=== PATIENT | male | born 1950 | race African-American/Black ===

== ENCOUNTER 2016-02-28 13:52 | Emergency (ER) | payer MEDICARE, OTHER ==
[2016-02-28] MEDS ORDERED: guaiFENesin/DEXTROMETHORPHAN 10 ML UDC PO STA (15:10)
[2016-02-28] MEDS ORDERED: ALBUTEROL NEB 2.5 MG/3 ML INH STA (15:17)
[2016-02-28] MEDS ORDERED: ALBUTEROL NEB 2.5 MG/3 ML INH ONE (15:28)
== END 2016-02-28 16:46 | disposition home or self-care (01) ==
DX: J40 Bronchitis, not specified as acute or chronic (principal); I10 Essential (primary) hypertension; E10.9 Type 1 diabetes mellitus without complications; Z79.4 Long term (current) use of insulin
CPT/HCPCS: 71020; 87275; 87276; 94640; 99283; 99284; A9270; J7613

== ENCOUNTER 2016-03-01 | Emergency (ER) | payer MEDICARE, OTHER | END 2016-03-01 13:53 | disposition home or self-care (01) ==

== ENCOUNTER 2016-03-04 21:49 | Emergency (ER) | payer MEDICARE, OTHER ==
[2016-03-04] MEDS ORDERED: ONDANSETRON 4 MG/2 ML VIAL IVP STA (22:07)
[2016-03-04] MEDS ORDERED: SODIUM CHLORIDE 0.9% 1,000 ML IV ONE (22:07)
[2016-03-04] MEDS ORDERED: IPRATROPIUM/ALBUTEROL 3 ML NEB INH STA (22:22)
[2016-03-04] MEDS ORDERED: IPRATROPIUM/ALBUTEROL 3 ML NEB INH ONE (22:35)
[2016-03-04] MEDS ORDERED: ONDANSETRON 4 MG/2 ML VIAL ONE (23:11)
== END 2016-03-05 01:37 | disposition home or self-care (01) ==
DX: J10.1 Influenza due to other identified influenza virus with other respiratory manifestations (principal); I10 Essential (primary) hypertension; E10.9 Type 1 diabetes mellitus without complications; Z79.4 Long term (current) use of insulin
CPT/HCPCS: 36415; 80053; 83690; 83735; 84100; 85025; 87275; 87276; 94640; 96361; 96374; 99283; 99284; J7620

== ENCOUNTER 2016-07-13 00:39 | Emergency (ER) | payer MEDICARE, OTHER ==
[2016-07-13 00:53] VITALS: BP 174/100
[2016-07-13 03:00] LABS: BASOPHILS % (AUTO) 0.1 %; EOSINOPHILS # (AUTO) 0.1 10^3/uL (0.0-0.7); EOSINOPHILS % (AUTO) 0.6 %; HCT - HEMATOCRIT 42.4 % (42.0-52.0); HGB - HEMOGLOBIN 14.7 g/dL (14.0-18.0); LYMPHOCYTES # (AUTO) 1.5 10^3/uL (1.5-3.5); LYMPHOCYTES % (AUTO) 16.4 %; MEAN CORPUSCULAR HEMOGLOBIN 32.1 pg (27.0-31.0); MEAN CORPUSCULAR HGB CONC 34.7 g/dL (32.0-36.0); MEAN CORPUSCULAR VOLUME 92.3 fL (80.0-94.0); MONOCYTES # (AUTO) 0.6 10^3/uL (0.0-1.0); MONOCYTES % (AUTO) 5.9 %; NEUTROPHILS # (AUTO) 7.2 10^3/uL (1.5-6.6); RED BLOOD COUNT 4.59 10^6/uL (4.70-6.10); RED CELL DISTRIBUTION WIDTH 13.7 % (12.0-15.0); UNCORRECTED WHITE BLOOD COUNT 9.4 x10^3/uL; WHITE BLOOD COUNT 9.4 x10^3/uL (4.8-10.8)
[2016-07-13 03:07] LABS: ALBUMIN/GLOBULIN RATIO 1.3 (1.0-2.2); CALCIUM 9.8 mg/dL (8.5-10.3); CREATININE 1.2 mg/dL (0.6-1.2); POTASSIUM 4.1 mmol/L (3.5-5.0); TOTAL PROTEIN 8.4 g/dL (6.7-8.2)
--- NOTE | 2016-07-13 03:33 | ED Physician Documentation ---
PD HPI ABD PAIN - Stated complaint Stated Complaint: VOMITING,ABDOMINAL PAIN - Chief complaint Chief Complaint: Abd Pain - History obtained from History obtained from: Patient - History of Present Illness Timing - onset: How many days ago (3) Timing - duration: Days Timing - details: Gradual onset, Waxing and waning Quality: Other (burning) Radiation: Chest (midline) Improved by: Other (no ameliorating factors) Worsened by: Other (no exacerbating factors) Associated symptoms: Nausea. No: Fever, Vomiting Similar symptoms before: Diagnosis (similar (albeit more intense) to previous episodes of reflux/GERD) Recently seen: Not recently seen Review of Systems Constitutional: denies: Fever, Chills, Sweats Cardiac: reports: Chest pain / pressure Respiratory: reports: Reviewed and negative GI: reports: Nausea. denies: Abdominal Pain, Vomiting PD PAST MEDICAL HISTORY - Past Medical History Cardiovascular: High cholesterol, Angina, Hypertension Respiratory: None Neuro: None Endocrine/Autoimmune: Type 1 diabetes GI: GERD : Kidney stones, None HEENT: Glaucoma Psych: Post traumatic stress disorder Musculoskeletal: Osteoarthritis Derm: Psoriasis - Past Surgical History Past Surgical History: Yes General: Colonoscopy, EGD Ortho: Arthroscopic surgery Cardiovascular: Angioplasty HEENT: Cataracts - Present Medications Home Medications: Ambulatory Orders Medication Instructions Recorded Confirmed Insulin Aspart (Vial) [NovoLOG] 20 unit SQ TIDWM 10/28/12 02/11/16 Pantoprazole Sodium [Protonix] 40 mg PO DAILY 11/06/13 07/13/16 Ondansetron Odt [Zofran] 4 mg TL Q6H PRN #10 tablet 02/08/15 02/11/16 Insulin Glargine,Hum.rec.anlog 80 unit 02/11/16 [Logan Miles] predniSONE [Deltasone] 60 mg PO DAILY 5 Days 02/28/16 Chlorthalidone [Chlorthalidone] 07/13/16 Doxazosin [Cardura] 4 mg PO DAILY 07/13/16 07/13/16 Finasteride [Proscar] 5 mg ORAL DAILY 07/13/16 07/13/16 Losartan Potassium [Losartan 100 mg ORAL DAILY 07/13/16 07/13/16 Potassium] Metoprolol Succinate 50 mg ORAL DAILY 07/13/16 07/13/16 Ondansetron HCl [Zofran] 4 mg PO Q6HR PRN #20 tablet 07/13/16 Phenobarb/Hyoscy/Atropine/Scop 16.2 mg PO BID PRN #20 tablet 07/13/16 [ Tablet] Sucralfate 1 gm PO QID #60 tablet 07/13/16 raNITIdine [Zantac] 150 mg PO DAILY 07/13/16 07/13/16 - Allergies Allergies/Adverse Reactions: Allergies Allergy/AdvReac Type Severity Reaction Status Date / Time aspirin Allergy resp Verified 07/13/16 00:49 hydrocodone bitartrate * Allergy unknown Verified 07/13/16 00:49 [From Vicodin] hydroxyzine HCl * Allergy unknown Verified 07/13/16 00:49 [From Vistaril] hydroxyzine pamoate * Allergy unknown Verified 07/13/16 00:49 [From Vistaril] meperidine HCl * Allergy unknown Verified 07/13/16 00:49 [From Demerol] morphine Allergy Unknown Verified 07/13/16 00:49 procaine HCl * Allergy Unknown Verified 07/13/16 00:49 [From Novocain] lactose AdvReac Cramps Verified 07/13/16 00:49 promethazine HCl * AdvReac Unknown Verified 07/13/16 00:49 [From Phenergan] eggs Allergy Respiratory Uncoded 07/13/16 00:49 - Social History Does the pt smoke?: No Smoking Status: Never smoker Does the pt drink ETOH?: No Does the pt have substance abuse?: No - Immunizations Immunizations are current?: Yes - POLST Patient has POLST: No PD ED PE NORMAL - Vitals Vital signs reviewed: Yes - General General: Alert and oriented X 3, Well developed/nourished, Other (appears uncomfortable) - Cardiac Cardiac: RRR, No murmur - Respiratory Respiratory: No respiratory distress, Clear bilaterally - Abdomen Abdomen: Soft, Non tender Results - Vitals Vitals: Oxygen O2 Source Room air - Labs Labs: Laboratory Tests 07/13/16 07/13/16 02:35 02:35 WBC 9.4 RBC 4.59 L Hgb 14.7 Hct 42.4 MCV 92.3 MCH 32.1 H MCHC 34.7 RDW 13.7 Plt Count 205 MPV 9.0 Neut # 7.2 H Lymph # 1.5 [place] # 0.6 Eos # 0.1 Baso # 0.0 Absolute Nucleated RBC 0.00 Nucleated RBCs 0.0 Sodium 135 Potassium 4.1 Chloride 95 L Carbon Dioxide 30 Anion Gap 10.0 BUN 20 Creatinine 1.2 Estimated GFR (MDRD) 73 L Glucose 269 H Calcium 9.8 Total Bilirubin 1.0 AST 20 ALT 26 Alkaline Phosphatase 81 Total Protein 8.4 H Albumin 4.8 Globulin 3.6 Albumin/Globulin Ratio 1.3 Lipase 20 L PD MEDICAL DECISION MAKING - ED course Complexity details: reviewed results, re-evaluated patient, considered differential, d/w patient ED course: Patient reported significant improvement after GI cocktail (maalox, lidocaine, donnatol), zofran, and carafate Departure - Departure Disposition: 01 Home, Self Care Clinical Impression: Hyperglycemia due to type 1 diabetes mellitus, Gastroesophageal reflux disease Condition: Good Instructions: ED GERD Follow-Up: Jazmin Morel DO [Primary Care Provider] - Prescriptions: Ondansetron HCl [Zofran] 4 mg PO Q6HR PRN #20 tablet PRN Reason: Nausea / Vomiting Phenobarb/Hyoscy/Atropine/Scop [ Tablet] 16.2 mg PO BID PRN #20 tablet PRN Reason: Abdominal Pain Sucralfate 1 gm PO QID #60 tablet Discharge Date/Time: 07/13/16 04:22
[2016-07-13] MEDS ORDERED: ONDANSETRON 4 MG/2 ML VIAL IVP STA (03:52)
[2016-07-13] MEDS ORDERED: MAG HYDROX/AL HYDROX/SIMETH 30 ML UDC PO STA (03:52)
[2016-07-13] MEDS ORDERED: SUCRALFATE 1 GM/10 ML UDC PO STA (03:53)
[2016-07-13] MEDS ORDERED: LIDOCAINE VISCOUS 2% 15 ML UDC MM STA (03:53)
[2016-07-13] MEDS ORDERED: PHENobarb/HYOSCY/ATROPINE/SCOP 5 ML SYRINGE PO STA (03:53)
[2016-07-13] MEDS ORDERED: MAG HYDROX/AL HYDROX/SIMETH 30 ML UDC ONE (03:58)
[2016-07-13] MEDS ORDERED: SUCRALFATE 1 GM/10 ML UDC ONE (03:58)
[2016-07-13] MEDS ORDERED: PHENobarb/HYOSCY/ATROPINE/SCOP 5 ML SYRINGE PO ONE (03:58)
[2016-07-13] MEDS ORDERED: ONDANSETRON 4 MG/2 ML VIAL ONE (03:58)
== END 2016-07-13 04:22 | disposition home or self-care (01) ==
LOC: ED 00:39
DX: E10.65 Type 1 diabetes mellitus with hyperglycemia (principal); Z79.4 Long term (current) use of insulin; K21.9 Gastro-esophageal reflux disease without esophagitis; I10 Essential (primary) hypertension; E78.00 Pure hypercholesterolemia, unspecified; M19.90 Unspecified osteoarthritis, unspecified site
CPT/HCPCS: 36415; 80053; 83690; 85025; 96374; 99283; A9270

== ENCOUNTER 2016-08-16 17:46 | Emergency (ER) | payer MEDICARE, OTHER ==
[2016-08-16 18:01] VITALS: BP 153/91
[2016-08-16] MEDS ORDERED: diphenhydrAMINE 25 MG CAPSULE PO STA (18:59)
[2016-08-16] MEDS ORDERED: diphenhydrAMINE 25 MG CAPSULE PO ONE (19:01)
--- NOTE | 2016-08-16 19:01 | ED Physician Documentation ---
PD HPI SKIN - Stated complaint Stated Complaint: RT ARM SWELLING - Chief complaint Chief Complaint: Allergic Rx - History obtained from History obtained from: Patient - History of Present Illness Timing - onset: Other (Had allergy testing today and shortly after leaving the clinic he describes a red painful area of the right forearm were one of the injections was done. He denies shortness of breath, throat swelling.) Review of Systems Constitutional: denies: Fever, Chills Nose: denies: Rhinorrhea / runny nose, Congestion Throat: denies: Sore throat Cardiac: denies: Chest pain / pressure, Palpitations PD PAST MEDICAL HISTORY - Past Medical History Cardiovascular: High cholesterol, Angina, Hypertension Respiratory: None Neuro: None Endocrine/Autoimmune: Type 1 diabetes GI: GERD : Kidney stones, None HEENT: Glaucoma Psych: Post traumatic stress disorder Musculoskeletal: Osteoarthritis Derm: Psoriasis - Past Surgical History Past Surgical History: Yes General: Colonoscopy, EGD Ortho: Arthroscopic surgery Cardiovascular: Angioplasty HEENT: Cataracts - Present Medications Home Medications: Ambulatory Orders Medication Instructions Recorded Confirmed Insulin Aspart (Vial) [NovoLOG] 20 unit SQ TIDWM 10/28/12 02/11/16 Pantoprazole Sodium [Protonix] 40 mg PO DAILY 11/06/13 07/13/16 Ondansetron Odt [Zofran] 4 mg TL Q6H PRN #10 tablet 02/08/15 02/11/16 Insulin Glargine,Hum.rec.anlog 80 unit 02/11/16 [Logan Miles] predniSONE [Deltasone] 60 mg PO DAILY 5 Days 02/28/16 Chlorthalidone [Chlorthalidone] 07/13/16 Doxazosin [Cardura] 4 mg PO DAILY 07/13/16 07/13/16 Finasteride [Proscar] 5 mg ORAL DAILY 07/13/16 07/13/16 Losartan Potassium [Losartan 100 mg ORAL DAILY 07/13/16 07/13/16 Potassium] Metoprolol Succinate 50 mg ORAL DAILY 07/13/16 07/13/16 Ondansetron HCl [Zofran] 4 mg PO Q6HR PRN #20 tablet 07/13/16 Phenobarb/Hyoscy/Atropine/Scop 16.2 mg PO BID PRN #20 tablet 07/13/16 [ Tablet] Sucralfate 1 gm PO QID #60 tablet 07/13/16 raNITIdine [Zantac] 150 mg PO DAILY 07/13/16 07/13/16 - Allergies Allergies/Adverse Reactions: Allergies Allergy/AdvReac Type Severity Reaction Status Date / Time aspirin Allergy resp Verified 08/16/16 18:02 hydrocodone bitartrate * Allergy unknown Verified 08/16/16 18:02 [From Vicodin] hydroxyzine HCl * Allergy unknown Verified 08/16/16 18:02 [From Vistaril] hydroxyzine pamoate * Allergy unknown Verified 08/16/16 18:02 [From Vistaril] meperidine HCl * Allergy unknown Verified 08/16/16 18:02 [From Demerol] morphine Allergy Unknown Verified 08/16/16 18:02 procaine HCl * Allergy Unknown Verified 08/16/16 18:02 [From Novocain] lactose AdvReac Cramps Verified 08/16/16 18:02 promethazine HCl * AdvReac Unknown Verified 08/16/16 18:02 [From Phenergan] eggs Allergy Respiratory Uncoded 08/16/16 18:02 - Social History Does the pt smoke?: No Smoking Status: Never smoker Does the pt drink ETOH?: No Does the pt have substance abuse?: No - Immunizations Immunizations are current?: Yes - POLST Patient has POLST: No PD ED PE NORMAL - Vitals Vital signs reviewed: Yes - General General: Alert and oriented X 3, No acute distress - HEENT HEENT: Pharynx benign - Respiratory Respiratory: No respiratory distress, Clear bilaterally - Extremities Extremities: Other (He points to an area just distal to the right a.c. fossa laterally as the site of redness and swelling, but neither I nor the nurse or able to appreciate any rash/swelling/abnormality. He has full range of motion and is nontender.) - Neuro Neuro: Alert and oriented X 3, Normal speech - Psych Psych: Normal mood, Normal affect Results - Vitals Vitals: Vital Signs - 24 hr 08/16/16 17:55 Temperature 36.3 C L Heart Rate 99 Respiratory 14 Rate Blood Pressure 153/91 H O2 Saturation 98 Oxygen O2 Source Room air Departure - Departure Disposition: 01 Home, Self Care Clinical Impression: Skin irritation Condition: Good Record reviewed to determine appropriate education?: Yes Comments: Benadryl as needed for the itching. Call the [facility]oker mechanic office tomorrow to let them know about the reaction. Return if worse. Your blood pressure was elevated today on check in to the emergency department. This does not mean that you have hypertension, it is a common phenomenon to check into the emergency department and have elevated blood pressure. I recommend that you see your primary care physician within the week to have it rechecked when you're feeling better. Discharge Date/Time: 08/16/16 19:06
== END 2016-08-16 19:06 | disposition home or self-care (01) ==
LOC: ED 17:46
DX: L98.9 Disorder of the skin and subcutaneous tissue, unspecified (principal); I10 Essential (primary) hypertension; E10.9 Type 1 diabetes mellitus without complications; Z79.4 Long term (current) use of insulin; E78.00 Pure hypercholesterolemia, unspecified; K21.9 Gastro-esophageal reflux disease without esophagitis; Z87.442 Personal history of urinary calculi; M19.90 Unspecified osteoarthritis, unspecified site
CPT/HCPCS: 99282; 99283; A9270

== ENCOUNTER 2016-08-19 04:55 | Emergency (ER) | payer MEDICARE, OTHER ==
--- NOTE | 2016-08-19 05:07 | ED Physician Documentation ---
PD HPI NVD - Stated complaint Stated Complaint: VOMITING - Chief complaint Chief Complaint: General - History obtained from History obtained from: Patient - History of Present Illness Timing - onset: Yesterday Timing - details: Abrupt onset, Still present Associated symptoms: Loss of appetite. No: Abdominal pain, Near syncope / syncope (but is feeling some lightheaded and weak this morning.) Contributing factors: Other (he had had reaction to allergy testing and was having some dyspnea/wheezing with it. Started on steroids Prednisone yesterday for that, and he says he started with nausea and vomiting shortly after taking that med. VOmiting overnight and did not take morning dose of Prednisone. Still with nausea and episodic vomiting. Denies abdominal pain nor bloating, but is having a lot of esophageal pain from the stomach acids/vomtiing.). No: Sick contact, Bad food, Travel, Recent antibiotics Worsened by: Eating Similar symptoms before: Diagnosis (GERD) Recently seen: Clinic Review of Systems Constitutional: denies: Fever, Chills Nose: denies: Rhinorrhea / runny nose, Congestion Throat: denies: Sore throat Respiratory: denies: Cough GI: reports: Nausea, Vomiting. denies: Abdominal Swelling, Diarrhea, Hematemesis, Bloody / black stool Skin: denies: Rash, Lesions Musculoskeletal: denies: Back pain Neurologic: reports: Generalized weakness. denies: Focal weakness, Numbness, Near syncope, Altered mental status Endocrine: denies: Weight loss PD PAST MEDICAL HISTORY - Past Medical History Cardiovascular: High cholesterol, Angina, Hypertension Respiratory: None Neuro: None Endocrine/Autoimmune: Type 1 diabetes GI: GERD : Kidney stones, None HEENT: Glaucoma Psych: Post traumatic stress disorder Musculoskeletal: Osteoarthritis Derm: Psoriasis - Past Surgical History Past Surgical History: Yes General: Colonoscopy, EGD Ortho: Arthroscopic surgery Cardiovascular: Angioplasty HEENT: Cataracts - Present Medications Home Medications: Ambulatory Orders Medication Instructions Recorded Confirmed Insulin Aspart (Vial) [NovoLOG] 20 unit SQ TIDWM 10/28/12 08/19/16 Pantoprazole Sodium [Protonix] 40 mg PO DAILY 11/06/13 08/19/16 Ondansetron Odt [Zofran] 4 mg TL Q6H PRN #10 tablet 02/08/15 08/19/16 Insulin Glargine,Hum.rec.anlog 80 unit SQ BID 02/11/16 08/19/16 [Logan Miles] predniSONE [Deltasone] 60 mg PO DAILY 5 Days 02/28/16 08/19/16 Chlorthalidone [Chlorthalidone] 25 mg PO DAILY 07/13/16 08/19/16 Doxazosin [Cardura] 4 mg PO DAILY 07/13/16 08/19/16 Finasteride [Proscar] 5 mg ORAL DAILY 07/13/16 08/19/16 Losartan Potassium [Losartan 100 mg ORAL DAILY 07/13/16 08/19/16 Potassium] Metoprolol Succinate 50 mg ORAL DAILY 07/13/16 08/19/16 Ondansetron HCl [Zofran] 4 mg PO Q6HR PRN #20 tablet 07/13/16 08/19/16 Phenobarb/Hyoscy/Atropine/Scop 16.2 mg PO BID PRN #20 tablet 07/13/16 08/19/16 [ Tablet] Sucralfate 1 gm PO QID #60 tablet 07/13/16 08/19/16 raNITIdine [Zantac] 150 mg PO DAILY 07/13/16 08/19/16 Metoclopramide [Reglan] 10 mg PO Q6H PRN #15 tablet 08/19/16 Ondansetron Odt [Zofran] 4 mg TL Q6H PRN #15 tablet 08/19/16 Sucralfate 1 gm PO QID #40 tablet 08/19/16 - Allergies Allergies/Adverse Reactions: Allergies Allergy/AdvReac Type Severity Reaction Status Date / Time aspirin Allergy resp Verified 08/19/16 05:06 hydrocodone bitartrate * Allergy unknown Verified 08/19/16 05:06 [From Vicodin] hydroxyzine HCl * Allergy unknown Verified 08/19/16 05:06 [From Vistaril] hydroxyzine pamoate * Allergy unknown Verified 08/19/16 05:06 [From Vistaril] meperidine HCl * Allergy unknown Verified 08/19/16 05:06 [From Demerol] morphine Allergy Unknown Verified 08/19/16 05:06 procaine HCl * Allergy Unknown Verified 08/19/16 05:06 [From Novocain] lactose AdvReac Cramps Verified 08/19/16 05:06 promethazine HCl * AdvReac Unknown Verified 08/19/16 05:06 [From Phenergan] eggs Allergy Respiratory Uncoded 08/19/16 05:06 - Social History Does the pt smoke?: No Smoking Status: Never smoker Does the pt drink ETOH?: No Does the pt have substance abuse?: No - Immunizations Immunizations are current?: Yes - POLST Patient has POLST: No PD ED PE NORMAL - Vitals Vital signs reviewed: Yes - General General: Alert and oriented X 3, Well developed/nourished, Other (appears uncomfortable from vomiting. ) - HEENT HEENT: Atraumatic, PERRL (nonicteric), Pharynx benign - Neck Neck: Supple, no meningeal sign, No adenopathy - Cardiac Cardiac: RRR, No murmur - Respiratory Respiratory: Clear bilaterally - Abdomen Abdomen: Normal bowel sounds, Soft, Non distended, No organomegaly, Other (some epigastric tenderness without guarding. No percussion tehnrds) - Back Back: No CVA TTP - Derm Derm: Normal color, Warm and dry - Neuro Neuro: Alert and oriented X 3, No motor deficit, Normal speech Results - Vitals Vitals: Vital Signs - 24 hr 08/19/16 08/19/16 08/19/16 04:58 05:34 05:53 Temperature 36.4 C L Heart Rate 88 81 75 Respiratory 16 16 16 Rate Blood Pressure 175/77 H 140/79 H 147/93 H O2 Saturation 99 100 99 08/19/16 08/19/16 06:28 07:07 Temperature Heart Rate 88 72 Respiratory 18 16 Rate Blood Pressure 165/77 H 124/77 O2 Saturation 100 100 Oxygen O2 Source Room air - Labs Labs: Laboratory Tests 08/19/16 08/19/16 08/19/16 05:03 05:20 05:20 WBC 12.0 H RBC 4.59 L Hgb 14.2 Hct 42.6 MCV 92.8 MCH 31.0 MCHC 33.5 RDW 13.3 Plt Count 221 MPV 8.5 Neut # 10.4 H Lymph # 1.0 L [place] # 0.5 Eos # 0.0 Baso # 0.0 Absolute Nucleated RBC 0.01 Nucleated RBCs 0.0 Sodium 137 Potassium 4.6 Chloride 98 L Carbon Dioxide 28 Anion Gap 11.0 BUN 24 H Creatinine 1.4 H Estimated GFR (MDRD) 61 L Glucose 201 H POC Whole Bld Glucose 189 H Calcium 10.2 Magnesium 1.7 Total Bilirubin 0.9 AST 25 ALT 30 Alkaline Phosphatase 71 Total Protein 8.3 H Albumin 4.5 Globulin 3.8 Albumin/Globulin Ratio 1.2 Lipase 20 L PD MEDICAL DECISION MAKING - ED course Complexity details: reviewed results, re-evaluated patient (still nauseated after ZOfran. Will try Reglan and Tylenol IV. Having esophageal discomfort from the vomiting, but he is allergic to ulises, so did not give lidocaine. Mylanta and Sucralfate given with some improvement. ), considered differential, d/w patient Departure - Departure Clinical Impression: Steroid side effects Vomiting Qualifiers: Vomiting type: bilious vomiting Nausea presence: with nausea Qualified Code(s) : R11.14 - Bilious vomiting Gastritis Qualifiers: Gastritis type: other gastritis Chronicity: acute Gastritis bleeding: without bleeding Qualified Code(s): K29.00 - Acute gastritis without bleeding Condition: Stable Record reviewed to determine appropriate education?: Yes Instructions: ED Gastritis Follow-Up: Jazmin Morel DO [Primary Care Provider] - Prescriptions: Metoclopramide [Reglan] 10 mg PO Q6H PRN #15 tablet PRN Reason: Nausea / Vomiting Sucralfate 1 gm PO QID #40 tablet Ondansetron Odt [Zofran] 4 mg TL Q6H PRN #15 tablet PRN Reason: Nausea / Vomiting Comments: Small fluids often today, and bland food as tolerated. Tylenol for pains. Sucralfate 4 times daily for the next several days to a week. Reglan and/or Ondansatron for nausea. Recheck if not improved over the next 1-2 days. Follow up for your planned gastroscopy/colonoscopy next week as planned.
[2016-08-19] MEDS ORDERED: FAMOTIDINE 20 MG/50 ML 50 ML IV ONE ×2 (05:17→05:26)
[2016-08-19] MEDS ORDERED: SUCRALFATE 1 GM/10 ML UDC PO STA (05:17)
[2016-08-19] MEDS ORDERED: ONDANSETRON 4 MG/2 ML VIAL ONE ×2 (05:17→06:28)
[2016-08-19] MEDS ORDERED: ONDANSETRON 4 MG/2 ML VIAL IVP STA ×2 (05:17→06:28)
[2016-08-19] MEDS ORDERED: SODIUM CHLORIDE 0.9% 1,000 ML IV ONE ×2 (05:17)
[2016-08-19] MEDS ORDERED: SUCRALFATE 1 GM/10 ML UDC ONE (05:25)
[2016-08-19 05:30] LABS: BASOPHILS % (AUTO) 0.4 %; HCT - HEMATOCRIT 42.6 % (42.0-52.0); HGB - HEMOGLOBIN 14.2 g/dL (14.0-18.0); LYMPHOCYTES % (AUTO) 8.4 %; MEAN CORPUSCULAR HGB CONC 33.5 g/dL (32.0-36.0); MEAN CORPUSCULAR VOLUME 92.8 fL (80.0-94.0); MEAN PLATELET VOLUME 8.5 fL (7.4-11.4); MONOCYTES # (AUTO) 0.5 10^3/uL (0.0-1.0); MONOCYTES % (AUTO) 4.2 %; NEUTROPHILS # (AUTO) 10.4 10^3/uL (1.5-6.6); RED BLOOD COUNT 4.59 10^6/uL (4.70-6.10); RED CELL DISTRIBUTION WIDTH 13.3 % (12.0-15.0)
[2016-08-19 05:41] LABS: ALBUMIN/GLOBULIN RATIO 1.2 (1.0-2.2); BILIRUBIN,TOTAL 0.9 mg/dL (0.2-1.0); CALCIUM 10.2 mg/dL (8.5-10.3); CREATININE 1.4 mg/dL (0.6-1.2); MAGNESIUM 1.7 mg/dL (1.7-2.8); POTASSIUM 4.6 mmol/L (3.5-5.0); TOTAL PROTEIN 8.3 g/dL (6.7-8.2)
[2016-08-19] MEDS ORDERED: MAG HYDROX/AL HYDROX/SIMETH 30 ML UDC ONE (06:44)
[2016-08-19] MEDS ORDERED: MAG HYDROX/AL HYDROX/SIMETH 30 ML UDC PO STA (06:44)
[2016-08-19] MEDS ORDERED: METOCLOPRAMIDE 10 MG/2 ML VIAL IVP STA (07:47)
[2016-08-19] MEDS ORDERED: ACETAMINOPHEN 1,000 MG/100 ML 100 ML IV STA (07:48)
[2016-08-19] MEDS ORDERED: ACETAMINOPHEN 1,000 MG/100 ML 100 ML IV ONE (07:50)
[2016-08-19] MEDS ORDERED: METOCLOPRAMIDE 10 MG/2 ML VIAL ONE (07:50)
[2016-08-19 08:25] VITALS: BP 121/67
--- NOTE | 2016-08-19 10:49 | ED Physician Documentation ---
PD HPI ABD PAIN - Stated complaint Stated Complaint: VOMITING - Chief complaint Chief Complaint: Abd Pain PD PAST MEDICAL HISTORY - Past Medical History Past Medical History: Yes Cardiovascular: High cholesterol, Angina, Hypertension Respiratory: None Neuro: None Endocrine/Autoimmune: Type 1 diabetes GI: GERD : Kidney stones, None HEENT: Glaucoma Psych: Post traumatic stress disorder Musculoskeletal: Osteoarthritis Derm: Psoriasis - Past Surgical History Past Surgical History: Yes General: Colonoscopy, EGD Ortho: Arthroscopic surgery Cardiovascular: Angioplasty HEENT: Cataracts - Present Medications Home Medications: Ambulatory Orders Medication Instructions Recorded Confirmed Insulin Aspart (Vial) [NovoLOG] 20 unit SQ TIDWM 10/28/12 08/19/16 Pantoprazole Sodium [Protonix] 40 mg PO DAILY 11/06/13 08/19/16 Ondansetron Odt [Zofran] 4 mg TL Q6H PRN #10 tablet 02/08/15 08/19/16 Insulin Glargine,Hum.rec.anlog 80 unit SQ BID 02/11/16 08/19/16 [Logan Miles] predniSONE [Deltasone] 60 mg PO DAILY 5 Days 02/28/16 08/19/16 Chlorthalidone [Chlorthalidone] 25 mg PO DAILY 07/13/16 08/19/16 Doxazosin [Cardura] 4 mg PO DAILY 07/13/16 08/19/16 Finasteride [Proscar] 5 mg ORAL DAILY 07/13/16 08/19/16 Losartan Potassium [Losartan 100 mg ORAL DAILY 07/13/16 08/19/16 Potassium] Metoprolol Succinate 50 mg ORAL DAILY 07/13/16 08/19/16 Ondansetron HCl [Zofran] 4 mg PO Q6HR PRN #20 tablet 07/13/16 08/19/16 Phenobarb/Hyoscy/Atropine/Scop 16.2 mg PO BID PRN #20 tablet 07/13/16 08/19/16 [ Tablet] Sucralfate 1 gm PO QID #60 tablet 07/13/16 08/19/16 raNITIdine [Zantac] 150 mg PO DAILY 07/13/16 08/19/16 Metoclopramide [Reglan] 10 mg PO Q6H PRN #15 tablet 08/19/16 Ondansetron Odt [Zofran] 4 mg TL Q6H PRN #15 tablet 08/19/16 Sucralfate 1 gm PO QID #40 tablet 08/19/16 - Allergies Allergies/Adverse Reactions: Allergies Allergy/AdvReac Type Severity Reaction Status Date / Time aspirin Allergy resp Verified 08/19/16 05:06 hydrocodone bitartrate * Allergy unknown Verified 08/19/16 05:06 [From Vicodin] hydroxyzine HCl * Allergy unknown Verified 08/19/16 05:06 [From Vistaril] hydroxyzine pamoate * Allergy unknown Verified 08/19/16 05:06 [From Vistaril] meperidine HCl * Allergy unknown Verified 08/19/16 05:06 [From Demerol] morphine Allergy Unknown Verified 08/19/16 05:06 procaine HCl * Allergy Unknown Verified 08/19/16 05:06 [From Novocain] lactose AdvReac Cramps Verified 08/19/16 05:06 promethazine HCl * AdvReac Unknown Verified 08/19/16 05:06 [From Phenergan] eggs Allergy Respiratory Uncoded 08/19/16 05:06 - Social History Does the pt smoke?: No Smoking Status: Never smoker Does the pt drink ETOH?: No Does the pt have substance abuse?: No - Immunizations Immunizations are current?: Yes - POLST Patient has POLST: No Results - Vitals Vitals: Vital Signs - 24 hr 08/19/16 08/19/16 08/19/16 04:58 05:34 05:53 Temperature 36.4 C L Heart Rate 88 81 75 Respiratory 16 16 16 Rate Blood Pressure 175/77 H 140/79 H 147/93 H O2 Saturation 99 100 99 08/19/16 08/19/16 08/19/16 06:28 07:07 08:24 Temperature 36.6 C Heart Rate 88 72 74 Respiratory 18 16 18 Rate Blood Pressure 165/77 H 124/77 121/67 O2 Saturation 100 100 100 Oxygen O2 Source Room air - Labs Labs: Laboratory Tests 08/19/16 08/19/16 08/19/16 05:03 05:20 05:20 WBC 12.0 H RBC 4.59 L Hgb 14.2 Hct 42.6 MCV 92.8 MCH 31.0 MCHC 33.5 RDW 13.3 Plt Count 221 MPV 8.5 Neut # 10.4 H Lymph # 1.0 L [place] # 0.5 Eos # 0.0 Baso # 0.0 Absolute Nucleated RBC 0.01 Nucleated RBCs 0.0 Sodium 137 Potassium 4.6 Chloride 98 L Carbon Dioxide 28 Anion Gap 11.0 BUN 24 H Creatinine 1.4 H Estimated GFR (MDRD) 61 L Glucose 201 H POC Whole Bld Glucose 189 H Calcium 10.2 Magnesium 1.7 Total Bilirubin 0.9 AST 25 ALT 30 Alkaline Phosphatase 71 Total Protein 8.3 H Albumin 4.5 Globulin 3.8 Albumin/Globulin Ratio 1.2 Lipase 20 L Departure - Departure Disposition: 01 Home, Self Care Clinical Impression: Steroid side effects Vomiting Qualifiers: Vomiting type: bilious vomiting Nausea presence: with nausea Qualified Code(s) : R11.14 - Bilious vomiting Gastritis Qualifiers: Gastritis type: other gastritis Chronicity: acute Gastritis bleeding: without bleeding Qualified Code(s): K29.00 - Acute gastritis without bleeding Condition: Stable Instructions: ED Gastritis Follow-Up: Jazmin Morel DO [Primary Care Provider] - Prescriptions: Metoclopramide [Reglan] 10 mg PO Q6H PRN #15 tablet PRN Reason: Nausea / Vomiting Sucralfate 1 gm PO QID #40 tablet Ondansetron Odt [Zofran] 4 mg TL Q6H PRN #15 tablet PRN Reason: Nausea / Vomiting Comments: Small fluids often today, and bland food as tolerated. Tylenol for pains. Sucralfate 4 times daily for the next several days to a week. Reglan and/or Ondansatron for nausea. Recheck if not improved over the next 1-2 days. Follow up for your planned gastroscopy/colonoscopy next week as planned. Discharge Date/Time: 08/19/16 08:33
== END 2016-08-19 08:33 | disposition home or self-care (01) ==
LOC: ED 04:55
DX: K29.00 Acute gastritis without bleeding (principal); R11.14 Bilious vomiting; T38.0X5A Adverse effect of glucocorticoids and synthetic analogues, initial encounter; K21.9 Gastro-esophageal reflux disease without esophagitis; E10.9 Type 1 diabetes mellitus without complications; Z79.4 Long term (current) use of insulin; I10 Essential (primary) hypertension
CPT/HCPCS: 36415; 80053; 83690; 83735; 85025; 96361; 96365; 96375; 96376; 99284; A9270; J0131

== ENCOUNTER 2016-09-17 17:47 | Emergency (ER) | payer MEDICARE, OTHER ==
[2016-09-17] MEDS ORDERED: SUCRALFATE 1 GM/10 ML UDC PO STA (18:19)
[2016-09-17] MEDS ORDERED: ONDANSETRON 4 MG/2 ML VIAL IVP STA (18:19)
[2016-09-17] MEDS ORDERED: ONDANSETRON 4 MG/2 ML VIAL ONE (18:25)
[2016-09-17] MEDS ORDERED: SUCRALFATE 1 GM/10 ML UDC ONE (18:25)
[2016-09-17 18:34] LABS: BASOPHILS % (AUTO) 0.3 %; EOSINOPHILS # (AUTO) 0.1 10^3/uL (0.0-0.7); EOSINOPHILS % (AUTO) 0.5 %; HCT - HEMATOCRIT 45.9 % (42.0-52.0); HGB - HEMOGLOBIN 15.6 g/dL (14.0-18.0); LYMPHOCYTES # (AUTO) 3.4 10^3/uL (1.5-3.5); LYMPHOCYTES % (AUTO) 33.1 %; MEAN CORPUSCULAR VOLUME 94.1 fL (80.0-94.0); MEAN PLATELET VOLUME 8.3 fL (7.4-11.4); MONOCYTES % (AUTO) 9.2 %; NEUTROPHILS # (AUTO) 5.9 10^3/uL (1.5-6.6); NEUTROPHILS % (AUTO) 56.9 %; RED BLOOD COUNT 4.88 10^6/uL (4.70-6.10); RED CELL DISTRIBUTION WIDTH 13.3 % (12.0-15.0); UNCORRECTED WHITE BLOOD COUNT 10.4 x10^3/uL; WHITE BLOOD COUNT 10.4 x10^3/uL (4.8-10.8)
[2016-09-17 18:39] LABS: ALBUMIN/GLOBULIN RATIO 1.4 (1.0-2.2); BILIRUBIN,TOTAL 0.9 mg/dL (0.2-1.0); CALCIUM 10.1 mg/dL (8.5-10.3); CREATININE 1.9 mg/dL (0.6-1.2); POTASSIUM 3.3 mmol/L (3.5-5.0); TOTAL PROTEIN 8.3 g/dL (6.7-8.2)
--- NOTE | 2016-09-17 18:50 | ED Physician Documentation ---
PD HPI NVD - Stated complaint Stated Complaint: DIZZY/VOMIT - Chief complaint Chief Complaint: Abd Pain - History obtained from History obtained from: Patient - History of Present Illness Timing - onset: How many weeks ago (1) Timing - duration: Weeks (1) Timing - details: Abrupt onset Pain level max: 7 Pain level now: 5 Associated symptoms: Abdominal pain (epigastric). No: Fever, Chest pain, Hematemesis, Melena, Hematochezia, Dizzy, Near syncope / syncope Contributing factors: No: Sick contact, Bad food, Travel, Recent antibiotics, Alcohol use, Anticoagulated Improved by: Vomiting Worsened by: Eating Similar symptoms before: Diagnosis (gastritis) - Additonal information Additional information: Patient is a 66-year-old male who presents to the emergency department with epigastric abdominal pain and vomiting. States this is typical of his gastritis. Denies any fevers. Review of Systems Constitutional: denies: Fever, Chills Nose: denies: Rhinorrhea / runny nose, Congestion Respiratory: denies: Cough Skin: denies: Rash Musculoskeletal: denies: Neck pain, Back pain Neurologic: denies: Headache PD PAST MEDICAL HISTORY - Past Medical History Cardiovascular: High cholesterol, Angina, Hypertension Respiratory: None Neuro: None Endocrine/Autoimmune: Type 1 diabetes GI: GERD : Kidney stones, None HEENT: Glaucoma Psych: Post traumatic stress disorder Musculoskeletal: Osteoarthritis Derm: Psoriasis - Past Surgical History Past Surgical History: Yes General: Colonoscopy, EGD Ortho: Arthroscopic surgery Cardiovascular: Angioplasty HEENT: Cataracts - Present Medications Home Medications: Ambulatory Orders Medication Instructions Recorded Confirmed Insulin Aspart (Vial) [NovoLOG] 20 unit SQ TIDWM 10/28/12 09/17/16 Pantoprazole Sodium [Protonix] 40 mg PO DAILY 11/06/13 09/17/16 Ondansetron Odt [Zofran] 4 mg TL Q6H PRN #10 tablet 02/08/15 08/19/16 Insulin Glargine,Hum.rec.anlog 80 unit SQ BID 02/11/16 09/17/16 [Logan Miels] predniSONE [Deltasone] 60 mg PO DAILY 5 Days 02/28/16 09/17/16 Chlorthalidone [Chlorthalidone] 25 mg PO DAILY 07/13/16 09/17/16 Doxazosin [Cardura] 4 mg PO DAILY 07/13/16 09/17/16 Finasteride [Proscar] 5 mg ORAL DAILY 07/13/16 09/17/16 Losartan Potassium [Losartan 100 mg ORAL DAILY 07/13/16 09/17/16 Potassium] Metoprolol Succinate 50 mg ORAL DAILY 07/13/16 09/17/16 Ondansetron HCl [Zofran] 4 mg PO Q6HR PRN #20 tablet 07/13/16 09/17/16 Phenobarb/Hyoscy/Atropine/Scop 16.2 mg PO BID PRN #20 tablet 07/13/16 09/17/16 [ Tablet] Sucralfate 1 gm PO QID #60 tablet 07/13/16 09/17/16 raNITIdine [Zantac] 150 mg PO DAILY 07/13/16 09/17/16 Metoclopramide [Reglan] 10 mg PO Q6H PRN #15 tablet 08/19/16 09/17/16 Ondansetron Odt [Zofran] 4 mg TL Q6H PRN #15 tablet 08/19/16 Sucralfate 1 gm PO QID #40 tablet 08/19/16 Ondansetron Odt [Zofran] 4 mg TL Q6H PRN #10 tablet 09/17/16 Sucralfate [Carafate] 1 gm PO ACHS #60 tablet 09/17/16 - Allergies Allergies/Adverse Reactions: Allergies Allergy/AdvReac Type Severity Reaction Status Date / Time aspirin Allergy resp Verified 08/19/16 05:06 hydrocodone bitartrate * Allergy unknown Verified 08/19/16 05:06 [From Vicodin] hydroxyzine HCl * Allergy unknown Verified 08/19/16 05:06 [From Vistaril] hydroxyzine pamoate * Allergy unknown Verified 08/19/16 05:06 [From Vistaril] meperidine HCl * Allergy unknown Verified 08/19/16 05:06 [From Demerol] morphine Allergy Unknown Verified 08/19/16 05:06 procaine HCl * Allergy Unknown Verified 08/19/16 05:06 [From Novocain] lactose AdvReac Cramps Verified 08/19/16 05:06 promethazine HCl * AdvReac Unknown Verified 08/19/16 05:06 [From Phenergan] eggs Allergy Respiratory Uncoded 08/19/16 05:06 opiods Allergy Anaphylaxis Uncoded 09/17/16 17:56 - Social History Does the pt smoke?: No Smoking Status: Never smoker Does the pt drink ETOH?: No Does the pt have substance abuse?: No - Immunizations Immunizations are current?: Yes - POLST Patient has POLST: No PD ED PE NORMAL - Vitals Vital signs reviewed: Yes - General General: Alert and oriented X 3 - HEENT HEENT: PERRL, Moist mucous membranes - Neck Neck: Supple, no meningeal sign - Cardiac Cardiac: RRR, Strong equal pulses - Respiratory Respiratory: No respiratory distress, Clear bilaterally - Abdomen Abdomen: Soft, Non distended, Other (TTP epigastric without peritoneal signs) - Derm Derm: Warm and dry - Neuro Neuro: Alert and oriented X 3 - Psych Psych: Normal mood, Normal affect Results - Vitals Vitals: Vital Signs - 24 hr 09/17/16 09/17/16 09/17/16 17:52 19:08 20:01 Temperature 36.2 C L Heart Rate 88 71 66 Respiratory 22 18 15 Rate Blood Pressure 118/66 117/67 131/64 H O2 Saturation 99 98 100 Oxygen O2 Source Room air - Labs Labs: Laboratory Tests 09/17/16 09/17/16 09/17/16 18:17 18:18 18:18 WBC 10.4 RBC 4.88 Hgb 15.6 Hct 45.9 MCV 94.1 H MCH 32.0 H MCHC 34.0 RDW 13.3 Plt Count 276 MPV 8.3 Neut # 5.9 Lymph # 3.4 [place] # 1.0 Eos # 0.1 Baso # 0.0 Absolute Nucleated RBC 0.00 Nucleated RBCs 0.0 Sodium 135 Potassium 3.3 L Chloride 98 L Carbon Dioxide 28 Anion Gap 9.0 BUN 23 H Creatinine 1.9 H Estimated GFR (MDRD) 43 L Glucose 103 H POC Whole Bld Glucose 84 Calcium 10.1 Total Bilirubin 0.9 AST 23 ALT 22 Alkaline Phosphatase 81 Total Protein 8.3 H Albumin 4.8 Globulin 3.5 Albumin/Globulin Ratio 1.4 Lipase 23 PD MEDICAL DECISION MAKING - ED course Complexity details: reviewed results, re-evaluated patient, considered differential, d/w patient ED course: Patient presents to the emergency department with nausea vomiting and epigastric pain. Given Bentyl, Zofran and Carafate. Symptoms resolved and he is tolerating p.o. without difficulty. States that this is the best that he has felt in several years. He is well-appearing, nontoxic. Afebrile. Will add Carafate to his home regimen and prescribe a small amount of Zofran for him. Patient counseled regarding signs and symptoms for which I believe and urgent re-evaluation would be necessary. Patient with good understanding of and agreement to plan and is comfortable going home at this time This document was made in part using voice recognition software. While efforts are made to proofread this document, sound alike and grammatical errors may occur. Departure - Departure Disposition: 01 Home, Self Care Clinical Impression: Vomiting and diarrhea Gastritis Qualifiers: Gastritis type: unspecified gastritis Chronicity: acute Gastritis bleeding: without bleeding Qualified Code(s): K29.00 - Acute gastritis without bleeding Condition: Good Instructions: ED PUD Vs Gastritis Follow-Up: Jazmin Morel DO [Primary Care Provider] - Within 1 week Prescriptions: Sucralfate [Carafate] 1 gm PO ACHS #60 tablet Ondansetron Odt [Zofran] 4 mg TL Q6H PRN #10 tablet PRN Reason: Nausea / Vomiting Comments: Return if you worsen. Drink plenty of fluids at home. Discharge Date/Time: 09/17/16 20:03
[2016-09-17] MEDS ORDERED: SODIUM CHLORIDE 0.9% 1,000 ML IV ONE (18:54)
[2016-09-17] MEDS ORDERED: DICYCLOMINE 10 MG CAPSULE PO STA (19:18)
[2016-09-17] MEDS ORDERED: DICYCLOMINE 10 MG CAPSULE PO ONE (19:47)
[2016-09-17 20:02] VITALS: BP 131/64
== END 2016-09-17 20:03 | disposition home or self-care (01) ==
LOC: ED 17:47
DX: K29.00 Acute gastritis without bleeding (principal); R19.7 Diarrhea, unspecified; I10 Essential (primary) hypertension; E78.00 Pure hypercholesterolemia, unspecified; E10.9 Type 1 diabetes mellitus without complications; Z79.4 Long term (current) use of insulin; K21.9 Gastro-esophageal reflux disease without esophagitis; Z87.442 Personal history of urinary calculi; M19.90 Unspecified osteoarthritis, unspecified site
CPT/HCPCS: 36415; 80053; 83690; 85025; 96361; 96374; 99284; A9270

== ENCOUNTER 2017-04-26 23:02 | Emergency (ER) | payer MEDICARE, OTHER ==
[2017-04-26 23:08] VITALS: BP 161/65
[2017-04-26] MEDS ORDERED: TETRACAINE 0.5% OPHTH DROPS 15 ML RIGHTEYE STA (23:38)
[2017-04-26] MEDS ORDERED: PROPARACAINE 0.5% OPHTH DROPS 15 ML RIGHTEYE STA (23:49)
--- NOTE | 2017-04-27 00:10 | ED Physician Documentation ---
PD HPI OPHTHO - Stated complaint Stated Complaint: EYE PX POST SURGERY - Chief complaint Chief Complaint: Heent - History obtained from History obtained from: Patient - History of Present Illness Timing - onset: Today Timing - details: Gradual onset Location: Right Quality / character: Aching, Throbbing Associated symptoms: Redness, Swelling Similar symptoms before: Treatment Recently seen: Surgery - Additional information Additional information: Patient is a 67 year old male presenting to the emergency department for eye pain. Patient had surgery today for cataracts and glaucoma and now has pain. patient stated that the pain medication they used today wore off. He tried taking tylenol (he has multiple allergies) but it didn't help so he came to the emergency department for evaluation. Review of Systems Constitutional: denies: Fever, Chills Eyes: reports: Decreased vision, Photophobia Ears: reports: Reviewed and negative Nose: reports: Reviewed and negative Throat: reports: Reviewed and negative Cardiac: reports: Reviewed and negative Respiratory: reports: Reviewed and negative GI: reports: Reviewed and negative : reports: Reviewed and negative Skin: reports: Reviewed and negative Musculoskeletal: reports: Reviewed and negative Neurologic: denies: Headache Immunocompromised: denies: Immunocompromised PD PAST MEDICAL HISTORY - Past Medical History Cardiovascular: High cholesterol, Angina, Hypertension Respiratory: None Neuro: None Endocrine/Autoimmune: Type 1 diabetes GI: GERD : Kidney stones, None HEENT: Glaucoma Psych: Post traumatic stress disorder Musculoskeletal: Osteoarthritis Derm: Psoriasis - Past Surgical History Past Surgical History: Yes General: Colonoscopy, EGD Ortho: Arthroscopic surgery Cardiovascular: Angioplasty HEENT: Cataracts - Present Medications Home Medications: Ambulatory Orders Medication Instructions Recorded Confirmed Insulin Aspart (Vial) [NovoLOG] 20 unit SQ TIDWM 10/28/12 09/17/16 Pantoprazole Sodium [Protonix] 40 mg PO DAILY 11/06/13 09/17/16 Ondansetron Odt [Zofran] 4 mg TL Q6H PRN #10 tablet 02/08/15 08/19/16 Insulin Glargine,Hum.rec.anlog 80 unit SQ BID 02/11/16 09/17/16 [Marekupeter Solostshayy] predniSONE [Deltasone] 60 mg PO DAILY 5 Days tablet 02/28/16 09/17/16 Chlorthalidone [Chlorthalidone] 25 mg PO DAILY 07/13/16 09/17/16 Doxazosin [Cardura] 4 mg PO DAILY 07/13/16 09/17/16 Finasteride [Proscar] 5 mg ORAL DAILY 07/13/16 09/17/16 Losartan Potassium [Losartan 100 mg ORAL DAILY 07/13/16 09/17/16 Potassium] Metoprolol Succinate 50 mg ORAL DAILY 07/13/16 09/17/16 Ondansetron HCl [Zofran] 4 mg PO Q6HR PRN #20 tablet 07/13/16 09/17/16 Phenobarb/Hyoscy/Atropine/Scop 16.2 mg PO BID PRN #20 tablet 07/13/16 09/17/16 [ Tablet] Sucralfate 1 gm PO QID #60 tablet 07/13/16 09/17/16 raNITIdine [Zantac] 150 mg PO DAILY 07/13/16 09/17/16 Metoclopramide [Reglan] 10 mg PO Q6H PRN #15 tablet 08/19/16 09/17/16 Ondansetron Odt [Zofran] 4 mg TL Q6H PRN #15 tablet 08/19/16 Sucralfate 1 gm PO QID #40 tablet 08/19/16 Ondansetron Odt [Zofran] 4 mg TL Q6H PRN #10 tablet 09/17/16 Sucralfate [Carafate] 1 gm PO ACHS #60 tablet 09/17/16 - Allergies Allergies/Adverse Reactions: Allergies Allergy/AdvReac Type Severity Reaction Status Date / Time aspirin Allergy resp Verified 08/19/16 05:06 hydrocodone bitartrate * Allergy unknown Verified 08/19/16 05:06 [From Vicodin] hydroxyzine HCl * Allergy unknown Verified 08/19/16 05:06 [From Vistaril] hydroxyzine pamoate * Allergy unknown Verified 08/19/16 05:06 [From Vistaril] meperidine HCl * Allergy unknown Verified 08/19/16 05:06 [From Demerol] morphine Allergy Unknown Verified 08/19/16 05:06 procaine HCl * Allergy Unknown Verified 08/19/16 05:06 [From Novocain] lactose AdvReac Cramps Verified 08/19/16 05:06 promethazine HCl * AdvReac Unknown Verified 08/19/16 05:06 [From Phenergan] eggs Allergy Respiratory Uncoded 08/19/16 05:06 opiods Allergy Anaphylaxis Uncoded 09/17/16 17:56 - Social History Does the pt smoke?: No Smoking Status: Never smoker Does the pt drink ETOH?: No Does the pt have substance abuse?: No - Immunizations Immunizations are current?: Yes - POLST Patient has POLST: No PD ED PE NORMAL - Vitals Vital signs reviewed: Yes - General General: Alert and oriented X 3, Well developed/nourished - HEENT HEENT: Atraumatic, Moist mucous membranes - Neck Neck: Supple, no meningeal sign - Cardiac Cardiac: RRR - Respiratory Respiratory: No respiratory distress - Abdomen Abdomen: Non distended - Derm Derm: Normal color, No rash - Extremities Extremities: No deformity - Neuro Neuro: Alert and oriented X 3, No motor deficit, Normal speech Eye Opening: Spontaneous Motor: Obeys Commands Verbal: Oriented GCS Score: 15 PD ED PE EXPANDED - Eyes Eyes: PERRL, Normal accommodation, Right eye (swelling, and surgical changes of right eye) Results - Vitals Vitals: Vital Signs - 24 hr 04/26/17 23:07 Temperature 36.1 C L Heart Rate 76 Respiratory 18 Rate Blood Pressure 161/65 H O2 Saturation 98 Oxygen O2 Source Room air PD MEDICAL DECISION MAKING - ED course Complexity details: reviewed old records, re-evaluated patient, considered differential, d/w patient ED course: Patient was seen and examined at bedside. Patient was treated with proparacaine drops with good relief. Patient required no further work up at this time and was stable for discharge with outpatient follow up with his eye doctor tomorrow. Departure - Departure Disposition: 01 Home, Self Care Clinical Impression: Pain in eye Condition: Good Instructions: Cataract Surg [facility] Care Follow-Up: LEXA SAMS MD [Primary Care Provider] - Tomorrow Comments: You should follow up with your eye doctor today for further evaluation and pain control. You may return to the emergency department at any time for new, worsening or uncontrollable symptoms. Discharge Date/Time: 04/27/17 00:11
== END 2017-04-27 00:11 | disposition home or self-care (01) ==
LOC: ED 23:02
DX: H57.11 Ocular pain, right eye (principal); I10 Essential (primary) hypertension; E78.00 Pure hypercholesterolemia, unspecified; E10.9 Type 1 diabetes mellitus without complications; Z98.890 Other specified postprocedural states
CPT/HCPCS: 99282; 99283; J3490

== ENCOUNTER 2017-05-05 11:12 | Emergency (ER) | payer MEDICARE, OTHER ==
[2017-05-05] MEDS ORDERED: PROPARACAINE 0.5% OPHTH DROPS 15 ML EACHEYE STA (12:02)
--- NOTE | 2017-05-05 12:17 | ED Physician Documentation ---
History of Present Illness - Stated complaint Stated Complaint: H/A - Chief complaint Chief Complaint: General - History obtained from History obtained from: Patient - History of Present Illness Timing: How many days ago (several) Pain level max: 10 Pain level now: 10 Improved by: proparacaine Worsened by: light - Additonal information Additional information: States had cataract surgery 04/26 at the [facility] [place]. States saw them yesterday after developing pain 2 days ago. tried tylenol and hot compresses. Started on predforte and ofloxacin. States still having pain today. Sees ophthalmology again in 2 weeks. Review of Systems Constitutional: denies: Fever, Chills Ears: denies: Ear pain Nose: denies: Rhinorrhea / runny nose, Congestion Throat: denies: Sore throat Cardiac: denies: Chest pain / pressure Respiratory: denies: Cough GI: denies: Abdominal Pain, Nausea, Vomiting, Diarrhea Skin: denies: Rash Musculoskeletal: denies: Neck pain, Back pain Neurologic: denies: Focal weakness, Numbness PD PAST MEDICAL HISTORY - Past Medical History Cardiovascular: High cholesterol, Angina, Hypertension Respiratory: None Neuro: None Endocrine/Autoimmune: Type 1 diabetes GI: GERD : Kidney stones, None HEENT: Glaucoma Psych: Post traumatic stress disorder Musculoskeletal: Osteoarthritis Derm: Psoriasis - Past Surgical History Past Surgical History: Yes General: Colonoscopy, EGD Ortho: Arthroscopic surgery Cardiovascular: Angioplasty HEENT: Cataracts - Present Medications Home Medications: Ambulatory Orders Medication Instructions Recorded Confirmed Insulin Aspart (Vial) [NovoLOG] 20 unit SQ TIDWM 10/28/12 09/17/16 Pantoprazole Sodium [Protonix] 40 mg PO DAILY 11/06/13 09/17/16 Ondansetron Odt [Zofran] 4 mg TL Q6H PRN #10 tablet 02/08/15 08/19/16 Insulin Glargine,Hum.rec.anlog 80 unit SQ BID 02/11/16 09/17/16 [Logan Miles] predniSONE [Deltasone] 60 mg PO DAILY 5 Days tablet 02/28/16 09/17/16 Chlorthalidone [Chlorthalidone] 25 mg PO DAILY 07/13/16 09/17/16 Doxazosin [Cardura] 4 mg PO DAILY 07/13/16 09/17/16 Finasteride [Proscar] 5 mg ORAL DAILY 07/13/16 09/17/16 Losartan Potassium [Losartan 100 mg ORAL DAILY 07/13/16 09/17/16 Potassium] Metoprolol Succinate 50 mg ORAL DAILY 07/13/16 09/17/16 Ondansetron HCl [Zofran] 4 mg PO Q6HR PRN #20 tablet 07/13/16 09/17/16 Phenobarb/Hyoscy/Atropine/Scop 16.2 mg PO BID PRN #20 tablet 07/13/16 09/17/16 [ Tablet] Sucralfate 1 gm PO QID #60 tablet 07/13/16 09/17/16 raNITIdine [Zantac] 150 mg PO DAILY 07/13/16 09/17/16 Ondansetron Odt [Zofran] 4 mg TL Q6H PRN #15 tablet 08/19/16 Sucralfate 1 gm PO QID #40 tablet 08/19/16 Ondansetron Odt [Zofran] 4 mg TL Q6H PRN #10 tablet 09/17/16 Sucralfate [Carafate] 1 gm PO ACHS #60 tablet 09/17/16 - Allergies Allergies/Adverse Reactions: Allergies Allergy/AdvReac Type Severity Reaction Status Date / Time aspirin Allergy resp Verified 08/19/16 05:06 hydrocodone bitartrate * Allergy unknown Verified 08/19/16 05:06 [From Vicodin] hydroxyzine HCl * Allergy unknown Verified 08/19/16 05:06 [From Vistaril] hydroxyzine pamoate * Allergy unknown Verified 08/19/16 05:06 [From Vistaril] meperidine HCl * Allergy unknown Verified 08/19/16 05:06 [From Demerol] morphine Allergy Unknown Verified 08/19/16 05:06 procaine HCl * Allergy Unknown Verified 08/19/16 05:06 [From Novocain] lactose AdvReac Cramps Verified 08/19/16 05:06 promethazine HCl * AdvReac Unknown Verified 08/19/16 05:06 [From Phenergan] eggs Allergy Respiratory Uncoded 08/19/16 05:06 opiods Allergy Anaphylaxis Uncoded 09/17/16 17:56 - Social History Does the pt smoke?: No Smoking Status: Never smoker Does the pt drink ETOH?: No Does the pt have substance abuse?: No - Immunizations Immunizations are current?: Yes - POLST Patient has POLST: No PD ED PE NORMAL - Vitals Vital signs reviewed: Yes - General General: Alert and oriented X 3, No acute distress - HEENT HEENT: PERRL, Moist mucous membranes, Other (Conjunctival injection on the right eye. Positive photophobia. Intraocular pressure of 9) - Neck Neck: Supple, no meningeal sign - Cardiac Cardiac: RRR - Respiratory Respiratory: No respiratory distress, Clear bilaterally - Derm Derm: Warm and dry - Neuro Neuro: Alert and oriented X 3 - Psych Psych: Normal mood, Normal affect Results - Vitals Vitals: Vital Signs - 24 hr 05/05/17 05/05/17 11:23 13:37 Temperature 36 C L 36.4 C L Heart Rate 71 61 Respiratory 18 22 Rate Blood Pressure 139/73 H 118/69 O2 Saturation 98 99 Oxygen O2 Source Room air PD MEDICAL DECISION MAKING - ED course Complexity details: reviewed old records, considered differential, d/w patient, 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 Went back and reinforced with the patient that he should use the artificial tears every hour, he does not appear to be doing this regularly. Also recommend that he can use sunglasses for the photophobia. We will continue his current medications as he is allergic to all pain medications other than Tylenol. Patient counseled regarding signs and symptoms for which I believe and urgent re-evaluation would be necessary. Patient with good understanding of and agreement to plan and is comfortable going home at this time This document was made in part using voice recognition software. While efforts are made to proofread this document, sound alike and grammatical errors may occur. Symptoms did resolve with a dose of proparacaine here. Ophthalmology does not want him sent home with this. 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 Return if you worsen. You should be using preservative free artificial tears at least every hour. Wait 10 minutes between putting drops in your eyes. Refrigerating the artificial tears may help as well. Sunglasses will help with light sensitivity. Discharge Date/Time: 05/05/17 13:37
[2017-05-05 13:38] VITALS: BP 118/69
== END 2017-05-05 13:37 | disposition home or self-care (01) ==
LOC: ED 11:12
DX: H57.11 Ocular pain, right eye (principal); E10.9 Type 1 diabetes mellitus without complications; I10 Essential (primary) hypertension; E78.00 Pure hypercholesterolemia, unspecified
CPT/HCPCS: 99283; J3490

== ENCOUNTER 2017-07-16 09:33 | Outpatient (CLI) | payer MEDICARE, OTHER ==
[2017-07-16] MEDS ORDERED: ALBUTEROL NEB 2.5 MG/3 ML INH PRN (11:00)
== END 2017-07-16 09:34 | disposition home or self-care (01) ==
LOC: RT 09:33
PROVIDERS: ATTEND Internal Medicine Cardiovascular Disease
DX: R06.02 Shortness of breath (principal)
CPT/HCPCS: 94060; 94727; 94729

== ENCOUNTER 2017-08-27 16:53 | Outpatient (CLI) | payer MEDICARE, OTHER | END 2017-08-27 16:54 | disposition critical access hospital (66) | LOC: EMS 16:53 | PROVIDERS: ATTEND Surgery | DX: R10.9 Unspecified abdominal pain (principal); K92.0 Hematemesis | CPT/HCPCS: A0425; A0427 ==

== ENCOUNTER 2017-08-27 17:10 | Inpatient (IN) | payer MEDICARE, OTHER ==
[2017-08-27] MEDS ORDERED: SODIUM CHLORIDE 0.9% 1,000 ML IV ONE (17:16)
[2017-08-27] MEDS ORDERED: MAG HYDROX/AL HYDROX/SIMETH 30 ML UDC PO STA (17:16)
[2017-08-27] MEDS ORDERED: LIDOCAINE VISCOUS 2% 15 ML UDC MM STA (17:16)
[2017-08-27] MEDS ORDERED: METOCLOPRAMIDE 10 MG/2 ML VIAL IVP STA (17:16)
[2017-08-27] MEDS ORDERED: SUCRALFATE 1 GM/10 ML UDC PO STA (17:18)
--- NOTE | 2017-08-27 17:22 | ED Physician Documentation ---
PD HPI ABD PAIN - Stated complaint Stated Complaint: ABD PX - Chief complaint Chief Complaint: Abd Pain - History obtained from History obtained from: Patient, EMS - History of Present Illness Timing - onset: Other (He has chronic recurrent gastritis, went to his doctor's the other day and he actually developed abdominal pain and vomiting while there. He says he was taken to the [place] ER in [place] and he had a thorough workup without specific findings but did not receive any medications. He says he has been having abdominal pain that is diffuse and vomiting and diarrhea which was dark today, the vomiting. He also had a little bit of bright red blood mixed in with the vomit but the paramedics thought it was only about a teaspoon. He specifically requests, "whatever we gave him last time.") Review of Systems Constitutional: denies: Fever, Chills Cardiac: denies: Chest pain / pressure, Palpitations Respiratory: denies: Dyspnea, Cough GI: reports: Abdominal Pain, Nausea, Vomiting, Diarrhea : denies: Dysuria, Frequency PD PAST MEDICAL HISTORY - Past Medical History Cardiovascular: High cholesterol, Angina, Hypertension Respiratory: None Endocrine/Autoimmune: Type 1 diabetes GI: GERD : Kidney stones, None HEENT: Glaucoma Psych: Post traumatic stress disorder Musculoskeletal: Osteoarthritis Derm: Psoriasis - Past Surgical History Past Surgical History: Yes General: Colonoscopy, EGD Ortho: Arthroscopic surgery Cardiovascular: Angioplasty HEENT: Cataracts - Present Medications Home Medications: Ambulatory Orders Medication Instructions Recorded Confirmed Insulin Aspart (Vial) [NovoLOG] 20 unit SQ TIDWM 10/28/12 09/17/16 Pantoprazole Sodium [Protonix] 40 mg PO DAILY 11/06/13 09/17/16 Ondansetron Odt [Zofran] 4 mg TL Q6H PRN #10 tablet 02/08/15 08/19/16 Insulin Glargine,Hum.rec.anlog 80 unit SQ BID 02/11/16 09/17/16 [Logan Miles] predniSONE [Deltasone] 60 mg PO DAILY 5 Days tablet 02/28/16 09/17/16 Chlorthalidone [Chlorthalidone] 25 mg PO DAILY 07/13/16 09/17/16 Doxazosin [Cardura] 4 mg PO DAILY 07/13/16 09/17/16 Finasteride [Proscar] 5 mg ORAL DAILY 07/13/16 09/17/16 Losartan Potassium [Losartan 100 mg ORAL DAILY 07/13/16 09/17/16 Potassium] Metoprolol Succinate 50 mg ORAL DAILY 07/13/16 09/17/16 Ondansetron HCl [Zofran] 4 mg PO Q6HR PRN #20 tablet 07/13/16 09/17/16 Phenobarb/Hyoscy/Atropine/Scop 16.2 mg PO BID PRN #20 tablet 07/13/16 09/17/16 [ Tablet] Sucralfate 1 gm PO QID #60 tablet 07/13/16 09/17/16 raNITIdine [Zantac] 150 mg PO DAILY 07/13/16 09/17/16 Ondansetron Odt [Zofran] 4 mg TL Q6H PRN #15 tablet 08/19/16 Sucralfate 1 gm PO QID #40 tablet 08/19/16 Ondansetron Odt [Zofran] 4 mg TL Q6H PRN #10 tablet 09/17/16 Sucralfate [Carafate] 1 gm PO ACHS #60 tablet 09/17/16 - Allergies Allergies/Adverse Reactions: Allergies Allergy/AdvReac Type Severity Reaction Status Date / Time aspirin Allergy resp Verified 08/19/16 05:06 hydrocodone bitartrate * Allergy unknown Verified 08/19/16 05:06 [From Vicodin] hydroxyzine HCl * Allergy unknown Verified 08/19/16 05:06 [From Vistaril] hydroxyzine pamoate * Allergy unknown Verified 08/19/16 05:06 [From Vistaril] meperidine HCl * Allergy unknown Verified 08/19/16 05:06 [From Demerol] morphine Allergy Unknown Verified 08/19/16 05:06 procaine HCl * Allergy Unknown Verified 08/19/16 05:06 [From Novocain] lactose AdvReac Cramps Verified 08/19/16 05:06 promethazine HCl * AdvReac Unknown Verified 08/19/16 05:06 [From Phenergan] eggs Allergy Respiratory Uncoded 08/19/16 05:06 opiods Allergy Anaphylaxis Uncoded 09/17/16 17:56 - Social History Does the pt smoke?: No Smoking Status: Never smoker Does the pt drink ETOH?: No Does the pt have substance abuse?: No - Family History Family history: reports: Non contributory - Immunizations Immunizations are current?: Yes - POLST Patient has POLST: No PD ED PE NORMAL - Vitals Vital signs reviewed: Yes - General General: Alert and oriented X 3, Other (retching) - HEENT HEENT: PERRL, EOMI - Neck Neck: Supple, no meningeal sign, No bony TTP - Cardiac Cardiac: RRR, No murmur - Respiratory Respiratory: No respiratory distress, Clear bilaterally - Abdomen Abdomen: Normal bowel sounds, Soft, Non tender - Back Back: No CVA TTP, No spinal TTP - Derm Derm: Normal color, Warm and dry - Extremities Extremities: No edema, No calf tenderness / cord - Neuro Neuro: Alert and oriented X 3, Normal speech - Psych Psych: Normal mood, Normal affect Results - Vitals Vitals: Vital Signs - 24 hr 08/27/17 17:11 Temperature 36.3 C L Heart Rate 71 Respiratory 16 Rate Blood Pressure 121/58 L O2 Saturation 99 Oxygen O2 Source Room air - Labs Labs: Laboratory Tests 08/27/17 08/27/17 17:42 17:42 WBC 14.6 H RBC 3.91 L Hgb 12.7 L Hct 37.7 L MCV 96.5 H MCH 32.4 H MCHC 33.6 RDW 12.8 Plt Count 198 MPV 8.4 Neut # (Auto) 12.4 H Lymph # (Auto) 1.0 L [place] # (Auto) 1.2 H Eos # (Auto) 0.0 Baso # (Auto) 0.0 Absolute Nucleated RBC 0.00 Nucleated RBC % 0.0 Sodium 130 L Potassium 3.3 L Chloride 93 L Carbon Dioxide 25 Anion Gap 12.0 BUN 48 H Creatinine 2.8 H Estimated GFR (MDRD) 28 L Glucose 135 H Calcium 8.8 Total Bilirubin 1.2 H AST 35 ALT 35 Alkaline Phosphatase 74 Total Protein 8.0 Albumin 3.4 Globulin 4.6 H Albumin/Globulin Ratio 0.7 L Lipase 22 PD MEDICAL DECISION MAKING - ED course ED course: 67-year-old gentleman with history of cyclic vomiting syndrome and gastritis presents with an exacerbation of same. He was seen in the [place] emergency department in [place] 3 days ago, records were obtained. At that time his BUN was 28, creatinine 1.35. His electrolytes and CBC were normal he had a CT of the abdomen with IV contrast at that time that was reported as normal. His creatinine and BUN are quite high now indicating acute renal failure from dehydration from the illness. He was given divided doses of medications here with improvement in his symptoms and also IV fluids. Given the acute decompensation in his labs he will need to be admitted for further evaluation and treatment. The decision to admit was made at 6:15 PM call I called the day hospitalist but she defers admission until after shift change. - Sepsis Event Vital Signs: Vital Signs - 24 hr 08/27/17 17:11 Temperature 36.3 C L Heart Rate 71 Respiratory 16 Rate Blood Pressure 121/58 L O2 Saturation 99 Oxygen O2 Source Room air Departure - Departure Disposition: [facility] DC/Xfer Clinical Impression: Vomiting and diarrhea ARF (acute renal failure) Qualifiers: Acute renal failure type: unspecified Qualified Code(s): N17.9 - Acute kidney failure, unspecified Condition: Stable
[2017-08-27 17:47] LABS: BASOPHILS % (AUTO) 0.1 %; HGB - HEMOGLOBIN 12.7 g/dL (14.0-18.0); LYMPHOCYTES % (AUTO) 6.5 %; MEAN CORPUSCULAR HEMOGLOBIN 32.4 pg (27.0-31.0); MEAN CORPUSCULAR HGB CONC 33.6 g/dL (32.0-36.0); MEAN CORPUSCULAR VOLUME 96.5 fL (80.0-94.0); MEAN PLATELET VOLUME 8.4 fL (7.4-11.4); MONOCYTES # (AUTO) 1.2 10^3/uL (0.0-1.0); MONOCYTES % (AUTO) 8.4 %; NEUTROPHILS # (AUTO) 12.4 10^3/uL (1.5-6.6); PLT - PLATELET COUNT 198 10^3/uL (130-450); RED BLOOD COUNT 3.91 10^6/uL (4.70-6.10); RED CELL DISTRIBUTION WIDTH 12.8 % (12.0-15.0); WHITE BLOOD COUNT 14.6 x10^3/uL (4.8-10.8)
[2017-08-27] MEDS ORDERED: HALOPERIDOL 5 MG/ML VIAL IVP ONE (17:52)
[2017-08-27] MEDS ORDERED: ONDANSETRON 4 MG/2 ML VIAL IVP STA (17:52)
[2017-08-27 17:59] LABS: ALBUMIN 3.4 g/dL (3.2-5.5); ALBUMIN/GLOBULIN RATIO 0.7 (1.0-2.2); BILIRUBIN,TOTAL 1.2 mg/dL (0.2-1.0); CALCIUM 8.8 mg/dL (8.5-10.3); CREATININE 2.8 mg/dL (0.6-1.2)
[2017-08-27] MEDS ORDERED: LORazepam 2 MG/ML VIAL IVP STA (18:18)
[2017-08-27] MEDS ORDERED: ELECTROLYTE-A SOLUTION 1,000 ML IV SCH (19:00)
[2017-08-27] MEDS ORDERED: ACETAMINOPHEN 325 MG TABLET PO PRN (19:40)
[2017-08-27] MEDS ORDERED: oxyCODONE 5 MG TABLET PO PRN (19:40)
[2017-08-27] MEDS ORDERED: MORPHINE 2 MG/ML SYRINGE IVP PRN (19:40)
[2017-08-27] MEDS ORDERED: ZOLPIDEM 5 MG TABLET PO PRN (19:40)
[2017-08-27] MEDS: HEPARIN 5,000 UNIT/ML VIAL SUBQ SCH (20:51)
[2017-08-27] MEDS: PROCHLORPERAZINE 10 MG/2 ML VIAL IVP PRN (20:52)
[2017-08-27] MEDS: SODIUM CHLORIDE FLUSH 0.9% 10 ML SYRINGE IVP SCH (20:52)
--- NOTE | 2017-08-27 21:05 | HISTORY & PHYSICAL EXAMINATION ---
Chief Complaint - Chief Complaint Chief Complaint: Abdominal Pain History of Present Illness - Admitted From Admitted From:: Emergency Department - History Obtained From Records Reviewed: Yes History obtained from: Patient and medical records Exam Limitations: Patient drowsy from pain meds - History of Present Illness HPI Comment/Other: Patient is a 67-year-old -[place] gentleman with an extensive past medical history which includes insulin-dependent diabetes, GERD, diabetic retinopathy, obesity, hypertension, coronary artery disease, peripheral neuropathy, panic attacks, depression, hyperlipidemia, obstructive sleep apnea and long history of recurrent episodes of intractable nausea, vomiting and diarrhea who presented to the emergency department with a chief complaint of abdominal pain. The patient states that for more than 10 years now he has been suffering from recurrent attacks of intractable nausea, vomiting, diarrhea and abdominal pain. He states that he is usually hospitalized every 2-3 months due to these issues. He has had an extensive workup with gastroenterology and is felt to most likely have cyclic vomiting syndrome. He states he is usually hospitalized at [facility]. The patient has been hospitalized here in the past as well. The patient states that this most recent flare of symptoms started 3 days ago when initially started having abdominal pain, nausea and vomiting. He states the abdominal pain is located in the epigastric area but moves all around the abdomen. He describes the pain as a burning pain that is constant and does not change with oral intake. He states that has been persistent and ranges from 4-8 out of 10. He states that on 08/24/2017 he went to the emergency department at the [facility] in [place] with the symptoms. At that time he underwent a CT of his abdomen and pelvis which revealed no acute process. Patient also underwent routine lab work and he did not have any leukocytosis at that time. The patient also had normal kidney function and normal electrolytes at that time. The patient was given IV fluids, pain medication and antiemetics and seemed to feel better. He passed a p.o. challenge and was able to eat a sandwich therefore he was discharged home from the emergency department. He states that after returning home his symptoms have returned and become gradually worse. He states over the last 2 days he is also developed diarrhea which has become more and more frequent. He states that it is just loose stools, they are nonbloody and malodorous. The patient states that today with his vomiting he also had specks of blood but otherwise had mostly bilious materials. The patient states that the abdominal pain has been persistent. The patient states he has not been able to keep anything down and has had very little to eat in the last 2 days. He states he was not even able to keep any of his medications down today but did take a dose of Lantus in the morning. The patient states that the symptoms were just not improving so he decided to come to the emergency department tonight. The patient otherwise denies any headaches, blurred vision, runny nose, sore throat, nasal congestion, difficulty swallowing, chest pain, shortness of breath , orthopnea, PND, increased lower extremity swelling, fevers, chills, constipation, urinary urgency, urinary frequency, dysuria, joint swelling, joint pain, muscle aches, back pain, neck stiffness, hair loss, skin changes, polyuria, polydipsia, recent unintentional weight loss or any focal neurologic deficits. On presentation to the emergency department the patient was afebrile and had normal vital signs. The patient however did appear to be in some distress due to pain and persistent nausea. The patient's lab work revealed a leukocytosis of 14.6 which was changed from labs drawn just 3 days earlier. The patient was also found to have hyponatremia with a sodium of 130 and hypokalemia with a potassium of 3.3. The patient's creatinine was also elevated from 1.35 just 2 days ago to 2.8 today. The patient appeared to be very dry on examination. Patient was given 1 L of normal saline and multiple doses of anti-emetics, viscous lidocaine and Carafate with which the patient had some relief. Given the patient's dehydration and acute kidney injury in the setting of ongoing vomiting and diarrhea the patient was laced in observation for hydration and supportive care for what appears to be likely gastroenteritis. History - Past Medical History Cardiovascular: reports: Hypertension, High cholesterol, Coronary artery disease , Angina, HI, Other (Obesity) Respiratory: reports: Sleep apnea Neuro: reports: Peripheral neuropathy Endocrine/Autoimmune: reports: Type 2 diabetes GI: reports: GERD, Chronic diarrhea : reports: Renal insuffiency, Kidney stones HEENT: reports: Glaucoma, Other (Diabetic retinopathy) Psych: reports: Depression, Panic attacks, Post traumatic stress disorder Musculoskeletal: reports: Osteoarthritis Derm: reports: Psoriasis MRSA Hx?: No Other Past Medical History: Late latent syphilis - Past Surgical History General: reports: Colonoscopy, EGD Ortho: reports: Arthroscopic surgery Cardiovascular: reports: Angioplasty HEENT: reports: Cataracts - Family & Social History Family History: Mother: Alive and Well, Father: Alive and Well, Sister: Alive and Well, Brother: Alive and Well Family History Comment/Other: The patient denies any family history of diabetes , hypertension, heart disease or cancer. He also denies any family history of any gastrointestinal problems. Living arrangement: At home Living Situation: With spouse/s.o. Social History Notes: The patient lives in [place] with his and 6 children. He is originally from [place] but moved over here with the [employer]. He is retired [employer]. He denies any alcohol use, history of tobacco use for any illicit drug use. - POLST Patient has POLST: No POLST Status: Full Code Meds/Allgy - Home Medications Home Medications: Ambulatory Orders Medication Instructions Recorded Confirmed Insulin Aspart (Vial) [NovoLOG] 20 unit SQ TIDWM 10/28/12 09/17/16 Pantoprazole Sodium [Protonix] 40 mg PO DAILY 11/06/13 09/17/16 Ondansetron Odt [Zofran] 4 mg TL Q6H PRN #10 tablet 02/08/15 08/19/16 Insulin Glargine,Hum.rec.anlog 80 unit SQ BID 02/11/16 09/17/16 [Toudeoo Solostar] predniSONE [Deltasone] 60 mg PO DAILY 5 Days tablet 02/28/16 09/17/16 Chlorthalidone [Chlorthalidone] 25 mg PO DAILY 07/13/16 09/17/16 Doxazosin [Cardura] 4 mg PO DAILY 07/13/16 09/17/16 Finasteride [Proscar] 5 mg ORAL DAILY 07/13/16 09/17/16 Losartan Potassium [Losartan 100 mg ORAL DAILY 07/13/16 09/17/16 Potassium] Metoprolol Succinate 50 mg ORAL DAILY 07/13/16 09/17/16 Ondansetron HCl [Zofran] 4 mg PO Q6HR PRN #20 tablet 07/13/16 09/17/16 Phenobarb/Hyoscy/Atropine/Scop 16.2 mg PO BID PRN #20 tablet 07/13/16 09/17/16 [ Tablet] Sucralfate 1 gm PO QID #60 tablet 07/13/16 09/17/16 raNITIdine [Zantac] 150 mg PO DAILY 07/13/16 09/17/16 Ondansetron Odt [Zofran] 4 mg TL Q6H PRN #15 tablet 08/19/16 Sucralfate 1 gm PO QID #40 tablet 08/19/16 Ondansetron Odt [Zofran] 4 mg TL Q6H PRN #10 tablet 09/17/16 Sucralfate [Carafate] 1 gm PO ACHS #60 tablet 09/17/16 - Allergies Allergies/Adverse Reactions: Allergies Allergy/AdvReac Type Severity Reaction Status Date / Time aspirin Allergy resp Verified 08/19/16 05:06 hydrocodone bitartrate * Allergy unknown Verified 08/19/16 05:06 [From Vicodin] hydroxyzine HCl * Allergy unknown Verified 08/19/16 05:06 [From Vistaril] hydroxyzine pamoate * Allergy unknown Verified 08/19/16 05:06 [From Vistaril] meperidine HCl * Allergy unknown Verified 08/19/16 05:06 [From Demerol] morphine Allergy Unknown Verified 08/19/16 05:06 procaine HCl * Allergy Unknown Verified 08/19/16 05:06 [From Novocain] lactose AdvReac Cramps Verified 08/19/16 05:06 promethazine HCl * AdvReac Unknown Verified 08/19/16 05:06 [From Phenergan] eggs Allergy Respiratory Uncoded 08/19/16 05:06 opiods Allergy Anaphylaxis Uncoded 09/17/16 17:56 Review of Systems - Other Findings Other Findings: A comprehensive review of systems was performed the pertinent positives and negatives are stated above in the HPI and the remainder of the review of systems is negative. Exam - Vital Signs Reviewed Vital Signs: Yes Vital Signs: Vital Signs x48h Temp Pulse Resp BP Pulse Ox 08/27/17 20:18 38.2 C H 78 20 151/74 H 94 - Physical Exam General Appearance: positive: Mild distress (abdominal pain, uncomfortable), Other (Very sleepy and lethargic) Eyes Bilateral: positive: Normal inspection, PERRL, EOMI, No lid inflammation, Conjunctivae nml, No scleral icterus ENT: positive: ENT inspection nml, Pharynx nml, Dry mucous membranes. negative : Purulent nasal drainage, Pharyngeal erythema, Oral lesions Neck: positive: Nml inspection, Thyroid nml, No JVD, Trachea midline. negative : Thyromegaly, Lymphadenopathy (R), Lymphadenopathy (L), Stiff neck, Carotid bruit, Tracheal deviation Respiratory: positive: Chest non-tender, No respiratory distress, Breath sounds nml. negative: Wheezes, Rales, Rhonchi Cardiovascular: positive: Regular rate & rhythm, No murmur, No gallop Abdomen: positive: No organomegaly, Nml bowel sounds, No distention, Tenderness (Soft abdomen with mild, diffuse tenderness, no guarding or rebound). negative : Guarding, Rebound, Hepatomegaly Back: positive: Nml inspection. negative: CVA tenderness (R), CVA tenderness (L ) Skin: positive: Color nml, No rash, Warm. negative: Cyanosis, Diaphoresis, Pallor Extremities: positive: Non-tender, Full ROM, Nml appearance, No pedal edema Neurologic/Psychiatric: positive: Oriented x3, CN's nml (2-12), Motor nml, Sensation nml, Mood/affect nml Conclusion/Plan - Problem List (1) ARF (acute renal failure) Conclusion/Plan: Patient presented with acute renal failure likely secondary to decreased oral intake along with vomiting and diarrhea for last 3 days. Patient was seen at the [facility] in [place] 3 days earlier and had a creatinine of 1.35 his creatinine today is up to 2.8 and the patient appears very dehydrated. He also has a sodium of 130, potassium 3.3 and chloride of 93. Patient's BUN is elevated at 48 this appears to be prerenal azotemia. Plan: Patient will be given IV fluids Patient will be given antiemetics Electrolyte replacement Monitor creatinine Avoid nephrotoxic agents Qualifiers: Acute renal failure type: unspecified Qualified Code(s): N17.9 - Acute kidney failure, unspecified (2) Abdominal pain Conclusion/Plan: Patient has been having generalized abdominal pain for the last 3 days. Patient has a history of recurrent episodes of abdominal pain, nausea, vomiting and diarrhea. He has been worked up extensively and appears to likely have cyclic vomiting syndrome. The patient also has a history of gastritis seen on EGD. Patient is also a long-time diabetic and may also have some diabetic gastroparesis. Pain is similar to what he has had in the past. Today patient also has a leukocytosis and given his ongoing diarrhea and vomiting I suspect the patient likely has gastroenteritis. On presentation to the medical [facility] the patient also spiked a fever again this supports diagnosis of gastroenteritis. Patient is also had a CT scan done 3 days ago which showed no acute process in the abdomen. Plan: IV fluids IV antiemetics N.p.o. Pain control with IV narcotics Carafate Viscous lidocaine Monitor diarrhea if it continues we will send stool for culture Qualifiers: Abdominal location: generalized Qualified Code(s): R10.84 - Generalized abdominal pain (3) Vomiting and diarrhea Conclusion/Plan: Patient presented with intractable vomiting and diarrhea that has been going on for the last 3 days. The patient is now dehydrated with acute kidney injury and electrolyte abnormalities. The patient's vomiting and diarrhea is likely either secondary to cyclic vomiting syndrome or gastroenteritis. Patient had a CT of his abdomen and pelvis done 3 days ago which showed no acute process. For now patient will be treated with supportive care. Plan: IV fluids IV antiemetics Electrolyte replacement Consider sending stools for culture if patient has persistent diarrhea Consider antidiarrheal medications if patient's diarrhea persists. N.p.o. advance diet as tolerated. (4) Hyponatremia Conclusion/Plan: Patient presents with hyponatremia with a sodium of 130. Patient likely has hypovolemic hyponatremia due to dehydration from intractable vomiting and diarrhea for the last 3 days. Patient will be given IV fluids and we will monitor his sodium I expect as we hydrate the patient is sodium will improve. (5) Hypokalemia Conclusion/Plan: Patient presents with hypokalemia as his sodium is 3.3. This is likely secondary to GI losses from his intractable vomiting and diarrhea. We will replace the patient's potassium and continue to monitor his potassium. We will also give the patient antiemetics to control his GI losses. We will also consider antidiarrheals if he continues to have diarrhea. (6) Diabetes Conclusion/Plan: Patient has a history of insulin-dependent diabetes. He is on 120 units of Lantus daily along with mealtime NovoLog. Currently the patient is having intractable vomiting and diarrhea and has not had very good oral intake. The patient will be kept n.p.o. We will cut his Lantus dose in half to give in the morning. The patient will be placed on n.p.o. sliding scale insulin. We will monitor his blood glucose 4 times a day. We will check a hemoglobin A1c. Once patient is able to tolerate p.o. intake we will place him on a diabetic diet. Qualifiers: Diabetes mellitus type: type 2 (7) Hypertension Conclusion/Plan: Patient has a history of hypertension and is on antihypertensives at home. Currently the patient's blood pressure is only mildly elevated. The patient will be kept n.p.o. for now and we will hold his antihypertensive medications until he is able to tolerate oral intake. We will monitor his blood pressure and titrate medications as needed. Qualifiers: Hypertension type: essential hypertension Qualified Code(s): I10 - Essential (primary) hypertension - Lab Results Lab results reviewed: Yes Fish Bones: 08/27/17 17:42 08/27/17 17:42 Other Lab Results: Laboratory Results WBC 14.6 x10^3/uL (4.8-10.8) H 08/27/17 17:42 RBC 3.91 10^6/uL (4.70-6.10) L 08/27/17 17:42 Hgb 12.7 g/dL (14.0-18.0) L 08/27/17 17:42 Hct 37.7 % (42.0-52.0) L 08/27/17 17:42 MCV 96.5 fL (80.0-94.0) H 08/27/17 17:42 MCH 32.4 pg (27.0-31.0) H 08/27/17 17:42 MCHC 33.6 g/dL (32.0-36.0) 08/27/17 17:42 RDW 12.8 % (12.0-15.0) 08/27/17 17:42 Plt Count 198 10^3/uL (130-450) 08/27/17 17:42 MPV 8.4 fL (7.4-11.4) 08/27/17 17:42 Neut # (Auto) 12.4 10^3/uL (1.5-6.6) H 08/27/17 17:42 Lymph # (Auto) 1.0 10^3/uL (1.5-3.5) L 08/27/17 17:42 [place] # (Auto) 1.2 10^3/uL (0.0-1.0) H 08/27/17 17:42 Eos # (Auto) 0.0 10^3/uL (0.0-0.7) 08/27/17 17:42 Baso # (Auto) 0.0 10^3/uL (0.0-0.1) 08/27/17 17:42 Absolute Nucleated RBC 0.00 x10^3/uL 08/27/17 17:42 Nucleated RBC % 0.0 /100WBC 08/27/17 17:42 Sodium 130 mmol/L (135-145) L 08/27/17 17:42 Potassium 3.3 mmol/L (3.5-5.0) L 08/27/17 17:42 Chloride 93 mmol/L (101-111) L 08/27/17 17:42 Carbon Dioxide 25 mmol/L (21-32) 08/27/17 17:42 Anion Gap 12.0 (6-13) 08/27/17 17:42 BUN 48 mg/dL (6-20) H 08/27/17 17:42 Creatinine 2.8 mg/dL (0.6-1.2) H 08/27/17 17:42 Estimated GFR (MDRD) 28 (>89) L 08/27/17 17:42 Glucose 135 mg/dL (70-100) H 08/27/17 17:42 Calcium 8.8 mg/dL (8.5-10.3) 08/27/17 17:42 Total Bilirubin 1.2 mg/dL (0.2-1.0) H 08/27/17 17:42 AST 35 IU/L (10-42) 08/27/17 17:42 ALT 35 IU/L (10-60) 08/27/17 17:42 Alkaline Phosphatase 74 IU/L (42-121) 08/27/17 17:42 Total Protein 8.0 g/dL (6.7-8.2) 08/27/17 17:42 Albumin 3.4 g/dL (3.2-5.5) 08/27/17 17:42 Globulin 4.6 g/dL (2.1-4.2) H 08/27/17 17:42 Albumin/Globulin Ratio 0.7 (1.0-2.2) L 08/27/17 17:42 Lipase 22 U/L (22-51) 08/27/17 17:42 - Diagnostic Imaging Results Diagnostic Imaging Results: positive: Final report reviewed Diagnostic Imaging Results Comments: CT abdomen and pelvis with IV contrast done on August 14, 2017 at the [facility] in [place] Impression: 1. No intra-abdominal or intrapelvic acute pathologic process. 2. Stable other findings as discussed above. Core Measures - Anticipated LOS I expect patient to be DC'd or transferred within 96 hours.: Yes - DVT/VTE - Prophylaxis VTE/DVT Prophylaxis med ordered at admit?: Yes
[2017-08-27] MEDS ORDERED: LIDOCAINE VISCOUS 2% 15 ML UDC MM PRN (22:15)
[2017-08-27] MEDS: NS W/20 MEQ KCL 1,000 ML IV SCH (23:00)
[2017-08-28] MEDS: SUCRALFATE 1 GM/10 ML UDC PO SCH ×5 (00:12→21:08)
[2017-08-28] MEDS: INSULIN REGULAR HUMAN 100 UNIT/1 ML 10 ML MDV SUBQ SCH ×3 (00:12→12:12)
[2017-08-28] MEDS: ONDANSETRON 4 MG/2 ML VIAL IVP PRN (02:55)
[2017-08-28] MEDS: NS W/20 MEQ KCL 1,000 ML IV SCH ×2 (03:21→14:15)
[2017-08-28] MEDS: PROCHLORPERAZINE 10 MG/2 ML VIAL IVP PRN (03:58)
[2017-08-28] MEDS: PANTOPRAZOLE 40 MG VIAL IVP SCH (06:21)
[2017-08-28 07:15] LABS: BASOPHILS % (AUTO) 0.1 %; HGB - HEMOGLOBIN 12.1 g/dL (14.0-18.0); LYMPHOCYTES # (AUTO) 0.5 10^3/uL (1.5-3.5); LYMPHOCYTES % (AUTO) 3.5 %; MEAN CORPUSCULAR HGB CONC 33.3 g/dL (32.0-36.0); MEAN CORPUSCULAR VOLUME 96.2 fL (80.0-94.0); MEAN PLATELET VOLUME 8.7 fL (7.4-11.4); MONOCYTES # (AUTO) 1.5 10^3/uL (0.0-1.0); MONOCYTES % (AUTO) 10.8 %; NEUTROPHILS # (AUTO) 12.2 10^3/uL (1.5-6.6); NEUTROPHILS % (AUTO) 85.6 %; PLT - PLATELET COUNT 189 10^3/uL (130-450); RED BLOOD COUNT 3.79 10^6/uL (4.70-6.10); RED CELL DISTRIBUTION WIDTH 12.8 % (12.0-15.0); WHITE BLOOD COUNT 14.3 x10^3/uL (4.8-10.8)
[2017-08-28 07:25] LABS: ALBUMIN 3.1 g/dL (3.2-5.5); ALBUMIN/GLOBULIN RATIO 0.8 (1.0-2.2); BILIRUBIN,TOTAL 1.3 mg/dL (0.2-1.0); CALCIUM 8.6 mg/dL (8.5-10.3); CREATININE 2.4 mg/dL (0.6-1.2); MAGNESIUM 2.2 mg/dL (1.7-2.8); PHOSPHORUS 2.5 mg/dL (2.5-4.6); TOTAL PROTEIN 7.2 g/dL (6.7-8.2)
[2017-08-28 07:42] LABS: HB2 TOTAL 13.5 g/dL; HEMOGLOBIN A1C 0.63 g/dL; HEMOGLOBIN A1C % 6.4 % (4.6-6.2)
[2017-08-28] MEDS: METOCLOPRAMIDE 10 MG/2 ML VIAL IVP SCH ×4 (08:20→21:13)
[2017-08-28] MEDS: HEPARIN 5,000 UNIT/ML VIAL SUBQ SCH ×2 (08:23→21:14)
[2017-08-28] MEDS ORDERED: INSULIN ASPART 300 UNIT/3 ML PEN SUBQ ONE (08:40)
[2017-08-28] MEDS: SODIUM CHLORIDE FLUSH 0.9% 10 ML SYRINGE IVP SCH ×2 (09:15→17:28)
[2017-08-28] MEDS: POLYETHYLENE GLYCOL 3350 17 GM PACKET PO SCH (09:16)
[2017-08-28] MEDS ORDERED: INSULIN GLARGINE 300 UNIT/3 ML PEN SUBQ ONE (09:30)
[2017-08-28] MEDS: INSULIN GLARGINE 300 UNIT/3 ML PEN SUBQ SCH (14:15)
--- NOTE | 2017-08-28 16:37 | PROVIDER PROGRESS NOTE ---
Subjective - Prog Note Date Prog Note Date: 08/28/17 Prog Note Time: 09:00 - Subjective Pt reports feeling: No change Subjective: Bruna complains of ongoing nausea, but requests at least a clear liquid diet. He admits to intermittent use of his Lantus insulin at home. He denies chest pain, shortness of breath, emesis, bleeding or a new cough. Current Medications - Current Medications Current Medications: Active Medications Acetaminophen (Tylenol) 650 mg PO Q4HR PRN PRN Reason: Pain 1 to 4 Heparin Sodium (Porcine) () 5,000 unit SUBQ BID [facility] Last Admin: 08/28/17 08:23 Dose: 5,000 unit Potassium Chloride/Sodium Chloride (Normal Saline 0.9% W/20 Meq Kcl) 1,000 mls @ 100 mls/hr IV .Q10H [facility] Last Admin: 08/28/17 14:15 Dose: 100 mls/hr Insulin Glargine (Lantus Solostar) 40 unit SUBQ DAILY [facility] Last Admin: 08/28/17 14:15 Dose: 40 unit Insulin Human Regular (Novolin R) 1 - 9 unit SUBQ Q6HR [facility] PRN Reason: Protocol Last Admin: 08/28/17 12:12 Dose: 7 unit Lidocaine HCl (Xylocaine Viscous 2%) 5 ml MM Q4H PRN PRN Reason: Mouth Sore Pain Metoclopramide HCl (Reglan Inj) 5 mg IVP ACHS [facility] Last Admin: 08/28/17 12:19 Dose: 5 mg Morphine Sulfate (Morphine) 2 mg IVP Q2H PRN PRN Reason: Pain 8 to 10 Ondansetron HCl (Zofran Inj) 4 mg IVP Q6HR PRN PRN Reason: Nausea / Vomiting Last Admin: 08/28/17 02:55 Dose: 4 mg Oxycodone HCl (Roxicodone) 5 mg PO Q4HR PRN PRN Reason: Pain 5 to 7 Oxycodone HCl (Roxicodone) 10 mg PO Q4HR PRN PRN Reason: Pain 8 to 10 Pantoprazole Sodium (Protonix) 40 mg IVP QDAC [facility] Last Admin: 08/28/17 06:21 Dose: 40 mg Polyethylene Glycol (Miralax) 17 gm PO DAILY [facility] Last Admin: 08/28/17 09:16 Dose: Not Given Prochlorperazine Edisylate (Compazine Inj) 10 mg IVP Q6HR PRN PRN Reason: Nausea / Vomiting Last Admin: 08/28/17 03:58 Dose: 10 mg Sodium Chloride (Normal Saline Flush 0.9%) 10 ml IVP PRN PRN PRN Reason: NEEDED PER PROVIDER ORDERS Sodium Chloride (Normal Saline Flush 0.9%) 10 ml IVP 0100,0900,1700 [facility] Last Admin: 08/28/17 09:15 Dose: Not Given Sucralfate (Carafate) 1 gm PO 0700,1100,1600,2200 [facility] Last Admin: 08/28/17 12:15 Dose: 1 gm Zolpidem Tartrate (Ambien) 5 mg PO QPM PRN PRN Reason: Insomnia Insulin Aspart (Vial) [NovoLOG] 15 unit SQ TIDWM 10/28/12 Pantoprazole Sodium [Protonix] 40 mg PO BID 11/06/13 Chlorthalidone [Chlorthalidone] 25 mg PO DAILY 07/13/16 Doxazosin [Cardura] 4 mg PO DAILY 07/13/16 Losartan Potassium [Losartan Potassium] 100 mg ORAL DAILY 07/13/16 RX: Finasteride [Proscar] 5 mg ORAL DAILY 07/13/16 RX: Metoprolol Succinate 50 mg ORAL DAILY 07/13/16 RX: Insulin Degludec [Tresiba Flextouch U-100] 120 units SUBQ DAILY 08/28/17 Objective - Vital Signs/Intake & Output Reviewed Vital Signs: Yes Vital Signs: Vital Signs x48h Temp Pulse Resp BP Pulse Ox 08/28/17 16:00 36.7 C 73 18 166/63 H 98 Intake & Output: Intake & Output 08/25/17 08/26/17 08/27/17 08/28/17 23:59 23:59 23:59 23:59 Intake Total 1000 Balance 1000 - Objective General Appearance: positive: No acute distress, Alert, Lethargic Eyes Bilateral: positive: Normal inspection Eyes: OU Conjunctivae pale ENT: positive: ENT inspection nml, Pharynx nml, No signs of dehydration Neck: positive: Nml inspection, Thyroid nml, No JVD Respiratory: positive: Chest non-tender, No respiratory distress, Breath sounds nml Cardiovascular: positive: Regular rate & rhythm, No gallop, Systolic murmur Peripheral Pulses: 1+ Radial (R), 1+ Radial (L) Abdomen: positive: Tenderness, Guarding, Abnml bowel sounds Back: positive: Nml inspection Skin: positive: No rash, Warm, Dry Extremities: positive: Non-tender, Full ROM, Pedal edema (mild, trace BLE) Neurologic/Psychiatric: positive: Oriented x3, CN's nml (2-12), Motor nml, Sensation nml, Depressed mood/affect Reflexes: Bicep (R): 2+, Bicep (L): 2+ - Lab Results Fish Bones: 09/01/17 05:00 09/01/17 05:00 ABX Reporting Has patient been on IV antibiotics over the past 48 hours?: No Assessment/Plan - Problem List (1) Nausea & vomiting Impression: The patient continues to complain of nausea and for this this shift has not had emesis as per chart review. He has requested a clear liquid diet as his mouth is very dry. Plan: Continue to monitor for worsening of symptoms. (2) Hypertension Impression: Blood pressure today was 157/60. The patient is prescribed several medications at home to control his B/P including Losartan, metoprolol and chlorthalidone. Plan: Continue to monitor vital signs and resume medications when tolerating PO. Qualifiers: Hypertension type: essential hypertension Qualified Code(s): I10 - Essential (primary) hypertension (3) Abdominal pain Impression: Upon exam, the patient continues to have abdominal pain, located in the RUQ. This pain becomes worse with movement. The patient is found in bed and in a cumbersome position. Plan: Continue to treat using IV narcotics, and monitor for improvement. Consider GI consult if not turning around in 24 hours, or if CL diet exacerbates the issues. Qualifiers: Abdominal location: right upper quadrant Qualified Code(s): R10.11 - Right upper quadrant pain (4) Gastroesophageal reflux disease Impression: The patient takes a PPI at home that has been continued here in IV form. Plan: Continue meds. Qualifiers: Esophagitis presence: esophagitis presence not specified Qualified Code(s) : K21.9 - Gastro-esophageal reflux disease without esophagitis (5) Hyperglycemia due to type 1 diabetes mellitus Impression: A request for records from the patient's last PCP visit, showed a high dose Lantus of 120 units daily, and Aspart rapid acting insulin 15 units with meals. Last HgA1C was in a controlled range of 6.6%. The patient admits to sporadic use off his Long acting insulin. Plan: Continue to monitor. Await Nutrition consult. (6) ARF (acute renal failure) Impression: The patient appears to have some dehydration likely due to his symtoms of nausea and vomiting. This has caused an elevated creatinine and a decreased GFR at 33. Baseline GFR is typically ~70 for him. We will continue IVFs and monitor daily labs. Plan: Continue to monitor. Qualifiers: Acute renal failure type: unspecified Qualified Code(s): N17.9 - Acute kidney failure, unspecified
[2017-08-28] MEDS: METOPROLOL SUCCINATE 50 MG TABLET PO SCH (17:13)
[2017-08-28] MEDS: INSULIN ASPART 300 UNIT/3 ML PEN SUBQ SCH ×3 (17:27→21:14)
[2017-08-28] MEDS ORDERED: INSULIN REGULAR HUMAN 100 UNIT/1 ML 10 ML MDV SUBQ SCH (21:00)
[2017-08-29] MEDS: NS W/20 MEQ KCL 1,000 ML IV SCH ×2 (00:53→10:12)
[2017-08-29 06:05] LABS: HGB - HEMOGLOBIN 11.6 g/dL (14.0-18.0); LYMPHOCYTES # (AUTO) 0.9 10^3/uL (1.5-3.5); LYMPHOCYTES % (AUTO) 5.3 %; MEAN CORPUSCULAR HEMOGLOBIN 32.5 pg (27.0-31.0); MEAN CORPUSCULAR HGB CONC 33.4 g/dL (32.0-36.0); MEAN CORPUSCULAR VOLUME 97.1 fL (80.0-94.0); MEAN PLATELET VOLUME 8.9 fL (7.4-11.4); MONOCYTES % (AUTO) 12.5 %; NEUTROPHILS # (AUTO) 13.1 10^3/uL (1.5-6.6); NEUTROPHILS % (AUTO) 82.2 %; PLT - PLATELET COUNT 193 10^3/uL (130-450); RED BLOOD COUNT 3.56 10^6/uL (4.70-6.10); RED CELL DISTRIBUTION WIDTH 12.9 % (12.0-15.0)
[2017-08-29 06:12] LABS: ALBUMIN 2.7 g/dL (3.2-5.5); ALBUMIN/GLOBULIN RATIO 0.6 (1.0-2.2); CALCIUM 8.3 mg/dL (8.5-10.3); CREATININE 1.6 mg/dL (0.6-1.2); MAGNESIUM 2.1 mg/dL (1.7-2.8); PHOSPHORUS 2.5 mg/dL (2.5-4.6); TOTAL PROTEIN 6.9 g/dL (6.7-8.2)
[2017-08-29] MEDS: SODIUM CHLORIDE FLUSH 0.9% 10 ML SYRINGE IVP SCH ×3 (06:29→16:07)
[2017-08-29] MEDS: PANTOPRAZOLE 40 MG VIAL IVP SCH (06:29)
[2017-08-29] MEDS: SUCRALFATE 1 GM/10 ML UDC PO SCH ×4 (06:29→21:35)
[2017-08-29] MEDS: SODIUM CHLORIDE FLUSH 0.9% 10 ML SYRINGE IVP PRN ×2 (06:29→16:06)
[2017-08-29] MEDS: METOCLOPRAMIDE 10 MG/2 ML VIAL IVP SCH ×4 (06:29→21:34)
[2017-08-29] MEDS ORDERED: IOPAMIDOL-300 50 ML VIAL ONE (08:24)
[2017-08-29] MEDS: oxyCODONE 5 MG TABLET PO PRN ×2 (08:25→22:39)
[2017-08-29] MEDS: HEPARIN 5,000 UNIT/ML VIAL SUBQ SCH ×2 (09:13→21:36)
[2017-08-29] MEDS: SENNA 8.6 MG TABLET PO SCH (09:14)
[2017-08-29] MEDS: METOPROLOL SUCCINATE 50 MG TABLET PO SCH (09:14)
[2017-08-29] MEDS: DOCUSATE SODIUM 250 MG CAPSULE PO SCH (09:14)
[2017-08-29] MEDS: POLYETHYLENE GLYCOL 3350 17 GM PACKET PO SCH (09:15)
[2017-08-29] MEDS: INSULIN ASPART 300 UNIT/3 ML PEN SUBQ SCH ×7 (09:17→21:36)
[2017-08-29] MEDS: INSULIN GLARGINE 300 UNIT/3 ML PEN SUBQ SCH (09:18)
--- NOTE | 2017-08-29 10:58 | CT Report ---
Procedure Date: 08/29/2017 Accession Number: [id number] / [id number] Procedure: CT - Abdomen/Pelvis W/O CPT Code: FULL RESULT: EXAM: Abdomen/Pelvis W/O DATE: 08/29/2017 10:47 AM CLINICAL HISTORY: abdominal pain COMPARISON: 02/08/2015 TECHNIQUE: Routine helical CT imaging was performed through the abdomen and pelvis. IV contrast: None. Enteric contrast: Yes. Reconstructions: Coronal and sagittal. In accordance with CT protocol optimization, one or more of the following dose reduction techniques were utilized for this exam: automated exposure control, adjustment of mA and/or KV based on patient size, or use of iterative reconstructive technique. FINDINGS: Lung Bases: Unremarkable. Liver: Normal. No masses. Gallbladder/Bile Ducts: There is inflammation around the gallbladder. No obvious biliary dilatation on this noncontrast examination. Spleen: Normal. Pancreas: Normal. Adrenal Glands: Normal. Kidneys: Normal. No masses or hydronephrosis. Peritoneal Cavity/Bowel: Normal. No free fluid, free air or adenopathy. No masses or acute inflammatory process. The appendix is well visualized and normal. Pelvic Organs: Normal. The bladder and visualized pelvic organs are within normal limits. Vasculature: No aneurysms or other significant abnormality. Bones: Degenerative changes. Other: None. IMPRESSION: Inflammation around the gallbladder, suspicious for acute cholecystitis. No obvious biliary dilatation. No bowel obstruction. Normal appendix. [facility]
--- NOTE | 2017-08-29 13:17 | PROVIDER PROGRESS NOTE ---
Subjective - Prog Note Date Prog Note Date: 08/29/17 - Subjective Pt reports feeling: No change Subjective: pt still complain of abdominal pain. pt's WBC is continuing up. pt denies fever , chill, chest pain, shortness of breath. Current Medications - Current Medications Current Medications: Active Medications Acetaminophen (Tylenol) 650 mg PO Q4HR PRN PRN Reason: Pain 1 to 4 Docusate Sodium (Colace 250mg Capsule) 250 - 500 mg PO DAILY [facility] Last Admin: 08/29/17 09:14 Dose: 500 mg Heparin Sodium (Porcine) () 5,000 unit SUBQ BID [facility] Last Admin: 08/29/17 09:13 Dose: 5,000 unit Potassium Chloride/Sodium Chloride (Normal Saline 0.9% W/20 Meq Kcl) 1,000 mls @ 100 mls/hr IV .Q10H [facility] Last Admin: 08/29/17 10:12 Dose: 100 mls/hr Piperacillin Sod/Tazobactam (Sod 3.375 gm/ Sodium Chloride) 100 mls @ 200 mls/ hr IV Q6H [facility] Insulin Aspart (Novolog) 5 unit SUBQ TIDWM [facility] PRN Reason: Protocol Last Admin: 08/29/17 11:48 Dose: 5 unit Insulin Aspart (Novolog) 1 - 9 unit SUBQ 0800,1200,1700,2100 [facility] PRN Reason: Protocol Last Admin: 08/29/17 11:49 Dose: 5 unit Insulin Glargine (Lantus Solostar) 40 unit SUBQ DAILY [facility] Last Admin: 08/29/17 09:18 Dose: 40 unit Lidocaine HCl (Xylocaine Viscous 2%) 5 ml MM Q4H PRN PRN Reason: Mouth Sore Pain Metoclopramide HCl (Reglan Inj) 5 mg IVP ACHS [facility] Last Admin: 08/29/17 11:09 Dose: 5 mg Metoprolol Succinate (Toprol Xl) 50 mg PO DAILY [facility] Last Admin: 08/29/17 09:14 Dose: 50 mg Morphine Sulfate (Morphine) 2 mg IVP Q2H PRN PRN Reason: Pain 8 to 10 Ondansetron HCl (Zofran Inj) 4 mg IVP Q6HR PRN PRN Reason: Nausea / Vomiting Last Admin: 08/28/17 02:55 Dose: 4 mg Oxycodone HCl (Roxicodone) 5 mg PO Q4HR PRN PRN Reason: Pain 5 to 7 Last Admin: 08/29/17 00:51 Dose: 5 mg Oxycodone HCl (Roxicodone) 10 mg PO Q4HR PRN PRN Reason: Pain 8 to 10 Last Admin: 08/29/17 08:25 Dose: 10 mg Pantoprazole Sodium (Protonix) 40 mg IVP QDAC [facility] Last Admin: 08/29/17 06:29 Dose: 40 mg Polyethylene Glycol (Miralax) 17 gm PO DAILY [facility] Last Admin: 08/29/17 09:15 Dose: 17 gm Prochlorperazine Edisylate (Compazine Inj) 10 mg IVP Q6HR PRN PRN Reason: Nausea / Vomiting Last Admin: 08/28/17 03:58 Dose: 10 mg Senna (Senokot) 8.6 - 17.2 mg PO DAILY [facility] Last Admin: 08/29/17 09:14 Dose: 17.2 mg Sodium Chloride (Normal Saline Flush 0.9%) 10 ml IVP PRN PRN PRN Reason: NEEDED PER PROVIDER ORDERS Last Admin: 08/29/17 06:29 Dose: 10 ml Sodium Chloride (Normal Saline Flush 0.9%) 10 ml IVP 0100,0900,1700 [facility] Last Admin: 08/29/17 10:11 Dose: Not Given Sucralfate (Carafate) 1 gm PO 0700,1100,1600,2200 [facility] Last Admin: 08/29/17 11:09 Dose: 1 gm Zolpidem Tartrate (Ambien) 5 mg PO QPM PRN PRN Reason: Insomnia Insulin Aspart (Vial) [NovoLOG] 15 unit SQ TIDWM 10/28/12 Pantoprazole Sodium [Protonix] 40 mg PO BID 11/06/13 Chlorthalidone [Chlorthalidone] 25 mg PO DAILY 07/13/16 Doxazosin [Cardura] 4 mg PO DAILY 07/13/16 Finasteride [Proscar] 5 mg ORAL DAILY 07/13/16 Losartan Potassium [Losartan Potassium] 100 mg ORAL DAILY 07/13/16 Metoprolol Succinate 50 mg ORAL DAILY 07/13/16 Insulin Degludec [Tresiba Flextouch U-100] 120 units SUBQ DAILY 08/28/17 Objective - Vital Signs/Intake & Output Reviewed Vital Signs: Yes Vital Signs: Vital Signs x48h Temp Pulse Resp BP Pulse Ox 08/29/17 08:00 37.0 C 78 16 127/59 L 95 Intake & Output: Intake & Output 08/26/17 08/27/17 08/28/17 08/29/17 23:59 23:59 23:59 23:59 Intake Total 1690 2750.000 Balance 1690 2750.000 - Objective General Appearance: positive: No acute distress, Alert. negative: Lethargic Eyes Bilateral: positive: Normal inspection, PERRL, No lid inflammation, Conjunctivae nml ENT: positive: ENT inspection nml, Pharynx nml. negative: Purulent nasal drainage, Pharyngeal erythema, Oral lesions Neck: positive: Nml inspection, Thyroid nml, No JVD, Trachea midline. negative : Thyromegaly, Lymphadenopathy (R), Lymphadenopathy (L), Stiff neck, Carotid bruit, Swelling/bruising, Tracheal deviation Respiratory: positive: Chest non-tender, No respiratory distress, Breath sounds nml. negative: Wheezes, Rales, Rhonchi Cardiovascular: positive: Regular rate & rhythm, No murmur, No gallop. negative : Irregularly irregular, Extrasystoles, Tachycardia, PMI displaced laterally Peripheral Pulses: 2+ Radial (R), 2+ Radial (L), 2+ Dorsalis pedis (R), 2+ Dorsalis pedis (L) Abdomen: positive: No organomegaly, Nml bowel sounds, No distention, Tenderness , Other (pain at palpitation on right upper quadrant). negative: Guarding, Rebound Back: positive: Nml inspection. negative: CVA tenderness (R), CVA tenderness (L ) Skin: positive: Color nml, No rash, Warm, Dry. negative: Cyanosis, Diaphoresis , Pallor Extremities: positive: Non-tender, Full ROM, Nml appearance. negative: Calf tenderness, Joint swelling, Yuki's sign/cords Neurologic/Psychiatric: positive: Oriented x3, Motor nml, Sensation nml, Mood/ affect nml. negative: Weakness, Sensory loss, Facial droop, Slurred/abnml speech, Depressed mood/affect - Lab Results Fish Bones: 08/29/17 05:29 07/03/18 05:29 Other Labs: Lab Results x24hrs 08/29/17 08/29/17 08/29/17 Range/Units 11:19 07:24 05:29 WBC (4.8-10.8) x10^3/uL RBC (4.70-6.10) 10^6/uL Hgb (14.0-18.0) g/dL Hct (42.0-52.0) % MCV (80.0-94.0) fL MCH (27.0-31.0) pg MCHC (32.0-36.0) g/dL RDW (12.0-15.0) % Plt Count (130-450) 10^3/uL MPV (7.4-11.4) fL Neut # (Auto) (1.5-6.6) 10^3/uL Lymph # (Auto) (1.5-3.5) 10^3/uL [place] # (Auto) (0.0-1.0) 10^3/uL Eos # (Auto) (0.0-0.7) 10^3/uL Baso # (Auto) (0.0-0.1) 10^3/uL Absolute Nucleated RBC x10^3/uL Nucleated RBC % /100WBC Sodium 136 (135-145) mmol/L Potassium 3.7 (3.5-5.0) mmol/L Chloride 102 (101-111) mmol/L Carbon Dioxide 25 (21-32) mmol/L Anion Gap 9.0 (6-13) BUN 31 H (6-20) mg/dL Creatinine 1.6 H (0.6-1.2) mg/dL Estimated GFR (MDRD) 53 L (>89) Glucose 229 H (70-100) mg/dL POC Whole Bld Glucose 260 H 222 H (70 - 100) mg/dL Calcium 8.3 L (8.5-10.3) mg/dL Phosphorus 2.5 (2.5-4.6) mg/dL Magnesium 2.1 (1.7-2.8) mg/dL Total Bilirubin 1.0 (0.2-1.0) mg/dL AST 24 (10-42) IU/L ALT 27 (10-60) IU/L Alkaline Phosphatase 80 (42-121) IU/L Total Protein 6.9 (6.7-8.2) g/dL Albumin 2.7 L (3.2-5.5) g/dL Globulin 4.2 (2.1-4.2) g/dL Albumin/Globulin Ratio 0.6 L (1.0-2.2) 08/29/17 08/28/17 08/28/17 Range/Units 05:29 21:01 16:45 WBC 16.0 H (4.8-10.8) x10^3/uL RBC 3.56 L (4.70-6.10) 10^6/uL Hgb 11.6 L (14.0-18.0) g/dL Hct 34.6 L (42.0-52.0) % MCV 97.1 H (80.0-94.0) fL MCH 32.5 H (27.0-31.0) pg MCHC 33.4 (32.0-36.0) g/dL RDW 12.9 (12.0-15.0) % Plt Count 193 (130-450) 10^3/uL MPV 8.9 (7.4-11.4) fL Neut # (Auto) 13.1 H (1.5-6.6) 10^3/uL Lymph # (Auto) 0.9 L (1.5-3.5) 10^3/uL [place] # (Auto) 2.0 H (0.0-1.0) 10^3/uL Eos # (Auto) 0.0 (0.0-0.7) 10^3/uL Baso # (Auto) 0.0 (0.0-0.1) 10^3/uL Absolute Nucleated RBC 0.01 x10^3/uL Nucleated RBC % 0.0 /100WBC Sodium (135-145) mmol/L Potassium (3.5-5.0) mmol/L Chloride (101-111) mmol/L Carbon Dioxide (21-32) mmol/L Anion Gap (6-13) BUN (6-20) mg/dL Creatinine (0.6-1.2) mg/dL Estimated GFR (MDRD) (>89) Glucose (70-100) mg/dL POC Whole Bld Glucose 210 H 294 H (70 - 100) mg/dL Calcium (8.5-10.3) mg/dL Phosphorus (2.5-4.6) mg/dL Magnesium (1.7-2.8) mg/dL Total Bilirubin (0.2-1.0) mg/dL AST (10-42) IU/L ALT (10-60) IU/L Alkaline Phosphatase (42-121) IU/L Total Protein (6.7-8.2) g/dL Albumin (3.2-5.5) g/dL Globulin (2.1-4.2) g/dL Albumin/Globulin Ratio (1.0-2.2) ABX Reporting Has patient been on IV antibiotics over the past 48 hours?: Yes Assessment/Plan - Problem List (1) Abdominal pain Impression: Conclusion/Plan: 08/29 pt still complaint right upper pain, WBC is continuing up. order CT of abdomen, follow up CT show suspicious of acute cholecystitis Zosyn pain control US of abdomen consult with GI surgeon Patient has been having generalized abdominal pain for the last 3 days. Patient has a history of recurrent episodes of abdominal pain, nausea, vomiting and diarrhea. He has been worked up extensively and appears to likely have cyclic vomiting syndrome. The patient also has a history of gastritis seen on EGD. Patient is also a long-time diabetic and may also have some diabetic gastroparesis. Pain is similar to what he has had in the past. Today patient also has a leukocytosis and given his ongoing diarrhea and vomiting I suspect the patient likely has gastroenteritis. On presentation to the medical [facility] the patient also spiked a fever again this supports diagnosis of gastroenteritis. Patient is also had a CT scan done 3 days ago which showed no acute process in the abdomen. Plan: IV fluids IV antiemetics N.p.o. Pain control with IV narcotics Carafate Viscous lidocaine Monitor diarrhea if it continues we will send stool for culture (2) ARF (acute renal failure) Conclusion/Plan: improved, Creatinine from 2.4 to 1.6 continue IVF, daily lab and vital monitor Patient presented with acute renal failure likely secondary to decreased oral intake along with vomiting and diarrhea for last 3 days. Patient was seen at the [facility] in [place] 3 days earlier and had a creatinine of 1.35 his creatinine today is up to 2.8 and the patient appears very dehydrated. He also has a sodium of 130, potassium 3.3 and chloride of 93. Patient's BUN is elevated at 48 this appears to be prerenal azotemia. Plan: Patient will be given IV fluids Patient will be given antiemetics Electrolyte replacement Monitor creatinine Avoid nephrotoxic agents (3) Vomiting and diarrhea Conclusion/Plan: pt report he felt better and slow down of N/V/D continue IVF clear liquid diet, Patient presented with intractable vomiting and diarrhea that has been going on for the last 3 days. The patient is now dehydrated with acute kidney injury and electrolyte abnormalities. The patient's vomiting and diarrhea is likely either secondary to cyclic vomiting syndrome or gastroenteritis. Patient had a CT of his abdomen and pelvis done 3 days ago which showed no acute process. For now patient will be treated with supportive care. Plan: IV fluids IV antiemetics Electrolyte replacement Consider sending stools for culture if patient has persistent diarrhea Consider antidiarrheal medications if patient's diarrhea persists. N.p.o. advance diet as tolerated. (4) Hyponatremia Conclusion/Plan: improved, continue IVF of NS Patient presents with hyponatremia with a sodium of 130. Patient likely has hypovolemic hyponatremia due to dehydration from intractable vomiting and diarrhea for the last 3 days. Patient will be given IV fluids and we will monitor his sodium I expect as we hydrate the patient is sodium will improve. (5) Hypokalemia Conclusion/Plan: resolved Patient presents with hypokalemia as his sodium is 3.3. This is likely secondary to GI losses from his intractable vomiting and diarrhea. We will replace the patient's potassium and continue to monitor his potassium. We will also give the patient antiemetics to control his GI losses. We will also consider antidiarrheals if he continues to have diarrhea. (6) Diabetes Conclusion/Plan: continue current treatment, since pt is clear liquid diet, will adjust insulin as needed continue ACHS, hypoglycemia protocol Patient has a history of insulin-dependent diabetes. He is on 120 units of Lantus daily along with mealtime NovoLog. Currently the patient is having intractable vomiting and diarrhea and has not had very good oral intake. The patient will be kept n.p.o. We will cut his Lantus dose in half to give in the morning. The patient will be placed on n.p.o. sliding scale insulin. We will monitor his blood glucose 4 times a day. We will check a hemoglobin A1c. Once patient is able to tolerate p.o. intake we will place him on a diabetic diet. (7) Hypertension Conclusion/Plan: stable Patient has a history of hypertension and is on antihypertensives at home. Currently the patient's blood pressure is only mildly elevated. The patient will be kept n.p.o. for now and we will hold his antihypertensive medications until he is able to tolerate oral intake. We will monitor his blood pressure and titrate medications as needed. Qualifiers: Abdominal location: generalized Qualified Code(s): R10.84 - Generalized abdominal pain
[2017-08-29] MEDS ORDERED: PIPERACILLIN/TAZOBACTAM 3.375 GM in SODIUM CHLORIDE 0.9% MINIBAG 100 ML IV SCH (14:00)
[2017-08-29 14:11] LABS: GLUCOSE, URINE (UA) NEGATIVE (NEGATIVE); KETONES,URINE (UA) TRACE mg/dL (NEGATIVE); LEUKOCYTE ESTERASE, URINE NEGATIVE (NEGATIVE); NITRITE,URINE NEGATIVE (NEGATIVE); OCCULT BLOOD,URINE SMALL (NEGATIVE); PROTEIN,URINE 30 mg/dL (NEGATIVE); UROBILINOGEN,URINE 1 (NORMAL) E.U./dL (NORMAL)
[2017-08-29 14:16] LABS: BILIRUBIN,URINE SMALL (NEGATIVE); CLARITY,URINE CLEAR (CLEAR); ICTOTEST,URINE POSITIVE
[2017-08-29 14:34] LABS: BACTERIA,URINE Moderate /HPF (None Seen); RBC,URINE 0-5 /HPF (0-5); SQUAMOUS EPITHELIAL CELL,UR FEW Squamous (<= Few)
[2017-08-29] MEDS: PROCHLORPERAZINE 10 MG/2 ML VIAL IVP PRN ×2 (15:51→20:20)
--- NOTE | 2017-08-29 16:08 | Ultrasound Report ---
Procedure Date: 08/29/2017 Accession Number: [id number] / [id number] Procedure: US - Abdomen Limited CPT Code: FULL RESULT: EXAM: ABDOMEN ULTRASOUND LIMITED, RUQ EXAM DATE: 08/29/2017 03:11 PM. CLINICAL HISTORY: Right upper quadrant pain. COMPARISON: CT today. TECHNIQUE: Real-time scanning was performed with static images obtained. FINDINGS: Liver: The liver parenchyma is coarse and diffusely echogenic. The liver is difficult to visualize secondary to body habitus. There is focal fatty sparing adjacent to the gallbladder. 15.4 cm. Main portal vein flow: Hepatopetal. Gallbladder: There are multiple gallstones in the gallbladder. The gallbladder wall thickness is 5 mm. Positive ultrasound Guzman's sign. There is trace pericholecystic fluid. Biliary System: CBD measures 4 mm. Not well seen. Other: None. IMPRESSION: 1. Positive for cholelithiasis and gallbladder wall thickening with a ultrasound Guzman's sign suspicious for acute cholecystitis. 2. No biliary dilatation. 3. Steatosis of the liver. [facility]
--- NOTE | 2017-08-29 19:58 | CONSULTATION NOTE ---
Referring Provider Name of Referring Provider:: Mekhi Denisa Allison Consult Date: 08/29/17 Chief Complaint - Chief Complaint Chief Complaint: abd pain, N/V/D History of Present Illness - Admitted From Admitted From:: ER - History Obtained From Records Reviewed: yes History obtained from: pt Exam Limitations: none - History of Present Illness HPI Comment/Other: 67 yo male admitted 2 days ago with upper abdominal pain, N/V/D. Sx have present for several weeks on and off. He was evaluated at the [facility] approximately 2 weeks ago and diagnosed with cyclical N/V syndrome. Apparently an abd CT was negative at that time. Because of worsening sx he presented to [facility] 2 days ago and was admitted with acute renal insufficiency thought due to volume depletion. He was also febrile and thought to be suffering from gastroenteritis. He was also noted to have worsening leukocytosis along with persistant sx so an abd/pelvic CT scan was performed today which showed findings c/w acute cholecystitis. An abd US confirmed same with multiple stones in the gallbladder, a thickened gb wall, + sonographic Guzman's sign, and nl bile ducts. He reports similar sx every few months for many years, which can last 4-5 days, but this episode was the worst, and episodes have been occurring more frequently. He has had several EGDs for sx of GERD, with favorable findings. He also reports a hx of adenomatous colon polyps and has regular colonoscopies, most recently several years ago. No hx hepatitis , jaundice, wt loss, FH gallbladder disease or CRC. No dysphagia, melena, hematochezia, hematemesis. He presently reports that he is feeling better and able to tolerate liquids po. Previous w/u has included stool cultures, C. diff which were negative, and other diagnoses entertained include diabetic visceral neuropathy. History - Past Medical History Cardiovascular: reports: Hypertension, High cholesterol, Coronary artery disease , Angina, NC, Other (Obesity) Respiratory: reports: Sleep apnea Neuro: reports: Peripheral neuropathy Endocrine/Autoimmune: reports: Type 2 diabetes GI: reports: GERD, Colon polyps, Chronic diarrhea : reports: Benign prostate hypertrophy, Renal insuffiency, Kidney stones HEENT: reports: Glaucoma, Other (Diabetic retinopathy) Psych: reports: Depression, Panic attacks, Post traumatic stress disorder Musculoskeletal: reports: Osteoarthritis Derm: reports: Psoriasis MRSA Hx?: No Other Past Medical History: Late latent syphilis - Past Surgical History General: reports: Colonoscopy, EGD Ortho: reports: Arthroscopic surgery Cardiovascular: reports: Cardiac catheterization, Angioplasty (no stents, approx 20 yrs ago) HEENT: reports: Cataracts - Family & Social History Family History: Mother: Alive and Well, Father: Alive and Well, Sister: Alive and Well, Brother: Alive and Well Family History Comment/Other: The patient denies any family history of diabetes , hypertension, heart disease or cancer. He also denies any family history of any gastrointestinal problems. Living arrangement: At home Living Situation: With spouse/s.o. Social History Notes: The patient lives in [place] with his and 6 children. He is originally from [place] but moved over here with the [employer]. He is retired [employer]. He denies any alcohol use, history of tobacco use for any illicit drug use. - Substance History Use: Uses substance without health or social issues: NONE - POLST Patient has POLST: No POLST Status: Full Code Meds/Allgy - Home Medications Home Medications: Ambulatory Orders Medication Instructions Recorded Confirmed Insulin Aspart (Vial) [NovoLOG] 15 unit SQ TIDWM 10/28/12 08/28/17 Pantoprazole Sodium [Protonix] 40 mg PO BID 11/06/13 08/28/17 Chlorthalidone [Chlorthalidone] 25 mg PO DAILY 07/13/16 08/28/17 Doxazosin [Cardura] 4 mg PO DAILY 07/13/16 08/28/17 Finasteride [Proscar] 5 mg ORAL DAILY 07/13/16 08/28/17 Losartan Potassium [Losartan 100 mg ORAL DAILY 07/13/16 08/28/17 Potassium] Metoprolol Succinate 50 mg ORAL DAILY 07/13/16 08/28/17 Insulin Degludec [Tresiba 120 units SUBQ DAILY 08/28/17 08/28/17 Flextouch U-100] - Allergies Allergies/Adverse Reactions: Allergies Allergy/AdvReac Type Severity Reaction Status Date / Time aspirin Allergy resp Verified 08/19/16 05:06 hydrocodone bitartrate * Allergy unknown Verified 08/19/16 05:06 [From Vicodin] hydroxyzine HCl * Allergy unknown Verified 08/19/16 05:06 [From Vistaril] hydroxyzine pamoate * Allergy unknown Verified 08/19/16 05:06 [From Vistaril] meperidine HCl * Allergy unknown Verified 08/19/16 05:06 [From Demerol] morphine Allergy Unknown Verified 08/19/16 05:06 procaine HCl * Allergy Unknown Verified 08/19/16 05:06 [From Novocain] lactose AdvReac Cramps Verified 08/19/16 05:06 promethazine HCl * AdvReac Unknown Verified 08/19/16 05:06 [From Phenergan] eggs Allergy Respiratory Uncoded 08/19/16 05:06 opiods Allergy Anaphylaxis Uncoded 09/17/16 17:56 Review of Systems - Constitutional Constitutional: reports: Fever, Weight gain (20#/past year or two). denies: Weight loss - Cardiovascular Cariovascular: denies: Irregular heart rate, Chest pain, Edema - Respiratory Respiratory: reports: Snoring, Apnea (sleep apnea). denies: Cough, Sputum production, Wheezing - Gastrointestinal Gastrointestinal: reports: Abdominal pain, Diarrhea, Change in bowel habits, Nausea, Vomiting, Reflux/heartburn. denies: Constipation, Black stools, Bloody stools, Rei blood emesis, Coffee grounds emesis - Psychiatric Psychiatric: reports: Other (PTSD) - Hematologic/Lymphatic Hematologic/Lymphatic: denies: Blood clots, Bleeding tendencies - All Other Systems All Other Systems: reports: Reviewed and negative (or covered in HPI/PMH) Exam - Vital Signs Reviewed Vital Signs: Yes Vital Signs: Vital Signs x48h Temp Pulse Resp BP Pulse Ox 08/29/17 16:00 36.8 C 66 18 127/49 L 96 - Physical Exam General Appearance: positive: No acute distress, Alert Eyes Bilateral: positive: Normal inspection, Conjunctivae nml, No scleral icterus ENT: positive: ENT inspection nml, Pharynx nml, No signs of dehydration Neck: positive: Nml inspection, No JVD. negative: Lymphadenopathy (R), Lymphadenopathy (L) Respiratory: positive: Chest non-tender, No respiratory distress, Breath sounds nml Cardiovascular: positive: Regular rate & rhythm, No murmur, No gallop Peripheral Pulses: positive: 2+ Abdomen: positive: Non-tender, No organomegaly, Nml bowel sounds, Other (marked truncal obesity). negative: Guarding, Rebound, Hepatomegaly, Splenomegaly, Mass Back: positive: Nml inspection. negative: CVA tenderness (R), CVA tenderness (L ) Skin: positive: Color nml, No rash, Warm, Dry Extremities: positive: No pedal edema. negative: Calf tenderness Neurologic/Psychiatric: positive: Oriented x3 Conclusion/Plan - Diagnosis Diagnosis: Acute calculous cholecystitis. This may explain the majority of his sx and certainly diabetics are notorious for presenting with atypical sx of gallbladder disease and have more severe disease than anticipated. - Plan Plan: Lap soy with poss IOC in am. PAR conference with pt, and consent obtained. Preop ECG and CXR will be ordered. - Lab Results Lab results reviewed: Yes Fish Bones: 08/29/17 05:29 08/29/17 05:29 Other Lab Results: lfts, lipase nl; UA: mod bacteria, C&S pending. - Diagnostic Imaging Results Diagnostic Imaging Results: positive: Final report reviewed, Read independently Diagnostic Imaging Results Comments: See HPI - EKG Results EKG Interpreted Independently: No
[2017-08-29] MEDS: D5NS W/20 MEQ KCL 1,000 ML IV SCH (21:19)
[2017-08-29] MEDS: PIPERACILLIN/TAZOBACTAM 3.375 GM in SODIUM CHLORIDE 0.9% MINIBAG 100 ML IV SCH (21:19)
--- NOTE | 2017-08-29 21:48 | XRAY Report ---
Procedure Date: 08/29/2017 Accession Number: [id number] / [id number] Procedure: XR - Chest 2 View X-Ray CPT Code: 97855 FULL RESULT: EXAM: CHEST RADIOGRAPHY EXAM DATE: 08/29/2017 08:52 PM. CLINICAL HISTORY: RUQ abd pain; preop. COMPARISON: 02/28/2016. TECHNIQUE: 2 views. FINDINGS: Lungs/Pleura: There is mild elevation of the right hemidiaphragm with right middle lobe atelectasis. The left lung is clear. Negative for pneumothorax. Mediastinum: Heart size is normal. Trachea is midline. Other: None. IMPRESSION: 1. Right diaphragm elevation. Otherwise negative. RADIA
[2017-08-30] MEDS: PIPERACILLIN/TAZOBACTAM 3.375 GM in SODIUM CHLORIDE 0.9% MINIBAG 100 ML IV SCH ×4 (01:05→20:11)
[2017-08-30] MEDS: SODIUM CHLORIDE FLUSH 0.9% 10 ML SYRINGE IVP SCH ×3 (01:06→06:37)
[2017-08-30] MEDS: ONDANSETRON 4 MG/2 ML VIAL IVP PRN ×2 (01:13→13:30)
[2017-08-30] MEDS: PROCHLORPERAZINE 10 MG/2 ML VIAL IVP PRN (02:49)
[2017-08-30] MEDS: SODIUM CHLORIDE FLUSH 0.9% 10 ML SYRINGE IVP PRN ×2 (02:50→06:37)
[2017-08-30 06:19] LABS: BASOPHILS % (AUTO) 0.1 %; EOSINOPHILS % (AUTO) 0.5 %; LYMPHOCYTES % (AUTO) 7.8 %
[2017-08-30 06:25] LABS: HGB - HEMOGLOBIN 11.5 g/dL (14.0-18.0); MEAN CORPUSCULAR HEMOGLOBIN 32.2 pg (27.0-31.0); MEAN CORPUSCULAR HGB CONC 33.4 g/dL (32.0-36.0); MEAN CORPUSCULAR VOLUME 96.4 fL (80.0-94.0); MEAN PLATELET VOLUME 8.8 fL (7.4-11.4); MONOCYTES % (AUTO) 9.8 %; NEUTROPHILS % (AUTO) 81.8 %; PLT - PLATELET COUNT 185 10^3/uL (130-450); RED BLOOD COUNT 3.56 10^6/uL (4.70-6.10); RED CELL DISTRIBUTION WIDTH 13.2 % (12.0-15.0)
[2017-08-30 06:30] LABS: ABNORMAL LYMPHS % (MANUAL) 0 %
[2017-08-30 06:35] LABS: ALBUMIN 2.5 g/dL (3.2-5.5); ALBUMIN/GLOBULIN RATIO 0.6 (1.0-2.2); BILIRUBIN,TOTAL 5.5 mg/dL (0.2-1.0); CALCIUM 8.4 mg/dL (8.5-10.3); CREATININE 1.3 mg/dL (0.6-1.2); MAGNESIUM 1.9 mg/dL (1.7-2.8); PHOSPHORUS 2.6 mg/dL (2.5-4.6); TOTAL PROTEIN 6.6 g/dL (6.7-8.2)
[2017-08-30] MEDS: PANTOPRAZOLE 40 MG VIAL IVP SCH (06:37)
[2017-08-30] MEDS: METOCLOPRAMIDE 10 MG/2 ML VIAL IVP SCH (06:38)
[2017-08-30] MEDS: SUCRALFATE 1 GM/10 ML UDC PO SCH (06:38)
[2017-08-30 06:50] LABS: BAND NEUTROPHILS % (MANUAL) 6 %; DIFFERENTIAL COMMENT MANUAL DIFFERENTIAL; LYMPHOCYTES # (MANUAL) 0.9 10^3/uL (1.5-3.5); LYMPHOCYTES % (MANUAL) 9 %; METAMYELOCYTES % (MANUAL) 1 %; MONOCYTES # (MANUAL) 0.7 10^3/uL (0.0-1.0); MYELOCYTES % (MANUAL) 2 %; NEUTROPHILS # (MANUAL) 8.1 10^3/uL (1.5-6.6); NEUTROPHILS % (MANUAL) 75 %; PLATELET ESTIMATE, MANUAL NORMAL (130-450,000) (NORMAL); RBC MORPHOLOGY (MULTIPLE) NORMAL APPEARANCE (NORMAL)
--- NOTE | 2017-08-30 07:30 | PROVIDER PROGRESS NOTE ---
Assessment/Plan - Problem List (1) Abdominal pain Qualifiers: Abdominal location: right upper quadrant Qualified Code(s): R10.11 - Right upper quadrant pain Assessment/Plan: Acute cholecystitis with possible choledocholithiasis and obstructive jaundice vs drug rx (pip/nadege). Plan: proceed with lap soy with IOC; may need ERCP postop. Discussed with pt who is in agreement. (2) Abnormal LFTs (liver function tests) Assessment/Plan: Acute onset, likely due to either choledocholithiasis with obstruction vs drug rx (e.g. pip/nadege). Plan: as per plan above for abd pain: IOC with lap soy, may need ERCP postop. - Current Meds Current Meds: Current Medications Generic Name Dose Route Start Last Admin Trade Name Freq PRN Reason Stop Dose Admin Docusate Sodium 250 - 500 mg 08/29/17 09:00 08/29/17 09:14 Colace 250mg Capsule PO 500 mg DAILY NICOLETTE Administration Heparin Sodium (Porcine) 5,000 unit 08/27/17 21:00 08/29/17 21:36 SUBQ 5,000 unit BID NICOLETTE Administration Piperacillin Sod/Tazobactam 100 mls @ 200 mls/hr 08/29/17 20:00 08/30/17 04: 39 Sod 3.375 gm/ Sodium Chloride IV Infused Q6H NICOLETTE Infusion Potassium Chloride/Dextrose/Sod Cl 1,000 mls @ 100 mls/hr 08/29/17 20:00 05/14 21:19 IV 100 mls/hr .Q10H NICOLETTE Administration Insulin Aspart 5 unit 08/28/17 17:00 08/29/17 17:53 Novolog SUBQ 5 unit TIDWM NICOLETTE Administration Protocol Insulin Aspart 1 - 9 unit 08/28/17 17:00 08/29/17 21:36 Novolog SUBQ 1 unit 0800,1200,1700,2100 NICOLETTE Administration Protocol Insulin Glargine 40 unit 08/28/17 13:00 08/29/17 09:18 Lantus Solostar SUBQ 40 unit DAILY NICOLETTE Administration Metoclopramide HCl 5 mg 08/28/17 08:00 08/30/17 06:38 Reglan Inj IVP 5 mg ACHS NICOLETTE Administration Metoprolol Succinate 50 mg 08/28/17 16:43 08/29/17 09:14 Toprol Xl PO 50 mg DAILY NICOLETTE Administration Ondansetron HCl 4 mg 08/27/17 19:40 08/30/17 01:13 Zofran Inj IVP 4 mg Q6HR PRN Administration Nausea / Vomiting Oxycodone HCl 5 mg 08/27/17 19:40 08/29/17 00:51 Roxicodone PO 5 mg Q4HR PRN Administration Pain 5 to 7 Oxycodone HCl 10 mg 08/27/17 19:40 08/29/17 22:39 Roxicodone PO 10 mg Q4HR PRN Administration Pain 8 to 10 Pantoprazole Sodium 40 mg 08/28/17 07:00 08/30/17 06:37 Protonix IVP 40 mg QDAC NICOLETTE Administration Polyethylene Glycol 17 gm 08/28/17 09:00 08/29/17 09:15 Miralax PO 17 gm DAILY NICOLETTE Administration Prochlorperazine Edisylate 10 mg 08/27/17 19:40 08/30/17 02:49 Compazine Inj IVP 10 mg Q6HR PRN Administration Nausea / Vomiting Senna 8.6 - 17.2 mg 08/29/17 09:00 08/29/17 09:14 Senokot PO 17.2 mg DAILY NICOLETTE Administration Sodium Chloride 10 ml 08/27/17 19:40 08/30/17 06:37 Normal Saline Flush 0.9% IVP 10 ml PRN PRN Administration NEEDED PER PROVIDER ORDERS Sodium Chloride 10 ml 08/28/17 01:00 08/30/17 06:37 Normal Saline Flush 0.9% IVP 10 ml 0100,0900,1700 NICOLETTE Administration Sucralfate 1 gm 08/27/17 23:00 08/30/17 06:38 Carafate PO 1 gm 0700,1100,1600,2200 NICOLETTE Administration - Lab Result Lab results reviewed: Yes Fish Bone Diagrams: 08/30/17 06:10 08/30/17 06:10 Other Lab Results: lft's markedly abnormal today with bili 5.5, alt/ast/alk phos in 300s - Additional Planning Condition/Complexity: Guarded My Orders: My Active Orders 08/29/17 19:48 NPO except Meds [DIET] 08/29/17 20:00 D5ns W/20 Meq KCl 1,000 ml IV 100 mls/hr Plan Discussed with:: Patient Time Spent: 15-30 minutes Subjective - Subjective Patient Reports: Abdominal Pain (pt continues to have intermittent upper abd pain, N/V), Nausea Nursing Reports: Nausea, Vomitting Objective Vital Signs: Vital Signs - 24 hr 08/29/17 08/29/17 08/30/17 08:00 16:00 00:40 Temperature 37.0 C 36.8 C 37.5 C Heart Rate [ 78 66 83 Brachial] Respiratory 16 18 18 Rate Blood Pressure 127/59 L 127/49 L 142/61 H [Right Brachial artery] O2 Saturation 95 96 92 Oxygen O2 Source Room air I&O (Last 24 Hrs): Intake and Output Totals x24h 08/28/17 08/29/17 08/30/17 23:59 23:59 23:59 Intake Total 1690 4400.000 100 Output Total 500 5 Balance 1690 3900.000 95 General: Alert, Oriented x3, Cooperative HEENT: Mucous membr. moist/pink, Other (sclera icteric) Neck: Supple, No JVD Neuro: Alert Abdomen: Normal bowel sounds, Soft, Other (mild upper abd tenderness, no peritoneal signs) Extremities: No edema, No tenderness/swelling Skin: No rashes - Results Results: Laboratory Results WBC 10.0 x10^3/uL (4.8-10.8) 08/30/17 06:10 RBC 3.56 10^6/uL (4.70-6.10) L 08/30/17 06:10 Hgb 11.5 g/dL (14.0-18.0) L 08/30/17 06:10 Hct 34.3 % (42.0-52.0) L 08/30/17 06:10 MCV 96.4 fL (80.0-94.0) H 08/30/17 06:10 MCH 32.2 pg (27.0-31.0) H 08/30/17 06:10 MCHC 33.4 g/dL (32.0-36.0) 08/30/17 06:10 RDW 13.2 % (12.0-15.0) 08/30/17 06:10 Plt Count 185 10^3/uL (130-450) 08/30/17 06:10 MPV 8.8 fL (7.4-11.4) 08/30/17 06:10 Neut # (Auto) Not Reportable 08/30/17 06:10 Lymph # (Auto) Not Reportable 08/30/17 06:10 Chaves # (Auto) Not Reportable 08/30/17 06:10 Eos # (Auto) Not Reportable 08/30/17 06:10 Baso # (Auto) Not Reportable 08/30/17 06:10 Absolute Nucleated RBC Not Reportable 08/30/17 06:10 Total Counted 100 08/30/17 06:10 Band Neuts % (Manual) 6 % (0-10) 08/30/17 06:10 Abnorm Lymph % (Manual) 0 % 08/30/17 06:10 Metamyelocytes % 1 % (-0) H 08/30/17 06:10 Myelocytes % 2 % (-0) H 08/30/17 06:10 Nucleated RBC % Not Reportable 08/30/17 06:10 Neutrophils # (Manual) 8.1 10^3/uL (1.5-6.6) H 08/30/17 06:10 Lymphocytes # (Manual) 0.9 10^3/uL (1.5-3.5) L 08/30/17 06:10 Monocytes # (Manual) 0.7 10^3/uL (0.0-1.0) 08/30/17 06:10 Eosinophils # (Manual) 0.0 10^3/uL (0-0.7) 08/30/17 06:10 Basophils # (Manual) 0.0 10^3/uL (0-0.1) 08/30/17 06:10 Differential Comment MANUAL DIFFERENTIAL 08/30/17 06:10 Platelet Estimate NORMAL (130-450,000) (NORMAL) 08/30/17 06:10 RBC Morph Micro Appear NORMAL APPEARANCE (NORMAL) 08/30/17 06:10 Sodium 135 mmol/L (135-145) 08/30/17 06:10 Potassium 3.7 mmol/L (3.5-5.0) 08/30/17 06:10 Chloride 101 mmol/L (101-111) 08/30/17 06:10 Carbon Dioxide 25 mmol/L (21-32) 08/30/17 06:10 Anion Gap 9.0 (6-13) 08/30/17 06:10 BUN 24 mg/dL (6-20) H 08/30/17 06:10 Creatinine 1.3 mg/dL (0.6-1.2) H 08/30/17 06:10 Estimated GFR (MDRD) 67 (>89) L 08/30/17 06:10 Glucose 224 mg/dL (70-100) H 08/30/17 06:10 POC Whole Bld Glucose 194 mg/dL (70 - 100) H 08/30/17 06:11 Glycated Hemoglobin 6.4 % (4.6-6.2) H 08/28/17 07:03 Estim Average Glucose 137 (70-100) H 08/28/17 07:03 Lactic Acid 1.3 mmol/L (0.5-2.2) 08/28/17 07:03 Calcium 8.4 mg/dL (8.5-10.3) L 08/30/17 06:10 Phosphorus 2.6 mg/dL (2.5-4.6) 08/30/17 06:10 Magnesium 1.9 mg/dL (1.7-2.8) 08/30/17 06:10 Total Bilirubin 5.5 mg/dL (0.2-1.0) H 08/30/17 06:10 AST 327 IU/L (10-42) H 08/30/17 06:10 ALT 349 IU/L (10-60) H 08/30/17 06:10 Alkaline Phosphatase 324 IU/L (42-121) H 08/30/17 06:10 Total Protein 6.6 g/dL (6.7-8.2) L 08/30/17 06:10 Albumin 2.5 g/dL (3.2-5.5) L 08/30/17 06:10 Globulin 4.1 g/dL (2.1-4.2) 08/30/17 06:10 Albumin/Globulin Ratio 0.6 (1.0-2.2) L 08/30/17 06:10 Lipase 22 U/L (22-51) 08/27/17 17:42 Urine Color DARK YELLOW 08/29/17 14:08 Urine Clarity CLEAR (CLEAR) 08/29/17 14:08 Urine pH 6.0 PH (5.0-7.5) 08/29/17 14:08 Ur Specific [place] 1.020 (1.002-1.030) 08/29/17 14:08 Urine Protein 30 mg/dL (NEGATIVE) H 08/29/17 14:08 Urine Glucose (UA) NEGATIVE mg/dL (NEGATIVE) 08/29/17 14:08 Urine Ketones TRACE mg/dL (NEGATIVE) 08/29/17 14:08 Urine Occult Blood SMALL (NEGATIVE) H 08/29/17 14:08 Urine Nitrite NEGATIVE (NEGATIVE) 08/29/17 14:08 Urine Bilirubin SMALL (NEGATIVE) H 08/29/17 14:08 Urine Urobilinogen 1 (NORMAL) E.U./dL (NORMAL) 08/29/17 14:08 Ur Leukocyte Esterase NEGATIVE (NEGATIVE) 08/29/17 14:08 Urine RBC 0-5 /HPF (0-5) 08/29/17 14:08 Urine WBC 0-3 /HPF (0-3) 08/29/17 14:08 Ur Squamous Epith Cells FEW Squamous (<= Few) 08/29/17 14:08 Urine Bacteria Moderate /HPF (None Seen) H 08/29/17 14:08 Urine Culture Comments INDICATED 08/29/17 14:08 ABX Reporting Has patient been on IV antibiotics over the past 48 hours?: Yes
[2017-08-30] MEDS ORDERED: PHENYLEPHRINE 50 MG/5 ML VIAL IV ONE (09:07)
[2017-08-30] MEDS ORDERED: DEXAMETHASONE 4 MG/ML VIAL IVP ONE (09:07)
[2017-08-30] MEDS ORDERED: GLYCOPYRROLATE 1 MG/5 ML VIAL IVP ONE (09:07)
[2017-08-30] MEDS ORDERED: fentaNYL 100 MCG/2 ML VIAL IVP ONE (09:07)
[2017-08-30] MEDS ORDERED: LIDOCAINE-MPF 2% 5 ML VIAL IM ONE (09:07)
[2017-08-30] MEDS ORDERED: NEOSTIGMINE 1 MG/1 ML 10 ML MDV IVP ONE (09:07)
[2017-08-30] MEDS ORDERED: KETOROLAC 30 MG/ML VIAL IVP ONE (09:07)
[2017-08-30] MEDS ORDERED: ONDANSETRON 4 MG/2 ML VIAL IVP ONE (09:07)
[2017-08-30] MEDS ORDERED: PROPOFOL 200 MG/20 ML VIAL IVP ONE (09:07)
[2017-08-30] MEDS ORDERED: ROCURONIUM 50 MG/5 ML VIAL IVP ONE (09:07)
[2017-08-30] MEDS ORDERED: SUCCINYLCHOLINE 200 MG/10 ML VIAL IVP ONE (09:07)
[2017-08-30] MEDS ORDERED: MIDAZOLAM 2 MG/2 ML VIAL IVP ONE (09:07)
[2017-08-30] MEDS: D5NS W/20 MEQ KCL 1,000 ML IV SCH (09:27)
[2017-08-30] MEDS: INSULIN ASPART 300 UNIT/3 ML PEN SUBQ SCH ×7 (09:27→22:22)
[2017-08-30] MEDS: HEPARIN 5,000 UNIT/ML VIAL SUBQ SCH ×2 (09:28→22:49)
[2017-08-30] MEDS: INSULIN GLARGINE 300 UNIT/3 ML PEN SUBQ SCH ×2 (09:28→13:28)
[2017-08-30] MEDS: DOCUSATE SODIUM 250 MG CAPSULE PO SCH (09:28)
[2017-08-30] MEDS: METOPROLOL SUCCINATE 50 MG TABLET PO SCH (09:28)
[2017-08-30] MEDS: POLYETHYLENE GLYCOL 3350 17 GM PACKET PO SCH (09:28)
[2017-08-30] MEDS: SENNA 8.6 MG TABLET PO SCH (09:29)
[2017-08-30] MEDS ORDERED: BUPIVACAINE 0.25% PF 30 ML VIAL ONE (09:31)
[2017-08-30] MEDS ORDERED: IOTHALAMATE MEGLUMINE 50 ML VIAL ONE (09:38)
[2017-08-30] MEDS ORDERED: BUPIVACAINE 0.25% PF 30 ML VIAL SUBQ ONE (09:53)
[2017-08-30] MEDS ORDERED: IOTHALAMATE MEGLUMINE 50 ML VIAL IVP ONE (09:54)
[2017-08-30] MEDS ORDERED: LACTATED RINGERS 1,000 ML IV ONE ×2 (09:56→11:52)
--- NOTE | 2017-08-30 11:04 | XRAY Report ---
Procedure Date: 08/30/2017 Accession Number: [id number] / [id number] Procedure: [place] - OR Cholangiogram CPT Code: FULL RESULT: EXAM: INTRAOPERATIVE CHOLANGIOGRAM EXAM DATE: 08/30/2017 12:00 AM. CLINICAL HISTORY: CHOLANGIOGRAM. COMPARISONS: None. TECHNIQUE: Dr. Berkley Trejo performed the procedure. Please see the operative notes for details. Fluoroscopy Time: 0.23 minutes. Number of Images: 1. FINDINGS IMPRESSION: A catheter has been placed into the cystic duct remnant following cholecystectomy. Cholangiography shows opacification of the bile ducts. Visualized ducts show no filling defects. Spill of contrast into the duodenum documented. RADIA
--- NOTE | 2017-08-30 12:00 | PROVIDER PROGRESS NOTE ---
Subjective - Prog Note Date Prog Note Date: 08/30/17 - Subjective Pt reports feeling: Improved Subjective: pt feels better, pain is good controlled. pt denies fever, chill, SOB, chest pain. Denies nausea, vomiting, diarrhea. Current Medications - Current Medications Current Medications: Active Medications Acetaminophen (Tylenol) 650 mg PO Q4HR PRN PRN Reason: Pain 1 to 4 Docusate Sodium (Colace 250mg Capsule) 250 - 500 mg PO DAILY REPLACED BY [facility] Last Admin: 08/30/17 09:28 Dose: Not Given Heparin Sodium (Porcine) () 5,000 unit SUBQ BID REPLACED BY [facility] Last Admin: 08/30/17 09:28 Dose: Not Given Piperacillin Sod/Tazobactam (Sod 3.375 gm/ Sodium Chloride) 100 mls @ 200 mls/ hr IV Q6H REPLACED BY [facility] Last Admin: 08/30/17 09:28 Dose: Not Given Potassium Chloride/Dextrose/Sod Cl () 1,000 mls @ 100 mls/hr IV .Q10H REPLACED BY [facility] Last Infusion: 08/30/17 09:35 Dose: Infused Insulin Aspart (Novolog) 5 unit SUBQ TIDWM REPLACED BY [facility] PRN Reason: Protocol Last Admin: 08/30/17 09:27 Dose: Not Given Insulin Aspart (Novolog) 1 - 9 unit SUBQ 0800,1200,1700,2100 REPLACED BY [facility] PRN Reason: Protocol Last Admin: 08/30/17 09:27 Dose: Not Given Insulin Glargine (Lantus Solostar) 40 unit SUBQ DAILY REPLACED BY [facility] Last Admin: 08/30/17 09:28 Dose: Not Given Lidocaine HCl (Xylocaine Viscous 2%) 5 ml MM Q4H PRN PRN Reason: Mouth Sore Pain Metoclopramide HCl (Reglan Inj) 5 mg IVP ACHS REPLACED BY [facility] Last Admin: 08/30/17 06:38 Dose: 5 mg Metoprolol Succinate (Toprol Xl) 50 mg PO DAILY REPLACED BY [facility] Last Admin: 08/30/17 09:28 Dose: Not Given Morphine Sulfate (Morphine) 2 mg IVP Q2H PRN PRN Reason: Pain 8 to 10 Ondansetron HCl (Zofran Inj) 4 mg IVP Q6HR PRN PRN Reason: Nausea / Vomiting Last Admin: 08/30/17 01:13 Dose: 4 mg Oxycodone HCl (Roxicodone) 5 mg PO Q4HR PRN PRN Reason: Pain 5 to 7 Last Admin: 08/29/17 00:51 Dose: 5 mg Oxycodone HCl (Roxicodone) 10 mg PO Q4HR PRN PRN Reason: Pain 8 to 10 Last Admin: 08/29/17 22:39 Dose: 10 mg Pantoprazole Sodium (Protonix) 40 mg IVP QDAC REPLACED BY [facility] Last Admin: 08/30/17 06:37 Dose: 40 mg Polyethylene Glycol (Miralax) 17 gm PO DAILY REPLACED BY [facility] Last Admin: 08/30/17 09:28 Dose: Not Given Prochlorperazine Edisylate (Compazine Inj) 10 mg IVP Q6HR PRN PRN Reason: Nausea / Vomiting Last Admin: 08/30/17 02:49 Dose: 10 mg Senna (Senokot) 8.6 - 17.2 mg PO DAILY REPLACED BY [facility] Last Admin: 08/30/17 09:29 Dose: Not Given Sodium Chloride (Normal Saline Flush 0.9%) 10 ml IVP PRN PRN PRN Reason: NEEDED PER PROVIDER ORDERS Last Admin: 08/30/17 06:37 Dose: 10 ml Sodium Chloride (Normal Saline Flush 0.9%) 10 ml IVP 0100,0900,1700 REPLACED BY [facility] Last Admin: 08/30/17 06:37 Dose: 10 ml Sucralfate (Carafate) 1 gm PO 0700,1100,1600,2200 REPLACED BY [facility] Last Admin: 08/30/17 06:38 Dose: 1 gm Zolpidem Tartrate (Ambien) 5 mg PO QPM PRN PRN Reason: Insomnia Insulin Aspart (Vial) [NovoLOG] 15 unit SQ TIDWM 10/28/12 Pantoprazole Sodium [Protonix] 40 mg PO BID 11/06/13 Chlorthalidone [Chlorthalidone] 25 mg PO DAILY 07/13/16 Doxazosin [Cardura] 4 mg PO DAILY 07/13/16 Finasteride [Proscar] 5 mg ORAL DAILY 07/13/16 Losartan Potassium [Losartan Potassium] 100 mg ORAL DAILY 07/13/16 Metoprolol Succinate 50 mg ORAL DAILY 07/13/16 Insulin Degludec [Tresiba Flextouch U-100] 120 units SUBQ DAILY 07/02/18 Objective - Vital Signs/Intake & Output Reviewed Vital Signs: Yes Vital Signs: Vital Signs x48h Temp Pulse Resp BP Pulse Ox 08/30/17 07:30 36.9 C 82 18 154/64 H 96 Intake & Output: Intake & Output 08/27/17 08/28/17 08/29/17 08/30/17 23:59 23:59 23:59 23:59 Intake Total 1690 4400.000 1100 Output Total 500 5 Balance 1690 3900.000 1095 - Objective General Appearance: positive: No acute distress, Alert. negative: Lethargic Eyes Bilateral: positive: Normal inspection, PERRL, No lid inflammation, Conjunctivae nml ENT: positive: ENT inspection nml, Pharynx nml, No signs of dehydration. negative: Purulent nasal drainage, Pharyngeal erythema, Oral lesions Neck: positive: Nml inspection, Thyroid nml, No JVD, Trachea midline. negative : Thyromegaly, Lymphadenopathy (R), Lymphadenopathy (L), Stiff neck, Swelling/ bruising, Tracheal deviation Respiratory: positive: Chest non-tender, No respiratory distress, Breath sounds nml. negative: Wheezes, Rales, Rhonchi Cardiovascular: positive: Regular rate & rhythm, No murmur, No gallop. negative : Irregularly irregular, Extrasystoles, Tachycardia, Bradycardia, JVD present, Systolic murmur, Diastolic murmur Peripheral Pulses: 2+ Radial (R), 2+ Radial (L), 2+ Dorsalis pedis (R), 2+ Dorsalis pedis (L) Abdomen: positive: No organomegaly, Nml bowel sounds, No distention, Tenderness. negative: Guarding, Rebound Back: positive: Nml inspection. negative: CVA tenderness (R), CVA tenderness (L ) Skin: positive: Color nml, No rash, Warm, Dry. negative: Cyanosis, Diaphoresis , Pallor Extremities: positive: Non-tender, Full ROM, Nml appearance. negative: Calf tenderness, Joint swelling, Yuki's sign/cords Neurologic/Psychiatric: positive: Oriented x3, Motor nml, Sensation nml, Mood/ affect nml. negative: Weakness, Sensory loss, Facial droop, Slurred/abnml speech, Depressed mood/affect - Lab Results Fish Bones: 08/30/17 06:10 08/30/17 06:10 Other Labs: Lab Results x24hrs 08/30/17 08/30/17 08/30/17 Range/Units 06:50 06:11 06:10 WBC (4.8-10.8) x10^3/uL RBC (4.70-6.10) 10^6/uL Hgb (14.0-18.0) g/dL Hct (42.0-52.0) % MCV (80.0-94.0) fL MCH (27.0-31.0) pg MCHC (32.0-36.0) g/dL RDW (12.0-15.0) % Plt Count (130-450) 10^3/uL MPV (7.4-11.4) fL Neut # (Auto) Lymph # (Auto) Bremer # (Auto) Eos # (Auto) Baso # (Auto) Absolute Nucleated RBC Total Counted Band Neuts % (Manual) (0 - 10) % Abnorm Lymph % (Manual) % Metamyelocytes % ( - 0) % Myelocytes % ( - 0) % Nucleated RBC % Neutrophils # (Manual) (1.5-6.6) 10^3/uL Lymphocytes # (Manual) (1.5-3.5) 10^3/uL Monocytes # (Manual) (0.0-1.0) 10^3/uL Eosinophils # (Manual) (0-0.7) 10^3/uL Basophils # (Manual) (0-0.1) 10^3/uL Differential Comment Platelet Estimate (NORMAL) RBC Morph Micro Appear (NORMAL) Sodium 135 (135-145) mmol/L Potassium 3.7 (3.5-5.0) mmol/L Chloride 101 (101-111) mmol/L Carbon Dioxide 25 (21-32) mmol/L Anion Gap 9.0 (6-13) BUN 24 H (6-20) mg/dL Creatinine 1.3 H (0.6-1.2) mg/dL Estimated GFR (MDRD) 67 L (>89) Glucose 224 H (70-100) mg/dL POC Whole Bld Glucose 194 H (70 - 100) mg/dL Calcium 8.4 L (8.5-10.3) mg/dL Phosphorus 2.6 (2.5-4.6) mg/dL Magnesium 1.9 (1.7-2.8) mg/dL Total Bilirubin 5.5 H (0.2-1.0) mg/dL GGT 417 H (8-55) IU/L AST 327 H (10-42) IU/L ALT 349 H (10-60) IU/L Alkaline Phosphatase 324 H (42-121) IU/L Total Protein 6.6 L (6.7-8.2) g/dL Albumin 2.5 L (3.2-5.5) g/dL Globulin 4.1 (2.1-4.2) g/dL Albumin/Globulin Ratio 0.6 L (1.0-2.2) Urine Color Urine Clarity (CLEAR) Urine pH (5.0-7.5) PH Ur Specific Boswell (1.002-1.030) Urine Protein (NEGATIVE) mg/dL Urine Glucose (UA) (NEGATIVE) mg/dL Urine Ketones (NEGATIVE) mg/dL Urine Occult Blood (NEGATIVE) Urine Nitrite (NEGATIVE) Urine Bilirubin (NEGATIVE) Urine Urobilinogen (NORMAL) E.U./dL Ur Leukocyte Esterase (NEGATIVE) Urine RBC (0-5) /HPF Urine WBC (0-3) /HPF Ur Squamous Epith Cells (<= Few) Urine Bacteria (None Seen) /HPF Urine Culture Comments 08/30/17 08/29/17 08/29/17 Range/Units 06:10 20:27 16:59 WBC 10.0 (4.8-10.8) x10^3/uL RBC 3.56 L (4.70-6.10) 10^6/uL Hgb 11.5 L (14.0-18.0) g/dL Hct 34.3 L (42.0-52.0) % MCV 96.4 H (80.0-94.0) fL MCH 32.2 H (27.0-31.0) pg MCHC 33.4 (32.0-36.0) g/dL RDW 13.2 (12.0-15.0) % Plt Count 185 (130-450) 10^3/uL MPV 8.8 (7.4-11.4) fL Neut # (Auto) Not Reportable Lymph # (Auto) Not Reportable Bremer # (Auto) Not Reportable Eos # (Auto) Not Reportable Baso # (Auto) Not Reportable Absolute Nucleated RBC Not Reportable Total Counted 100 Band Neuts % (Manual) 6 (0 - 10) % Abnorm Lymph % (Manual) 0 % Metamyelocytes % 1 H ( - 0) % Myelocytes % 2 H ( - 0) % Nucleated RBC % Not Reportable Neutrophils # (Manual) 8.1 H (1.5-6.6) 10^3/uL Lymphocytes # (Manual) 0.9 L (1.5-3.5) 10^3/uL Monocytes # (Manual) 0.7 (0.0-1.0) 10^3/uL Eosinophils # (Manual) 0.0 (0-0.7) 10^3/uL Basophils # (Manual) 0.0 (0-0.1) 10^3/uL Differential Comment MANUAL DIFFERENTIAL Platelet Estimate NORMAL (130-450,000) (NORMAL) RBC Morph Micro Appear NORMAL APPEARANCE (NORMAL) Sodium (135-145) mmol/L Potassium (3.5-5.0) mmol/L Chloride (101-111) mmol/L Carbon Dioxide (21-32) mmol/L Anion Gap (6-13) BUN (6-20) mg/dL Creatinine (0.6-1.2) mg/dL Estimated GFR (MDRD) (>89) Glucose (70-100) mg/dL POC Whole Bld Glucose 143 H 205 H (70 - 100) mg/dL Calcium (8.5-10.3) mg/dL Phosphorus (2.5-4.6) mg/dL Magnesium (1.7-2.8) mg/dL Total Bilirubin (0.2-1.0) mg/dL GGT (8-55) IU/L AST (10-42) IU/L ALT (10-60) IU/L Alkaline Phosphatase (42-121) IU/L Total Protein (6.7-8.2) g/dL Albumin (3.2-5.5) g/dL Globulin (2.1-4.2) g/dL Albumin/Globulin Ratio (1.0-2.2) Urine Color Urine Clarity (CLEAR) Urine pH (5.0-7.5) PH Ur Specific Boswell (1.002-1.030) Urine Protein (NEGATIVE) mg/dL Urine Glucose (UA) (NEGATIVE) mg/dL Urine Ketones (NEGATIVE) mg/dL Urine Occult Blood (NEGATIVE) Urine Nitrite (NEGATIVE) Urine Bilirubin (NEGATIVE) Urine Urobilinogen (NORMAL) E.U./dL Ur Leukocyte Esterase (NEGATIVE) Urine RBC (0-5) /HPF Urine WBC (0-3) /HPF Ur Squamous Epith Cells (<= Few) Urine Bacteria (None Seen) /HPF Urine Culture Comments 08/29/17 Range/Units 14:08 WBC (4.8-10.8) x10^3/uL RBC (4.70-6.10) 10^6/uL Hgb (14.0-18.0) g/dL Hct (42.0-52.0) % MCV (80.0-94.0) fL MCH (27.0-31.0) pg MCHC (32.0-36.0) g/dL RDW (12.0-15.0) % Plt Count (130-450) 10^3/uL MPV (7.4-11.4) fL Neut # (Auto) Lymph # (Auto) Bremer # (Auto) Eos # (Auto) Baso # (Auto) Absolute Nucleated RBC Total Counted Band Neuts % (Manual) (0 - 10) % Abnorm Lymph % (Manual) % Metamyelocytes % ( - 0) % Myelocytes % ( - 0) % Nucleated RBC % Neutrophils # (Manual) (1.5-6.6) 10^3/uL Lymphocytes # (Manual) (1.5-3.5) 10^3/uL Monocytes # (Manual) (0.0-1.0) 10^3/uL Eosinophils # (Manual) (0-0.7) 10^3/uL Basophils # (Manual) (0-0.1) 10^3/uL Differential Comment Platelet Estimate (NORMAL) RBC Morph Micro Appear (NORMAL) Sodium (135-145) mmol/L Potassium (3.5-5.0) mmol/L Chloride (101-111) mmol/L Carbon Dioxide (21-32) mmol/L Anion Gap (6-13) BUN (6-20) mg/dL Creatinine (0.6-1.2) mg/dL Estimated GFR (MDRD) (>89) Glucose (70-100) mg/dL POC Whole Bld Glucose (70 - 100) mg/dL Calcium (8.5-10.3) mg/dL Phosphorus (2.5-4.6) mg/dL Magnesium (1.7-2.8) mg/dL Total Bilirubin (0.2-1.0) mg/dL GGT (8-55) IU/L AST (10-42) IU/L ALT (10-60) IU/L Alkaline Phosphatase (42-121) IU/L Total Protein (6.7-8.2) g/dL Albumin (3.2-5.5) g/dL Globulin (2.1-4.2) g/dL Albumin/Globulin Ratio (1.0-2.2) Urine Color DARK YELLOW Urine Clarity CLEAR (CLEAR) Urine pH 6.0 (5.0-7.5) PH Ur Specific Boswell 1.020 (1.002-1.030) Urine Protein 30 H (NEGATIVE) mg/dL Urine Glucose (UA) NEGATIVE (NEGATIVE) mg/dL Urine Ketones TRACE (NEGATIVE) mg/dL Urine Occult Blood SMALL H (NEGATIVE) Urine Nitrite NEGATIVE (NEGATIVE) Urine Bilirubin SMALL H (NEGATIVE) Urine Urobilinogen 1 (NORMAL) (NORMAL) E.U./dL Ur Leukocyte Esterase NEGATIVE (NEGATIVE) Urine RBC 0-5 (0-5) /HPF Urine WBC 0-3 (0-3) /HPF Ur Squamous Epith Cells FEW Squamous (<= Few) Urine Bacteria Moderate H (None Seen) /HPF Urine Culture Comments INDICATED ABX Reporting Has patient been on IV antibiotics over the past 48 hours?: Yes Assessment/Plan - Problem List (1) Abdominal pain Impression: (1) elevated LFTs 08/30 today lab test reveals pt had significant elevated LFTs include elevated total Bili, ALT, AST, Alk and GGT. It appears likely acute bile obstruction. discussed with surgeon Dr. Reid Swain, Pt will have operation in the morning, and will follow up Moderate Revised cardiac risk index at 6.6% for the operation (2) acute cholecystitis Conclusion/Plan: 08/30 pt will have operation today morning to remove gallbladder, or may possible need ERCP, will follow up 08/29 pt still complaint right upper pain, WBC is continuing up. order CT of abdomen, follow up CT show suspicious of acute cholecystitis Zosyn pain control US of abdomen consult with GI surgeon Patient has been having generalized abdominal pain for the last 3 days. Patient has a history of recurrent episodes of abdominal pain, nausea, vomiting and diarrhea. He has been worked up extensively and appears to likely have cyclic vomiting syndrome. The patient also has a history of gastritis seen on EGD. Patient is also a long-time diabetic and may also have some diabetic gastroparesis. Pain is similar to what he has had in the past. Today patient also has a leukocytosis and given his ongoing diarrhea and vomiting I suspect the patient likely has gastroenteritis. On presentation to the medical [facility] the patient also spiked a fever again this supports diagnosis of gastroenteritis. Patient is also had a CT scan done 3 days ago which showed no acute process in the abdomen. Plan: IV fluids IV antiemetics N.p.o. Pain control with IV narcotics Carafate Viscous lidocaine Monitor diarrhea if it continues we will send stool for culture (2) ARF (acute renal failure) Conclusion/Plan: 08/30 continue improve, creatinine is 1.3 continue mild to moderate IVF, hydration. improved, Creatinine from 2.4 to 1.6 continue IVF, daily lab and vital monitor Patient presented with acute renal failure likely secondary to decreased oral intake along with vomiting and diarrhea for last 3 days. Patient was seen at the [facility] in [place] 3 days earlier and had a creatinine of 1.35 his creatinine today is up to 2.8 and the patient appears very dehydrated. He also has a sodium of 130, potassium 3.3 and chloride of 93. Patient's BUN is elevated at 48 this appears to be prerenal azotemia. Plan: Patient will be given IV fluids Patient will be given antiemetics Electrolyte replacement Monitor creatinine Avoid nephrotoxic agents (3) Vomiting and diarrhea Conclusion/Plan: pt report it better controlled continue antiemesis PRN pt report he felt better and slow down of N/V/D continue IVF clear liquid diet, Patient presented with intractable vomiting and diarrhea that has been going on for the last 3 days. The patient is now dehydrated with acute kidney injury and electrolyte abnormalities. The patient's vomiting and diarrhea is likely either secondary to cyclic vomiting syndrome or gastroenteritis. Patient had a CT of his abdomen and pelvis done 3 days ago which showed no acute process. For now patient will be treated with supportive care. Plan: IV fluids IV antiemetics Electrolyte replacement Consider sending stools for culture if patient has persistent diarrhea Consider antidiarrheal medications if patient's diarrhea persists. N.p.o. advance diet as tolerated. (4) Hyponatremia Conclusion/Plan: resolved, normal today improved, continue IVF of NS Patient presents with hyponatremia with a sodium of 130. Patient likely has hypovolemic hyponatremia due to dehydration from intractable vomiting and diarrhea for the last 3 days. Patient will be given IV fluids and we will monitor his sodium I expect as we hydrate the patient is sodium will improve. (5) Hypokalemia Conclusion/Plan: resolved Patient presents with hypokalemia as his sodium is 3.3. This is likely secondary to GI losses from his intractable vomiting and diarrhea. We will replace the patient's potassium and continue to monitor his potassium. We will also give the patient antiemetics to control his GI losses. We will also consider antidiarrheals if he continues to have diarrhea. (6) Diabetes Conclusion/Plan: continue current treatment, since pt is clear liquid diet, will adjust insulin as needed continue ACHS, hypoglycemia protocol Patient has a history of insulin-dependent diabetes. He is on 120 units of Lantus daily along with mealtime NovoLog. Currently the patient is having intractable vomiting and diarrhea and has not had very good oral intake. The patient will be kept n.p.o. We will cut his Lantus dose in half to give in the morning. The patient will be placed on n.p.o. sliding scale insulin. We will monitor his blood glucose 4 times a day. We will check a hemoglobin A1c. Once patient is able to tolerate p.o. intake we will place him on a diabetic diet. (7) Hypertension stable, continue home meds vital monitor Qualifiers: Abdominal location: right upper quadrant Qualified Code(s): R10.11 - Right upper quadrant pain
[2017-08-30] MEDS ORDERED: SODIUM CHLORIDE FLUSH 0.9% 10 ML SYRINGE IVP PRN (12:25)
[2017-08-30] MEDS ORDERED: D5NS W/20 MEQ KCL 1,000 ML IV SCH (12:34)
--- NOTE | 2017-08-30 12:39 | OPERATIVE REPORT ---
Operative Report - General Admit Date: 08/28/17 Procedure Date: 08/30/17 Planned Procedure: Lap jennifer with IOC Pre-Op Diagnosis: Acute calculous cholecystitis with possible choledocholithiasis and biliary Procedure Performed: Lap Jennifer with IOC Post Op Diagnosis: Acute gangrenous calculous cholecystitis - Procedure Note Primary Surgeon: Reid Swain MD Secondary Surgeon: Gold Swain MD Anesthesia Provider: Vadim Montenegro CRNA Anesthesia Technique: General ET tube Pathology: gallbaldder and stones Estimated Blood Loss (mL): 50 Drain/Tube Type: Atilio drain Complications: none
[2017-08-30] MEDS: ACETAMINOPHEN 1,000 MG/100 ML 100 ML IV SCH ×2 (13:46→22:39)
[2017-08-30] MEDS ORDERED: WATER FOR INJECTION,STERILE 10 ML ONE (14:36)
[2017-08-30] MEDS ORDERED: ALBUTEROL NEB 2.5 MG/3 ML INH PRN (14:46)
--- NOTE | 2017-08-30 15:02 | OPERATIVE REPORT ---
DATE OF SERVICE: 08/30/2017 Physician: Reid Swain MD PREOPERATIVE DIAGNOSIS: Acute calculous cholecystitis with possible choledocholithiasis and biliary obstruction. POSTOPERATIVE DIAGNOSIS: Acute gangrenous calculous cholecystitis. ANESTHESIA: General endotracheal. INTERIOR DESIGN CONSULTANT: Vadim Montenegro CRNA. SURGEON: Reid Swain MD. NUCLEAR PLANT EQUIPMENT OPERATOR: Carlos Enrique Swain MD. ESTIMATED BLOOD LOSS: 25 mL. COMPLICATIONS: None. FINDINGS: Extensive pericholecystic adhesions were present with the omentum walling off the gallbladder in the right upper quadrant. The gallbladder was seen to be markedly inflamed, thickened, with gangrenous changes throughout. The cystic duct was small, measuring approximately 2-3 mm in diameter, and was necrotic. Common duct was not visualized. The gallbladder was seen to contain multiple small mulberry type, mixed cholesterol stones measuring from 3-6 mm in diameter. Cystic duct cholangiography revealed limited filling of the intrahepatic bile ducts, but the distal common bile duct and extrahepatic bile ducts appeared normal, with free flow of contrast into the duodenum. No dilatation, no obvious filling defects or obstruction. The visualized portions of the stomach, small and large bowel were within normal limits. The liver appeared to be enlarged with fatty change. INDICATIONS FOR PROCEDURE: The patient is a 67-year-old gentleman with a long history of episodic nausea, vomiting and abdominal pain of unclear etiology. He was admitted several days ago with another episode of same, was noted to have fever and elevated white count, but normal liver function tests. A CT scan showed findings consistent with acute calculous cholecystitis. He was to undergo laparoscopic cholecystectomy. This morning, his liver function tests became markedly abnormal, and because of concern for possible choledocholithiasis, intraoperative cholangiography will also be performed. TECHNIQUE: After informed consent, the patient was taken to the Operating Room , and was placed under general endotracheal anesthesia. Preoperative preparation included the application of sequential calf compression boots, and therapeutic administration of Zosyn intravenously. His abdomen was prepared with ChloraPrep solution, draped in the usual sterile fashion. A transverse incision was made along the superior edge of the umbilicus, and carried down through the layers of abdominal wall until the peritoneum was identified and entered sharply. A 10 mm Sarah cannula was inserted, and pneumoperitoneum achieved with carbon dioxide. A 10 mm 30-degree Darron telescope was inserted. Laparoscopy was carried out. Findings were as noted above. Three additional ports were placed in the right upper quadrant, two 5 mm ports laterally, and a 10 mm port in the subxiphoid midline. Instruments were passed. Pericholecystic adhesions were lysed bluntly with electrocautery, exposing the gallbladder, which was tense, thickened and difficult to grasp. It was aspirated of approximately 60 mL of bilious purulent fluid, samples of which were sent for Gram stain and culture, aerobic and anaerobic. The gallbladder was then able to be grasped and retracted in a cephalad and lateral direction. The cystic triangle of Calot was able to be exposed and carefully dissected using hook electrocautery, isolating the cystic duct and cystic artery, adjacent to the gallbladder. The cystic duct was clipped at its junction with the gallbladder, then incised distal to the clip. A TauT cholangiogram catheter was inserted, and attempts were made to perform cholangiography; however, the catheter appeared to have dislodged, and extravasation was noted. This catheter was removed and replaced with a 5-Hungarian ureteral catheter, which was placed into the cystic duct, and through this, cholangiography was able to be performed. A total of 40 mL of a 50:50 combination of Conray and sterile saline was used. Quality of study was good. Findings were as noted above. There were no complications noted. The cholangiogram catheter was removed, and the cystic duct was doubly clipped for hemostasis and for security. The cystic artery was doubly clipped proximally and distally adjacent to the gallbladder, and divided between. The gallbladder was necrotic and during retraction and dissection, multiple disruptions occurred in the gallbladder wall , and stones were extruded. All of the visible stones that had been extruded were removed with the forceps or a stone grasping device. The portion of the gallbladder adjacent to the liver bed was necrotic and was left in situ, with the remainder of the gallbladder and stones placed in an organ retrieval bag, extracted and sent for pathologic evaluation. After hemostasis had been assured and all visible stones were removed, the right upper quadrant was copiously irrigated with saline solution following which, a 15 Atilio drain was placed in the right upper quadrant, made to exit the right upper quadrant lateral port site, and was connected to bulb suction. Instruments and cannulas were removed under direct vision. Pneumoperitoneum was allowed to escape, and the incisions were closed in layers using 2-0 Vicryl to reapproximate the midline fascia at the umbilicus, and the subxiphoid port site, and 4-0 Monocryl subcuticular skin closure for all of the port sites. A total of 30 mL of 0.25% Marcaine with epinephrine was infiltrated into the incision to assist in postoperative analgesia. Dermabond was applied. Anesthesia was terminated. The drain was connected to bulb suction. A 4-0 nylon was used to secure the drain to the skin. Dry sterile dressing was applied. Anesthesia terminated, and the patient transferred to the Recovery Room in satisfactory condition. Sponge and needle counts correct x2, and a single 15 Atilio drain was used. This was a technically quite difficult procedure with an operative time of approximately 150 minutes, due to severe inflammation, marked truncal obesity, an enlarged liver, and a necrotic gallbladder. TD: 08/30/2017 13:02 RADHA
[2017-08-30] MEDS ORDERED: METOCLOPRAMIDE 10 MG/2 ML VIAL IVP PRN (15:59)
[2017-08-30] MEDS ORDERED: SODIUM CHLORIDE FLUSH 0.9% 10 ML SYRINGE IVP SCH (17:00)
[2017-08-30 18:12] LABS: ABG PCO2 43 mmHg (34-45); ABG PH 7.42 (7.35-7.45)
[2017-08-30 18:15] LABS: ABG BASE EXCESS 2.2 mmol/L (-2.0-3.0); ABG OXYGEN SATURATION 83 % (94-98); ABG TCO2 28.3 MMOL/L (21.0-29.0)
[2017-08-30 18:16] LABS: ABG PO2 44 mmHg (80-100); ALLEN TEST POSITIVE
[2017-08-30] MEDS ORDERED: cloNIDine 0.1 MG TABLET PO PRN (18:32)
[2017-08-30 19:18] LABS: BASOPHILS % (AUTO) 0.1 %; EOSINOPHILS % (AUTO) 0.1 %; LYMPHOCYTES % (AUTO) 5.1 %; MEAN CORPUSCULAR HEMOGLOBIN 32.5 pg (27.0-31.0); MEAN CORPUSCULAR HGB CONC 33.5 g/dL (32.0-36.0); MEAN PLATELET VOLUME 8.6 fL (7.4-11.4); NEUTROPHILS % (AUTO) 85.7 %; PLT - PLATELET COUNT 194 10^3/uL (130-450); RED BLOOD COUNT 3.39 10^6/uL (4.70-6.10); VBG BASE EXCESS 1.6 mmol/L (-2 - +2); VBG PCO2 47.8 mmHg (41-51); VBG PH 7.375 (7.31-7.41); VBG PO2 41.1 mmHg (25-47); VBG TOTAL CO2 28.8 mmol/L (24-29); WHITE BLOOD COUNT 10.3 x10^3/uL (4.8-10.8)
[2017-08-30 19:19] LABS: ABNORMAL LYMPHS % (MANUAL) 0 %
[2017-08-30 19:29] LABS: ALBUMIN 2.5 g/dL (3.2-5.5); ALBUMIN/GLOBULIN RATIO 0.6 (1.0-2.2); BILIRUBIN,TOTAL 6.2 mg/dL (0.2-1.0); CALCIUM 8.4 mg/dL (8.5-10.3); CREATININE 1.8 mg/dL (0.6-1.2); TOTAL PROTEIN 6.7 g/dL (6.7-8.2)
[2017-08-30 19:38] LABS: BAND NEUTROPHILS % (MANUAL) 4 %; DIFFERENTIAL COMMENT MANUAL DIFFERENTIAL; LYMPHOCYTES # (MANUAL) 0.4 10^3/uL (1.5-3.5); LYMPHOCYTES % (MANUAL) 4 %; MONOCYTES # (MANUAL) 0.7 10^3/uL (0.0-1.0); NEUTROPHILS # (MANUAL) 9.2 10^3/uL (1.5-6.6); NEUTROPHILS % (MANUAL) 85 %; PLATELET ESTIMATE, MANUAL NORMAL (130-450,000) (NORMAL); PLATELET MORPHOLOGY NORMAL APPEARANCE (NORMAL); RBC MORPHOLOGY (MULTIPLE) 1+ POLYCHROMASIA (NORMAL)
[2017-08-30] MEDS: LORazepam 2 MG/ML VIAL IVP SCH (19:57)
[2017-08-30 21:14] LABS: CALCIUM 8.5 mg/dL (8.5-10.3); CREATININE 1.7 mg/dL (0.6-1.2); MAGNESIUM 1.9 mg/dL (1.7-2.8); PHOSPHORUS 2.6 mg/dL (2.5-4.6)
--- NOTE | 2017-08-30 22:55 | Ultrasound Report ---
Procedure Date: 08/30/2017 Accession Number: [id number] / [id number] Procedure: US - Carotid Doppler Complete CPT Code: FULL RESULT: EXAM: BILATERAL CAROTID AND VERTEBRAL ARTERY DUPLEX DOPPLER ULTRASOUND: EXAM DATE: 08/30/2017 09:18 PM CLINICAL HISTORY: TIA. Altered mental status. Aphasia. COMPARISON: None. TECHNIQUE: Grayscale imaging, color Doppler, and duplex spectral Doppler were used to evaluate the carotid and vertebral arteries bilaterally. Static images were obtained. FINDINGS: Mild plaque and wall thickening is identified in the right and left common/internal carotid arteries. Normal antegrade flow is present in bilateral vertebral arteries. VELOCITIES (cm/sec): Right: RCCA Prox: PSV 90.9 cm/sec. RCCA Dist: PSV 79.1 cm/sec, EDV 8.0 cm/sec. RECA: PSV 91.5 cm/sec. R Bulb: PSV 69.9 cm/sec, EDV 4.3 cm/sec, ICA/CCA ratio 0.9. SAMUEL Prox: PSV 93.4 cm/sec, EDV 20.5 cm/sec, ICA/CCA ratio 1.2. SAMUEL Mid: PSV 100.8 cm/sec, EDV 25.2 cm/sec, ICA/CCA ratio 1.3. SAMUEL Dist: PSV 99.9 cm/sec, EDV 24.3 cm/sec, ICA/CCA ratio 1.3. RVA: PSV 73.7 cm/sec. RVA flow direction: Antegrade. Left: LCCA Prox: PSV 134.2 cm/sec. LCCA Dist: PSV 72.3 cm/sec, EDV 10.4 cm/sec. LECA: PSV 164.7 cm/sec. L Bulb: PSV 62.6 cm/sec, EDV 9.0 cm/sec, ICA/CCA ratio 0.9. LICA Prox: PSV 85.1 cm/sec, EDV 13.4 cm/sec, ICA/CCA ratio 1.2 LICA Mid: PSV 89.6 cm/sec, EDV 19.4 cm/sec, ICA/CCA ratio 1.3. LICA Dist: PSV 93.4 cm/sec, EDV 23.9 cm/sec, ICA/CCA ratio 1.3. LVA: PSV 120 cm/sec. LVA flow direction: Antegrade. ICA diameter stenosis: Right: <50% by velocity and <70% by NASCET criteria. Left: <50% by velocity and <70% by NASCET criteria. IMPRESSION: 1. Mild bilateral carotid artery plaquing. 2. In the right carotid artery there are no elevated carotid artery velocities to suggest hemodynamically significant stenosis. 3. In the left carotid artery there are no elevated carotid artery velocities to suggest hemodynamically significant stenosis. 4. Normal antegrade flow is present in bilateral vertebral arteries. General Recommendations: Stenosis =50% ICA - Follow-up ultrasound 6-12 months Stenosis <50% ICA - High Risk Patient with plaque - Follow-up ultrasound 1-2 years Normal Study but High Risk Patient - Follow-up ultrasound 3-5 years Management recommendations and diagnostic criteria are based on current IAC endorsed standards in Carotid Artery Stenosis: Grayscale and Doppler Ultrasound Diagnosis. Validated velocity measurements with angiographic measurements and velocity criteria are extrapolated from diameter data as defined by the Society of Radiologists in Ultrasound Consensus Conference Radiology 2003; 229;340-346. RADIA
[2017-08-31] MEDS: SODIUM CHLORIDE FLUSH 0.9% 10 ML SYRINGE IVP SCH ×3 (00:49→12:39)
[2017-08-31] MEDS: PIPERACILLIN/TAZOBACTAM 3.375 GM in SODIUM CHLORIDE 0.9% MINIBAG 100 ML IV SCH ×4 (02:01→19:33)
[2017-08-31] MEDS: oxyCODONE 5 MG TABLET PO PRN ×2 (03:09→08:57)
[2017-08-31] MEDS: ACETAMINOPHEN 1,000 MG/100 ML 100 ML IV SCH ×2 (04:36→09:03)
--- NOTE | 2017-08-31 04:37 | CT Report ---
Procedure Date: 08/30/2017 Accession Number: [id number] / [id number] Procedure: CT - Head W/O Stroke Protocol CPT Code: FULL RESULT: EXAM: CT HEAD EXAM DATE: 08/30/2017 05:19 PM. CLINICAL HISTORY: Aphasic. Decreased level of consciousness. COMPARISON: None. TECHNIQUE: Multiaxial CT images were obtained from the foramen magnum to the vertex. Reformats: Coronal. IV contrast: None. In accordance with CT protocol optimization, one or more of the following dose reduction techniques were utilized for this exam: automated exposure control, adjustment of mA and/or KV based on patient size, or use of iterative reconstructive technique. FINDINGS: Parenchyma: No intraparenchymal hemorrhage. No evidence of mass, midline shift, or CT findings of infarction. Causey-white differentiation is distinct. Extraaxial Spaces: Normal for age. No subdural or epidural collections identified. Ventricles: Normal in size and position. Sinuses and Orbits: Mucous retention cysts in the left maxillary and left sphenoid sinuses, otherwise the imaged paranasal sinuses, orbits, and mastoids show no significant abnormality. Bones: No evidence of fracture or calvarial defect. Other: None. IMPRESSION: Normal head CT. RADIA
[2017-08-31 05:09] LABS: ALBUMIN 2.2 g/dL (3.2-5.5); ALBUMIN/GLOBULIN RATIO 0.6 (1.0-2.2); BILIRUBIN,TOTAL 5.7 mg/dL (0.2-1.0); CALCIUM 8.1 mg/dL (8.5-10.3); CREATININE 1.3 mg/dL (0.6-1.2); MAGNESIUM 1.8 mg/dL (1.7-2.8); TOTAL PROTEIN 5.9 g/dL (6.7-8.2)
[2017-08-31 05:25] LABS: BASOPHILS % (AUTO) 0.2 %; EOSINOPHILS % (AUTO) 0.6 %; HGB - HEMOGLOBIN 10.3 g/dL (14.0-18.0); LYMPHOCYTES % (AUTO) 7.6 %; MEAN CORPUSCULAR HEMOGLOBIN 32.4 pg (27.0-31.0); MEAN CORPUSCULAR HGB CONC 33.5 g/dL (32.0-36.0); MEAN CORPUSCULAR VOLUME 96.5 fL (80.0-94.0); MEAN PLATELET VOLUME 9.3 fL (7.4-11.4); MONOCYTES % (AUTO) 10.8 %; NEUTROPHILS % (AUTO) 80.8 %; PLT - PLATELET COUNT 188 10^3/uL (130-450); RED BLOOD COUNT 3.19 10^6/uL (4.70-6.10); RED CELL DISTRIBUTION WIDTH 12.9 % (12.0-15.0); WHITE BLOOD COUNT 9.6 x10^3/uL (4.8-10.8)
[2017-08-31 05:27] LABS: ABNORMAL LYMPHS % (MANUAL) 0 %
[2017-08-31 06:04] LABS: BAND NEUTROPHILS % (MANUAL) 3 %; BASOPHILS # (MANUAL) 0.1 10^3/uL (0-0.1); BASOPHILS % (MANUAL) 1 %; DIFFERENTIAL COMMENT MANUAL DIFFERENTIAL; LYMPHOCYTES # (MANUAL) 0.7 10^3/uL (1.5-3.5); LYMPHOCYTES % (MANUAL) 7 %; METAMYELOCYTES % (MANUAL) 2 %; MONOCYTES # (MANUAL) 0.7 10^3/uL (0.0-1.0); MYELOCYTES % (MANUAL) 2 %; NEUTROPHILS # (MANUAL) 7.8 10^3/uL (1.5-6.6); NEUTROPHILS % (MANUAL) 78 %; PLATELET ESTIMATE, MANUAL NORMAL (130-450,000) (NORMAL); RBC MORPHOLOGY (MULTIPLE) NORMAL APPEARANCE (NORMAL)
[2017-08-31] MEDS: SODIUM CHLORIDE FLUSH 0.9% 10 ML SYRINGE IVP PRN ×2 (06:04→16:37)
[2017-08-31] MEDS: PANTOPRAZOLE 40 MG VIAL IVP SCH (06:04)
[2017-08-31] MEDS: ONDANSETRON 4 MG/2 ML VIAL IVP PRN ×2 (07:56→16:37)
--- NOTE | 2017-08-31 08:34 | PROVIDER PROGRESS NOTE ---
Subjective - General Admit Date: 08/28/17 Procedure Date: 08/30/17 Post Op Days: 1 Procedure Performed: Lap Jennifer with IOC - Review of Systems Wound/Incisions: positive: Healing well, Dressing dry and intact Drain Type: Atilio Drain Output Description: serosanguinous Approximate mls Output: 60 cc/yesterday; 30 cc today so far General: positive: Appetite (poor) Gastrointestinal: positive: Nausea (mild), Abdominal pain (minimal, much improved compared to preop). negative: Vomiting, Diarrhea Genitourinary: positive: No symptoms Skin: positive: No symptoms Psychiatric: positive: Other (near syncopal episode with confusion last night, now resolved.) - Other Other Information/Narrative: Feels much better today, c/o mild nausea and anorexia, but improved compared to preop. Had near syncopal episode with confusion last night, with neg w/u including troponins, ecg, head CT, and carotid doppler duplex study, now alert, oriented. Objective - Patient Data Reviewed Vital Signs: Yes Vital Signs: Vital Signs x48h Temp Pulse Resp BP BP Pulse Ox 08/31/17 08:06 37.1 C 97 18 141/61 H 97 08/31/17 04:42 36.6 C 64 18 134/51 H 97 08/31/17 00:53 36.8 C 70 18 144/65 H 97 Weight: Weight 08/29/17 08/30/17 08/31/17 23:59 23:59 23:59 Weight (kg) 103 kg Intake & Output: Intake and Output Totals x24h 08/29/17 08/30/17 08/31/17 23:59 23:59 23:59 Intake Total 4400.000 7404.055 4233 Output Total 500 465 980 Balance 3900.000 1423.750 170 - Lab Results Lab Results: 08/31/17 04:30 08/31/17 04:30 Other Lab Results: Lab Results x24hrs 08/31/17 08/31/17 08/31/17 Range/Units 07:30 04:30 04:30 WBC 9.6 (4.8-10.8) x10^3/uL RBC 3.19 L (4.70-6.10) 10^6/uL Hgb 10.3 L (14.0-18.0) g/dL Hct 30.8 L (42.0-52.0) % MCV 96.5 H (80.0-94.0) fL MCH 32.4 H (27.0-31.0) pg MCHC 33.5 (32.0-36.0) g/dL RDW 12.9 (12.0-15.0) % Plt Count 188 (130-450) 10^3/uL MPV 9.3 (7.4-11.4) fL Neut # (Auto) Not Reportable Lymph # (Auto) Not Reportable [place]ockley # (Auto) Not Reportable Eos # (Auto) Not Reportable Baso # (Auto) Not Reportable Absolute Nucleated RBC Not Reportable Total Counted 100 Band Neuts % (Manual) 3 (0 - 10) % Abnorm Lymph % (Manual) 0 % Metamyelocytes % 2 H ( - 0) % Myelocytes % 2 H ( - 0) % Nucleated RBC % Not Reportable Neutrophils # (Manual) 7.8 H (1.5-6.6) 10^3/uL Lymphocytes # (Manual) 0.7 L (1.5-3.5) 10^3/uL Monocytes # (Manual) 0.7 (0.0-1.0) 10^3/uL Eosinophils # (Manual) 0.0 (0-0.7) 10^3/uL Basophils # (Manual) 0.1 (0-0.1) 10^3/uL Differential Comment MANUAL DIFFERENTIAL Manual Slide Review WBC Morphology (NORMAL) Platelet Estimate NORMAL (130-450,000) (NORMAL) Platelet Morphology (NORMAL) RBC Morph Micro Appear NORMAL APPEARANCE (NORMAL) Bld Gas Analysis Time Sample Site ABG pH (7.35-7.45) ABG pCO2 (34-45) mmHg ABG pO2 (80-100) mmHg ABG HCO3 (22.0-26.0) mmol/L ABG Total CO2 (21.0-29.0) MMOL/L ABG O2 Saturation (94-98) % ABG Oximetry Spot Check % ABG Base Excess (-2.0-3.0) mmol/L Rick Test VBG pH (7.31-7.41) VBG pCO2 (41-51) mmHg VBG pO2 (25-47) mmHg VBG HCO3 (23-28) mmol/L VBG Total CO2 (24-29) mmol/L VBG O2 Saturation (60-80) % VBG Base Excess (-2 - +2) mmol/L O2 Delivery Device O2 Liters/Min LPM Sodium 136 (135-145) mmol/L Potassium 3.5 (3.5-5.0) mmol/L Chloride 103 (101-111) mmol/L Carbon Dioxide 25 (21-32) mmol/L Anion Gap 8.0 (6-13) BUN 24 H (6-20) mg/dL Creatinine 1.3 H (0.6-1.2) mg/dL Estimated GFR (MDRD) 67 L (>89) Glucose 133 H (70-100) mg/dL POC Whole Bld Glucose 151 H (70 - 100) mg/dL Calcium 8.1 L (8.5-10.3) mg/dL Phosphorus (2.5-4.6) mg/dL Magnesium 1.8 (1.7-2.8) mg/dL Total Bilirubin 5.7 H (0.2-1.0) mg/dL AST 248 H (10-42) IU/L ALT 330 H (10-60) IU/L Alkaline Phosphatase 252 H (42-121) IU/L Troponin I (<0.49) ng/mL Total Protein 5.9 L (6.7-8.2) g/dL Albumin 2.2 L (3.2-5.5) g/dL Globulin 3.7 (2.1-4.2) g/dL Albumin/Globulin Ratio 0.6 L (1.0-2.2) 08/30/17 08/30/17 08/30/17 Range/Units 20:56 20:42 19:10 WBC (4.8-10.8) x10^3/uL RBC (4.70-6.10) 10^6/uL Hgb (14.0-18.0) g/dL Hct (42.0-52.0) % MCV (80.0-94.0) fL MCH (27.0-31.0) pg MCHC (32.0-36.0) g/dL RDW (12.0-15.0) % Plt Count (130-450) 10^3/uL MPV (7.4-11.4) fL Neut # (Auto) Lymph # (Auto) [place]ockley # (Auto) Eos # (Auto) Baso # (Auto) Absolute Nucleated RBC Total Counted Band Neuts % (Manual) (0 - 10) % Abnorm Lymph % (Manual) % Metamyelocytes % ( - 0) % Myelocytes % ( - 0) % Nucleated RBC % Neutrophils # (Manual) (1.5-6.6) 10^3/uL Lymphocytes # (Manual) (1.5-3.5) 10^3/uL Monocytes # (Manual) (0.0-1.0) 10^3/uL Eosinophils # (Manual) (0-0.7) 10^3/uL Basophils # (Manual) (0-0.1) 10^3/uL Differential Comment Manual Slide Review WBC Morphology (NORMAL) Platelet Estimate (NORMAL) Platelet Morphology (NORMAL) RBC Morph Micro Appear (NORMAL) Bld Gas Analysis Time Sample Site ABG pH (7.35-7.45) ABG pCO2 (34-45) mmHg ABG pO2 (80-100) mmHg ABG HCO3 (22.0-26.0) mmol/L ABG Total CO2 (21.0-29.0) MMOL/L ABG O2 Saturation (94-98) % ABG Oximetry Spot Check % ABG Base Excess (-2.0-3.0) mmol/L Rick Test VBG pH 7.375 (7.31-7.41) VBG pCO2 47.8 (41-51) mmHg VBG pO2 41.1 (25-47) mmHg VBG HCO3 27.3 (23-28) mmol/L VBG Total CO2 28.8 (24-29) mmol/L VBG O2 Saturation 77.5 (60-80) % VBG Base Excess 1.6 (-2 - +2) mmol/L O2 Delivery Device O2 Liters/Min LPM Sodium 138 (135-145) mmol/L Potassium 4.1 (3.5-5.0) mmol/L Chloride 103 (101-111) mmol/L Carbon Dioxide 27 (21-32) mmol/L Anion Gap 8.0 (6-13) BUN 28 H (6-20) mg/dL Creatinine 1.7 H (0.6-1.2) mg/dL Estimated GFR (MDRD) 49 L (>89) Glucose 249 H (70-100) mg/dL POC Whole Bld Glucose 211 H (70 - 100) mg/dL Calcium 8.5 (8.5-10.3) mg/dL Phosphorus 2.6 (2.5-4.6) mg/dL Magnesium 1.9 (1.7-2.8) mg/dL Total Bilirubin (0.2-1.0) mg/dL AST (10-42) IU/L ALT (10-60) IU/L Alkaline Phosphatase (42-121) IU/L Troponin I (<0.49) ng/mL Total Protein (6.7-8.2) g/dL Albumin (3.2-5.5) g/dL Globulin (2.1-4.2) g/dL Albumin/Globulin Ratio (1.0-2.2) 08/30/17 08/30/17 08/30/17 Range/Units 19:10 19:10 19:10 WBC 10.3 (4.8-10.8) x10^3/uL RBC 3.39 L (4.70-6.10) 10^6/uL Hgb 11.0 L (14.0-18.0) g/dL Hct 32.9 L (42.0-52.0) % MCV 97.0 H (80.0-94.0) fL MCH 32.5 H (27.0-31.0) pg MCHC 33.5 (32.0-36.0) g/dL RDW 13.0 (12.0-15.0) % Plt Count 194 (130-450) 10^3/uL MPV 8.6 (7.4-11.4) fL Neut # (Auto) Not Reportable Lymph # (Auto) Not Reportable [place] # (Auto) Not Reportable Eos # (Auto) Not Reportable Baso # (Auto) Not Reportable Absolute Nucleated RBC Not Reportable Total Counted 100 Band Neuts % (Manual) 4 (0 - 10) % Abnorm Lymph % (Manual) 0 % Metamyelocytes % ( - 0) % Myelocytes % ( - 0) % Nucleated RBC % Not Reportable Neutrophils # (Manual) 9.2 H (1.5-6.6) 10^3/uL Lymphocytes # (Manual) 0.4 L (1.5-3.5) 10^3/uL Monocytes # (Manual) 0.7 (0.0-1.0) 10^3/uL Eosinophils # (Manual) 0.0 (0-0.7) 10^3/uL Basophils # (Manual) 0.0 (0-0.1) 10^3/uL Differential Comment MANUAL DIFFERENTIAL Manual Slide Review Indicated WBC Morphology NORMAL APPEARANCE (NORMAL) Platelet Estimate NORMAL (130-450,000) (NORMAL) Platelet Morphology NORMAL APPEARANCE (NORMAL) RBC Morph Micro Appear 1+ POLYCHROMASIA (NORMAL) Bld Gas Analysis Time Sample Site ABG pH (7.35-7.45) ABG pCO2 (34-45) mmHg ABG pO2 (80-100) mmHg ABG HCO3 (22.0-26.0) mmol/L ABG Total CO2 (21.0-29.0) MMOL/L ABG O2 Saturation (94-98) % ABG Oximetry Spot Check % ABG Base Excess (-2.0-3.0) mmol/L Rick Test VBG pH (7.31-7.41) VBG pCO2 (41-51) mmHg VBG pO2 (25-47) mmHg VBG HCO3 (23-28) mmol/L VBG Total CO2 (24-29) mmol/L VBG O2 Saturation (60-80) % VBG Base Excess (-2 - +2) mmol/L O2 Delivery Device O2 Liters/Min LPM Sodium 137 (135-145) mmol/L Potassium 4.0 (3.5-5.0) mmol/L Chloride 102 (101-111) mmol/L Carbon Dioxide 26 (21-32) mmol/L Anion Gap 9.0 (6-13) BUN 29 H (6-20) mg/dL Creatinine 1.8 H (0.6-1.2) mg/dL Estimated GFR (MDRD) 46 L (>89) Glucose 270 H (70-100) mg/dL POC Whole Bld Glucose (70 - 100) mg/dL Calcium 8.4 L (8.5-10.3) mg/dL Phosphorus (2.5-4.6) mg/dL Magnesium (1.7-2.8) mg/dL Total Bilirubin 6.2 H (0.2-1.0) mg/dL AST 274 H (10-42) IU/L ALT 355 H (10-60) IU/L Alkaline Phosphatase 284 H (42-121) IU/L Troponin I < 0.04 (<0.49) ng/mL Total Protein 6.7 (6.7-8.2) g/dL Albumin 2.5 L (3.2-5.5) g/dL Globulin 4.2 (2.1-4.2) g/dL Albumin/Globulin Ratio 0.6 L (1.0-2.2) 08/30/17 08/30/17 08/30/17 Range/Units 17:43 16:28 13:05 WBC (4.8-10.8) x10^3/uL RBC (4.70-6.10) 10^6/uL Hgb (14.0-18.0) g/dL Hct (42.0-52.0) % MCV (80.0-94.0) fL MCH (27.0-31.0) pg MCHC (32.0-36.0) g/dL RDW (12.0-15.0) % Plt Count (130-450) 10^3/uL MPV (7.4-11.4) fL Neut # (Auto) Lymph # (Auto) [place] # (Auto) Eos # (Auto) Baso # (Auto) Absolute Nucleated RBC Total Counted Band Neuts % (Manual) (0 - 10) % Abnorm Lymph % (Manual) % Metamyelocytes % ( - 0) % Myelocytes % ( - 0) % Nucleated RBC % Neutrophils # (Manual) (1.5-6.6) 10^3/uL Lymphocytes # (Manual) (1.5-3.5) 10^3/uL Monocytes # (Manual) (0.0-1.0) 10^3/uL Eosinophils # (Manual) (0-0.7) 10^3/uL Basophils # (Manual) (0-0.1) 10^3/uL Differential Comment Manual Slide Review WBC Morphology (NORMAL) Platelet Estimate (NORMAL) Platelet Morphology (NORMAL) RBC Morph Micro Appear (NORMAL) Bld Gas Analysis Time 1749 Sample Site LEFT RADIAL ABG pH 7.42 (7.35-7.45) ABG pCO2 43 (34-45) mmHg ABG pO2 44 L* (80-100) mmHg ABG HCO3 27.0 H (22.0-26.0) mmol/L ABG Total CO2 28.3 (21.0-29.0) MMOL/L ABG O2 Saturation 83 L* (94-98) % ABG Oximetry Spot Check 96 % ABG Base Excess 2.2 (-2.0-3.0) mmol/L Rick Test POSITIVE VBG pH (7.31-7.41) VBG pCO2 (41-51) mmHg VBG pO2 (25-47) mmHg VBG HCO3 (23-28) mmol/L VBG Total CO2 (24-29) mmol/L VBG O2 Saturation (60-80) % VBG Base Excess (-2 - +2) mmol/L O2 Delivery Device NASAL CANNULA O2 Liters/Min 3.00 LPM Sodium (135-145) mmol/L Potassium (3.5-5.0) mmol/L Chloride (101-111) mmol/L Carbon Dioxide (21-32) mmol/L Anion Gap (6-13) BUN (6-20) mg/dL Creatinine (0.6-1.2) mg/dL Estimated GFR (MDRD) (>89) Glucose (70-100) mg/dL POC Whole Bld Glucose 262 H 265 H (70 - 100) mg/dL Calcium (8.5-10.3) mg/dL Phosphorus (2.5-4.6) mg/dL Magnesium (1.7-2.8) mg/dL Total Bilirubin (0.2-1.0) mg/dL AST (10-42) IU/L ALT (10-60) IU/L Alkaline Phosphatase (42-121) IU/L Troponin I (<0.49) ng/mL Total Protein (6.7-8.2) g/dL Albumin (3.2-5.5) g/dL Globulin (2.1-4.2) g/dL Albumin/Globulin Ratio (1.0-2.2) - Imaging Results Radiology Imaging: positive: Final report received - Current Medications Current Medications: Current Medications Generic Name Dose Route Start Last Admin Trade Name Freq PRN Reason Stop Dose Admin Docusate Sodium 250 - 500 mg 08/29/17 09:00 08/30/17 09:28 Colace 250mg Capsule PO Not Given DAILY NICOLETTE Heparin Sodium (Porcine) 5,000 unit 08/27/17 21:00 08/30/17 22:49 SUBQ 5,000 unit BID NICOLETTE Administration Piperacillin Sod/Tazobactam 100 mls @ 200 mls/hr 08/29/17 20:00 08/31/17 02: 52 Sod 3.375 gm/ Sodium Chloride IV Infused Q6H NICOLETTE Infusion Acetaminophen 100 mls @ 400 mls/hr 08/30/17 14:00 08/31/17 04:56 Ofirmev IV Infused Q6H NICOLETTE Infusion Potassium Chloride/Dextrose/Sod Cl 1,000 mls @ 75 mls/hr 08/30/17 12:34 08/30 22:39 IV 75 mls/hr .[id number] NICOLETTE Infusion Insulin Aspart 5 unit 08/28/17 17:00 08/30/17 19:58 Novolog SUBQ 5 unit TIDWM NICOLETTE Administration Protocol Insulin Aspart 1 - 9 unit 08/28/17 17:00 08/30/17 22:22 Novolog SUBQ 3 unit 0800,1200,1700,2100 NICOLETTE Administration Protocol Insulin Glargine 40 unit 08/28/17 13:00 08/30/17 13:28 Lantus Solostar SUBQ 40 unit DAILY NICOLETTE Administration Metoprolol Succinate 50 mg 08/28/17 16:43 08/30/17 09:28 Toprol Xl PO Not Given DAILY [facility] Ondansetron HCl 4 mg 08/27/17 19:40 08/31/17 07:56 Zofran Inj IVP 4 mg Q6HR PRN Administration Nausea / Vomiting Oxycodone HCl 5 mg 08/27/17 19:40 08/29/17 00:51 Roxicodone PO 5 mg Q4HR PRN Administration Pain 5 to 7 Oxycodone HCl 10 mg 08/27/17 19:40 08/31/17 03:09 Roxicodone PO 10 mg Q4HR PRN Administration Pain 8 to 10 Pantoprazole Sodium 40 mg 08/28/17 07:00 08/31/17 06:04 Protonix IVP 40 mg QDAC NICOLETTE Administration Polyethylene Glycol 17 gm 08/28/17 09:00 08/30/17 09:28 Miralax PO Not Given DAILY [facility] Sodium Chloride 10 ml 08/27/17 19:40 08/31/17 06:04 Normal Saline Flush 0.9% IVP 10 ml PRN PRN Administration NEEDED PER PROVIDER ORDERS Sodium Chloride 10 ml 08/28/17 01:00 08/31/17 00:49 Normal Saline Flush 0.9% IVP Not Given 0100,0900,1700 NICOLETTE - Physical Exam Wound/Incisions: positive: Healing well, Dressing dry and intact, No drainage General Appearance: positive: No acute distress, Alert Eyes Bilateral: positive: Conjunctivae nml. negative: No scleral icterus ENT: positive: ENT inspection nml, Dry mucous membranes Neck: positive: Nml inspection, No JVD Respiratory: positive: Chest non-tender, No respiratory distress, Breath sounds nml Cardiovascular: positive: Regular rate & rhythm, No murmur, No gallop Abdomen: positive: Non-tender, Nml bowel sounds Skin: positive: Color nml, No rash, Warm, Dry Extremities: positive: Nml appearance, No pedal edema. negative: Calf tenderness Neurologic/Psychiatric: positive: Oriented x3 ABX Reporting Has patient been on IV antibiotics over the past 48 hours?: Yes Impression/Plan - Problem List Problem List: 1. Acute gangrenous calculous cholecystitis, doing well POD #1 s/p lap jennifer. Plan: advance diet and increase activity as love, continue antibiotics. 2. Abn lfts, stable, slightly improved compared to last night, likely due to sepsis, recent passage of CD stone, or medication side effect. Plan continue to monitor, stop any meds likely to be hepatotoxic, including acetaminophen.
[2017-08-31] MEDS: KETOROLAC 15 MG/ML VIAL IVP PRN ×2 (08:54→13:59)
[2017-08-31] MEDS: POLYETHYLENE GLYCOL 3350 17 GM PACKET PO SCH (08:55)
[2017-08-31] MEDS: DOCUSATE SODIUM 250 MG CAPSULE PO SCH (08:57)
[2017-08-31] MEDS: METOPROLOL SUCCINATE 50 MG TABLET PO SCH (09:00)
[2017-08-31] MEDS: HEPARIN 5,000 UNIT/ML VIAL SUBQ SCH ×2 (09:00→19:40)
[2017-08-31] MEDS: INSULIN ASPART 300 UNIT/3 ML PEN SUBQ SCH ×7 (09:02→21:05)
[2017-08-31] MEDS: INSULIN GLARGINE 300 UNIT/3 ML PEN SUBQ SCH (09:02)
[2017-08-31] MEDS: LORazepam 2 MG/ML VIAL IVP SCH (10:29)
[2017-08-31] MEDS: D5NS W/20 MEQ KCL 1,000 ML IV SCH (10:33)
[2017-08-31] MEDS: chlorproMAZINE 25 MG TABLET PO PRN ×2 (10:50→12:37)
[2017-08-31] MEDS ORDERED: GADOBUTROL 15 MMOL/15 ML VIAL ONE (11:59)
[2017-08-31] MEDS ORDERED: GADOBUTROL 15 MMOL/15 ML VIAL IVP ONE (12:35)
--- NOTE | 2017-08-31 13:56 | MRI Report ---
Procedure Date: 08/31/2017 Accession Number: [id number] / [id number] Procedure: MRI - Brain W/WO CPT Code: FULL RESULT: MRI BRAIN WITHOUT AND WITH CONTRAST INDICATION: 67-year-old male. Recent gallbladder surgery. Had episode of altered mental status/aphasia 6 hours following the surgery. Concern for a transient attack/cerebral vascular accident. Please assess. TECHNIQUE: 1. Sagittal T1 3-D. 2. Coronal fat-saturated T2. 3. Axial T1 3-D, FLAIR, T2, T2* and DWI. 4. 10 mL IV Gadavist. T1 3-D axial. COMPARISON: Head CT 08/30/2017. FINDINGS: The patient had difficulty holding still for this examination. There is image degradation from patient motion. This decreases the diagnostic quality of the study. Ventricular size is normal. Grossly, signal intensity of cortex and white matter appears normal, however, the axial T2 FLAIR sequence is degraded by artifact. Flow voids are seen in the main intracranial arteries. No abnormal diffusion restriction is demonstrated. No evidence of acute or chronic hemorrhage on T2* GRE sequence. No abnormal extra-axial fluid collection. No mass effect or midline shift. No enhancing space-occupying mass lesion is demonstrated. No abnormal meningeal or cranial nerve enhancement is demonstrated. There appears to be normal intravascular contrast enhancement in the dural venous sinuses and deep venous structures. There is hypertelorism. Limited assessment of the orbits reveals no other gross pathology. A mucous retention cyst is identified in the left chamber of the sphenoid sinus. Mucous retention cysts are seen in both maxillary sinuses. There is mild mucosal thickening in a few ethmoid air cells. The paranasal sinuses are otherwise essentially clear. No mastoid or middle ear effusion. IMPRESSION: 1. Motion-limited study. 2. No acute intracranial pathology is identified. In particular, no evidence of recent infarction on diffusion-weighted imaging.
--- NOTE | 2017-08-31 15:09 | PROVIDER PROGRESS NOTE ---
Subjective - Prog Note Date Prog Note Date: 08/31/17 - Subjective Pt reports feeling: Improved Subjective: pt state he feels much better today comparing with yesterday, pain is good controlled, mild nausea and mild anorexia. Denies fever, chill, CP, SOB. Current Medications - Current Medications Current Medications: Active Medications Albuterol () 2.5 mg INH RTQ4H PRN PRN Reason: Wheezing Chlorpromazine HCl (Thorazine) 25 mg PO TID PRN PRN Reason: Hiccups Last Admin: 08/31/17 12:37 Dose: 25 mg Clonidine HCl (Catapres) 0.1 mg PO BID PRN PRN Reason: Hypertensive Emergency Docusate Sodium (Colace 250mg Capsule) 250 - 500 mg PO DAILY [facility] Last Admin: 08/31/17 08:57 Dose: 250 mg Heparin Sodium (Porcine) () 5,000 unit SUBQ BID [facility] Last Admin: 08/31/17 09:00 Dose: 5,000 unit Piperacillin Sod/Tazobactam (Sod 3.375 gm/ Sodium Chloride) 100 mls @ 200 mls/ hr IV Q6H [facility] Last Infusion: 08/31/17 14:49 Dose: Infused Potassium Chloride/Dextrose/Sod Cl () 1,000 mls @ 50 mls/hr IV .Q20H [facility] Last Admin: 08/31/17 10:33 Dose: 50 mls/hr Insulin Aspart (Novolog) 5 unit SUBQ TIDWM [facility] PRN Reason: Protocol Last Admin: 08/31/17 12:33 Dose: 5 unit Insulin Aspart (Novolog) 1 - 9 unit SUBQ 0800,1200,1700,2100 [facility] PRN Reason: Protocol Last Admin: 08/31/17 12:35 Dose: Not Given Insulin Glargine (Lantus Solostar) 40 unit SUBQ DAILY [facility] Last Admin: 08/31/17 09:02 Dose: 300 unit Ketorolac Tromethamine (Toradol Inj (15mg)) 15 mg IVP Q6H PRN PRN Reason: PAIN Stop: 09/04/17 12:24 Last Admin: 08/31/17 13:59 Dose: 15 mg Metoclopramide HCl (Reglan Inj) 5 mg IVP Q6HR PRN PRN Reason: Nausea / Vomiting Last Admin: 08/31/17 08:55 Dose: 5 mg Metoprolol Succinate (Toprol Xl) 50 mg PO DAILY [facility] Last Admin: 08/31/17 09:00 Dose: 50 mg Morphine Sulfate (Morphine) 2 mg IVP Q2H PRN PRN Reason: Pain 8 to 10 Ondansetron HCl (Zofran Inj) 4 mg IVP Q6HR PRN PRN Reason: Nausea / Vomiting Last Admin: 08/31/17 07:56 Dose: 4 mg Oxycodone HCl (Roxicodone) 5 mg PO Q4HR PRN PRN Reason: Pain 5 to 7 Last Admin: 08/29/17 00:51 Dose: 5 mg Oxycodone HCl (Roxicodone) 10 mg PO Q4HR PRN PRN Reason: Pain 8 to 10 Last Admin: 08/31/17 08:57 Dose: 5 mg Pantoprazole Sodium (Protonix) 40 mg PO QDAC [facility] Polyethylene Glycol (Miralax) 17 gm PO DAILY [facility] Last Admin: 08/31/17 08:55 Dose: 17 gm Sodium Chloride (Normal Saline Flush 0.9%) 10 ml IVP PRN PRN PRN Reason: NEEDED PER PROVIDER ORDERS Last Admin: 08/31/17 06:04 Dose: 10 ml Sodium Chloride (Normal Saline Flush 0.9%) 10 ml IVP 0100,0900,1700 [facility] Last Admin: 08/31/17 12:39 Dose: 10 ml Insulin Aspart (Vial) [NovoLOG] 15 unit SQ TIDWM 10/28/12 Pantoprazole Sodium [Protonix] 40 mg PO BID 11/06/13 Chlorthalidone [Chlorthalidone] 25 mg PO DAILY 07/13/16 Doxazosin [Cardura] 4 mg PO DAILY 07/13/16 Finasteride [Proscar] 5 mg ORAL DAILY 07/13/16 Losartan Potassium [Losartan Potassium] 100 mg ORAL DAILY 07/13/16 Metoprolol Succinate 50 mg ORAL DAILY 07/13/16 Insulin Degludec [Tresiba Flextouch U-100] 120 units SUBQ DAILY 08/28/17 Objective - Vital Signs/Intake & Output Reviewed Vital Signs: Yes Vital Signs: Vital Signs x48h Temp Pulse Pulse Resp BP Pulse Ox 08/31/17 13:00 36.6 C 70 18 139/67 H 96 08/31/17 08:39 70 18 08/31/17 08:06 37.1 C 97 18 141/61 H 97 Intake & Output: Intake & Output 08/28/17 08/29/17 08/30/17 08/31/17 23:59 23:59 23:59 23:59 Intake Total 1690 4400.000 8643.017 6294.25 Output Total 631 817 5255 Balance 1690 3900.000 2747.089 8219.25 - Objective General Appearance: positive: No acute distress, Alert. negative: Lethargic Eyes Bilateral: positive: Normal inspection, PERRL, No lid inflammation, Conjunctivae nml ENT: positive: ENT inspection nml, Pharynx nml, No signs of dehydration. negative: Purulent nasal drainage, Pharyngeal erythema, Oral lesions Neck: positive: Nml inspection, Thyroid nml, No JVD, Trachea midline. negative : Thyromegaly, Lymphadenopathy (R), Lymphadenopathy (L), Stiff neck, Swelling/ bruising, Tracheal deviation Respiratory: positive: Chest non-tender, No respiratory distress, Breath sounds nml. negative: Wheezes, Rales, Rhonchi Cardiovascular: positive: Regular rate & rhythm, No murmur, No gallop. negative : Irregularly irregular, Extrasystoles, Tachycardia, Bradycardia, JVD present, Systolic murmur, Diastolic murmur Peripheral Pulses: 2+ Radial (R), 2+ Radial (L), 2+ Dorsalis pedis (R), 2+ Dorsalis pedis (L) Abdomen: positive: Non-tender, No organomegaly, Nml bowel sounds, No distention. negative: Tenderness, Guarding, Rebound Back: positive: Nml inspection. negative: CVA tenderness (R), CVA tenderness (L ) Skin: positive: Color nml, No rash, Warm, Dry. negative: Cyanosis, Diaphoresis , Pallor Extremities: positive: Non-tender, Full ROM, Nml appearance. negative: Calf tenderness, Joint swelling, Yuki's sign/cords Neurologic/Psychiatric: positive: Oriented x3, Motor nml, Sensation nml. negative: Weakness, Sensory loss, Facial droop, Slurred/abnml speech, Depressed mood/affect - Lab Results Fish Bones: 08/31/17 04:30 07/05/18 04:30 Other Labs: Lab Results x24hrs 08/31/17 08/31/17 08/31/17 Range/Units 12:26 07:30 04:30 WBC (4.8-10.8) x10^3/uL RBC (4.70-6.10) 10^6/uL Hgb (14.0-18.0) g/dL Hct (42.0-52.0) % MCV (80.0-94.0) fL MCH (27.0-31.0) pg MCHC (32.0-36.0) g/dL RDW (12.0-15.0) % Plt Count (130-450) 10^3/uL MPV (7.4-11.4) fL Neut # (Auto) Lymph # (Auto) Pepin # (Auto) Eos # (Auto) Baso # (Auto) Absolute Nucleated RBC Total Counted Band Neuts % (Manual) (0 - 10) % Abnorm Lymph % (Manual) % Metamyelocytes % ( - 0) % Myelocytes % ( - 0) % Nucleated RBC % Neutrophils # (Manual) (1.5-6.6) 10^3/uL Lymphocytes # (Manual) (1.5-3.5) 10^3/uL Monocytes # (Manual) (0.0-1.0) 10^3/uL Eosinophils # (Manual) (0-0.7) 10^3/uL Basophils # (Manual) (0-0.1) 10^3/uL Differential Comment Manual Slide Review WBC Morphology (NORMAL) Platelet Estimate (NORMAL) Platelet Morphology (NORMAL) RBC Morph Micro Appear (NORMAL) Bld Gas Analysis Time Sample Site ABG pH (7.35-7.45) ABG pCO2 (34-45) mmHg ABG pO2 (80-100) mmHg ABG HCO3 (22.0-26.0) mmol/L ABG Total CO2 (21.0-29.0) MMOL/L ABG O2 Saturation (94-98) % ABG Oximetry Spot Check % ABG Base Excess (-2.0-3.0) mmol/L Rick Test VBG pH (7.31-7.41) VBG pCO2 (41-51) mmHg VBG pO2 (25-47) mmHg VBG HCO3 (23-28) mmol/L VBG Total CO2 (24-29) mmol/L VBG O2 Saturation (60-80) % VBG Base Excess (-2 - +2) mmol/L O2 Delivery Device O2 Liters/Min LPM Sodium 136 (135-145) mmol/L Potassium 3.5 (3.5-5.0) mmol/L Chloride 103 (101-111) mmol/L Carbon Dioxide 25 (21-32) mmol/L Anion Gap 8.0 (6-13) BUN 24 H (6-20) mg/dL Creatinine 1.3 H (0.6-1.2) mg/dL Estimated GFR (MDRD) 67 L (>89) Glucose 133 H (70-100) mg/dL POC Whole Bld Glucose 129 H 151 H (70 - 100) mg/dL Calcium 8.1 L (8.5-10.3) mg/dL Phosphorus (2.5-4.6) mg/dL Magnesium 1.8 (1.7-2.8) mg/dL Total Bilirubin 5.7 H (0.2-1.0) mg/dL AST 248 H (10-42) IU/L ALT 330 H (10-60) IU/L Alkaline Phosphatase 252 H (42-121) IU/L Troponin I (<0.49) ng/mL Total Protein 5.9 L (6.7-8.2) g/dL Albumin 2.2 L (3.2-5.5) g/dL Globulin 3.7 (2.1-4.2) g/dL Albumin/Globulin Ratio 0.6 L (1.0-2.2) 08/31/17 08/30/17 08/30/17 Range/Units 04:30 20:56 20:42 WBC 9.6 (4.8-10.8) x10^3/uL RBC 3.19 L (4.70-6.10) 10^6/uL Hgb 10.3 L (14.0-18.0) g/dL Hct 30.8 L (42.0-52.0) % MCV 96.5 H (80.0-94.0) fL MCH 32.4 H (27.0-31.0) pg MCHC 33.5 (32.0-36.0) g/dL RDW 12.9 (12.0-15.0) % Plt Count 188 (130-450) 10^3/uL MPV 9.3 (7.4-11.4) fL Neut # (Auto) Not Reportable Lymph # (Auto) Not Reportable Pepin # (Auto) Not Reportable Eos # (Auto) Not Reportable Baso # (Auto) Not Reportable Absolute Nucleated RBC Not Reportable Total Counted 100 Band Neuts % (Manual) 3 (0 - 10) % Abnorm Lymph % (Manual) 0 % Metamyelocytes % 2 H ( - 0) % Myelocytes % 2 H ( - 0) % Nucleated RBC % Not Reportable Neutrophils # (Manual) 7.8 H (1.5-6.6) 10^3/uL Lymphocytes # (Manual) 0.7 L (1.5-3.5) 10^3/uL Monocytes # (Manual) 0.7 (0.0-1.0) 10^3/uL Eosinophils # (Manual) 0.0 (0-0.7) 10^3/uL Basophils # (Manual) 0.1 (0-0.1) 10^3/uL Differential Comment MANUAL DIFFERENTIAL Manual Slide Review WBC Morphology (NORMAL) Platelet Estimate NORMAL (130-450,000) (NORMAL) Platelet Morphology (NORMAL) RBC Morph Micro Appear NORMAL APPEARANCE (NORMAL) Bld Gas Analysis Time Sample Site ABG pH (7.35-7.45) ABG pCO2 (34-45) mmHg ABG pO2 (80-100) mmHg ABG HCO3 (22.0-26.0) mmol/L ABG Total CO2 (21.0-29.0) MMOL/L ABG O2 Saturation (94-98) % ABG Oximetry Spot Check % ABG Base Excess (-2.0-3.0) mmol/L Rick Test VBG pH (7.31-7.41) VBG pCO2 (41-51) mmHg VBG pO2 (25-47) mmHg VBG HCO3 (23-28) mmol/L VBG Total CO2 (24-29) mmol/L VBG O2 Saturation (60-80) % VBG Base Excess (-2 - +2) mmol/L O2 Delivery Device O2 Liters/Min LPM Sodium 138 (135-145) mmol/L Potassium 4.1 (3.5-5.0) mmol/L Chloride 103 (101-111) mmol/L Carbon Dioxide 27 (21-32) mmol/L Anion Gap 8.0 (6-13) BUN 28 H (6-20) mg/dL Creatinine 1.7 H (0.6-1.2) mg/dL Estimated GFR (MDRD) 49 L (>89) Glucose 249 H (70-100) mg/dL POC Whole Bld Glucose 211 H (70 - 100) mg/dL Calcium 8.5 (8.5-10.3) mg/dL Phosphorus 2.6 (2.5-4.6) mg/dL Magnesium 1.9 (1.7-2.8) mg/dL Total Bilirubin (0.2-1.0) mg/dL AST (10-42) IU/L ALT (10-60) IU/L Alkaline Phosphatase (42-121) IU/L Troponin I (<0.49) ng/mL Total Protein (6.7-8.2) g/dL Albumin (3.2-5.5) g/dL Globulin (2.1-4.2) g/dL Albumin/Globulin Ratio (1.0-2.2) 08/30/17 08/30/17 08/30/17 Range/Units 19:10 19:10 19:10 WBC 10.3 (4.8-10.8) x10^3/uL RBC 3.39 L (4.70-6.10) 10^6/uL Hgb 11.0 L (14.0-18.0) g/dL Hct 32.9 L (42.0-52.0) % MCV 97.0 H (80.0-94.0) fL MCH 32.5 H (27.0-31.0) pg MCHC 33.5 (32.0-36.0) g/dL RDW 13.0 (12.0-15.0) % Plt Count 194 (130-450) 10^3/uL MPV 8.6 (7.4-11.4) fL Neut # (Auto) Not Reportable Lymph # (Auto) Not Reportable Pepin # (Auto) Not Reportable Eos # (Auto) Not Reportable Baso # (Auto) Not Reportable Absolute Nucleated RBC Not Reportable Total Counted 100 Band Neuts % (Manual) 4 (0 - 10) % Abnorm Lymph % (Manual) 0 % Metamyelocytes % ( - 0) % Myelocytes % ( - 0) % Nucleated RBC % Not Reportable Neutrophils # (Manual) 9.2 H (1.5-6.6) 10^3/uL Lymphocytes # (Manual) 0.4 L (1.5-3.5) 10^3/uL Monocytes # (Manual) 0.7 (0.0-1.0) 10^3/uL Eosinophils # (Manual) 0.0 (0-0.7) 10^3/uL Basophils # (Manual) 0.0 (0-0.1) 10^3/uL Differential Comment MANUAL DIFFERENTIAL Manual Slide Review Indicated WBC Morphology NORMAL APPEARANCE (NORMAL) Platelet Estimate NORMAL (130-450,000) (NORMAL) Platelet Morphology NORMAL APPEARANCE (NORMAL) RBC Morph Micro Appear 1+ POLYCHROMASIA (NORMAL) Bld Gas Analysis Time Sample Site ABG pH (7.35-7.45) ABG pCO2 (34-45) mmHg ABG pO2 (80-100) mmHg ABG HCO3 (22.0-26.0) mmol/L ABG Total CO2 (21.0-29.0) MMOL/L ABG O2 Saturation (94-98) % ABG Oximetry Spot Check % ABG Base Excess (-2.0-3.0) mmol/L Rick Test VBG pH 7.375 (7.31-7.41) VBG pCO2 47.8 (41-51) mmHg VBG pO2 41.1 (25-47) mmHg VBG HCO3 27.3 (23-28) mmol/L VBG Total CO2 28.8 (24-29) mmol/L VBG O2 Saturation 77.5 (60-80) % VBG Base Excess 1.6 (-2 - +2) mmol/L O2 Delivery Device O2 Liters/Min LPM Sodium (135-145) mmol/L Potassium (3.5-5.0) mmol/L Chloride (101-111) mmol/L Carbon Dioxide (21-32) mmol/L Anion Gap (6-13) BUN (6-20) mg/dL Creatinine (0.6-1.2) mg/dL Estimated GFR (MDRD) (>89) Glucose (70-100) mg/dL POC Whole Bld Glucose (70 - 100) mg/dL Calcium (8.5-10.3) mg/dL Phosphorus (2.5-4.6) mg/dL Magnesium (1.7-2.8) mg/dL Total Bilirubin (0.2-1.0) mg/dL AST (10-42) IU/L ALT (10-60) IU/L Alkaline Phosphatase (42-121) IU/L Troponin I < 0.04 (<0.49) ng/mL Total Protein (6.7-8.2) g/dL Albumin (3.2-5.5) g/dL Globulin (2.1-4.2) g/dL Albumin/Globulin Ratio (1.0-2.2) 08/30/17 08/30/17 08/30/17 Range/Units 19:10 17:43 16:28 WBC (4.8-10.8) x10^3/uL RBC (4.70-6.10) 10^6/uL Hgb (14.0-18.0) g/dL Hct (42.0-52.0) % MCV (80.0-94.0) fL MCH (27.0-31.0) pg MCHC (32.0-36.0) g/dL RDW (12.0-15.0) % Plt Count (130-450) 10^3/uL MPV (7.4-11.4) fL Neut # (Auto) Lymph # (Auto) Pepin # (Auto) Eos # (Auto) Baso # (Auto) Absolute Nucleated RBC Total Counted Band Neuts % (Manual) (0 - 10) % Abnorm Lymph % (Manual) % Metamyelocytes % ( - 0) % Myelocytes % ( - 0) % Nucleated RBC % Neutrophils # (Manual) (1.5-6.6) 10^3/uL Lymphocytes # (Manual) (1.5-3.5) 10^3/uL Monocytes # (Manual) (0.0-1.0) 10^3/uL Eosinophils # (Manual) (0-0.7) 10^3/uL Basophils # (Manual) (0-0.1) 10^3/uL Differential Comment Manual Slide Review WBC Morphology (NORMAL) Platelet Estimate (NORMAL) Platelet Morphology (NORMAL) RBC Morph Micro Appear (NORMAL) Bld Gas Analysis Time 1749 Sample Site LEFT RADIAL ABG pH 7.42 (7.35-7.45) ABG pCO2 43 (34-45) mmHg ABG pO2 44 L* (80-100) mmHg ABG HCO3 27.0 H (22.0-26.0) mmol/L ABG Total CO2 28.3 (21.0-29.0) MMOL/L ABG O2 Saturation 83 L* (94-98) % ABG Oximetry Spot Check 96 % ABG Base Excess 2.2 (-2.0-3.0) mmol/L Rick Test POSITIVE VBG pH (7.31-7.41) VBG pCO2 (41-51) mmHg VBG pO2 (25-47) mmHg VBG HCO3 (23-28) mmol/L VBG Total CO2 (24-29) mmol/L VBG O2 Saturation (60-80) % VBG Base Excess (-2 - +2) mmol/L O2 Delivery Device [place] O2 Liters/Min 3.00 LPM Sodium 137 (135-145) mmol/L Potassium 4.0 (3.5-5.0) mmol/L Chloride 102 (101-111) mmol/L Carbon Dioxide 26 (21-32) mmol/L Anion Gap 9.0 (6-13) BUN 29 H (6-20) mg/dL Creatinine 1.8 H (0.6-1.2) mg/dL Estimated GFR (MDRD) 46 L (>89) Glucose 270 H (70-100) mg/dL POC Whole Bld Glucose 262 H (70 - 100) mg/dL Calcium 8.4 L (8.5-10.3) mg/dL Phosphorus (2.5-4.6) mg/dL Magnesium (1.7-2.8) mg/dL Total Bilirubin 6.2 H (0.2-1.0) mg/dL AST 274 H (10-42) IU/L ALT 355 H (10-60) IU/L Alkaline Phosphatase 284 H (42-121) IU/L Troponin I (<0.49) ng/mL Total Protein 6.7 (6.7-8.2) g/dL Albumin 2.5 L (3.2-5.5) g/dL Globulin 4.2 (2.1-4.2) g/dL Albumin/Globulin Ratio 0.6 L (1.0-2.2) ABX Reporting Has patient been on IV antibiotics over the past 48 hours?: Yes Assessment/Plan - Problem List (1) Abdominal pain Impression: (1) elevated LFTs 08/31 better than yesterday, and reduced. pt felt much better. continue lab monitor hold hepatotoxic agents such as acetminophen. 08/30 today lab test reveals pt had significant elevated LFTs include elevated total Bili, ALT, AST, Alk and GGT. It appears likely acute bile obstruction. discussed with surgeon Dr. Reid Swain, Pt will have operation in the morning, and will follow up Moderate Revised cardiac risk index at 6.6% for the operation (2) acute gangrenous calculous cholecystitis Conclusion/Plan: 08/31 pt feel much better than yesterday, LFTs reduced mildly follow up surgeon continue antibiotics enhance ambulation 08/30 pt will have operation today morning to remove gallbladder, or may possible need ERCP, will follow up 08/29 pt still complaint right upper pain, WBC is continuing up. order CT of abdomen, follow up CT show suspicious of acute cholecystitis Zosyn pain control US of abdomen consult with GI surgeon Patient has been having generalized abdominal pain for the last 3 days. Patient has a history of recurrent episodes of abdominal pain, nausea, vomiting and diarrhea. He has been worked up extensively and appears to likely have cyclic vomiting syndrome. The patient also has a history of gastritis seen on EGD. Patient is also a long-time diabetic and may also have some diabetic gastroparesis. Pain is similar to what he has had in the past. Today patient also has a leukocytosis and given his ongoing diarrhea and vomiting I suspect the patient likely has gastroenteritis. On presentation to the medical [facility] the patient also spiked a fever again this supports diagnosis of gastroenteritis. Patient is also had a CT scan done 3 days ago which showed no acute process in the abdomen. Plan: IV fluids IV antiemetics N.p.o. Pain control with IV narcotics Carafate Viscous lidocaine Monitor diarrhea if it continues we will send stool for culture (3) ARF (acute renal failure) Conclusion/Plan: 08/31 continue improve, creatinine is 1.3 continue mild to moderate IVF, hydration. improved, Creatinine from 2.4 to 1.6 continue IVF, daily lab and vital monitor Patient presented with acute renal failure likely secondary to decreased oral intake along with vomiting and diarrhea for last 3 days. Patient was seen at the [facility] in [place] 3 days earlier and had a creatinine of 1.35 his creatinine today is up to 2.8 and the patient appears very dehydrated. He also has a sodium of 130, potassium 3.3 and chloride of 93. Patient's BUN is elevated at 48 this appears to be prerenal azotemia. Plan: Patient will be given IV fluids Patient will be given antiemetics Electrolyte replacement Monitor creatinine Avoid nephrotoxic agents (4) Vomiting and diarrhea Conclusion/Plan: mild nausea, no diarrhea antiemesis PRN pt report it better controlled continue antiemesis PRN pt report he felt better and slow down of N/V/D continue IVF clear liquid diet, Patient presented with intractable vomiting and diarrhea that has been going on for the last 3 days. The patient is now dehydrated with acute kidney injury and electrolyte abnormalities. The patient's vomiting and diarrhea is likely either secondary to cyclic vomiting syndrome or gastroenteritis. Patient had a CT of his abdomen and pelvis done 3 days ago which showed no acute process. For now patient will be treated with supportive care. Plan: IV fluids IV antiemetics Electrolyte replacement Consider sending stools for culture if patient has persistent diarrhea Consider antidiarrheal medications if patient's diarrhea persists. N.p.o. advance diet as tolerated. (5) Hyponatremia Conclusion/Plan: resolved, normal today improved, continue IVF of NS Patient presents with hyponatremia with a sodium of 130. Patient likely has hypovolemic hyponatremia due to dehydration from intractable vomiting and diarrhea for the last 3 days. Patient will be given IV fluids and we will monitor his sodium I expect as we hydrate the patient is sodium will improve. (6) Hypokalemia Conclusion/Plan: resolved Patient presents with hypokalemia as his sodium is 3.3. This is likely secondary to GI losses from his intractable vomiting and diarrhea. We will replace the patient's potassium and continue to monitor his potassium. We will also give the patient antiemetics to control his GI losses. We will also consider antidiarrheals if he continues to have diarrhea. (7) Diabetes Conclusion/Plan: 08/31, controlled glucose level continue slide scale, ACHS, insulin schedule continue current treatment, since pt is clear liquid diet, will adjust insulin as needed continue ACHS, hypoglycemia protocol Patient has a history of insulin-dependent diabetes. He is on 120 units of Lantus daily along with mealtime NovoLog. Currently the patient is having intractable vomiting and diarrhea and has not had very good oral intake. The patient will be kept n.p.o. We will cut his Lantus dose in half to give in the morning. The patient will be placed on n.p.o. sliding scale insulin. We will monitor his blood glucose 4 times a day. We will check a hemoglobin A1c. Once patient is able to tolerate p.o. intake we will place him on a diabetic diet. (8) Hypertension stable, continue home meds vital monitor (9) TIA pt was reported to have slurred speech, weakness and mental status change by nurse. Pt's NIHss is negative when I assessed to pt. CT of head, US of Carotid, ECHO all were unremarkable MRI is pending (10) Hiccups chronic condition, pt report he fight for hiccups for more than 10 years PRN Thorazine, PRN reglan Qualifiers: Abdominal location: right upper quadrant Qualified Code(s): R10.11 - Right upper quadrant pain
[2017-09-01] MEDS: SODIUM CHLORIDE FLUSH 0.9% 10 ML SYRINGE IVP SCH ×3 (00:18→17:04)
[2017-09-01] MEDS: PIPERACILLIN/TAZOBACTAM 3.375 GM in SODIUM CHLORIDE 0.9% MINIBAG 100 ML IV SCH ×2 (01:46→07:59)
[2017-09-01] MEDS: chlorproMAZINE 25 MG TABLET PO PRN ×3 (04:50→20:08)
[2017-09-01 05:29] LABS: BASOPHILS % (AUTO) 0.2 %; HGB - HEMOGLOBIN 10.7 g/dL (14.0-18.0); LYMPHOCYTES % (AUTO) 10.3 %; MEAN CORPUSCULAR HEMOGLOBIN 32.2 pg (27.0-31.0); MEAN CORPUSCULAR HGB CONC 33.4 g/dL (32.0-36.0); MEAN CORPUSCULAR VOLUME 96.5 fL (80.0-94.0); MEAN PLATELET VOLUME 8.9 fL (7.4-11.4); MONOCYTES % (AUTO) 8.7 %; NEUTROPHILS % (AUTO) 78.8 %; PLT - PLATELET COUNT 207 10^3/uL (130-450); RED BLOOD COUNT 3.32 10^6/uL (4.70-6.10); RED CELL DISTRIBUTION WIDTH 13.3 % (12.0-15.0)
[2017-09-01 05:32] LABS: ABNORMAL LYMPHS % (MANUAL) 0 %
[2017-09-01 05:44] LABS: ALBUMIN 2.2 g/dL (3.2-5.5); ALBUMIN/GLOBULIN RATIO 0.6 (1.0-2.2); CALCIUM 8.2 mg/dL (8.5-10.3); CREATININE 1.1 mg/dL (0.6-1.2); TOTAL PROTEIN 5.9 g/dL (6.7-8.2)
[2017-09-01] MEDS: D5NS W/20 MEQ KCL 1,000 ML IV SCH (06:24)
[2017-09-01] MEDS: PANTOPRAZOLE 40 MG TABLET PO SCH (06:25)
[2017-09-01 07:18] LABS: BAND NEUTROPHILS % (MANUAL) 9 %; DIFFERENTIAL COMMENT MANUAL DIFFERENTIAL; EOSINOPHILS # (MANUAL) 0.5 10^3/uL (0-0.7); LYMPHOCYTES # (MANUAL) 0.4 10^3/uL (1.5-3.5); LYMPHOCYTES % (MANUAL) 4 %; MONOCYTES # (MANUAL) 0.5 10^3/uL (0.0-1.0); NEUTROPHILS # (MANUAL) 8.6 10^3/uL (1.5-6.6); NEUTROPHILS % (MANUAL) 77 %; PLATELET ESTIMATE, MANUAL NORMAL (130-450,000) (NORMAL); RBC MORPHOLOGY (MULTIPLE) NORMAL APPEARANCE (NORMAL)
--- NOTE | 2017-09-01 08:39 | PROVIDER PROGRESS NOTE ---
Subjective - General Admit Date: 08/28/17 Procedure Date: 08/30/17 Post Op Days: 2 Procedure Performed: Lap Soy with IOC - Review of Systems Wound/Incisions: positive: Healing well, Dressing dry and intact, No drainage Drain Type: Atilio Drain Output Description: serosanguinous Approximate mls Output: 60 cc/yesterday; minimal cc today so far General: positive: Appetite (poor) Gastrointestinal: positive: Abdominal pain (minimal, much improved compared to preop). negative: Nausea, Vomiting, Diarrhea Genitourinary: positive: No symptoms Skin: positive: No symptoms Psychiatric: positive: No symptoms - Other Other Information/Narrative: Feeling better; discomfort only with activity; tolerating po well, voiding, and moving bowels well; minimal ambulation so far. Has taken no antiemetics or analgesics for the past 18 hours. Objective - Patient Data Reviewed Vital Signs: Yes Vital Signs: Vital Signs x48h Temp Pulse Resp BP Pulse Ox 09/01/17 08:07 37.0 C 63 18 136/54 H 98 09/01/17 02:22 37 C 73 18 123/58 L 96 Weight: Weight 08/30/17 08/31/17 09/01/17 23:59 23:59 23:59 Weight (kg) 103 kg Intake & Output: Intake and Output Totals x24h 08/30/17 08/31/17 09/01/17 23:59 23:59 23:59 Intake Total 3020.367 3976.25 1092.5 Output Total 465 1460 700 Balance 6520.501 3579.25 392.5 - Lab Results Lab Results: 09/01/17 05:00 09/01/17 05:00 Other Lab Results: Lab Results x24hrs 09/01/17 09/01/17 08/31/17 Range/Units 05:00 05:00 20:53 WBC 10.0 (4.8-10.8) x10^3/uL RBC 3.32 L (4.70-6.10) 10^6/uL Hgb 10.7 L (14.0-18.0) g/dL Hct 32.0 L (42.0-52.0) % MCV 96.5 H (80.0-94.0) fL MCH 32.2 H (27.0-31.0) pg MCHC 33.4 (32.0-36.0) g/dL RDW 13.3 (12.0-15.0) % Plt Count 207 (130-450) 10^3/uL MPV 8.9 (7.4-11.4) fL Neut # (Auto) Not Reportable Lymph # (Auto) Not Reportable [place] # (Auto) Not Reportable Eos # (Auto) Not Reportable Baso # (Auto) Not Reportable Absolute Nucleated RBC Not Reportable Total Counted 100 Band Neuts % (Manual) 9 (0 - 10) % Abnorm Lymph % (Manual) 0 % Nucleated RBC % Not Reportable Neutrophils # (Manual) 8.6 H (1.5-6.6) 10^3/uL Lymphocytes # (Manual) 0.4 L (1.5-3.5) 10^3/uL Monocytes # (Manual) 0.5 (0.0-1.0) 10^3/uL Eosinophils # (Manual) 0.5 (0-0.7) 10^3/uL Basophils # (Manual) 0.0 (0-0.1) 10^3/uL Differential Comment MANUAL DIFFERENTIAL Platelet Estimate NORMAL (130-450,000) (NORMAL) RBC Morph Micro Appear NORMAL APPEARANCE (NORMAL) Sodium 137 (135-145) mmol/L Potassium 3.3 L (3.5-5.0) mmol/L Chloride 102 (101-111) mmol/L Carbon Dioxide 27 (21-32) mmol/L Anion Gap 8.0 (6-13) BUN 16 (6-20) mg/dL Creatinine 1.1 (0.6-1.2) mg/dL Estimated GFR (MDRD) 81 L (>89) Glucose 76 (70-100) mg/dL POC Whole Bld Glucose 126 H (70 - 100) mg/dL Calcium 8.2 L (8.5-10.3) mg/dL Total Bilirubin 4.0 H (0.2-1.0) mg/dL AST 157 H (10-42) IU/L ALT 276 H (10-60) IU/L Alkaline Phosphatase 236 H (42-121) IU/L Total Protein 5.9 L (6.7-8.2) g/dL Albumin 2.2 L (3.2-5.5) g/dL Globulin 3.7 (2.1-4.2) g/dL Albumin/Globulin Ratio 0.6 L (1.0-2.2) 08/31/17 08/31/17 Range/Units 16:39 12:26 WBC (4.8-10.8) x10^3/uL RBC (4.70-6.10) 10^6/uL Hgb (14.0-18.0) g/dL Hct (42.0-52.0) % MCV (80.0-94.0) fL MCH (27.0-31.0) pg MCHC (32.0-36.0) g/dL RDW (12.0-15.0) % Plt Count (130-450) 10^3/uL MPV (7.4-11.4) fL Neut # (Auto) Lymph # (Auto) [place] # (Auto) Eos # (Auto) Baso # (Auto) Absolute Nucleated RBC Total Counted Band Neuts % (Manual) (0 - 10) % Abnorm Lymph % (Manual) % Nucleated RBC % Neutrophils # (Manual) (1.5-6.6) 10^3/uL Lymphocytes # (Manual) (1.5-3.5) 10^3/uL Monocytes # (Manual) (0.0-1.0) 10^3/uL Eosinophils # (Manual) (0-0.7) 10^3/uL Basophils # (Manual) (0-0.1) 10^3/uL Differential Comment Platelet Estimate (NORMAL) RBC Morph Micro Appear (NORMAL) Sodium (135-145) mmol/L Potassium (3.5-5.0) mmol/L Chloride (101-111) mmol/L Carbon Dioxide (21-32) mmol/L Anion Gap (6-13) BUN (6-20) mg/dL Creatinine (0.6-1.2) mg/dL Estimated GFR (MDRD) (>89) Glucose (70-100) mg/dL POC Whole Bld Glucose 108 H 129 H (70 - 100) mg/dL Calcium (8.5-10.3) mg/dL Total Bilirubin (0.2-1.0) mg/dL AST (10-42) IU/L ALT (10-60) IU/L Alkaline Phosphatase (42-121) IU/L Total Protein (6.7-8.2) g/dL Albumin (3.2-5.5) g/dL Globulin (2.1-4.2) g/dL Albumin/Globulin Ratio (1.0-2.2) gallbladder fluid gm stain: no wbc or bacteria seen; C&S pending. - Imaging Results Radiology Imaging: positive: Final report received Imaging Results Comments: MRI brain neg yesterday - Current Medications Current Medications: Current Medications Generic Name Dose Route Start Last Admin Trade Name Freq PRN Reason Stop Dose Admin Docusate Sodium 250 - 500 mg 08/29/17 09:00 08/31/17 08:57 Colace 250mg Capsule PO 250 mg DAILY NICOLETTE Administration Heparin Sodium (Porcine) 5,000 unit 08/27/17 21:00 08/31/17 19:40 SUBQ 5,000 unit BID NICOLETTE Administration Piperacillin Sod/Tazobactam 100 mls @ 200 mls/hr 08/29/17 20:00 09/01/17 07: 59 Sod 3.375 gm/ Sodium Chloride IV 200 mls/hr Q6H NICOLETTE Administration Insulin Aspart 5 unit 08/28/17 17:00 08/31/17 17:29 Novolog SUBQ 5 unit TIDWM [facility] Administration Protocol Insulin Aspart 1 - 9 unit 08/28/17 17:00 08/31/17 21:05 Novolog SUBQ Not Given 0800,1200,1700,2100 [facility] Protocol Insulin Glargine 40 unit 08/28/17 13:00 08/31/17 09:02 Lantus Solostar SUBQ 300 unit DAILY NICOLETTE Administration Ketorolac Tromethamine 15 mg 08/30/17 12:25 08/31/17 13:59 Toradol Inj (15mg) IVP 09/04/17 12:24 15 mg Q6H PRN Administration PAIN Metoprolol Succinate 50 mg 08/28/17 16:43 08/31/17 09:00 Toprol Xl PO 50 mg DAILY NICOLETTE Administration Ondansetron HCl 4 mg 08/27/17 19:40 08/31/17 16:37 Zofran Inj IVP 4 mg Q6HR PRN Administration Nausea / Vomiting Oxycodone HCl 5 mg 08/27/17 19:40 08/29/17 00:51 Roxicodone PO 5 mg Q4HR PRN Administration Pain 5 to 7 Oxycodone HCl 10 mg 08/27/17 19:40 08/31/17 08:57 Roxicodone PO 5 mg Q4HR PRN Administration Pain 8 to 10 Pantoprazole Sodium 40 mg 09/01/17 07:00 09/01/17 06:25 Protonix PO 40 mg QDAC NICOLETTE Administration Sodium Chloride 10 ml 08/27/17 19:40 08/31/17 16:37 Normal Saline Flush 0.9% IVP 10 ml PRN PRN Administration NEEDED PER PROVIDER ORDERS Sodium Chloride 10 ml 08/28/17 01:00 09/01/17 00:18 Normal Saline Flush 0.9% IVP Not Given 0100,0900,1700 [facility] - Physical Exam Wound/Incisions: positive: Healing well, Dressing dry and intact, No drainage General Appearance: positive: No acute distress, Alert Eyes Bilateral: positive: Normal inspection, Conjunctivae nml, Other (mild scleral icterus) ENT: positive: ENT inspection nml, Pharynx nml, No signs of dehydration Neck: positive: Nml inspection Respiratory: positive: Chest non-tender, No respiratory distress, Breath sounds nml Cardiovascular: positive: Regular rate & rhythm, No murmur, No gallop Abdomen: positive: Non-tender, Nml bowel sounds, Other (obese, no obvious distention, incisions healing well; drainage serosanguinous) Extremities: positive: Non-tender, Nml appearance, No pedal edema. negative: Calf tenderness Neurologic/Psychiatric: positive: Oriented x3 ABX Reporting Has patient been on IV antibiotics over the past 48 hours?: Yes Impression/Plan - Problem List Problem List: Doing well PO Day #2 s/p lap soy for acute gangrenous cholecystitis. Rec: d/c IVF, OOB more, wean off oxygen, oral meds, ? home tomorrow if continues to improve.
[2017-09-01] MEDS: INSULIN ASPART 300 UNIT/3 ML PEN SUBQ SCH ×5 (09:08→20:38)
[2017-09-01] MEDS: DOCUSATE SODIUM 250 MG CAPSULE PO SCH (09:55)
[2017-09-01] MEDS: METOPROLOL SUCCINATE 50 MG TABLET PO SCH (09:55)
[2017-09-01] MEDS: HEPARIN 5,000 UNIT/ML VIAL SUBQ SCH ×2 (09:57→20:37)
--- NOTE | 2017-09-01 11:09 | PROVIDER PROGRESS NOTE ---
Subjective - Prog Note Date Prog Note Date: 09/01/17 Prog Note Time: 11:07 - Subjective Subjective: Pt reports some lightheadedness w/ position change had troublesome hiccups last night, improved now (at time of my exam, but later complained of them again, requested resume thorazine) reports moving bowels, no nausea, pain ok Current Medications - Current Medications Current Medications: Active Medications Generic Name Dose Route Start Last Admin Trade Name Freq PRN Reason Stop Dose Admin Albuterol 2.5 mg 08/30/17 14:46 INH RTQ4H PRN Wheezing Docusate Sodium 250 - 500 mg 08/29/17 09:00 09/01/17 09:55 Colace 250mg Capsule PO 250 mg DAILY NICOLETTE Administration Heparin Sodium (Porcine) 5,000 unit 08/27/17 21:00 09/01/17 09:57 SUBQ 5,000 unit BID NICOLETTE Administration Piperacillin Sod/Tazobactam 100 mls @ 200 mls/hr 08/29/17 20:00 09/01/17 10: 00 Sod 3.375 gm/ Sodium Chloride IV Infused Q6H NICOLETTE Infusion Insulin Aspart 5 unit 08/28/17 17:00 09/01/17 09:54 Novolog SUBQ Not Given TIDWM [facility] Protocol Insulin Aspart 1 - 9 unit 08/28/17 17:00 09/01/17 09:08 Novolog SUBQ Not Given 0800,1200,1700,2100 [facility] Protocol Insulin Glargine 40 unit 08/28/17 13:00 08/31/17 09:02 Lantus Solostar SUBQ 40 unit DAILY NICOLETTE Administration Ketorolac Tromethamine 15 mg 08/30/17 12:25 08/31/17 13:59 Toradol Inj (15mg) IVP 09/04/17 12:24 15 mg Q6H PRN Administration PAIN Metoprolol Succinate 50 mg 08/28/17 16:43 09/01/17 09:55 Toprol Xl PO 50 mg DAILY NICOLETTE Administration Ondansetron HCl 4 mg 08/27/17 19:40 08/31/17 16:37 Zofran Inj IVP 4 mg Q6HR PRN Administration Nausea / Vomiting Oxycodone HCl 5 mg 08/27/17 19:40 08/29/17 00:51 Roxicodone PO 5 mg Q4HR PRN Administration Pain 5 to 7 Oxycodone HCl 10 mg 08/27/17 19:40 08/31/17 08:57 Roxicodone PO 5 mg Q4HR PRN Administration Pain 8 to 10 Pantoprazole Sodium 40 mg 09/01/17 07:00 09/01/17 06:25 Protonix PO 40 mg QDAC NICOLETTE Administration Potassium Chloride 20 meq 09/01/17 12:00 K-Dur PO 09/01/17 17:01 BIDWM NICOLETTE Sodium Chloride 10 ml 08/27/17 19:40 08/31/17 16:37 Normal Saline Flush 0.9% IVP 10 ml PRN PRN Administration NEEDED PER PROVIDER ORDERS Sodium Chloride 10 ml 08/28/17 01:00 09/01/17 09:08 Normal Saline Flush 0.9% IVP Not Given 0100,0900,1700 [facility] Insulin Aspart (Vial) [NovoLOG] 15 unit SQ TIDWM 10/28/12 Pantoprazole Sodium [Protonix] 40 mg PO BID 11/06/13 Chlorthalidone [Chlorthalidone] 25 mg PO DAILY 07/13/16 Doxazosin [Cardura] 4 mg PO DAILY 07/13/16 Finasteride [Proscar] 5 mg ORAL DAILY 07/13/16 Losartan Potassium [Losartan Potassium] 100 mg ORAL DAILY 07/13/16 Metoprolol Succinate 50 mg ORAL DAILY 07/13/16 Insulin Degludec [Tresiba Flextouch U-100] 120 units SUBQ DAILY 08/28/17 Objective - Vital Signs/Intake & Output Reviewed Vital Signs: Yes Vital Signs: Vital Signs x48h Temp Pulse Resp BP BP Pulse Ox 09/01/17 09:06 117/55 L 09/01/17 08:07 37.0 C 63 18 136/54 H 98 Intake & Output: Intake & Output 08/29/17 08/30/17 08/31/17 09/01/17 23:59 23:59 23:59 23:59 Intake Total 4400.000 4483.711 8045.25 1367.5 Output Total 140 992 4636 700 Balance 3900.000 3611.070 5584.25 667.5 - Objective General Appearance: positive: No acute distress, Other (lying flat in bed, easily aroused, awake, alert, conversant) Eyes Bilateral: positive: EOMI Respiratory: positive: Chest non-tender, No respiratory distress, Breath sounds nml Cardiovascular: positive: Regular rate & rhythm Abdomen: negative: Nml bowel sounds (somehat hypoactive but present BS, sl distension (per patient) vs obese, dry dressing RUQ, drain w/ serosang draining) , No distention Extremities: positive: No pedal edema - Lab Results Fish Bones: 09/01/17 05:00 09/01/17 05:00 Other Labs: Lab Results x24hrs 09/01/17 09/01/17 08/31/17 Range/Units 05:00 05:00 20:53 WBC 10.0 (4.8-10.8) x10^3/uL RBC 3.32 L (4.70-6.10) 10^6/uL Hgb 10.7 L (14.0-18.0) g/dL Hct 32.0 L (42.0-52.0) % MCV 96.5 H (80.0-94.0) fL MCH 32.2 H (27.0-31.0) pg MCHC 33.4 (32.0-36.0) g/dL RDW 13.3 (12.0-15.0) % Plt Count 207 (130-450) 10^3/uL MPV 8.9 (7.4-11.4) fL Neut # (Auto) Not Reportable Lymph # (Auto) Not Reportable [place] # (Auto) Not Reportable Eos # (Auto) Not Reportable Baso # (Auto) Not Reportable Absolute Nucleated RBC Not Reportable Total Counted 100 Band Neuts % (Manual) 9 (0 - 10) % Abnorm Lymph % (Manual) 0 % Nucleated RBC % Not Reportable Neutrophils # (Manual) 8.6 H (1.5-6.6) 10^3/uL Lymphocytes # (Manual) 0.4 L (1.5-3.5) 10^3/uL Monocytes # (Manual) 0.5 (0.0-1.0) 10^3/uL Eosinophils # (Manual) 0.5 (0-0.7) 10^3/uL Basophils # (Manual) 0.0 (0-0.1) 10^3/uL Differential Comment MANUAL DIFFERENTIAL Platelet Estimate NORMAL (130-450,000) (NORMAL) RBC Morph Micro Appear NORMAL APPEARANCE (NORMAL) Sodium 137 (135-145) mmol/L Potassium 3.3 L (3.5-5.0) mmol/L Chloride 102 (101-111) mmol/L Carbon Dioxide 27 (21-32) mmol/L Anion Gap 8.0 (6-13) BUN 16 (6-20) mg/dL Creatinine 1.1 (0.6-1.2) mg/dL Estimated GFR (MDRD) 81 L (>89) Glucose 76 (70-100) mg/dL POC Whole Bld Glucose 126 H (70 - 100) mg/dL Calcium 8.2 L (8.5-10.3) mg/dL Total Bilirubin 4.0 H (0.2-1.0) mg/dL AST 157 H (10-42) IU/L ALT 276 H (10-60) IU/L Alkaline Phosphatase 236 H (42-121) IU/L Total Protein 5.9 L (6.7-8.2) g/dL Albumin 2.2 L (3.2-5.5) g/dL Globulin 3.7 (2.1-4.2) g/dL Albumin/Globulin Ratio 0.6 L (1.0-2.2) 08/31/17 08/31/17 Range/Units 16:39 12:26 WBC (4.8-10.8) x10^3/uL RBC (4.70-6.10) 10^6/uL Hgb (14.0-18.0) g/dL Hct (42.0-52.0) % MCV (80.0-94.0) fL MCH (27.0-31.0) pg MCHC (32.0-36.0) g/dL RDW (12.0-15.0) % Plt Count (130-450) 10^3/uL MPV (7.4-11.4) fL Neut # (Auto) Lymph # (Auto) [place] # (Auto) Eos # (Auto) Baso # (Auto) Absolute Nucleated RBC Total Counted Band Neuts % (Manual) (0 - 10) % Abnorm Lymph % (Manual) % Nucleated RBC % Neutrophils # (Manual) (1.5-6.6) 10^3/uL Lymphocytes # (Manual) (1.5-3.5) 10^3/uL Monocytes # (Manual) (0.0-1.0) 10^3/uL Eosinophils # (Manual) (0-0.7) 10^3/uL Basophils # (Manual) (0-0.1) 10^3/uL Differential Comment Platelet Estimate (NORMAL) RBC Morph Micro Appear (NORMAL) Sodium (135-145) mmol/L Potassium (3.5-5.0) mmol/L Chloride (101-111) mmol/L Carbon Dioxide (21-32) mmol/L Anion Gap (6-13) BUN (6-20) mg/dL Creatinine (0.6-1.2) mg/dL Estimated GFR (MDRD) (>89) Glucose (70-100) mg/dL POC Whole Bld Glucose 108 H 129 H (70 - 100) mg/dL Calcium (8.5-10.3) mg/dL Total Bilirubin (0.2-1.0) mg/dL AST (10-42) IU/L ALT (10-60) IU/L Alkaline Phosphatase (42-121) IU/L Total Protein (6.7-8.2) g/dL Albumin (3.2-5.5) g/dL Globulin (2.1-4.2) g/dL Albumin/Globulin Ratio (1.0-2.2) Assessment/Plan - Problem List (1) Acute gangrenous cholecystitis Impression: (1) (1) acute gangrenous calculous cholecystitis in diabetic patient Conclusion/Plan: 09/01 Day 2 post op, tolerating PO, some Bowel fxn per pt, per Dr. Swain, possible d/c tomorrow d/w'd Dr. Swain, IF the zosyn is contributing to the transaminases/bili; DO still need abx/ Gallbladder necrotic/ "fell apart" on lap soy/ (definately had abd contamination) will d/c zosyn , change to unasyn til cultures result; likely can go on cipro / flagyl by d/c (will wait final cx, and Dr Swain recs) ? diaphragmatic irritation from infection/surgery; pt requested resume thorazine; started lowr prn dose IV fluids d/c'd earlier, checking orthostatics if pts lightheadedness d/c'd prn clonidine NV initially presumed to be cyclic vomiting syndrome was clearly r/t to GB, "hidden" in diabetic" 2) Transaminitis AST/ALT acute elevation (improving ) since 08/30 157/276 alk phos 236 Also TB elevation intraop cholangiogram showed no filling defect (? was there a transient stone passed? ) ? r/t zosyn, as above, reeval of zosyn (2) ARF (acute renal failure) Conclusion/Plan: 09/01; AKA ; due to #1, acute infection, ? sepsis (no marked period of hypotension noted); - improving/nearly resolved w/ tx of underlying infxn, and IVF 1.1 Cr today ( was 2.8 on presentation) (5) Hyponatremia Conclusion/Plan: resolved w/ volume repletion, normal 08/31 (was 130 on presentation; likely hypovolemic HypoNA (6) Hypokalemia Conclusion/Plan: mildly low/ replete PO (7) Diabetes Conclusion/Plan: A1C onl 6.6 on high dose lantus at home (was 80 bid) borderline hypoglycemic here (w/ only 40 lantus yesterday, held today) the festering Gallbladder may have been pushing his sugars for some time will continue correctional dosing, and 5 vs 10 of lantus tonight; may still be ok w/ ~ 30 lantus, with lower prandial dosing Hx prior note Patient has a history of insulin-dependent diabetes. He is on 120 units of Lantus daily along with mealtime NovoLog. Currently the patient is having intractable vomiting and diarrhea and has not had very good oral intake. The patient will be kept n.p.o. We will cut his Lantus dose in half to give in the morning. The patient will be placed on n.p.o. sliding scale insulin. We will monitor his blood glucose 4 times a day. We will check a hemoglobin A1c. Once patient is able to tolerate p.o. intake we will place him on a diabetic diet. (8) Hypertension was orthostatic today (c/o positional lightheadedness Lying HR 64 162/72 Sitting Hr 68 148/66 Standing HR 78 112/53 Gave small fluid bolus stopped prn clonidine, no indication continues home metoprolol 50 po daily and losartan 100 when warranted, chlorthalidone 25 / day on hold, cardura on hold (? for bph w/ his finasteride) (9) TIA will review records of this event (? post anesthesia); if c/w TIA for records 08/31 pt was reported to have slurred speech, weakness and mental status change by nurse. Pt's NIHss is negative when I assessed to pt. CT of head, US of Carotid, ECHO all were unremarkable MRI is pending (10) Hiccups chronic condition, pt report he fight for hiccups for more than 10 years PRN Thorazine, PRN reglan Qualifiers: Abdominal location: right upper quadrant Qualified Code(s): R10.11 - Right upper quadrant pain
[2017-09-01] MEDS: POTASSIUM CHLORIDE 20 MEQ TABLET PO SCH ×2 (12:10→17:04)
[2017-09-01] MEDS: INSULIN GLARGINE 300 UNIT/3 ML PEN SUBQ SCH (14:02)
[2017-09-01] MEDS: KETOROLAC 15 MG/ML VIAL IVP PRN (14:11)
[2017-09-01] MEDS: AMPICILLIN/SULBACTAM 1.5 GM in SODIUM CHLORIDE 0.9% MINIBAG 100 ML IV SCH ×2 (14:13→20:38)
[2017-09-01] MEDS: SODIUM CHLORIDE FLUSH 0.9% 10 ML SYRINGE IVP PRN (20:39)
[2017-09-02] MEDS: chlorproMAZINE 25 MG TABLET PO PRN (01:51)
[2017-09-02] MEDS: SODIUM CHLORIDE FLUSH 0.9% 10 ML SYRINGE IVP SCH ×2 (01:54→08:09)
[2017-09-02] MEDS: AMPICILLIN/SULBACTAM 1.5 GM in SODIUM CHLORIDE 0.9% MINIBAG 100 ML IV SCH ×2 (01:56→08:09)
[2017-09-02 06:16] LABS: BASOPHILS % (AUTO) 0.1 %; EOSINOPHILS % (AUTO) 1.4 %; HGB - HEMOGLOBIN 10.5 g/dL (14.0-18.0); LYMPHOCYTES % (AUTO) 9.2 %; MEAN CORPUSCULAR HEMOGLOBIN 32.1 pg (27.0-31.0); MEAN CORPUSCULAR HGB CONC 33.3 g/dL (32.0-36.0); MEAN CORPUSCULAR VOLUME 96.4 fL (80.0-94.0); MONOCYTES % (AUTO) 6.4 %; NEUTROPHILS % (AUTO) 82.9 %; PLT - PLATELET COUNT 222 10^3/uL (130-450); RED BLOOD COUNT 3.26 10^6/uL (4.70-6.10); RED CELL DISTRIBUTION WIDTH 13.2 % (12.0-15.0); WHITE BLOOD COUNT 11.2 x10^3/uL (4.8-10.8)
[2017-09-02] MEDS: PANTOPRAZOLE 40 MG TABLET PO SCH (06:23)
[2017-09-02 06:25] LABS: ABNORMAL LYMPHS % (MANUAL) 0 %
[2017-09-02 06:38] LABS: ALBUMIN 2.2 g/dL (3.2-5.5); ALBUMIN/GLOBULIN RATIO 0.6 (1.0-2.2); BILIRUBIN,TOTAL 2.6 mg/dL (0.2-1.0); CALCIUM 8.3 mg/dL (8.5-10.3); CREATININE 1.1 mg/dL (0.6-1.2); TOTAL PROTEIN 6.1 g/dL (6.7-8.2)
[2017-09-02 06:55] LABS: BAND NEUTROPHILS % (MANUAL) 9 %; DIFFERENTIAL COMMENT MANUAL DIFFERENTIAL; EOSINOPHILS # (MANUAL) 0.1 10^3/uL (0-0.7); LYMPHOCYTES # (MANUAL) 1.3 10^3/uL (1.5-3.5); LYMPHOCYTES % (MANUAL) 12 %; METAMYELOCYTES % (MANUAL) 1 %; MONOCYTES # (MANUAL) 0.3 10^3/uL (0.0-1.0); MYELOCYTES % (MANUAL) 1 %; NEUTROPHILS # (MANUAL) 9.2 10^3/uL (1.5-6.6); NEUTROPHILS % (MANUAL) 73 %; PLATELET ESTIMATE, MANUAL NORMAL (130-450,000) (NORMAL); RBC MORPHOLOGY (MULTIPLE) NORMAL APPEARANCE (NORMAL)
[2017-09-02] MEDS: INSULIN ASPART 300 UNIT/3 ML PEN SUBQ SCH ×2 (08:09→11:56)
[2017-09-02] MEDS: METOPROLOL SUCCINATE 50 MG TABLET PO SCH (09:43)
[2017-09-02] MEDS: DOCUSATE SODIUM 250 MG CAPSULE PO SCH (09:44)
[2017-09-02] MEDS: INSULIN GLARGINE 300 UNIT/3 ML PEN SUBQ SCH (09:44)
[2017-09-02] MEDS: HEPARIN 5,000 UNIT/ML VIAL SUBQ SCH (09:47)
--- NOTE | 2017-09-02 11:30 | DISCHARGE SUMMARY ---
"Discharge Summary Admit Date: 08/27/17 Discharge Date: 09/02/17 Discharging Provider: Gato Primary Care Provider: Odette Martínez Code Status: Attempt Resuscitation Condition at Discharge: Good Discharge Disposition: 01 Home, Self Care - DIAGNOSES Admission Diagnoses: Abdominal pain Hypokalemia Hponatremia Diabetes mellitus Hypertension Acute renal failure Vomiting and diarrhea Discharge Diagnoses with Status of Each Condition: Each diagnosis improved or stable Dagnosis made of acute cholecystitis which turned out to be acute gangrenous cholecystitis also resolved with surgery Additional diagnosis of chronic hiccups - HPI History of Present Illness: Patient is a very pleasant 67 year old male with the co-morbidities and symptoms mentioned above. Surgical consultation was sought and patient was taken to the operating room on 08/30/17 after radiographic studies suggested the gallbladder as the source of his pain. Dr. Reid Swain performed the surgery. Postoperatively studies were done looking at his chronic hiccups and no source was found. Thorazine has not helped. I removed the drain today (the patient tolerated well) and explained that there are other techniques/ medications to help with chronic hiccups. The patient is tolerating a diet, has no pain, has no indication of infection, is urinating/defacating without problem and is ambulatory. - CONSULTS | PROCEDURES Consultations: General surgery Procedures: Laparoscopic cholecystectomy with IOC 08/30/[address] Reid Swain assisted by Dr. Gold Swain and technically a difficult operation. - HOSPITAL COURSE Hospital Course: Patient has had persistent hiccups and nothing has really worked to ameliorate his hiccups. Markely improved from admission. - ALLERGIES Allergies/Adverse Reactions: Allergies Allergy/AdvReac Type Severity Reaction Status Date / Time egg Allergy Severe Respiratory Verified 09/01/17 10:42 aspirin Allergy resp Verified 08/19/16 05:06 hydrocodone bitartrate * Allergy unknown Verified 08/19/16 05:06 [From Vicodin] hydroxyzine HCl * Allergy unknown Verified 08/19/16 05:06 [From Vistaril] hydroxyzine pamoate * Allergy unknown Verified 08/19/16 05:06 [From Vistaril] meperidine HCl * Allergy unknown Verified 08/19/16 05:06 [From Demerol] morphine Allergy Unknown Verified 08/19/16 05:06 Opioids - Morphine Analogues Allergy Anaphylaxis Verified 09/01/17 10:42 procaine HCl * Allergy Unknown Verified 08/19/16 05:06 [From Novocain] lactose AdvReac Cramps Verified 08/19/16 05:06 promethazine HCl * AdvReac Unknown Verified 08/19/16 05:06 [From Phenergan] eggs Allergy Respiratory Uncoded 08/19/16 05:06 opiods Allergy Anaphylaxis Uncoded 09/17/16 17:56 - MEDICATIONS Home Medications: Ambulatory Orders Medication Instructions Recorded Confirmed Insulin Aspart (Vial) [NovoLOG] 15 unit SQ TIDWM 10/28/12 08/28/17 Pantoprazole Sodium [Protonix] 40 mg PO BID 11/06/13 08/28/17 Chlorthalidone [Chlorthalidone] 25 mg PO DAILY 07/13/16 08/28/17 Doxazosin [Cardura] 4 mg PO DAILY 07/13/16 08/28/17 Finasteride [Proscar] 5 mg ORAL DAILY 07/13/16 08/28/17 Losartan Potassium [Losartan 100 mg ORAL DAILY 07/13/16 08/28/17 Potassium] Metoprolol Succinate 50 mg ORAL DAILY 07/13/16 08/28/17 Insulin Degludec [Tresiba 120 units SUBQ DAILY 08/28/17 08/28/17 Flextouch U-100] - PHYSICAL EXAM AT DISCHARGE General Appearance: positive: No acute distress (Hiccuping every 8-12 seconds) Eyes Bilateral: positive: No lid inflammation, Conjunctivae nml, No scleral icterus ENT: positive: No signs of dehydration Neck: positive: Trachea midline Respiratory: positive: Chest non-tender, Breath sounds nml Cardiovascular: positive: Regular rate & rhythm Abdomen: positive: Non-tender (Obese - excellent bowel sounds) Skin: positive: Color nml Extremities: positive: Nml appearance Neurologic/Psychiatric: positive: Oriented x3 - LABS Result Diagrams: 09/02/17 05:30 09/02/17 05:30 - FOLLOW UP Follow Up: With Dr. Reid Swain in 7-10 days. Okay to remove dressing tomorrow. - TIME SPENT Time Spent in Discharge (Minutes): 50"
[2017-09-02 11:32] VITALS: BP 135/68
--- NOTE | 2017-09-02 11:45 | Discharge Plan ---
Discharge Plan Disposition: Home, Self Care Condition: Good Prescriptions: oxyCODONE [Roxicodone] 5 mg PO Q4HR PRN #10 tablet PRN Reason: Pain 5 to 7 Diet: Regular Activity Restrictions: No lifting >15 pounds for 6 weeks. Shower Restrictions: No Driving Restrictions: No Weight Bearing: Full Weight Additional Instructions or Follow Up instructions: Call with surgical questions and/or concerns. Call for any temperature >101 degrees Farenheit or 38 degrees Centigrade. Call for persistent nausea or vomiting. Please keep sugars under control. No Smoking: If you smoke, Please STOP! Call for help. Follow-up with: Reid Swain MD [Provider Admit Priv/Credential] -
== END 2017-09-02 13:06 | disposition home or self-care (01) | DRG 418 ==
LOC: EDUNIT# → ED 17:10 → OBS 19:41 → OBSVTOIN 08-28 12:30 → MS2 08-28 14:04
PROVIDERS: ADMIT Internal Medicine; ATTEND Surgery
PROC: 0FB44ZZ Excision of Gallbladder, Percutaneous Endoscopic Approach (ICD-10-PCS; principal; 2017-08-30 08:00)
DX: K80.12 Calculus of gallbladder with acute and chronic cholecystitis without obstruction (principal); R11.2 Nausea with vomiting, unspecified; E87.1 Hypo-osmolality and hyponatremia; K29.01 Acute gastritis with bleeding; K29.51 Unspecified chronic gastritis with bleeding; N17.9 Acute kidney failure, unspecified; K82.8 Other specified diseases of gallbladder; R55 Syncope and collapse; R41.0 Disorientation, unspecified; R47.81 Slurred speech; E10.649 Type 1 diabetes mellitus with hypoglycemia without coma; E10.65 Type 1 diabetes mellitus with hyperglycemia; E10.319 Type 1 diabetes mellitus with unspecified diabetic retinopathy without macular edema; B96.3 Hemophilus influenzae [H. influenzae] as the cause of diseases classified elsewhere; R06.6 Hiccough; R16.0 Hepatomegaly, not elsewhere classified; E10.42 Type 1 diabetes mellitus with diabetic polyneuropathy; E66.9 Obesity, unspecified; E87.6 Hypokalemia; E86.0 Dehydration; E86.1 Hypovolemia; I10 Essential (primary) hypertension; K21.9 Gastro-esophageal reflux disease without esophagitis; K29.70 Gastritis, unspecified, without bleeding; K52.9 Noninfective gastroenteritis and colitis, unspecified; F41.0 Panic disorder [episodic paroxysmal anxiety]; F32.9 Major depressive disorder, single episode, unspecified; F43.10 Post-traumatic stress disorder, unspecified; I25.119 Atherosclerotic heart disease of native coronary artery with unspecified angina pectoris; E78.5 Hyperlipidemia, unspecified; Z87.442 Personal history of urinary calculi; G47.33 Obstructive sleep apnea (adult) (pediatric); I25.2 Old myocardial infarction; Z68.30 Body mass index [BMI] 30.0-30.9, adult; Z79.4 Long term (current) use of insulin; Z86.010 Personal history of colon polyps; Z86.19 Personal history of other infectious and parasitic diseases; Z79.899 Other long term (current) drug therapy
CPT/HCPCS: 36415; 36600; 70450; 70553; 71046; 74176; 74300; 76705; 80048; 80053; 81001; 82803; 82977; 83036; 83605; 83630; 83690; 83735; 84100; 84484; 85025; 87040; 87070; 87086; 87205; 87493; 93005; 93306; 93880; 96361; 96365; 96375; 96376; 99283; 99284

== ENCOUNTER 2017-09-03 17:04 | Emergency (ER) | payer MEDICARE, OTHER ==
[2017-09-03 18:01] LABS: ALBUMIN 2.9 g/dL (3.2-5.5); ALBUMIN/GLOBULIN RATIO 0.7 (1.0-2.2); BILIRUBIN,TOTAL 2.4 mg/dL (0.2-1.0); CALCIUM 8.8 mg/dL (8.5-10.3); CREATININE 1.1 mg/dL (0.6-1.2); TOTAL PROTEIN 7.1 g/dL (6.7-8.2)
[2017-09-03 18:07] LABS: BASOPHILS % (AUTO) 0.2 %; EOSINOPHILS # (AUTO) 0.2 10^3/uL (0.0-0.7); EOSINOPHILS % (AUTO) 1.1 %; HGB - HEMOGLOBIN 10.7 g/dL (14.0-18.0); LYMPHOCYTES # (AUTO) 1.2 10^3/uL (1.5-3.5); LYMPHOCYTES % (AUTO) 9.3 %; MEAN CORPUSCULAR HEMOGLOBIN 31.7 pg (27.0-31.0); MEAN CORPUSCULAR VOLUME 96.1 fL (80.0-94.0); MEAN PLATELET VOLUME 8.8 fL (7.4-11.4); MONOCYTES # (AUTO) 0.6 10^3/uL (0.0-1.0); MONOCYTES % (AUTO) 4.7 %; NEUTROPHILS # (AUTO) 11.4 10^3/uL (1.5-6.6); NEUTROPHILS % (AUTO) 84.7 %; PLT - PLATELET COUNT 252 10^3/uL (130-450); RED BLOOD COUNT 3.36 10^6/uL (4.70-6.10); RED CELL DISTRIBUTION WIDTH 13.5 % (12.0-15.0); WHITE BLOOD COUNT 13.4 x10^3/uL (4.8-10.8)
[2017-09-03 18:27] LABS: PLATELET ESTIMATE, MANUAL NORMAL (130-450,000) (NORMAL); PLATELET MORPHOLOGY NORMAL APPEARANCE (NORMAL); RBC MORPHOLOGY (MULTIPLE) NORMAL APPEARANCE (NORMAL)
[2017-09-03 18:28] LABS: DIFFERENTIAL COMMENT MANUAL=AUTO DIFF
[2017-09-03] MEDS ORDERED: SODIUM CHLORIDE 0.9% 1,000 ML IV ONE ×2 (18:29→19:41)
[2017-09-03] MEDS ORDERED: BACLOFEN 10 MG TABLET PO STA (18:32)
[2017-09-03] MEDS ORDERED: METOCLOPRAMIDE 10 MG TABLET PO STA (18:32)
--- NOTE | 2017-09-03 18:37 | ED Physician Documentation ---
History of Present Illness - Stated complaint Stated Complaint: N/V - Chief complaint Chief Complaint: Abd Pain - History obtained from History obtained from: Patient - History of Present Illness Timing: How many weeks ago (1) Pain level max: 0 Pain level now: 0 Improved by: nothing Worsened by: nothing - Additonal information Additional information: Patient is a 67-year-old male who was recently admitted to the hospital and had a cholecystectomy. He states that he tried to eat a piece of fish today and had one episode of emesis. His main complaint is that he has had continued hiccups for the past week. Was trialed on Thorazine but this did not help. He denies any pain to me. Says he has no fevers. Review of Systems Ten Systems: 10 systems reviewed and negative Constitutional: denies: Fever, Chills Ears: denies: Ear pain Nose: denies: Rhinorrhea / runny nose, Congestion Cardiac: denies: Chest pain / pressure Respiratory: denies: Cough GI: reports: Vomiting (once). denies: Abdominal Pain, Nausea, Diarrhea Skin: denies: Rash Musculoskeletal: denies: Neck pain, Back pain Neurologic: denies: Headache PD PAST MEDICAL HISTORY - Past Medical History Past Medical History: Yes Cardiovascular: Hypertension, High cholesterol, Coronary artery disease, Angina , [place], Other Respiratory: Sleep apnea Neuro: Peripheral neuropathy Endocrine/Autoimmune: Type 2 diabetes GI: GERD, Colon polyps, Chronic diarrhea : Benign prostate hypertrophy, Renal insuffiency, Kidney stones HEENT: Glaucoma, Other Psych: Depression, Panic attacks, Post traumatic stress disorder Musculoskeletal: Osteoarthritis Derm: Psoriasis - Past Surgical History Past Surgical History: Yes General: Cholecystectomy, Colonoscopy, EGD Ortho: Arthroscopic surgery Cardiovascular: Cardiac catheterization, Angioplasty HEENT: Cataracts - Present Medications Home Medications: Ambulatory Orders Medication Instructions Recorded Confirmed Insulin Aspart (Vial) [NovoLOG 15 unit SQ TIDWM 10/28/12 08/28/17 (VIAL FOR ED USE)] Pantoprazole Sodium [Protonix] 40 mg PO BID 11/06/13 08/28/17 Chlorthalidone 25 mg PO DAILY 07/13/16 08/28/17 Doxazosin [Cardura] 4 mg PO DAILY 07/13/16 08/28/17 Finasteride [Proscar] 5 mg ORAL DAILY 07/13/16 08/28/17 Losartan Potassium 100 mg ORAL DAILY 07/13/16 08/28/17 Metoprolol Succinate 50 mg ORAL DAILY 07/13/16 08/28/17 Insulin Degludec [Tresiba 120 units SUBQ DAILY 08/28/17 08/28/17 Flextouch U-100] oxyCODONE [Roxicodone] 5 mg PO Q4HR PRN #10 tablet 09/02/17 Baclofen [Lioresal] 10 mg PO TID PRN #14 tablet 09/03/17 Metoclopramide [Reglan] 10 mg PO Q6H PRN #14 tablet 09/03/17 - Allergies Allergies/Adverse Reactions: Allergies Allergy/AdvReac Type Severity Reaction Status Date / Time egg Allergy Severe Respiratory Verified 09/01/17 10:42 aspirin Allergy resp Verified 08/19/16 05:06 hydrocodone bitartrate * Allergy unknown Verified 08/19/16 05:06 [From Vicodin] hydroxyzine HCl * Allergy unknown Verified 08/19/16 05:06 [From Vistaril] hydroxyzine pamoate * Allergy unknown Verified 08/19/16 05:06 [From Vistaril] meperidine HCl * Allergy unknown Verified 08/19/16 05:06 [From Demerol] morphine Allergy Unknown Verified 08/19/16 05:06 Opioids - Morphine Analogues Allergy Anaphylaxis Verified 09/01/17 10:42 procaine HCl * Allergy Unknown Verified 08/19/16 05:06 [From Novocain] lactose AdvReac Cramps Verified 08/19/16 05:06 promethazine HCl * AdvReac Unknown Verified 08/19/16 05:06 [From Phenergan] eggs Allergy Respiratory Uncoded 08/19/16 05:06 opiods Allergy Anaphylaxis Uncoded 09/17/16 17:56 - Social History Does the pt smoke?: No Smoking Status: Never smoker Does the pt drink ETOH?: No Does the pt have substance abuse?: No - Immunizations Immunizations are current?: Yes - POLST Patient has POLST: No POLST Status: Full Code PD ED PE NORMAL - Vitals Vital signs reviewed: Yes - General General: Alert and oriented X 3, No acute distress - HEENT HEENT: Moist mucous membranes, Pharynx benign - Neck Neck: Supple, no meningeal sign - Cardiac Cardiac: RRR - Respiratory Respiratory: No respiratory distress, Clear bilaterally - Abdomen Abdomen: Soft, Non tender, Non distended, Other (incisions are clean, dry and intact without signs of infection.) - Derm Derm: Warm and dry - Extremities Extremities: No edema - Neuro Neuro: Alert and oriented X 3 - Psych Psych: Normal mood, Normal affect Results - Vitals Vitals: Vital Signs - 24 hr 09/03/17 09/03/17 09/03/17 17:07 19:17 21:35 Temperature 36.8 C Heart Rate 81 80 88 Respiratory 16 18 18 Rate Blood Pressure 152/73 H 97/65 146/75 H O2 Saturation 97 97 96 Oxygen O2 Source Room air - Labs Labs: Laboratory Tests 09/03/17 09/03/17 17:44 17:44 WBC 13.4 H RBC 3.36 L Hgb 10.7 L Hct 32.3 L MCV 96.1 H MCH 31.7 H MCHC 33.0 RDW 13.5 Plt Count 252 MPV 8.8 Neut # (Auto) 11.4 H Lymph # (Auto) 1.2 L Ware # (Auto) 0.6 Eos # (Auto) 0.2 Baso # (Auto) 0.0 Absolute Nucleated RBC 0.00 Band Neuts % (Manual) Not Reportable Abnorm Lymph % (Manual) Not Reportable Nucleated RBC % 0.0 Neutrophils # (Manual) Not Reportable Lymphocytes # (Manual) Not Reportable Monocytes # (Manual) Not Reportable Eosinophils # (Manual) Not Reportable Basophils # (Manual) Not Reportable Differential Comment MANUAL=AUTO DIFF Manual Slide Review Indicated Platelet Estimate NORMAL (130-450,000) Platelet Morphology NORMAL APPEARANCE RBC Morph Micro Appear NORMAL APPEARANCE Sodium 134 L Potassium 3.9 Chloride 97 L Carbon Dioxide 27 Anion Gap 10.0 BUN 10 Creatinine 1.1 Estimated GFR (MDRD) 81 L Glucose 168 H Calcium 8.8 Total Bilirubin 2.4 H AST 55 H ALT 133 H Alkaline Phosphatase 260 H Total Protein 7.1 Albumin 2.9 L Globulin 4.2 Albumin/Globulin Ratio 0.7 L Lipase 43 PD MEDICAL DECISION MAKING - ED course Complexity details: reviewed old records, reviewed results, re-evaluated patient , considered differential, d/w patient ED course: Patient is a 67-year-old male who presents to the emergency department with continued hiccups today. Lab abnormalities otherwise are improving Still having some vomiting. He is recently status post cholecystectomy, but his laboratory values are improving other than a mildly elevated white blood cell count. He is afebrile. Denies any abdominal tenderness. Hiccups improved with baclofen and Reglan. He is tolerating p.o. without difficulty. Given IV fluids as well. We will have him follow-up with his doctor and surgeon as scheduled. No evidence of bile leak. Patient counseled regarding signs and symptoms for which I believe and urgent re-evaluation would be necessary. Patient with good understanding of and agreement to plan and is comfortable going home at this time This document was made in part using voice recognition software. While efforts are made to proofread this document, sound alike and grammatical errors may occur. - Sepsis Event Vital Signs: Vital Signs - 24 hr 09/03/17 09/03/17 09/03/17 17:07 19:17 21:35 Temperature 36.8 C Heart Rate 81 80 88 Respiratory 16 18 18 Rate Blood Pressure 152/73 H 97/65 146/75 H O2 Saturation 97 97 96 Oxygen O2 Source Room air Departure - Departure Disposition: 01 Home, Self Care Clinical Impression: Hiccups Vomiting Qualifiers: Vomiting type: unspecified Vomiting Intractability: non-intractable Nausea presence: with nausea Qualified Code(s): R11.2 - Nausea with vomiting, unspecified Condition: Good Instructions: ED Hiccups Follow-Up: LEXA SAMS MD [Primary Care Provider] - Within 3 Days Antwon Hoskins MD [Provider Admit Priv/Credential] - Prescriptions: Baclofen [Lioresal] 10 mg PO TID PRN #14 tablet PRN Reason: Hiccups Metoclopramide [Reglan] 10 mg PO Q6H PRN #14 tablet PRN Reason: vomiting Comments: Return if you worsen. Follow-up with your doctor for further care. Drink plenty of fluids at home. Do not drive or operate heavy machinery while taking the baclofen. Discharge Date/Time: 09/03/17 21:35
[2017-09-03] MEDS ORDERED: ONDANSETRON 4 MG/2 ML VIAL IVP STA (19:49)
[2017-09-03] MEDS ORDERED: METOCLOPRAMIDE 10 MG/2 ML VIAL IVP STA (20:45)
[2017-09-03 21:36] VITALS: BP 146/75
== END 2017-09-03 21:35 | disposition home or self-care (01) ==
LOC: ED 17:04
DX: R06.6 Hiccough (principal); R11.2 Nausea with vomiting, unspecified; E78.00 Pure hypercholesterolemia, unspecified; I25.10 Atherosclerotic heart disease of native coronary artery without angina pectoris; I10 Essential (primary) hypertension; I25.2 Old myocardial infarction; E11.42 Type 2 diabetes mellitus with diabetic polyneuropathy; Z79.4 Long term (current) use of insulin
CPT/HCPCS: 36415; 80053; 83690; 85025; 96361; 96374; 96375; 99283; A9270; J2765

== ENCOUNTER 2017-09-06 10:33 | Outpatient (CLI) | payer MEDICARE, OTHER ==
[2017-09-06 10:50] LABS: BASOPHILS # (AUTO) 0.1 10^3/uL (0.0-0.1); BASOPHILS % (AUTO) 0.7 %; EOSINOPHILS # (AUTO) 0.1 10^3/uL (0.0-0.7); EOSINOPHILS % (AUTO) 0.8 %; HGB - HEMOGLOBIN 11.2 g/dL (14.0-18.0); LYMPHOCYTES # (AUTO) 1.2 10^3/uL (1.5-3.5); LYMPHOCYTES % (AUTO) 11.1 %; MEAN CORPUSCULAR HEMOGLOBIN 32.3 pg (27.0-31.0); MEAN CORPUSCULAR HGB CONC 33.6 g/dL (32.0-36.0); MEAN CORPUSCULAR VOLUME 95.9 fL (80.0-94.0); MEAN PLATELET VOLUME 8.8 fL (7.4-11.4); MONOCYTES # (AUTO) 0.5 10^3/uL (0.0-1.0); NEUTROPHILS % (AUTO) 82.4 %; PLT - PLATELET COUNT 352 10^3/uL (130-450); RED BLOOD COUNT 3.47 10^6/uL (4.70-6.10); RED CELL DISTRIBUTION WIDTH 13.6 % (12.0-15.0); WHITE BLOOD COUNT 10.9 x10^3/uL (4.8-10.8)
[2017-09-06 11:04] LABS: ALBUMIN 3.2 g/dL (3.2-5.5); ALBUMIN/GLOBULIN RATIO 0.7 (1.0-2.2); BILIRUBIN,TOTAL 1.7 mg/dL (0.2-1.0); CALCIUM 9.3 mg/dL (8.5-10.3); CREATININE 1.2 mg/dL (0.6-1.2); TOTAL PROTEIN 7.9 g/dL (6.7-8.2)
[2017-09-06 11:07] LABS: PLATELET ESTIMATE, MANUAL NORMAL (130-450,000) (NORMAL); PLATELET MORPHOLOGY NORMAL APPEARANCE (NORMAL); RBC MORPHOLOGY (MULTIPLE) NORMAL APPEARANCE (NORMAL)
== END 2017-09-06 10:34 | disposition home or self-care (01) ==
LOC: LAB 10:33
PROVIDERS: ATTEND Internal Medicine Gastroenterology
DX: K81.0 Acute cholecystitis (principal); R19.7 Diarrhea, unspecified
CPT/HCPCS: 36415; 80053; 83690; 85025

== ENCOUNTER 2017-09-08 08:00 | Outpatient (CLI) | payer MEDICARE, OTHER | END 2017-09-08 08:01 | disposition home or self-care (01) | LOC: LAB.R 08:00 | PROVIDERS: ATTEND Internal Medicine Gastroenterology | DX: K81.0 Acute cholecystitis (principal); R19.7 Diarrhea, unspecified | CPT/HCPCS: 87493 ==

== ENCOUNTER 2018-03-26 10:56 | Emergency (ER) | payer MEDICARE, OTHER ==
--- NOTE | 2018-03-26 13:14 | ED Physician Documentation ---
PD HPI HEADACHE - Stated complaint Stated Complaint: HIGH BP - Chief complaint Chief Complaint: General - History obtained from History obtained from: Patient - History of Present Illness Timing - onset: How many days ago (he has had BP high for the past week or more. Also having some pain right eye and some general headache. Seen by Ophthalmology 4 days ago and had IOP noted to higher at 30, and had steroid injection and eye drops. Has history of glaucoma and this was regular eye doctor. Seen by PCP today and BP noted to be 180s systolic. He told PCP about the headache and the provider noted that the right eye pupil was not as reactive, so had patient come to ER for "concern of stroke". Patient without other focal weaknesses. He however, did as PCP directed and came here for eval. PCP did not give any direction on changing BP meds.) Timing - onset during: Light activity Timing - details: Gradual onset, Waxing and waning (patient says he has had some headache frontal and around the right eye for few weeks, worse this past week. Not consistent pain.) Worst headache ever?: No: Worst headache ever? Location: Front, Right Quality: Throbbing, Aching Associated symptoms: Eye pain, Vision changes (mild blurring). No: Fever, Stiff neck, Nausea, Vomiting, Weakness, Numbness Contributing factors: Hypertension. No: Anticoagulated, Recent illness Similar symptoms before: Diagnosis (has had HTN in the past and BP was doing better and BP low at times, so was lowered meds about 6 months ago. Has had BP higher the past few weeks. Is currently at Losartan 25 mg and Metoprolol 25 mg daily. Had been as high as Metroprolol 100 mg and Losartan 50 mg in the past, he believes.) Recently seen: Clinic (today by PCP, and few days ago in Clinic by Ophthalmology.) Review of Systems Constitutional: denies: Fever, Chills Eyes: reports: Decreased vision. denies: Loss of vision, Photophobia, Discharge, Irritation Nose: denies: Rhinorrhea / runny nose, Congestion Throat: denies: Sore throat Respiratory: denies: Cough GI: denies: Nausea, Vomiting, Diarrhea Neurologic: denies: Focal weakness (he has had some eyelid droop since a cataract surgery years ago. Otherwise no focal deficits.), Numbness, Difficulty speaking, Altered mental status, Headache Endocrine: denies: Weight loss, Weight gain PD PAST MEDICAL HISTORY - Past Medical History Past Medical History: Yes Cardiovascular: Hypertension, High cholesterol, Coronary artery disease, Angina, [place], Other Respiratory: Sleep apnea Neuro: Headaches, Migraines, Peripheral neuropathy Endocrine/Autoimmune: Type 2 diabetes GI: GERD, Colon polyps, Chronic diarrhea : Benign prostate hypertrophy, Renal insuffiency, Kidney stones HEENT: Glaucoma, Other Psych: Depression, Panic attacks, Post traumatic stress disorder Musculoskeletal: Osteoarthritis Derm: Psoriasis - Past Surgical History Past Surgical History: Yes General: Cholecystectomy, Colonoscopy, EGD Ortho: Arthroscopic surgery Cardiovascular: Cardiac catheterization, Angioplasty HEENT: Cataracts - Present Medications Home Medications: Ambulatory Orders Medication Instructions Recorded Confirmed Insulin Aspart (Vial) [NovoLOG 15 - 25 unit SQ TID 10/28/12 03/26/18 (VIAL FOR ED USE)] Pantoprazole Sodium [Protonix] 40 mg PO BID 11/06/13 03/26/18 Doxazosin [Cardura] 4 mg PO DAILY 07/13/16 03/26/18 Finasteride [Proscar] 5 mg ORAL DAILY 07/13/16 03/26/18 Metoprolol Succinate 50 mg ORAL DAILY 07/13/16 03/26/18 Insulin Degludec [Tresiba 35 units SUBQ DAILY 08/28/17 03/26/18 Flextouch U-100] Atorvastatin Calcium 20 mg ORAL DAILY 03/26/18 03/26/18 Cyclopentolate 1% Ophth Drops 1 drops EACHEYE DAILY 03/26/18 03/26/18 [Cyclogel 1% Ophth Drops] Losartan Potassium 25 mg ORAL DAILY 03/26/18 03/26/18 prednisoLONE 1% OPHTH DROPS [Pred 1 drops EACHEYE DAILY 03/26/18 03/26/18 Forte 1% Ophth Drops] raNITIdine [Zantac] 150 mg ORAL BID 03/26/18 03/26/18 - Allergies Allergies/Adverse Reactions: Allergies Allergy/AdvReac Type Severity Reaction Status Date / Time egg Allergy Severe Respiratory Verified 03/26/18 12:07 aspirin Allergy resp Verified 03/26/18 12:07 hydrocodone bitartrate * Allergy unknown Verified 03/26/18 12:07 [From Vicodin] hydroxyzine HCl * Allergy unknown Verified 03/26/18 12:07 [From Vistaril] hydroxyzine pamoate * Allergy unknown Verified 03/26/18 12:07 [From Vistaril] meperidine HCl * Allergy unknown Verified 03/26/18 12:07 [From Demerol] morphine Allergy Unknown Verified 03/26/18 12:07 Opioids - Morphine Analogues Allergy Anaphylaxis Verified 03/26/18 12:07 procaine HCl * Allergy Unknown Verified 03/26/18 12:07 [From Novocain] lactose AdvReac Cramps Verified 03/26/18 12:07 promethazine HCl * AdvReac Unknown Verified 03/26/18 12:07 [From Phenergan] eggs Allergy Respiratory Uncoded 03/26/18 12:07 opiods Allergy Anaphylaxis Uncoded 03/26/18 12:07 - Social History Does the pt smoke?: No Smoking Status: Never smoker Does the pt drink ETOH?: No Does the pt have substance abuse?: No - Immunizations Immunizations are current?: Yes - POLST Patient has POLST: No POLST Status: Full Code PD ED PE NORMAL - Vitals Vital signs reviewed: Yes - General General: Alert and oriented X 3, No acute distress, Well developed/nourished - HEENT HEENT: EOMI, Pharynx benign, Other (mild right eyelid droop, which he says is chronic post cataract surgery. ). No: PERRL (the right eye is more sluggish, with operative post cataract appearance. Fundus is normal. 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 2-12 intact (except the above noted eyelid droop on right), No motor deficit, No sensory deficit, Normal speech Eye Opening: Spontaneous Motor: Obeys Commands Verbal: Oriented GCS Score: 15 Results - Vitals Vitals: Vital Signs - 24 hr 03/26/18 03/26/18 03/26/18 11:06 12:01 14:02 Temperature 35.8 C L Heart Rate 64 67 69 Respiratory 18 16 16 Rate Blood Pressure 184/81 H 176/92 H 145/86 H O2 Saturation 98 98 97 Oxygen O2 Source Room air PD MEDICAL DECISION MAKING - ED course Complexity details: considered differential (his eye and eyelid are explained and reasonable local eye problems, and do not appear part of CVA concern. His BP elevated would warrant change in meds. He says he had outpt basic chemistries last week, so I do not seen need for blood tests. ), d/w patient Departure - Departure Disposition: 01 Home, Self Care Clinical Impression: Hypertension Qualifiers: Hypertension type: unspecified secondary hypertension Qualified Code(s): I15.9 - Secondary hypertension, unspecified Headache Qualifiers: Headache type: unspecified Headache chronicity pattern: unspecified pattern Intractability: not intractable Qualified Code(s): R51 - Headache Glaucoma, right eye Qualifiers: Glaucoma type: unspecified Qualified Code(s): H40.9 - Unspecified glaucoma Condition: Stable Record reviewed to determine appropriate education?: Yes Follow-Up: LEXA SAMS MD [Primary Care Provider] - Comments: I think your eye findings are all consistent with the glaucoma and cataract surgery and such. Your blood pressure is elevated and may be contributing to some headaches. Use Tylenol for that. At this point I would have you increase your losartan from 25-50 mg daily and keep the metoprolol at 25 mg daily. Stay well-hydrated. Low-salt diet. See how your blood pressure does over the next 3-5 days. If it still running a bit high, then increase metoprolol to 50 mg daily as well. Follow-up with your primary care in 1-2 weeks for recheck, call for an appointment. Discharge Date/Time: 03/26/18 14:03
[2018-03-26 14:03] VITALS: BP 145/86
== END 2018-03-26 14:03 | disposition home or self-care (01) ==
LOC: ED 10:56
DX: I15.9 Secondary hypertension, unspecified (principal); R51 Headache; H40.9 Unspecified glaucoma; I25.10 Atherosclerotic heart disease of native coronary artery without angina pectoris; I25.2 Old myocardial infarction; E78.00 Pure hypercholesterolemia, unspecified; E11.9 Type 2 diabetes mellitus without complications; Z79.4 Long term (current) use of insulin
CPT/HCPCS: 93005; 99283

== ENCOUNTER 2019-07-05 12:02 | Emergency (ER) | payer OTHER ==
[2019-07-05 12:16] VITALS: BP 156/78
[2019-07-05] MEDS ORDERED: PROPARACAINE 0.5% OPHTH DROPS 15 ML EACHEYE STA (14:22)
--- NOTE | 2019-07-05 14:39 | ED Physician Documentation ---
PD HPI OPHTHO - Stated complaint Stated Complaint: RT EYE PX - Chief complaint Chief Complaint: Heent - History obtained from History obtained from: Patient (69-year-old gentleman with history of diabetic retinopathy, glaucoma, he has had eye injections which he missed last month due to coronavirus, last one was in February. Over the last week or so he has had some progressive redness and discomfort of the right eye with mildly blurry visi on but no acute vision loss.) Review of Systems Constitutional: denies: Fever, Chills Eyes: reports: Discharge, Irritation. denies: Loss of vision, Decreased vision, Photophobia PD PAST MEDICAL HISTORY - Past Medical History Past Medical History: Yes Cardiovascular: Hypertension, High cholesterol, Coronary artery disease, Angina, [place], Other Respiratory: Sleep apnea Neuro: Headaches, Migraines, Peripheral neuropathy Endocrine/Autoimmune: Type 2 diabetes GI: GERD, Colon polyps, Chronic diarrhea : Benign prostate hypertrophy, Renal insuffiency, Kidney stones HEENT: Glaucoma, Other Psych: Depression, Panic attacks, Post traumatic stress disorder Musculoskeletal: Osteoarthritis Derm: Psoriasis - Past Surgical History Past Surgical History: Yes General: Cholecystectomy, Colonoscopy, EGD Ortho: Arthroscopic surgery Cardiovascular: Cardiac catheterization, Angioplasty HEENT: Cataracts - Present Medications Home Medications: Ambulatory Orders Medication Instructions Recorded Confirmed Insulin Aspart (Vial) [NovoLOG 15 - 25 unit SQ TID 10/28/12 03/26/18 (VIAL FOR ED USE)] Pantoprazole Sodium [Protonix] 40 mg PO BID 11/06/13 03/26/18 Doxazosin [Cardura] 4 mg PO DAILY 07/13/16 03/26/18 Finasteride [Proscar] 5 mg ORAL DAILY 07/13/16 03/26/18 Metoprolol Succinate 50 mg ORAL DAILY 07/13/16 03/26/18 Insulin Degludec [Tresiba 35 units SUBQ DAILY 08/28/17 03/26/18 Flextouch U-100] Atorvastatin Calcium 20 mg ORAL DAILY 03/26/18 03/26/18 Cyclopentolate 1% Ophth Drops 1 drops EACHEYE DAILY 03/26/18 03/26/18 [Cyclogel 1% Ophth Drops] Losartan Potassium 25 mg ORAL DAILY 03/26/18 03/26/18 prednisoLONE 1% OPHTH DROPS [Pred 1 drops EACHEYE DAILY 03/26/18 03/26/18 Forte 1% Ophth Drops] raNITIdine [Zantac] 150 mg ORAL BID 03/26/18 03/26/18 - Allergies Allergies/Adverse Reactions: Allergies Allergy/AdvReac Type Severity Reaction Status Date / Time egg Allergy Severe Respiratory Verified 07/05/19 12:13 aspirin Allergy resp Verified 07/05/19 12:13 hydrocodone bitartrate * Allergy unknown Verified 07/05/19 12:13 [From Vicodin] hydroxyzine HCl * Allergy unknown Verified 07/05/19 12:13 [From Vistaril] hydroxyzine pamoate * Allergy unknown Verified 07/05/19 12:13 [From Vistaril] meperidine HCl * Allergy unknown Verified 07/05/19 12:13 [From Demerol] morphine Allergy Unknown Verified 07/05/19 12:13 Opioids - Morphine Analogues Allergy Anaphylaxis Verified 07/05/19 12:13 procaine HCl * Allergy Unknown Verified 07/05/19 12:13 [From Novocain] lactose AdvReac Cramps Verified 07/05/19 12:13 promethazine HCl * AdvReac Unknown Verified 07/05/19 12:13 [From Phenergan] eggs Allergy Respiratory Uncoded 07/05/19 12:13 opiods Allergy Anaphylaxis Uncoded 07/05/19 12:13 - Social History Does the pt smoke?: No Smoking Status: Never smoker Does the pt drink ETOH?: No Does the pt have substance abuse?: No - Immunizations Immunizations are current?: Yes - POLST Patient has POLST: No POLST Status: Full Code PD ED PE NORMAL - Vitals Vital signs reviewed: Yes - General General: Alert and oriented X 3, No acute distress - HEENT HEENT: Other (He has a right eye conjunctivitis, the right pupil is irregular presuming from prior surgeries, minimally reactive. Reece-Pen on the right is 28, no cell or flare on slit-lamp exam.) - Neuro Neuro: Alert and oriented X 3, Normal speech Results - Vitals Vitals: Vital Signs - 24 hr 07/05/19 12:13 Temperature 36.8 C Heart Rate 85 Respiratory 16 Rate Blood Pressure 156/78 H O2 Saturation 97 Oxygen O2 Source Room air PD MEDICAL DECISION MAKING - ED course ED course: 69-year-old gentleman with an extensive eye history presents with a red eye, no evidence of iritis. Case was discussed by phone with Bertrand Bello who will see him in follow-up and recommends no change in treatment right now. Departure - Departure Disposition: Home, Self Care Clinical Impression: Glaucoma, right eye Qualifiers: Glaucoma type: unspecified Qualified Code(s): H40.9 - Unspecified glaucoma Condition: Good Record reviewed to determine appropriate education?: Yes Follow-Up: Bertrand Bello MD [Provider Admit Priv/Credential] - Comments: Dr. Bello would like to see you on Monday and follow-up, continue your usual drops until then. Return if worsening or if you develop vision loss. Call his office on Monday, leave a message if no answers.
== END 2019-07-05 14:44 | disposition home or self-care (01) ==
LOC: ED 12:02
DX: H40.9 Unspecified glaucoma (principal); H10.9 Unspecified conjunctivitis; E11.319 Type 2 diabetes mellitus with unspecified diabetic retinopathy without macular edema; E11.42 Type 2 diabetes mellitus with diabetic polyneuropathy; Z79.4 Long term (current) use of insulin; I10 Essential (primary) hypertension
CPT/HCPCS: 99282; 99283

== ENCOUNTER 2019-08-23 23:01 | Emergency (ER) | payer OTHER ==
[2019-08-23 23:21] VITALS: BP 136/75
--- NOTE | 2019-08-24 01:02 | ED Physician Documentation ---
History of Present Illness - Stated complaint Stated Complaint: SOA/RED EYES - Chief complaint Chief Complaint: Resp - History obtained from History obtained from: Patient - History of Present Illness Timing: How many days ago (3-4) Improved by: nothing Worsened by: no exacerbating factors - Additonal information Additional information: c/o nasal and sinus congestion, bilateral red and irritated eyes, sinus pain. similar symptoms 3-4 weeks ago, T+R from this ED and had relief with prescribed medications Review of Systems Constitutional: reports: Reviewed and negative Eyes: reports: Irritation. denies: Loss of vision, Decreased vision, Phot ophobia, Discharge Nose: reports: Rhinorrhea / runny nose, Congestion, Sinus pressure / pain Throat: denies: Sore throat Cardiac: reports: Reviewed and negative Respiratory: reports: Reviewed and negative GI: reports: Reviewed and negative Skin: denies: Rash PD PAST MEDICAL HISTORY - Past Medical History Cardiovascular: Hypertension, High cholesterol, Coronary artery disease, Angina, [place], Other Respiratory: Sleep apnea Neuro: Headaches, Migraines, Peripheral neuropathy Endocrine/Autoimmune: Type 2 diabetes GI: GERD, Colon polyps, Chronic diarrhea : Benign prostate hypertrophy, Renal insuffiency, Kidney stones HEENT: Glaucoma, Other Psych: Depression, Panic attacks, Post traumatic stress disorder Musculoskeletal: Osteoarthritis Derm: Psoriasis - Past Surgical History Past Surgical History: Yes General: Cholecystectomy, Colonoscopy, EGD Ortho: Arthroscopic surgery Cardiovascular: Cardiac catheterization, Angioplasty HEENT: Cataracts - Present Medications Home Medications: Ambulatory Orders Medication Instructions Recorded Confirmed Insulin Aspart (Vial) [NovoLOG 15 - 25 unit SQ TID 10/28/12 03/26/18 (VIAL FOR ED USE)] Pantoprazole Sodium [Protonix] 40 mg PO BID 11/06/13 03/26/18 Doxazosin [Cardura] 4 mg PO DAILY 07/13/16 03/26/18 Finasteride [Proscar] 5 mg ORAL DAILY 07/13/16 03/26/18 Metoprolol Succinate 50 mg ORAL DAILY 07/13/16 03/26/18 Insulin Degludec [Tresiba 35 units SUBQ DAILY 08/28/17 03/26/18 Flextouch U-100] Atorvastatin Calcium 20 mg ORAL DAILY 03/26/18 03/26/18 Cyclopentolate 1% Ophth Drops 1 drops EACHEYE DAILY 03/26/18 03/26/18 [Cyclogel 1% Ophth Drops] Losartan Potassium 25 mg ORAL DAILY 03/26/18 03/26/18 prednisoLONE 1% OPHTH DROPS [Pred 1 drops EACHEYE DAILY 03/26/18 03/26/18 Forte 1% Ophth Drops] raNITIdine [Zantac] 150 mg ORAL BID 03/26/18 03/26/18 Amox/Clav 875/125 [Augmentin] 1 each PO Q12H #14 tablet 08/24/19 Cetirizine HCl/Pseudoephedrine 1 each PO BID PRN #30 tab.er.12h 08/24/19 [Zyrtec-D Tablet] Fluticasone [Flonase] 1 sprays ROSY BID #1 bottle 08/24/19 predniSONE [Prednisone] 20 mg PO DAILY #4 tablet 08/24/19 - Allergies Allergies/Adverse Reactions: Allergies Allergy/AdvReac Type Severity Reaction Status Date / Time aspirin AdvReac Anaphylaxis Verified 08/23/19 23:43 hydroxyzine [From Vistaril] AdvReac Unknown Verified 08/23/19 23:38 lactose AdvReac Nausea Verified 08/23/19 23:42 meperidine [From Demerol] AdvReac Respiratory Verified 08/23/19 23:42 morphine AdvReac Unknown Verified 08/23/19 23:38 procaine [From Novocain] AdvReac Unknown Verified 08/23/19 23:42 promethazine HCl * AdvReac Unknown Verified 07/05/19 12:13 [From Phenergan] eggs Allergy Respiratory Uncoded 07/05/19 12:13 opiods Allergy Anaphylaxis Uncoded 07/05/19 12:13 - Social History Does the pt smoke?: No Smoking Status: Never smoker Does the pt drink ETOH?: No Does the pt have substance abuse?: No - Immunizations Immunizations are current?: Yes - POLST Patient has POLST: No POLST Status: Full Code PD ED PE NORMAL - Vitals Vital signs reviewed: Yes - General General: Alert and oriented X 3, No acute distress, Well developed/nourished - HEENT HEENT: PERRL, EOMI, Pharynx benign - Neck Neck: Supple, no meningeal sign - Respiratory Respiratory: No respiratory distress, Clear bilaterally PD ED PE EXPANDED - HEENT HEENT: Right maxillary sinus TTP, Left maxillary sinus TTP, Nasal congestion - Eyes Eyes: Both eyes, Injected conj/sclera. No: Exudate Results - Vitals Vitals: Oxygen O2 Source Room air PD MEDICAL DECISION MAKING - ED course Complexity details: considered differential, d/w patient Departure - Departure Disposition: 01 Home, Self Care Clinical Impression: Sinusitis Condition: Good Instructions: ED Sinusitis Abx Tx Follow-Up: JUANITO IRAHETA MD [Primary Care Provider] - Prescriptions: Amox/Clav 875/125 [Augmentin] 1 each PO Q12H #14 tablet Fluticasone [Flonase] 1 sprays ROSY BID #1 bottle predniSONE [Prednisone] 20 mg PO DAILY #4 tablet Cetirizine HCl/Pseudoephedrine [Zyrtec-D Tablet] 1 each PO BID PRN #30 tab.er.12h PRN Reason: Nasal Congestion Discharge Date/Time: 08/24/19 01:35
[2019-08-24] MEDS ORDERED: AMOX/CLAV 875 MG/125 MG TABLET PO STA (01:23)
[2019-08-24] MEDS ORDERED: predniSONE 20 MG TABLET PO STA (01:24)
== END 2019-08-24 01:35 | disposition home or self-care (01) ==
LOC: ED 23:01
DX: J32.0 Chronic maxillary sinusitis (principal); I10 Essential (primary) hypertension; E11.9 Type 2 diabetes mellitus without complications; Z79.4 Long term (current) use of insulin
CPT/HCPCS: 99284; A9270; J7512

== ENCOUNTER 2019-11-11 15:14 | Emergency (ER) | payer MEDICARE, OTHER ==
--- NOTE | 2019-11-11 15:34 | ED Physician Documentation ---
PD HPI LOWER EXT INJURY - Stated complaint Stated Complaint: PAIN & SWELLING IN LEGS - Chief complaint Chief Complaint: Ext Problem - History obtained from History obtained from: Patient - Additional information Additional information: Several days worth of cramping in both legs, left worse than right. It got so bad yesterday that he fell without injury. He saw his neurologist today for neuropathy check, and he was referred here to rule out a blood clot. No chest pain or trouble breathing. Review of Systems Constitutional: reports: Reviewed and negative Throat: reports: Reviewed and negative Cardiac: reports: Reviewed and negative Respiratory: reports: Reviewed and negative PD PAST MEDICAL HISTORY - Past Medical History Cardiovascular: Hypertension, High cholesterol, Coronary artery disease, Angina, [place], Other Respiratory: Sleep apnea Neuro: Headaches, Migraines, Peripheral neuropathy Endocrine/Autoimmune: Type 2 diabetes GI: GERD, Colon polyps, Chronic diarrhea : Benign prostate hypertrophy, Renal insuffiency, Kidney stones HEENT: Glaucoma, Other Psych: Depression, Panic attacks, Post traumatic stress disorder Musculoskeletal: Osteoarthritis Derm: Psoriasis - Past Surgical History Past Surgical History: Yes General: Cholecystectomy, Colonoscopy, EGD Ortho: Arthroscopic surgery Cardiovascular: Cardiac catheterization, Angioplasty HEENT: Cataracts - Present Medications Home Medications: Ambulatory Orders Medication Instructions Recorded Confirmed Insulin Aspart (Vial) [NovoLOG 15 - 25 unit SQ TID 10/28/12 03/26/18 (VIAL FOR ED USE)] Pantoprazole Sodium [Protonix] 40 mg PO BID 11/06/13 03/26/18 Doxazosin [Cardura] 4 mg PO DAILY 07/13/16 03/26/18 Finasteride [Proscar] 5 mg ORAL DAILY 07/13/16 03/26/18 Metoprolol Succinate 50 mg ORAL DAILY 07/13/16 03/26/18 Insulin Degludec [Tresiba 35 units SUBQ DAILY 08/28/17 03/26/18 Flextouch U-100] Atorvastatin Calcium 20 mg ORAL DAILY 03/26/18 03/26/18 Cyclopentolate 1% Ophth Drops 1 drops EACHEYE DAILY 03/26/18 03/26/18 [Cyclogel 1% Ophth Drops] Losartan Potassium 25 mg ORAL DAILY 03/26/18 03/26/18 prednisoLONE 1% OPHTH DROPS [Pred 1 drops EACHEYE DAILY 03/26/18 03/26/18 Forte 1% Ophth Drops] raNITIdine [Zantac] 150 mg ORAL BID 03/26/18 03/26/18 Amox/Clav 875/125 [Augmentin] 1 each PO Q12H #14 tablet 08/24/19 Cetirizine HCl/Pseudoephedrine 1 each PO BID PRN #30 tab.er.12h 08/24/19 [Zyrtec-D Tablet] Fluticasone [Flonase] 1 sprays ROSY BID #1 bottle 08/24/19 predniSONE [Prednisone] 20 mg PO DAILY #4 tablet 08/24/19 - Allergies Allergies/Adverse Reactions: Allergies Allergy/AdvReac Type Severity Reaction Status Date / Time NSAIDS (Non-Steroidal Allergy Anaphylaxis Verified 11/11/19 15:39 Anti-Inflamma aspirin AdvReac Anaphylaxis Verified 11/11/19 15:30 hydroxyzine [From Vistaril] AdvReac Unknown Verified 11/11/19 15:30 lactose AdvReac Nausea Verified 11/11/19 15:30 meperidine [From Demerol] AdvReac Respiratory Verified 11/11/19 15:30 morphine AdvReac Unknown Verified 11/11/19 15:30 procaine [From Novocain] AdvReac Unknown Verified 11/11/19 15:30 promethazine HCl * AdvReac Unknown Verified 11/11/19 15:30 [From Phenergan] eggs Allergy Respiratory Uncoded 11/11/19 15:30 opiods Allergy Anaphylaxis Uncoded 11/11/19 15:30 - Social History Does the pt smoke?: No Smoking Status: Never smoker Does the pt drink ETOH?: No Does the pt have substance abuse?: No - Immunizations Immunizations are current?: Yes - POLST Patient has POLST: No POLST Status: Full Code PD ED PE NORMAL - Vitals Vital signs reviewed: Yes - General General: Alert and oriented X 3, No acute distress - Extremities Extremities: Other (Mild tenderness of the left calf without obvious asymmetry or edema.) - Neuro Neuro: Alert and oriented X 3, Normal speech Results - Vitals Vitals: Vital Signs - 24 hr 11/11/19 11/11/19 11/11/19 15:26 17:43 19:00 Temperature 36.2 C L Heart Rate 69 69 56 L Respiratory 17 18 18 Rate Blood Pressure 171/98 H 134/62 H 150/72 H O2 Saturation 98 100 100 11/11/19 21:00 Temperature Heart Rate 60 Respiratory 16 Rate Blood Pressure 174/84 H O2 Saturation 99 Oxygen O2 Source Room air - Labs Labs: Laboratory Tests 11/11/19 15:40 Sodium 139 Potassium 3.9 Chloride 103 Carbon Dioxide 28 Anion Gap 8.0 BUN 23 H Creatinine 1.0 Estimated GFR (MDRD) 90 Glucose 163 H Calcium 9.4 Total Bilirubin 1.3 H AST 89 H ALT 81 H Alkaline Phosphatase 99 Total Protein 7.1 Albumin 4.1 Globulin 3.0 Albumin/Globulin Ratio 1.4 Lipase 23 - Rads (name of study) BLE DVT sno Radiology: Prelim report reviewed (neg) PD MEDICAL DECISION MAKING - ED course ED course: 69-year-old gentleman presents with leg cramping, probably due to mild dehydration noting the elevated negative. Just prior to discharge he had what appeared to be a panic attack. He started hitting himself and screaming. He was inconsolable. The astute nurse noted that he was diaphoretic and checked his blood sugar and it was 29. D50 was ordered. Note made that this is a significant drop compared to the fact that he had a metabolic panel done on arrival with a blood sugar of 163. HIS mental status completely normalized after the administration of D50. Subsequent to that he was watched for several hours with frequent blood sugar checks without recurrent hypoglycemia. Departure - Departure Disposition: 01 Home, Self Care Clinical Impression: Leg cramps, Hypoglycemia Condition: Good Record reviewed to determine appropriate education?: Yes Instructions: ED Muscle Pain Leg Cramps, ED Diabetes Hypoglycemia Insulin React Comments: No evidence of blood clot today, you do have evidence of mild dehydration. Drink plenty of fluids. That is probably the cause of the leg cramps. Return if worse. Subsequent to the initial evaluation he also developed altered mental status from low blood sugar. This resolved with the administration of glucose. Watch her blood sugars closely tonight. Return if worsening.
[2019-11-11] MEDS: IBUPROFEN 800 MG TABLET PO STA ×2 (15:36→15:38)
[2019-11-11] MEDS ORDERED: ACETAMINOPHEN 325 MG TABLET PO STA (15:44)
[2019-11-11 16:00] LABS: ALBUMIN 4.1 g/dL (3.2-5.5); ALBUMIN/GLOBULIN RATIO 1.4 (1.0-2.2); BILIRUBIN,TOTAL 1.3 mg/dL (0.2-1.0); CALCIUM 9.4 mg/dL (8.5-10.3); TOTAL PROTEIN 7.1 g/dL (6.7-8.2)
[2019-11-11] MEDS ORDERED: LORazepam 2 MG/ML VIAL IM STA (17:47)
--- NOTE | 2019-11-11 18:05 | Ultrasound Report ---
PROCEDURE: Duplex Ext Veins Bilateral INDICATIONS: Bilateral posterior lower extremity pain, left greater than right. Recent fall with chr onic lower extremity pain. TECHNIQUE: Real-time imaging, as well as color and pulse Doppler interrogation, were performed of the deep veins of both legs from the inguinal ligament to the popliteal fossa. COMPARISON: None FINDINGS: The deep veins are normally compressible, and free of intraluminal thrombus. Color and pu lse Doppler demonstrate normal phasic intravascular flow. There is normal augmentation response to d istal compression maneuver. The study is mildly limited by soft tissue edema and small caliber vessels. IMPRESSION: No findings of deep venous thrombosis are seen. Note: Concordant preliminary findings given by the cancer researcher upon the completion of the examination to Dr. Hernandez at 5:40 PM on 11/11/2019 Reviewed by: Rambo Nelson MD on 11/11/2019 5:03 PM JELENA Approved by: Rambo Nelson MD on 11/11/2019 5:03 PM JELENA Station ID: [id number]
[2019-11-11] MEDS ORDERED: SODIUM CHLORIDE 0.9% 1,000 ML IV STA (18:12)
[2019-11-11] MEDS ORDERED: HALOPERIDOL 5 MG/ML VIAL IVP ONE (18:12)
[2019-11-11] MEDS ORDERED: DEXTROSE 50% ABBOJECT 25 GM/50 ML SYRINGE IVP STA (18:34)
[2019-11-11 21:03] VITALS: BP 174/84
== END 2019-11-11 21:22 | disposition home or self-care (01) ==
LOC: ED 15:14
DX: R25.2 Cramp and spasm (principal); E11.649 Type 2 diabetes mellitus with hypoglycemia without coma; E11.42 Type 2 diabetes mellitus with diabetic polyneuropathy; E78.00 Pure hypercholesterolemia, unspecified; I10 Essential (primary) hypertension; Z79.4 Long term (current) use of insulin
CPT/HCPCS: 36415; 80053; 83690; 93970; 96361; 96372; 96374; 99283; 99284; A9270; J2060

== ENCOUNTER 2020-03-16 16:52 | Outpatient (CLI) | payer MEDICARE, OTHER | END 2020-03-16 16:53 | disposition home or self-care (01) | LOC: COV 16:52 | PROVIDERS: ATTEND Family Medicine | DX: U07.1 COVID-19 (principal) ==

== ENCOUNTER 2020-04-30 15:42 | Emergency (ER) | payer MEDICARE, OTHER ==
[2020-04-30] MEDS ORDERED: LIDOCAINE VISCOUS 2% 15 ML UDC MM STA (17:03)
[2020-04-30 17:04] LABS: BASOPHILS % (AUTO) 0.2 %; EOSINOPHILS # (AUTO) 0.1 10^3/uL (0.0-0.7); EOSINOPHILS % (AUTO) 0.9 %; HCT - HEMATOCRIT 41.2 % (42.0-52.0); HGB - HEMOGLOBIN 13.9 g/dL (14.0-18.0); LYMPHOCYTES % (AUTO) 16.4 %; MEAN CORPUSCULAR HEMOGLOBIN 32.3 pg (27.0-31.0); MEAN CORPUSCULAR HGB CONC 33.7 g/dL (32.0-36.0); MEAN CORPUSCULAR VOLUME 95.8 fL (80.0-94.0); MEAN PLATELET VOLUME 10.2 fL (7.4-11.4); MONOCYTES # (AUTO) 0.5 10^3/uL (0.0-1.0); MONOCYTES % (AUTO) 8.5 %; NEUTROPHILS # (AUTO) 4.3 10^3/uL (1.5-6.6); NEUTROPHILS % (AUTO) 73.7 %; PLT - PLATELET COUNT 202 10^3/uL (130-450); RED CELL DISTRIBUTION WIDTH 12.4 % (12.0-15.0); WHITE BLOOD COUNT 5.9 x10^3/uL (4.8-10.8)
[2020-04-30] MEDS ORDERED: MAG HYDROX/AL HYDROX/SIMETH 30 ML UDC PO STA (17:04)
[2020-04-30 17:09] LABS: ALBUMIN 4.6 g/dL (3.2-5.5); ALBUMIN/GLOBULIN RATIO 1.3 (1.0-2.2); BILIRUBIN,TOTAL 1.2 mg/dL (0.2-1.0); CALCIUM 9.9 mg/dL (8.5-10.3); POTASSIUM 4.5 mmol/L (3.5-5.0); TOTAL PROTEIN 8.2 g/dL (6.7-8.2)
--- NOTE | 2020-04-30 17:34 | ED Physician Documentation ---
History of Present Illness - Stated complaint Stated Complaint: ABD PAIN - Chief complaint Chief Complaint: Abd Pain - History obtained from History obtained from: Patient - Additonal information Additional information: 70-year-old male presents emergency department for periumbilical abdominal pain that began a few days ago. He reports that he has a longstanding history of arthritis and therefore began taking Tylenol. This pain though periumbilical feels very similar to when he has had gastritis in the past. He is requesting 1 of those special cocktails he has received. He denies chest pain or shortness of breath. He denies any vomiting hematuria, melena, hematochezia or changes in bowel function. He appears very well Review of Systems Constitutional: denies: Fever, Chills Eyes: reports: Reviewed and negative Throat: reports: Reviewed and negative Cardiac: denies: Chest pain / pressure, Palpitations, Pedal edema Respiratory: denies: Dyspnea, Cough GI: reports: Abdominal Pain. denies: Nausea, Vomiting, Constipation, Diarrhea, Bloody / black stool : denies: Dysuria, Frequency, Hesitancy Skin: denies: Rash, Lesions Musculoskeletal: reports: Joint pain (At baseline history of arthritis). denies: Neck pain, Back pain PD PAST MEDICAL HISTORY - Past Medical History Past Medical History: Yes Cardiovascular: Hypertension, High cholesterol, Coronary artery disease, Angina, [place], Other Respiratory: Sleep apnea Neuro: Headaches, Migraines, Peripheral neuropathy Endocrine/Autoimmune: Type 2 diabetes GI: GERD, Colon polyps, Chronic diarrhea : Benign prostate hypertrophy, Renal insuffiency, Kidney stones HEENT: Glaucoma, Other Psych: Depression, Panic attacks, Post traumatic stress disorder Musculoskeletal: Osteoarthritis Derm: Psoriasis - Past Surgical History Past Surgical History: Yes General: Cholecystectomy, Colonoscopy, EGD Ortho: Arthroscopic surgery Cardiovascular: Cardiac catheterization, Angioplasty HEENT: Cataracts - Present Medications Home Medications: Ambulatory Orders Medication Instructions Recorded Confirmed Insulin Aspart (Vial) [NovoLOG 15 - 25 unit SQ TID 10/28/12 03/26/18 (VIAL FOR ED USE)] Pantoprazole Sodium [Protonix] 40 mg PO BID 11/06/13 03/26/18 Doxazosin [Cardura] 4 mg PO DAILY 07/13/16 03/26/18 Finasteride [Proscar] 5 mg ORAL DAILY 07/13/16 03/26/18 Insulin Degludec [Tresiba 35 units SUBQ DAILY 08/28/17 03/26/18 Flextouch U-100] Atorvastatin Calcium 40 mg ORAL DAILY 03/26/18 03/26/18 Cetirizine HCl/Pseudoephedrine 1 each PO BID PRN #30 tab.er.12h 08/24/19 [Zyrtec-D Tablet] Carvedilol [Coreg] 6.25 mg DAILY 04/30/20 04/30/20 Lisinopril [Zestril] 20 mg PO DAILY 04/30/20 04/30/20 Magnesium Oxide [Mag Ox] 400 mg DAILY 04/30/20 04/30/20 - Allergies Allergies/Adverse Reactions: Allergies Allergy/AdvReac Type Severity Reaction Status Date / Time NSAIDS (Non-Steroidal Allergy Anaphylaxis Verified 04/30/20 15:53 Anti-Inflamma aspirin AdvReac Anaphylaxis Verified 04/30/20 15:53 hydroxyzine [From Vistaril] AdvReac Unknown Verified 04/30/20 15:53 lactose AdvReac Nausea Verified 04/30/20 15:53 meperidine [From Demerol] AdvReac Respiratory Verified 04/30/20 15:53 morphine AdvReac Unknown Verified 04/30/20 15:53 procaine [From Novocain] AdvReac Unknown Verified 04/30/20 15:53 promethazine HCl * AdvReac Unknown Verified 04/30/20 15:53 [From Phenergan] eggs Allergy Respiratory Uncoded 11/11/19 15:30 opiods Allergy Anaphylaxis Uncoded 11/11/19 15:30 - Social History Does the pt smoke?: No Smoking Status: Never smoker Does the pt drink ETOH?: No Does the pt have substance abuse?: No - Immunizations Immunizations are current?: Yes - POLST Patient has POLST: No POLST Status: Full Code PD ED PE EXPANDED - General General: Alert, No acute distress, Well developed/nourished - Neck Neck: Supple w/out meningeal sx. No: Adenopathy - Cardiac Cardiac: Regular Rate, Regular Rhythm, Radial strong equal, Pedal strong equal, Cap refill < 2 sec - Respiratory Respiratory: Clear to ausultation hugo. No: Distress, Labored - Abdomen Abdomen: Normal Bowel sounds, Tender to palpation, Periumbilical (Mild periumbilical tenderness without guarding or rebound.) - Back Back: Normal exam. No: Vertebral tenderness, Soft tissue tenderness, CVA TTP right, CVA TTP left - Derm Derm: Normal color, Warm and dry - Extremities Extremities: Normal. No: Deformity, Tenderness - Neuro Neuro: Alert and Oriented X 3, CNII-XII intact Results - Vitals Vitals: Vital Signs - 24 hr 04/30/20 15:45 Temperature 36.5 C Heart Rate 97 Respiratory 14 Rate Blood Pressure 156/81 H O2 Saturation 99 Oxygen O2 Source Room air - EKG (time done) 1707 Rate: Rate (enter#) (77) Rhythm: NSR [place]: LAD Intervals: Normal IA. No: Prolonged QT QRS: Poor R wave progression Ischemia: Normal ST segments Compare to prior EKG: Old EKG unavailable Computer interpretation: Agree with computer - Labs Labs: Laboratory Tests 04/30/20 04/30/20 04/30/20 16:45 16:59 16:59 WBC 5.9 RBC 4.30 L Hgb 13.9 L Hct 41.2 L MCV 95.8 H MCH 32.3 H MCHC 33.7 RDW 12.4 Plt Count 202 MPV 10.2 Neut # (Auto) 4.3 Lymph # (Auto) 1.0 L [place] # (Auto) 0.5 Eos # (Auto) 0.1 Baso # (Auto) 0.0 Absolute Nucleated RBC 0.00 Nucleated RBC % 0.0 Sodium 136 Potassium 4.5 Chloride 96 L Carbon Dioxide 25 Anion Gap 15.0 H BUN 7 Creatinine 1.0 Estimated GFR (MDRD) 90 Glucose 161 H Calcium 9.9 Total Bilirubin 1.2 H AST 27 ALT 21 Alkaline Phosphatase 95 Troponin I High Sens 4.0 Total Protein 8.2 Albumin 4.6 Globulin 3.6 Albumin/Globulin Ratio 1.3 Lipase 18 L PD MEDICAL DECISION MAKING - ED course Complexity details: reviewed results, re-evaluated patient, considered differential, d/w patient ED course: 70-year-old male presents to the emergency department for evaluation of periumbilical pain that he feels is similar to gastritis that he has had in the past. He denies chest pain shortness of breath vomiting diarrhea or changes bowel or bladder habits tired on exam he appears remarkably well and only mild periumbilical pain was elicited. He did request a GI cocktail which I complied with. Screening labs show no leukocytosis or worrisome electrolyte abnormalities. High-sensitivity troponin was negative and EKG was nonischemic. In reevaluation his periumbilical pain had fully resolved. I did offer CT imaging for further differentiation but patient declined this and did request to be discharged home. Departure - Departure Disposition: Home, Self Care Clinical Impression: Abdominal pain Qualifiers: Abdominal location: periumbilical Qualified Code(s): R10.33 - Periumbilical pain Condition: Stable Record reviewed to determine appropriate education?: Yes Instructions: ED Abdominal Pain Unkn Cause Follow-Up: JUANITO IRAHETA MD [Primary Care Provider] - Comments: You are seen today in the emergency department for abdominal pain. Your screening labs were very reassuring. Your EKG was also normal. Your symptoms did resolve after giving you a GI cocktail. It is possible that this could be acid overproduction or stomach upset. We did offer a CT scan to fully evaluate the cause your abdominal pain but you did decline this test today. If at any point you find that your symptoms are worsening, you have fevers, uncontrolled vomiting changes in your bowel habits black or bloody stools please return immediately to the ER. Please discuss this ED visit with your primary care doctor in follow-up this week.
[2020-04-30 18:18] VITALS: BP 148/78
== END 2020-04-30 18:19 | disposition home or self-care (01) ==
LOC: ED 15:42
DX: R10.33 Periumbilical pain (principal); Z87.19 Personal history of other diseases of the digestive system; I10 Essential (primary) hypertension; E11.42 Type 2 diabetes mellitus with diabetic polyneuropathy; Z79.4 Long term (current) use of insulin
CPT/HCPCS: 36415; 80053; 83690; 84484; 85025; 93005; 99283; 99284; A9270

== ENCOUNTER 2020-05-30 00:56 | Emergency (ER) | payer MEDICARE, OTHER ==
--- NOTE | 2020-05-30 01:33 | ED Physician Documentation ---
PD HPI ABD PAIN - Stated complaint Stated Complaint: AB PX - Chief complaint Chief Complaint: Abd Pain - History obtained from History obtained from: Patient - History of Present Illness Timing - onset: How many months ago (1) Timing - details: Constant Pain level now: 8 Quality: Pain Location: Epigastric, Periumbilical Improved by: Other (nothing) Worsened by: Palpation Associated symptoms: No: Fever, Nausea, Vomiting, Diarrhea, Constipation Similar symptoms before: Diagnosis (pancreatic cancer) - Additional information Additional information: Patient presents for uncontrolled abdominal pain associated with his pancreatic cancer. Patient has had this pain for one month, and he was evaluated at [facility] and subsequently [facility] where he eventually had biopsy of pancreatic mass and it was determined he had pancreatic cancer. He is scheduled to have his first round of chemotherapy and, in anticipation of this, he recently had a port placed. His pain had been controlled with fentanyl patches along with Tylenol, but he recently ran out of fentanyl patches. He says he has appointment with a silo painter scheduled for the sixth of this month. He presents requesting pain control. he has no new symptoms. Review of Systems Constitutional: reports: Weight Loss. denies: Fever, Chills, Sweats Cardiac: reports: Reviewed and negative Respiratory: reports: Reviewed and negative GI: reports: Abdominal Pain. denies: Nausea, Vomiting, Constipation, Diarrhea PD PAST MEDICAL HISTORY - Past Medical History Past Medical History: Yes Cardiovascular: Hypertension, High cholesterol, Coronary artery disease, Angina, [place], Other Respiratory: Sleep apnea Neuro: Headaches, Migraines, Peripheral neuropathy Endocrine/Autoimmune: Type 2 diabetes GI: GERD, Colon polyps, Chronic diarrhea, Other : Benign prostate hypertrophy, Renal insuffiency, Kidney stones HEENT: Glaucoma, Other Psych: Depression, Panic attacks, Post traumatic stress disorder Musculoskeletal: Osteoarthritis Derm: Psoriasis Other Past Medical History: PANCREATIC CANCER... - Past Surgical History Past Surgical History: Yes General: Cholecystectomy, Colonoscopy, EGD Ortho: Arthroscopic surgery Cardiovascular: Cardiac catheterization, Angioplasty HEENT: Cataracts - Present Medications Home Medications: Ambulatory Orders Medication Instructions Recorded Confirmed Insulin Aspart (Vial) [NovoLOG 15 - 25 unit SQ TID 10/28/12 05/30/20 (VIAL FOR ED USE)] Pantoprazole Sodium [Protonix] 40 mg PO BID 11/06/13 05/30/20 Doxazosin [Cardura] 4 mg PO DAILY 07/13/16 05/30/20 Finasteride [Proscar] 5 mg ORAL DAILY 07/13/16 05/30/20 Insulin Degludec [Tresiba 35 units SUBQ DAILY 08/28/17 05/30/20 Flextouch U-100] Atorvastatin Calcium 40 mg ORAL DAILY 03/26/18 05/30/20 Cetirizine HCl/Pseudoephedrine 1 each PO BID PRN #30 tab.er.12h 08/24/19 05/30/20 [Zyrtec-D Tablet] Carvedilol [Coreg] 6.25 mg PO DAILY 04/30/20 05/30/20 Lisinopril [Zestril] 20 mg PO DAILY 04/30/20 05/30/20 Magnesium Oxide [Mag Ox] 400 mg PO DAILY 04/30/20 05/30/20 Omeprazole 20 mg PO DAILY 05/30/20 05/30/20 Ondansetron Odt [Zofran Odt] 4 mg PO Q6HR PRN 05/30/20 05/30/20 fentaNYL [Fentanyl 25mcg patch] 1 each TD ONCE #3 05/30/20 fentaNYL [Fentanyl 25mcg patch] 1 patch TOP TITR 05/30/20 05/30/20 - Allergies Allergies/Adverse Reactions: Allergies Allergy/AdvReac Type Severity Reaction Status Date / Time NSAIDS (Non-Steroidal Allergy Anaphylaxis Verified 05/30/20 01:06 Anti-Inflamma aspirin AdvReac Anaphylaxis Verified 05/30/20 01:06 hydroxyzine [From Vistaril] AdvReac Unknown Verified 05/30/20 01:06 lactose AdvReac Nausea Verified 05/30/20 01:06 meperidine [From Demerol] AdvReac Respiratory Verified 05/30/20 01:06 morphine AdvReac Unknown Verified 05/30/20 01:06 procaine [From Novocain] AdvReac Unknown Verified 05/30/20 01:06 promethazine HCl * AdvReac Unknown Verified 05/30/20 01:06 [From Phenergan] eggs Allergy Respiratory Uncoded 11/11/19 15:30 opiods Allergy Anaphylaxis Uncoded 11/11/19 15:30 - Social History Does the pt smoke?: No Smoking Status: Never smoker Does the pt drink ETOH?: No Does the pt have substance abuse?: No - Immunizations Immunizations are current?: Yes - POLST Patient has POLST: No POLST Status: Full Code PD ED PE NORMAL - Vitals Vital signs reviewed: Yes - General General: Alert and oriented X 3, No acute distress, Well developed/nourished - Cardiac Cardiac: RRR, No murmur - Respiratory Respiratory: No respiratory distress, Clear bilaterally - Abdomen Abdomen: Soft, Non tender, Non distended Results - Vitals Vitals: Vital Signs - 24 hr 05/30/20 05/30/20 05/30/20 01:04 02:04 02:20 Temperature 37.2 C Heart Rate 103 H Respiratory 17 16 16 Rate Blood Pressure 134/92 H O2 Saturation 99 Oxygen O2 Source Room air PD MEDICAL DECISION MAKING - ED course Complexity details: considered differential, d/w patient ED course: patient presents with abdominal pain that he has had for one month, which is associated with his recent diagnosis of pancreatic cancer. He has run out of his fentanyl patches and presents requesting pain control without specifically requesting any particular medication. He is nontender on exam. He has the prescription for his fentanyl patches with him and the date the prescription was filled and the number of patches that were in the prescription would be consistent with having run out of the patches while following the directions for proper use. He is provided a new fentanyl patch and a prescription for a few more. He says he has his initial appointment with a silo painter coming up in three days. No emergent testing as indicated at this time. Departure - Departure Disposition: 01 Home, Self Care Clinical Impression: Cancer associated pain Condition: Good Instructions: Abdominal Pain Prescriptions: fentaNYL [Fentanyl 25mcg patch] 1 each TD ONCE #3 Discharge Date/Time: 05/30/20 02:21
[2020-05-30 02:11] VITALS: BP 134/92
[2020-05-30] MEDS ORDERED: fentaNYL 25 MCG PATCH TOP STA (02:13)
[2020-05-30] MEDS ORDERED: fentaNYL 25 MCG PATCH TOP ONE (02:14)
[2020-05-30] MEDS ORDERED: fentaNYL 25 MCG PATCH TOP SCH (03:00)
--- OUTSIDE RECORDS SUMMARY | 2020-06-03 02:23 | EXTERNAL MEDICAL SUMMARY RPT | Continuity of Care Document ---
:1950 Demographics Phone Unavailable Preferred Language Malaysian Marital Status Unknown Zoroastrianism Affiliation Unknown Race Unknown Ethnic Group Unknown Author Organization [place] Address [address] [phone] Phone Care Team Providers Name Role Phone Keegan Leticia Unavailable Unavailable Reyna Cervantes Unavailable Unavailable Kassie Whiteside Unavailable Unavailable Problems date description facility [id number] Malignant (primary) neoplasm, [facility] [id number] Malignant neoplasm of pancreas, [facility] [id number] Other specified diseases of pancreas Merged with [facility] [id number] Secondary malignant neoplasm of left [facility] [id number] Secondary malignant neoplasm of liver a [facility] bile [id number] Secondary malignant neoplasm of right [facility] [id number] Secondary malignant neoplasm of [facility] [id number] Malignant neoplasm of pancreas, [facility] [id number] Malignant (primary) neoplasm, [facility] [id number] Secondary malignant neoplasm of left [facility] [id number] Secondary malignant neoplasm of liver a [facility] bile [id number] Secondary malignant neoplasm of right [facility] [id number] Secondary malignant neoplasm of [facility] Medications date description facility [id number] Ondansetron 4 MG Disintegrating Tablet [facility] [id number] Ondansetron 4 MG Disintegrating Tablet [facility] 12578334 24 HR Divalproex Sodium 500 MG Extended Release Tablet [facility] 17448752 olopatadine 1 MG/ML Ophthalmic Solution [facility] 02452308 Doxazosin 4 MG Oral Tablet [facility] 15855078 Prazosin 5 MG Oral Capsule [facility] 02156122 carvedilol 6.25 MG Oral Tablet [facility] 42834325 Famotidine 40 MG Oral Tablet [facility] 93158408 Finasteride 5 MG Oral Tablet [facility] 20200504 Lisinopril 10 MG Oral Tablet [facility] 20200504 pantoprazole 40 MG Enteric Coated Table [facility] 20200504 atorvastatin 40 MG Oral Tablet [facility] 20200504 tramadol hydrochloride 50 MG Oral Table [facility] 20200504 3 ML Insulin Glargine 100 UNT/ML Prefil led Syringe [facility] 20200504 Brimonidine tartrate 2 MG/ML Ophthalmic Solution [facility] 20200505 Ondansetron 4 MG Disintegrating Tablet [facility] 20200505 pantoprazole 40 MG Enteric Coated Table t [facility] Procedures date description facility [id number] [facility] date description facility [id number] [facility] date description facility [id number] [facility] date description facility [id number] [facility] date description facility [id number] [facility] date description facility [id number] [facility] Vital Signs date measurement value source 20200503 BMI 27.8 kg/m2 20200503 BP_diastolic 82 mm[Hg] 20200503 BP_systolic 153 mm[Hg] 20200503 heart_rate 85 /min 20200503 height_metric 185.42 cm 20200503 height_standard 73 in 20200503 respiration_rate 18 /min 20200503 temperature_metric 36.33 C 20200503 temperature_standard 97.4 F 20200503 weight_metric 43.41 kg 20200503 weight_standard 95.71 lb date measurement value source 20200505 BMI 27.6 kg/m2 20200505 BP_diastolic 81 mm[Hg] 20200505 BP_systolic 156 mm[Hg] 20200505 heart_rate 80 /min 20200505 height_metric 185.42 cm 20200505 height_standard 73 in 20200505 respiration_rate 16 /min 20200505 temperature_metric 37.06 C 20200505 temperature_standard 98.7 F 20200505 weight_metric 43 kg 20200505 weight_standard 94.8 lb Social History date description facility [id number]
== END 2020-05-30 02:21 | disposition home or self-care (01) ==
LOC: ED 00:56
DX: G89.3 Neoplasm related pain (acute) (chronic) (principal); R10.13 Epigastric pain; R10.33 Periumbilical pain; C25.9 Malignant neoplasm of pancreas, unspecified; K86.81 Exocrine pancreatic insufficiency; I10 Essential (primary) hypertension; E11.42 Type 2 diabetes mellitus with diabetic polyneuropathy; N28.9 Disorder of kidney and ureter, unspecified; Z79.4 Long term (current) use of insulin
CPT/HCPCS: 99282; 99283; A9270

== ENCOUNTER 2020-06-02 | Outpatient (CLI) | payer MEDICARE, OTHER ==
--- NOTE | 2020-06-02 19:33 | CONSULTATION NOTE ---
Palliative Care Consultation - Referral Referring Provider: Dr. Kassie Whiteside Time of Visit: [id number] Referral setting: Home Referral Reason: Pancreatic Ca/Advanced Care/Pain/Nausea - Information Sources Records reviewed: Previous records reviewed History/Review of Systems obtained from: Patient, Family (daughter, Alvarez) Exam limitations: No limitations - History of Present Illness Brief History of Present Illness: This is a 70-year-old -Slovenian male who presents for initial palliative care consultation in the setting of high symptom burden related to his pancreatic cancer seen in his home setting with his daughter, Alvarez present. The patient's perception is that his symptoms started in early April of this year. He began having problems with vomiting blood typically in the mornings. He initially attributed his symptoms to his arthritic pain. Subsequently over the last 2 months he has lost approximately 40 to 50 pounds per his daughter's report. He relays that whenever he eats he feels acidity in his stomach and the food comes right back up and he vomits. He has had very little oral intake for the last few weeks. He presented to [facility] emergency department on 04/30/2020 when he developed umbilical and right posterior back pain. He requested a GI cocktail that had positive effect and despite imaging being offered the patient declined preferring to be discharged home. Then on 05/03/2020 the patient's abdominal pain became extreme in severity and he had increase in vomiting blood. He had a CT of the abdomen performed at [facility] where he was evaluated that demonstrated multiple ill-defined hypodensities in the right lobe of the liver and [place] lobe of the liver which are suspicious for metastatic disease as well as a malignant structure which is either exophytic off the uncinte process of the pancreas or unrelated tothe pancreas adjacent to the duodenum. He was then seen the following day, 05/04/2020 by his PCP who ordered a CT of the chest with contrast that demonstrated multiple bilateral small pulmonary nodules suspicious for metastasis. His CA Ag 19-9 was 4 and CEA4.4 on 05/04/20. The patient was urgently seen and referred to Dr. Lancaster [facility]. He was referred urgently to gastroenterology at [facility] for ultrasound guided biopsy which confirmed pancreatic cancer with metastases to the liver and lungs. The patient now has a port in place and is to begin chemotherapy tomorrow, 06/03/2020 with Abraxane and Gemzar. He continues to have pain significantly around the umbilical area that radiates to his right upper quadrant. The patient's fentanyl patch has been increased to 25 mcg. He has multiple opioid allergies and thus has been transitioned to fentanyl patch for management of his pain. He previously had been taking tramadol for his arthritic pain for several years with positive effect. However, he has been in able to tolerate keeping the tramadol down and has been supplementing with Tylenol 500 mg approximately every 6 hours for his breakthrough pain that is not providing adequate relief. He finds that his pain is significantly heightened by the third day of the patch. He finds the pain will begin to escalate and then it feels like someone is squeezing his insides. He continues to monitor his blood glucose levels closely. He finds that when his blood glucose level is in the 70s he feels the best. His blood glucose levels have been ranging between 60 and 90. He has been followed closely by an restaurant greeter. He is also having a significant degree decrease in his bowel movement frequently. He is presently and not on any bowel medication. He is found in recent weeks that he is taking minimal of his dearly oral medications that he has been prescribed due to his nausea and then resulting vomiting. He finds and when he attempts foods he has an acidity in his chest that then leads to vomiting. He is intermittently trying Ensure. He is also sipping on broths and Gatorade. He has been attempting a bland diet with crackers and applesauce with minimal positive effect. He has intermittently been using zofran without relief. He typically is having 8 episodes of emesis per day on average. The patient today is presently focused on short-term goals with management of his nausea, vomiting and underlying uncontrolled pain most specifically. The patient is seen lying down on his couch as he easily fatigues and requires rest. Medical/Surgical History - Past Medical History Cardiovascular: reports: Hypertension, High cholesterol, Coronary artery disease Respiratory: reports: Sleep apnea Neuro: Peripheral neuropathy Neuro: reports: None Endocrine/Autoimmune: reports: Type 1 diabetes (dx 25 years ago) GI: reports: GERD : reports: Benign prostate hypertrophy, Renal insuffiency, Kidney stones HEENT: reports: Glaucoma, Other (Diabetic retinopathy (receives injections)) Psych: reports: Depression, Panic attacks, Post traumatic stress disorder Musculoskeletal: reports: Osteoarthritis, Gout Derm: reports: Psoriasis MRSA Hx?: No - Past Surgical History General: reports: Cholecystectomy, Colonoscopy, EGD Ortho: reports: Arthroscopic surgery /PEDIATRIC OPHTHALMOLOGIST: reports: Other (Kidney stone removal) Cardiovascular: reports: Cardiac catheterization, Angioplasty HEENT: reports: Cataracts - Substance History Use: Uses substance without health or social issues: NONE (Never used tobacco or drank alcohol) Social History - Living Situation Living arrangement: At home Living Situation: With spouse/s.o. Support System: The patient lives with his who is half Bruneian and half Erit[place]an. They have 10 children together, 6 daughters and 4 sons. The patient's daughter, Alvarez is reported to be DPOA with contact number [phone]. Approximately 8 years ago the patient's developed lung cancer that was metastatic. Since that time he has been her caregiver and now one of his sons is providing additional caregiving duties as well as through [facility] there is additional caregiving nayelibrian zimmer. 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 He grew up in [place]. He spent some time on [facility] before it became built up and they relocated here after he served in [facility]. The patient's children are scattered. Presently, one of his daughters is visiting from [place]. His daughter that is Alvarez HIGGINBOTHAM resides in [place]. The patient's daughter Giovanna is looking for additional caregiving help for the patient as well as assistance with transportation to the patient's oncology appointments as it is difficult for him to drive and his present state safely. Family History - Family History Family History Comment/Other: Noncontributory Medications/Allergies - Medications Home Medications: Ambulatory Orders Medication Instructions Recorded Confirmed Insulin Aspart (Vial) [NovoLOG 15 - 25 unit SQ TID 10/28/12 06/02/20 (VIAL FOR ED USE)] Pantoprazole Sodium [Protonix] 40 mg PO DAILY 11/06/13 05/30/20 Doxazosin [Cardura] 4 mg PO DAILY 07/13/16 06/02/20 Finasteride [Proscar] 5 mg ORAL DAILY 07/13/16 06/02/20 Insulin Degludec [Tresiba 35 units SUBQ DAILY 08/28/17 06/02/20 Flextouch U-100] Atorvastatin Calcium 40 mg ORAL DAILY 03/26/18 06/02/20 Carvedilol [Coreg] 6.25 mg PO DAILY 04/30/20 06/02/20 Lisinopril [Zestril] 20 mg PO DAILY 04/30/20 05/30/20 Magnesium Oxide [Mag Ox] 400 mg PO DAILY 04/30/20 05/30/20 Ondansetron Odt [Zofran Odt] 4 mg PO Q6HR PRN 05/30/20 06/02/20 Brimonidine 0.2% Ophth Drops 06/02/20 [Alphagan P 0.2% Ophth Drops] Dorzolamide/Timolol/Pf [Timolol 06/02/20 0.5%-Dorzolamide 2%] Naloxone HCl [Narcan] 06/02/20 Prochlorperazine Maleate 10 mg PO Q6H PRN 06/02/20 06/02/20 Senna [Senokot] 1 tab PO QPM 06/02/20 06/02/20 Travoprost [Travatan Z] 06/02/20 fentaNYL [Fentanyl 37.5mcg patch] 37.5 mcg TP Q72H 06/02/20 06/02/20 polyethylene glycoL 3350 [Miralax] 8.5 g PO DAILY 06/02/20 06/02/20 traMADol [Ultram] 1 - 2 tab PO Q6H PRN 06/02/20 06/02/20 - Allergies Allergies/Adverse Reactions: Allergies Allergy/AdvReac Type Severity Reaction Status Date / Time brompheniramine Allergy Unknown Verified 06/02/20 21:11 codeine Allergy Hives Verified 06/02/20 21:11 hydrocodone Allergy Unknown Verified 06/02/20 21:11 NSAIDS (Non-Steroidal Allergy Anaphylaxis Verified 06/02/20 21:11 Anti-Inflamma propoxyphene Allergy Unknown Verified 06/02/20 21:11 amoxicillin [From Augmentin] AdvReac Unknown Verified 06/02/20 21:11 aspirin AdvReac Anaphylaxis Verified 06/02/20 21:11 clavulanic acid AdvReac Unknown Verified 06/02/20 21:11 [From Augmentin] hydroxyzine [From Vistaril] AdvReac Unknown Verified 06/02/20 21:11 lactose AdvReac Nausea Verified 05/30/20 01:06 meperidine [From Demerol] AdvReac Respiratory Verified 06/02/20 21:11 metformin AdvReac Unknown Verified 06/02/20 21:11 morphine AdvReac Unknown Verified 06/02/20 21:11 procaine [From Novocain] AdvReac Unknown Verified 05/30/20 01:06 promethazine HCl * AdvReac Unknown Verified 06/02/20 21:11 [From Phenergan] diphenhydramine/lidocaine/nystatin Allergy Anaphylaxis Uncoded 06/02/20 21:11 eggs Allergy Respiratory Uncoded 06/02/20 21:11 opiods Allergy Anaphylaxis Uncoded 06/02/20 21:11 tuberculin purified protein Allergy Unknown Uncoded 06/02/20 21:11 derivat sodium biphosphate AdvReac Unknown Uncoded 06/02/20 21:11 Review of Systems - Constitutional Constitutional: reports: Fatigue, Weight loss (appx 40-50lbs in the last 2 months). denies: Fever - Eyes Eyes: reports: Other (Diabetic retinopahty). denies: Irritation - Ears, Nose & Throat Ears, Nose & Throat: denies: Hearing loss, Sore throat - Cardiovascular Cardiovascular: denies: Chest pain, Edema - Gastrointestinal Gastrointestinal: reports: Abdominal pain, Constipation (see HPI), Nausea, Vomiting, Bile emesis, Poor appetite. denies: Abdominal distention, Diarrhea, Rei blood emesis - Genitourinary Genitourinary: denies: Dysuria - Musculoskeletal Musculoskeletal: reports: Joint pain. denies: Assistive devices - Integumentary Integumentary: reports: Dryness - Neurological Neurological: reports: Dizziness (due to decreased oral intake with episodes of near syncope reported, recently had IV hydration) - Psychiatric Psychiatric: reports: Other (PTSD) - Endocrine Endocrine: reports: Other (Type I DM) - Hematologic/Lymphatic Hematologic/Lymph: denies: Recurrent infections - All Other Systems All Other Systems: reports: Reviewed and negative Physical Exam - Vital Signs Temperature: 36.7 C Pulse Rate: 88 O2 Saturation: 98 (on RA) Blood Pressure: 171/75 (left wrist) - Physical Exam General Appearance: positive: Alert, Mild distress (due to pain and discomfort) Eyes Bilateral: positive: Normal inspection ENT: positive: No signs of dehydration. negative: Oral lesions Neck: positive: Trachea midline Cardiovascular: positive: Regular rate & rhythm, No murmur Respiratory: positive: No respiratory distress, Breath sounds nml Abdomen: positive: Non-tender, Soft, Other (slightly hypoactive bowel sounds). 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 He is ambulatory without an assistive device. Minimal oral intake. He has a reduced ability to perform tasks that he wants was able to do without having increased fatigue. PPS 60% - Palliative Care Discussion: Began introduction of clarifying information and understanding his underlying illness, the patient is aware that in the setting of of pancreatic cancer that he potentially has 6 months if he pursues chemotherapy and if he opts not to pursue chemotherapy he may have 3 months or less. We did discuss in the context of outcomes with the hope that the patient's quality of life would improve with diminishment of pain if the tumor responded to treatment as well as improvement of his underlying GI symptoms. The patient wishes to look at the context of small goals such as moving forward with chemotherapy, controlling his nausea and vomiting and having his uncontrolled pain under better control. He has always approached life from a lesson that he learned when he was 13 years old from his father that "the world owes you nothing." Therefore he has to move forward seeking answers and assistance. Began introduction regarding end-of-life planning however, the patient did not wish to proceed with further discussion outside of indicating that he has his daughter Alvarez and son Paris Has his healthcare power of insurance defense attorney. His daughter has copies of this paperwork and plans to email to this ROOM INSPECTOR for documentation. The patient is not ready to discuss end-of-life planning and prognosis further however, his daughter and DPOA has additional questions and the patient was open to his daughter and the SEMIAUTOMATIC TAPER OPERATOR discussing separately. Discussed with the patient's daughter regarding prognosis and in relation to metastatic prostate pancreatic cancer that the goal is for improvement of quality of life with chemotherapy but recognizing that the treatment is palliative and not curative. Answered and addressed questions surrounding hospice services and the benefits and differences versus hospice and palliative care. We will continue to build rapport and discussion with guarding end of life planning and checking with the patient if he prefers to delegate to his children who are acting as DPOA. At the present time, the patient wishes to focus on short-term goals and trial chemotherapy which is scheduled to begin tomorrow. Results - Lab Results Lab results reviewed: Yes Lab and Imaging Results: see HPI Impression and Recommendations - Palliative Care Impression: This is a antonio 70-year-old gentleman man who has been diagnosed with metastatic pancreatic cancer with the plan for neoadjuvant gemzar/abraxane. The patient presents with high symptom burden of pain, weight loss, constipation, fatigue and GI distress. Palliative care will continue to build rapport, provide support for pain and symptom management, advance care planning and anticipatory guidance. Recommendations/Counseling Done: 1. Pain of neoplastic origin. Patient currently on fentanyl 25 mcg patch with breakthrough pain only through acetaminophen. Patient's pain appears to be continually breaking through and is not having adequate coverage especially by the third day. His pain continues to be moderate to severe particularly around the umbilicus area and does need an increase of 50% of baseline. Will increase to 37.5 mcg patch to be initiated on the morning of 06/03/2020. Reviewed with the patient and daughter proper disposal methods of fentanyl patch as well as placement with handout provided. Reviewed food side effects of fentanyl patch. Also recommended when nausea under better control and can tolerate that he may utilize tramadol 50 mg take 1 to 2 tablets every 6 hours as needed for pain and to record his administration for dose titration of his fentanyl patch.May continue use of acetaminophen as presently this is the patient's go to medication but advised not to exceed 3000 mg daily of acetaminophen from all sources. Discussed the goal is to provide pain relief but balancing the effects of sedation with both the patient and daughter. We will check in with the patient on 06/03 and reviewed symptoms to contact provider. 2. Nausea and vomiting due to underlying malignancy. Discussed use of Zofran 4 mg ODT to take 1 tablet every 6 hours as needed for nausea. If after 2 hours he has no resolution of nausea then may take prochlorperazine 10mg every 6 hours for nausea as these work on different receptors. Also advised that underlying constipation may also may be a contributing factor to his nausea and vomiting. Encourage small, frequent bland foods and meals such as applesauce, saltine crackers, bananas etc. Also strongly encourage maintaining oral hydration with sipping on broth, Gatorade, lukewarm water, alta josé miguel frequently throughout the day. 3. Type 1 diabetes mellitus. Longstanding history. Presently the patient reports that his blood glucose levels are maintaining in his typical range of 60s to 90s. Given the patient's decreased oral intake will need to continue to monitor closely and work with the patient's restaurant greeter and or PCP regarding needs for adjustments to his insulin therapy in the future if symptoms persist. 4. Constipation. Persistent. Encourage the patient to initiate MiraLAX half a capful dissolved in 4 to 6 ounces of fluid daily for bowel movement. Initiate senna 8.6 mg 1 tablet nightly for bowel movement. Advised that the goal is to have a daily, soft stool even with a decreased oral intake was instructed to the patient and daughter. Counseling provided Noted the patient has not had a bowel movement in 48 hours that he is to take 2 tablets of senna 8.6 mg every 4 hours until a bowel movement is achieved for a bowel reset and then resume his bowel regimen of MiraLAX half a cap daily and senna 8.6 mg 1 tablet nightly. 5. Pancreatic cancer. Patient wishes to proceed with chemotherapy which begins tomorrow. He has had chemotherapy instruction. He is followed by Dr. Allison at [facility]. 6. Advanced care planning. Introduced goals of care and counseling regarding end-of-life planning as well as advanced care planning. Patient reports that he is already completed DPOA paperwork and has designated his daughter, Alvarez and his son as DPOA. Will make a referral to [facility] for additional assistance with caregiving assistance as well as contact numbers for the SD as the patient is a and may qualify for some benefits for assistance. Also provided the daughter with driving options through [facility] to assist the patient with attending appointments as he is no longer driving. The patient is not ready to discuss how alf goals and wishes instead to focus on short-term goals as explored in palliative care discussion. The patient was open to having his daughter/DPOA explore potential options, end-of-life planning and prognosis related to his diagnosis of metastatic pancreatic cancer but he is not open to at this point in time. We will continue to build rapport and explore goals of care and what is important in context for the patient moving forward to honor. Total time spent 140 minutes with greater than 50% of this spent in counseling and coordination of care with patient and daughter; examination of patient; defining goals of care; discussion of palliative vs hospice with daughter/DPOA; review of pain and symptom management and anticipatory guidance. Updated patient's PCP Dr. Whiteside via phone. Send fax to Dr. Allison regarding medication updates. Disclaimer: The chart note was formulated using voice recognition technology and unfortunately sound alike errors may occur.
== END 2020-06-02 09:41 | disposition home or self-care (01) ==
CPT/HCPCS: 99345

== ENCOUNTER 2020-06-08 02:53 | Emergency (ER) | payer MEDICARE, OTHER ==
--- OUTSIDE RECORDS SUMMARY | 2020-06-08 02:56 | EXTERNAL MEDICAL SUMMARY RPT | Continuity of Care Document ---
:1950 Demographics Phone Unavailable Preferred Language Lithuanian Marital Status Unknown Anabaptism Affiliation Unknown Race Unknown Ethnic Group Unknown Author Organization [place] Address [address] [phone] Phone Care Team Providers Name Role Phone Keegan Unavailable Unavailable Clerc Unavailable Unavailable Botnick Unavailable Unavailable Problems date description facility [id number] [facility] [id number] pancreas, [facility] [id number] Other specified diseases of pancreas [facility] [id number] Secondary malignant neoplasm of left [facility] [id number] Secondary malignant neoplasm of liver a [facility] bile [id number] Secondary malignant neoplasm of right [facility] [id number] Secondary malignant neoplasm of [facility] [id number] Malignant neoplasm of pancreas, [facility] [id number] [facility], [facility] [id number] Secondary malignant neoplasm of left [facility] [id number] Secondary malignant neoplasm of liver a [facility] bile 96881563 Secondary malignant neoplasm of right [facility] [id number] Secondary malignant neoplasm of [facility] Medications date description facility [id number] Ondansetron 4 MG Disintegrating [facility] 74591973 Ondansetron 4 MG Disintegrating [facility] 35548334 Ondansetron 4 MG Disintegrating [facility] 64076308 24 HR Divalproex Sodium 500 MG Extended Release [facility] 43943990 olopatadine 1 MG/ML Ophthalmic Solution [facility] 57511278 Doxazosin 4 MG Oral Tablet [facility] 99532018 Prazosin 5 MG Oral Capsule [facility] 56393109 carvedilol 6.25 MG Oral Tablet [facility] 26655437 Famotidine 40 MG Oral Tablet [facility] 62568217 Finasteride 5 MG Oral Tablet [facility] 20200504 Lisinopril 10 MG Oral Tablet [facility] 20200504 pantoprazole 40 MG Enteric Coated Table [facility] 88403641 atorvastatin 40 MG Oral [facility]t [facility] 20200504 tramadol hydrochloride 50 MG Oral Table [facility] 20638046 3 ML Insulin Glargine 100 UNT/ML Prefil led Syringe [facility] 59224491 Brimonidine tartrate 2 MG/ML [facility] 78826085 24 HR Divalproex Sodium 500 MG Extended Release [facility] 05136905 olopatadine 1 MG/ML [facility] 07739349 Doxazosin 4 MG Oral Tablet [facility] 51807103 Prazosin 5 MG Oral Capsule [facility] 22411080 carvedilol 6.25 MG Oral Tablet [facility] 81947113 Famotidine 40 MG Oral [facility] 76150712 Finasteride 5 MG Oral Tablet [facility] 80488873 Lisinopril 10 MG Oral Tablet [facility] 16586940 pantoprazole 40 MG Enteric Coated [facility] 47880744 atorvastatin 40 MG Oral [facility] 46632328 tramadol hydrochloride 50 MG Oral [facility] 96398188 3 ML Insulin Glargine 100 UNT/ML Prefil led [employer] 24270695 Brimonidine tartrate 2 MG/ML [facility] 85593840 Ondansetron 4 MG Disintegrating [facility] 63976438 pantoprazole 40 MG Enteric Coated [facility] 99598402 Ondansetron 4 MG Disintegrating [facility] 19977990 pantoprazole 40 MG Enteric Coated [facility] 13999214 Metoclopramide 10 MG Oral Tablet [facility] 90476911 atorvastatin 40 MG Oral [facility] 51188505 Baclofen 10 MG Oral Tablet [facility] Procedures date description facility [id number] [facility] date description facility [id number] [facility] date description facility [id number] [facility] date description facility [id number] [facility] date description facility [id number] [facility] date description facility [id number] [facility] date description facility [id number] [facility] date description facility [id number] [facility] date description facility [id number] [facility] date description facility [id number] [facility] date description facility [id number] [facility] date description facility [id number] [facility] date description facility [id number] [facility] Vital Signs date measurement value source [...] weight_metric 43 kg 20200505 weight_standard 94.8 lb date measurement value source 20200604 BMI 25.0 kg/m2 20200604 BP_diastolic 74 mm[Hg] 20200604 BP_systolic 163 mm[Hg] 20200604 heart_rate 81 /min 20200604 height_metric 185.42 cm 20200604 height_standard 73 in 20200604 respiration_rate 20 /min 20200604 temperature_metric 36.39 C 20200604 temperature_standard 97.5 F 20200604 weight_metric 39.09 kg 20200604 weight_standard 86.18 lb date measurement value source [id number] BMI 23.7 kg/m2 84912130 BP_diastolic 74 mm[Hg] 26914944 BP_systolic 159 mm[Hg] 20200605 heart_rate 104 /min 20200605 height_metric 185.42 cm 20200605 height_standard 73 in 20200605 respiration_rate 13 /min 20200605 temperature_metric 36.83 C 20200605 temperature_standard 98.3 F 20200605 weight_metric 37.03 kg 20200605 weight_standard 81.65 lb date measurement value source 20200607 BP_diastolic 58 mm[Hg] 12388245 BP_systolic 151 mm[Hg] 20200607 heart_rate 84 /min 20200607 respiration_rate 17 /min 20200607 temperature_metric 36.56 C 20200607 temperature_standard 97.8 F Social History date description facility [id number]
[2020-06-08] MEDS ORDERED: MAG HYDROX/AL HYDROX/SIMETH 30 ML UDC PO STA ×2 (03:25→04:44)
[2020-06-08] MEDS ORDERED: LIDOCAINE VISCOUS 2% 15 ML UDC MM STA ×2 (03:25→04:50)
[2020-06-08] MEDS ORDERED: SODIUM CHLORIDE 0.9% 1,000 ML IV STA (03:26)
--- NOTE | 2020-06-08 03:29 | ED Physician Documentation ---
PD HPI NVD - Stated complaint Stated Complaint: VOMITING - Chief complaint Chief Complaint: Abd Pain - History obtained from History obtained from: Patient - History of Present Illness Timing - onset: How many months ago (1) Timing - duration: Weeks Timing - details: Gradual onset, Still present, Waxing and waning Associated symptoms: Abdominal pain, Loss of appetite, Weight loss Contributing factors: Other (recently diagnosed with pancreatic cancer and started on chemo. Had port placed about 10 days ago after biopsy.) Improved by: Vomiting Worsened by: Eating, Breathing, Position Similar symptoms before: Diagnosis (pancreatic cancer) Recently seen: Emergency Dept (seen at [facility] at 2300 last night), Surgery - Additonal information Additional information: 70-year-old male has recently been diagnosed with pancreatic cancer has had a biopsy and a port placed and he has been given his first dose of chemotherapy about 4 days ago. He is having uncontrolled nausea and vomiting and the hiccups. He was seen earlier in the evening at [facility] where the Zofran did not seem to help relieve the nausea. He is on Compazine as well. He denies cannabis use. He has had the hiccups for the past 3 days. The patient is wanting to go to [place] today to bury his . She apparently 4 days ago.Apparently related to long-term complications of lung cancer and Covid. Review of Systems Constitutional: reports: Fatigue. denies: Fever Eyes: denies: Decreased vision Ears: denies: Ear pain Nose: denies: Congestion Throat: denies: Sore throat Cardiac: denies: Chest pain / pressure, Palpitations Respiratory: denies: Dyspnea, Cough GI: reports: Abdominal Pain, Nausea, Vomiting. denies: Constipation, Diarrhea : denies: Dysuria, Frequency Skin: denies: Rash Musculoskeletal: denies: Neck pain, Back pain, Extremity pain Neurologic: denies: Generalized weakness, Focal weakness, Numbness PD PAST MEDICAL HISTORY - Past Medical History Cardiovascular: Hypertension, High cholesterol, Coronary artery disease Respiratory: Sleep apnea Neuro: Peripheral neuropathy Endocrine/Autoimmune: Type 1 diabetes (dx 25 years ago) GI: GERD : Benign prostate hypertrophy, Renal insuffiency, Kidney stones HEENT: Glaucoma, Other (Diabetic retinopathy (receives injections)) Psych: Depression, Panic attacks, Post traumatic stress disorder Musculoskeletal: Osteoarthritis, Gout Derm: Psoriasis - Past Surgical History Past Surgical History: Yes General: Cholecystectomy, Colonoscopy, EGD Ortho: Arthroscopic surgery /[employer]: Other (Kidney stone removal) Cardiovascular: Cardiac catheterization, Angioplasty HEENT: Cataracts - Present Medications Home Medications: Ambulatory Orders Medication Instructions Recorded Confirmed Insulin Aspart (Vial) [NovoLOG 15 - 25 unit SQ TID 10/28/12 06/08/20 (VIAL FOR ED USE)] Pantoprazole Sodium [Protonix] 40 mg PO DAILY 11/06/13 06/08/20 Doxazosin [Cardura] 4 mg PO DAILY 07/13/16 06/08/20 Finasteride [Proscar] 5 mg ORAL DAILY 07/13/16 06/08/20 Insulin Degludec [Tresiba 35 units SUBQ DAILY 08/28/17 06/08/20 Flextouch U-100] Atorvastatin Calcium 40 mg ORAL DAILY 03/26/18 06/08/20 Carvedilol [Coreg] 6.25 mg PO DAILY 04/30/20 06/08/20 Lisinopril [Zestril] 20 mg PO DAILY 04/30/20 06/08/20 Magnesium Oxide [Mag Ox] 400 mg PO DAILY 04/30/20 06/08/20 Ondansetron Odt [Zofran Odt] 4 mg PO Q6HR PRN 05/30/20 06/08/20 Brimonidine 0.2% Ophth Drops 06/02/20 [Alphagan P 0.2% Ophth Drops] Dorzolamide/Timolol/Pf [Timolol 06/02/20 0.5%-Dorzolamide 2%] Naloxone HCl [Narcan] 06/02/20 Prochlorperazine Maleate 10 mg PO Q6H PRN 06/02/20 06/02/20 Senna [Senokot] 1 tab PO QPM 06/02/20 06/08/20 Travoprost [Travatan Z] 06/02/20 fentaNYL [Fentanyl 37.5mcg patch] 37.5 mcg TP Q72H 06/02/20 06/08/20 polyethylene glycoL 3350 [Miralax] 8.5 g PO DAILY 06/02/20 06/08/20 Prochlorperazine Supp [Compazine 25 mg DC DAILY PRN 06/04/20 06/08/20 Supp] - Allergies Allergies/Adverse Reactions: Allergies Allergy/AdvReac Type Severity Reaction Status Date / Time brompheniramine Allergy Unknown Verified 06/08/20 03:04 codeine Allergy Hives Verified 06/08/20 03:04 hydrocodone Allergy Unknown Verified 06/08/20 03:04 NSAIDS (Non-Steroidal Allergy Anaphylaxis Verified 06/08/20 03:04 Anti-Inflamma propoxyphene Allergy Unknown Verified 06/08/20 03:04 amoxicillin [From Augmentin] AdvReac Unknown Verified 06/08/20 03:04 aspirin AdvReac Anaphylaxis Verified 06/08/20 03:04 clavulanic acid AdvReac Unknown Verified 06/08/20 03:04 [From Augmentin] hydroxyzine [From Vistaril] AdvReac Unknown Verified 06/08/20 03:04 lactose AdvReac Nausea Verified 06/08/20 03:04 meperidine [From Demerol] AdvReac Respiratory Verified 06/08/20 03:04 metformin AdvReac Unknown Verified 06/08/20 03:04 morphine AdvReac Unknown Verified 06/08/20 03:04 procaine [From Novocain] AdvReac Unknown Verified 06/08/20 03:04 promethazine HCl * AdvReac Unknown Verified 06/08/20 03:04 [From Phenergan] diphenhydramine/lidocaine/nystatin Allergy Anaphylaxis Uncoded 06/08/20 03:04 eggs Allergy Respiratory Uncoded 06/08/20 03:04 opiods Allergy Anaphylaxis Uncoded 06/08/20 03:04 tuberculin purified protein Allergy Unknown Uncoded 06/08/20 03:04 derivat sodium biphosphate AdvReac Unknown Uncoded 06/08/20 03:04 - Social History Does the pt smoke?: No Smoking Status: Never smoker Does the pt drink ETOH?: No Does the pt have substance abuse?: No - Immunizations Immunizations are current?: Yes - POLST Patient has POLST: No POLST Status: Full Code PD ED PE NORMAL - Vitals Vital signs reviewed: Yes - General General: Alert and oriented X 3, Well developed/nourished, Other (70 year-old male hiccuping and taking a deep breath appears nauseated. He demonstrates the furrowed brow of misery) - HEENT HEENT: Atraumatic, PERRL, EOMI - Neck Neck: Supple, no meningeal sign, No bony TTP - Cardiac Cardiac: RRR, No murmur - Respiratory Respiratory: No respiratory distress, Clear bilaterally - Abdomen Abdomen: Normal bowel sounds, Soft, Non distended, No organomegaly, Other (Mild epigastric tenderness no lower abdominal tenderness) - Back Back: No CVA TTP, No spinal TTP - Derm Derm: Normal color, Warm and dry, No rash - Extremities Extremities: No deformity, No edema - Neuro Neuro: Alert and oriented X 3, chain puller 2-12 intact, No motor deficit, No sensory deficit, Normal speech Eye Opening: Spontaneous Motor: Obeys Commands Verbal: Oriented GCS Score: 15 - Psych Psych: Normal mood, Normal affect Results - Vitals Vitals: Vital Signs - 24 hr 06/08/20 06/08/20 06/08/20 02:59 03:59 04:29 Temperature 36.8 C 36.2 C L Heart Rate 97 86 89 Respiratory 20 18 18 Rate Blood Pressure 133/74 H 140/57 H 162/76 H O2 Saturation 99 94 97 Oxygen O2 Source Room air - Labs Labs: Laboratory Tests 06/08/20 06/08/20 06/08/20 03:15 03:15 03:26 WBC 3.5 L RBC 3.53 L Hgb 11.1 L Hct 31.5 L MCV 89.2 MCH 31.4 H MCHC 35.2 RDW 11.5 L Plt Count 161 MPV 10.7 Neut # (Auto) 2.8 Lymph # (Auto) 0.6 L [place] # (Auto) 0.0 Eos # (Auto) 0.1 Baso # (Auto) 0.0 Absolute Nucleated RBC 0.00 Nucleated RBC % 0.0 Sodium 132 L Potassium 3.1 L Chloride 98 L Carbon Dioxide 22 Anion Gap 12.0 BUN 9 Creatinine 0.7 Estimated GFR (MDRD) 135 Glucose 232 H POC Whole Bld Glucose 228 H Calcium 8.5 Total Bilirubin 1.7 H AST 26 ALT 35 Alkaline Phosphatase 125 H Total Protein 6.3 L Albumin 3.1 L Globulin 3.2 Albumin/Globulin Ratio 1.0 Lipase 27 PD MEDICAL DECISION MAKING - ED course Complexity details: reviewed old records, reviewed results, re-evaluated patient, considered differential, d/w patient ED course: 70-year-old male recently diagnosed with pancreatic cancer has developed hiccups and intolerable nausea and vomiting. He arrives to the emergency department appearing miserable with persistent hiccups and he is administered viscous lidocaine and Mylanta with prompt relief of his hiccups. He feels much improved. He indicates that he has been on Protonix for 9 years and he has had periods of time when this is stopped working for him. Today he can taste acid. Despite taking the Protonix twice per day.Here in the emergency department he is administered saline intravenously as well as intravenous Pepcid. The patient's hiccups begin to return within hours and the patient does not seem to be too bothered by this. We did administer a dose just of Mylanta and this seemed to help for brief period of time we subsequently administered a dose of viscous lidocaine. Departure - Departure Disposition: 01 Home, Self Care Clinical Impression: Hiccups Vomiting Qualifiers: Vomiting type: unspecified Vomiting Intractability: non-intractable Nausea presence: with nausea Qualified Code(s): R11.2 - Nausea with vomiting, unspecified Condition: Stable Instructions: ED Nausea Vomiting, ED Hiccups Follow-Up: JUANITO IRAHETA MD [Primary Care Provider] - Comments: Today it appears your hiccups are due to excessive acid in your stomach. We have given you a dose of viscous lidocaine and Mylanta. We have also given you a dose of Pepcid AC. It appears your Protonix is no longer working to reduce your acid and the recommendation is to switch this medicine to the Pepcid AC. This is available [id number]. If you develop hiccups again this morning try a dose of milk of magnesia.
[2020-06-08 03:30] LABS: EOSINOPHILS # (AUTO) 0.1 10^3/uL (0.0-0.7); EOSINOPHILS % (AUTO) 2.3 %; HCT - HEMATOCRIT 31.5 % (42.0-52.0); HGB - HEMOGLOBIN 11.1 g/dL (14.0-18.0); LYMPHOCYTES # (AUTO) 0.6 10^3/uL (1.5-3.5); LYMPHOCYTES % (AUTO) 16.4 %; MEAN CORPUSCULAR HEMOGLOBIN 31.4 pg (27.0-31.0); MEAN CORPUSCULAR HGB CONC 35.2 g/dL (32.0-36.0); MEAN CORPUSCULAR VOLUME 89.2 fL (80.0-94.0); MEAN PLATELET VOLUME 10.7 fL (7.4-11.4); MONOCYTES % (AUTO) 1.1 %; NEUTROPHILS # (AUTO) 2.8 10^3/uL (1.5-6.6); NEUTROPHILS % (AUTO) 79.9 %; PLT - PLATELET COUNT 161 10^3/uL (130-450); RED BLOOD COUNT 3.53 10^6/uL (4.70-6.10); RED CELL DISTRIBUTION WIDTH 11.5 % (12.0-15.0); WHITE BLOOD COUNT 3.5 x10^3/uL (4.8-10.8)
[2020-06-08 03:39] LABS: ALBUMIN 3.1 g/dL (3.2-5.5); BILIRUBIN,TOTAL 1.7 mg/dL (0.2-1.0); CALCIUM 8.5 mg/dL (8.5-10.3); CREATININE 0.7 mg/dL (0.6-1.2); POTASSIUM 3.1 mmol/L (3.5-5.0); TOTAL PROTEIN 6.3 g/dL (6.7-8.2)
[2020-06-08] MEDS ORDERED: FAMOTIDINE 20 MG/2 ML VIAL IVP STA (03:48)
--- OUTSIDE RECORDS SUMMARY | 2020-06-08 04:40 | EXTERNAL MEDICAL SUMMARY RPT | Continuity of Care Document ---
:1950 Demographics Phone Unavailable Preferred Language Citizen Of [place] Marital Status Unknown Restorationism Affiliation Unknown Race Unknown Ethnic Group Unknown Author Organization [place] Address [address] [phone] Phone Care Team Providers Name Role Phone Kassie Whiteside Unavailable Unavailable Leticia Allison Unavailable Unavailable Reyna Cervantes Unavailable Unavailable Problems date description facility [id number] Malignant (primary) neoplasm, [facility] [id number] Malignant neoplasm of pancreas, [facility] 84934326 Other specified diseases of pancreas [facility] [id number] Secondary malignant neoplasm of left [facility] [id number] Secondary malignant neoplasm of liver a [facility] bile 57464900 Secondary malignant neoplasm of right [facility] 10070812 Secondary malignant neoplasm of [facility] 00652476 Malignant neoplasm of pancreas, [facility] 22718788 Malignant (primary) neoplasm, [facility] 56922945 Secondary malignant neoplasm of left [facility] 71358060 Secondary malignant neoplasm of liver a [facility] bile 69862856 Secondary malignant neoplasm of right [facility] 54501634 Secondary malignant neoplasm of [facility] Medications date description facility 20200503 Ondansetron 4 MG Disintegrating Tablet [facility] 87008071 Ondansetron 4 MG Disintegrating [facility] 56429706 Ondansetron 4 MG Disintegrating Tablet [facility] 41046778 24 HR Divalproex Sodium 500 MG Extended Release Tablet [facility] 08233810 olopatadine 1 MG/ML Ophthalmic Solution [facility] 76303014 Doxazosin 4 MG Oral Tablet [facility] 79316224 Prazosin 5 MG Oral Capsule [facility] 15848104 carvedilol 6.25 MG Oral Tablet [facility] 43894841 Famotidine 40 MG Oral Tablet [facility] 20200504 Finasteride 5 MG Oral Tablet [facility] 20200504 Lisinopril 10 MG Oral Tablet [facility] 20200504 pantoprazole 40 MG Enteric Coated [facility] 20200504 atorvastatin 40 MG Oral Tablet [facility] 20200504 tramadol hydrochloride 50 MG Oral [facility] 23022119 3 ML Insulin Glargine 100 UNT/ML Prefil led [facility] 51374145 Brimonidine tartrate 2 MG/ML [facility] 28774576 24 HR Divalproex Sodium 500 MG Extended Release Tablet [facility] 32618839 olopatadine 1 MG/ML [facility] 91543706 Doxazosin 4 MG Oral Table[facility] 64499328 Prazosin 5 MG Oral Capsule [facility] 45727944 carvedilol 6.25 MG Oral Tablet [facility] 18164943 Famotidine 40 MG Oral [facility] 10913808 Finasteride 5 MG Oral Tablet [facility] 24259428 Lisinopril 10 MG Oral Tablet [facility] 43476542 pantoprazole 40 MG Enteric Coated [facility] 37550069 atorvastatin 40 MG Oral Tablet [facility] 96404714 tramadol hydrochloride 50 MG Oral [facility] 51258368 3 ML Insulin Glargine 100 UNT/ML Prefil led [facility] 79861489 Brimonidine tartrate 2 MG/ML [facility] 27395194 Ondansetron 4 MG Disintegrating Tablet [facility] 06630225 pantoprazole 40 MG Enteric Coated [facility] 59661912 Ondansetron 4 MG Disintegrating Tablet [facility] 90457763 pantoprazole 40 MG Enteric Coated [facility] 83011848 Metoclopramide 10 MG Oral [facility] 63525306 atorvastatin 40 MG Oral Tablet [facility] 32307801 Baclofen 10 MG Oral Tablet [facility] ital Procedures date description facility [id number] [facility] date description facility [id number] [facility] date description facility [id number] [facility] date description facility [id number] [facility] date description facility [id number] [facility] date description facility [id number] [facility] date description facility [id number] [facility] date description facility [id number] [facility] date description facility [id number] [facility] date description facility [id number] [facility] date description facility [id number] [facility] date description facility [id number] [facility] date description facility [id number] [facility] Vital Signs date measurement value source 20200503 BMI 27.8 kg/m2 20200503 BP_diastolic 82 mm[Hg] 49063771 BP_systolic 153 mm[Hg] 20200503 heart_rate 85 /min 55162074 height_metric 185.42 cm 20200503 height_standard 73 in 20200503 respiration_rate 18 /min 20200503 temperature_metric 36.33 C 20200503 temperature_standard 97.4 F 20200503 weight_metric 43.41 kg 20200503 weight_standard 95.71 lb date measurement value source 20200505 BMI 27.6 kg/m2 20200505 BP_diastolic 81 mm[Hg] 68405857 BP_systolic 156 mm[Hg] 20200505 heart_rate 80 /min [...] weight_standard 86.18 lb date measurement value source 20200605 BMI 23.7 kg/m2 48021665 BP_diastolic 74 mm[Hg] 20200605 BP_systolic 159 mm[Hg] 20200605 heart_rate 104 /min 20200605 height_metric 185.42 cm 20200605 height_standard 73 in 20200605 respiration_rate 13 /min 20200605 temperature_metric 36.83 C 20200605 temperature_standard 98.3 F 20200605 weight_metric 37.03 kg 20200605 weight_standard 81.65 lb date measurement value source 20200607 BP_diastolic 58 mm[Hg] 20200607 BP_systolic 151 mm[Hg] 20200607 heart_rate 84 /min 20200607 respiration_rate 17 /min 20200607 temperature_metric 36.56 C 20200607 temperature_standard 97.8 F Social History date description facility [id number]
[2020-06-08 05:07] VITALS: BP 173/78
== END 2020-06-08 05:00 | disposition home or self-care (01) ==
LOC: ED 02:53
DX: R11.2 Nausea with vomiting, unspecified (principal); R06.6 Hiccough; C25.9 Malignant neoplasm of pancreas, unspecified; E10.319 Type 1 diabetes mellitus with unspecified diabetic retinopathy without macular edema; Z79.4 Long term (current) use of insulin; Z79.899 Other long term (current) drug therapy
CPT/HCPCS: 36415; 80053; 83690; 85025; 96361; 96374; 99284

== ENCOUNTER 2020-06-08 15:03 | Inpatient (IN) | payer MEDICARE, OTHER ==
--- OUTSIDE RECORDS SUMMARY | 2020-06-08 15:08 | EXTERNAL MEDICAL SUMMARY RPT | Continuity of Care Document ---
:1950 Demographics Phone Unavailable Preferred Language Belarusian Marital Status Unknown Sikhism Affiliation Unknown Race Unknown Ethnic Group Unknown Author Organization [place] Address [address] [phone] Phone Care Team Providers Name Role Phone Clerc Unavailable Unavailable Allison Unavailable Unavailable Botnick Unavailable Unavailable Problems date description facility [id number] Malignant (primary) neoplasm, unspecLocated within [facility] [id number] Malignant neoplasm of pancreas, [facility] [id number] Other specified diseases of pancreas [facility] [id number] Secondary malignant neoplasm of left [facility] [id number] Secondary malignant neoplasm of liver a [facility] bile [id number] Secondary malignant neoplasm of right [facility] [id number] Secondary malignant neoplasm of [facility] [id number] Malignant neoplasm of pancreas, [facility] [id number] Malignant (primary) neoplasm, unspecLocated within [facility] [id number] Secondary malignant neoplasm of left [facility] [id number] Secondary malignant neoplasm of liver a [facility] bile [id number] Secondary malignant neoplasm of right [facility] [id number] Secondary malignant neoplasm of [facility] Medications date description facility [id number] Ondansetron 4 MG Disintegrating [facility] 07489104 Ondansetron 4 MG Disintegrating [facility] 63948365 Ondansetron 4 MG Disintegrating [facility] 16984389 24 HR Divalproex Sodium 500 MG Extended Release [facility] 87953659 olopatadine 1 MG/ML Ophthalmic Solution [facility] 86424441 Doxazosin 4 MG Oral Tablet [facility] 25958487 Prazosin 5 MG Oral Capsule [facility] 67661545 carvedilol 6.25 MG Oral Tablet [facility] 87602498 Famotidine 40 MG Oral Tablet [facility] 08166609 Finasteride 5 MG Oral Tablet [facility] 20200504 Lisinopril 10 MG Oral Tablet [facility] 20200504 pantoprazole 40 MG Enteric Coated Table [facility] 75353941 atorvastatin 40 MG Oral [facility] 20200504 tramadol hydrochloride 50 MG Oral Table [facility] 20200504 3 ML Insulin Glargine 100 UNT/ML Prefil led Syringe [facility] 42491132 Brimonidine tartrate 2 MG/ML [facility] 94705968 24 HR Divalproex Sodium 500 MG Extended Release [facility] 75180666 olopatadine 1 MG/ML [facility] 22154252 Doxazosin 4 MG Oral [facility] 32031785 Prazosin 5 MG Oral Capsule [facility] 29076556 carvedilol 6.25 MG Oral Tablet [facility] 68451854 Famotidine 40 MG Oral [facility] 55276171 Finasteride 5 MG Oral Tablet [facility] 91511453 Lisinopril 10 MG Oral Tablet [facility] 53626656 pantoprazole 40 MG Enteric Coated [facility] 28187608 atorvastatin 40 MG Oral [facility] 91207264 tramadol hydrochloride 50 MG Oral [facility] 81689283 3 ML Insulin Glargine 100 UNT/ML Prefil led [facility] 53927862 Brimonidine tartrate 2 MG/ML [facility] 05742400 Ondansetron 4 MG Disintegrating [facility] 64401492 pantoprazole 40 MG Enteric Coated [facility] 79934646 Ondansetron 4 MG Disintegrating [facility] 78443555 pantoprazole 40 MG Enteric Coated [facility] 35903666 Metoclopramide 10 MG Oral Tablet [facility] 33054593 atorvastatin 40 MG Oral [facility] 91466849 Baclofen 10 MG Oral [facility] Procedures date description facility [id number] [facility] date description facility [id number] [facility] date description facility [id number] [facility] date description facility [id number] [facility] date description facility [id number] [facility] date description facility [id number] [facility] date description facility [id number] [facility] date description facility [id number] [facility] date description facility [id number] [facility] date description facility [id number] [facility] date description facility [id number] [facility] date description facility [id number] [facility] date description facility [id number] [facility] Vital Signs date measurement value source [...] weight_standard 86.18 lb date measurement value source [id number] BMI 23.7 kg/m2 03653684 BP_diastolic 74 mm[Hg] 99416008 BP_systolic 159 mm[Hg] 20200605 heart_rate 104 /min 20200605 height_metric 185.42 cm 20200605 height_standard 73 in 20200605 respiration_rate 13 /min 20200605 temperature_metric 36.83 C 20200605 temperature_standard 98.3 F 20200605 weight_metric 37.03 kg 20200605 weight_standard 81.65 lb date measurement value source 20200607 BP_diastolic 58 mm[Hg] 11245255 BP_systolic 151 mm[Hg] 20200607 heart_rate 84 /min 20200607 respiration_rate 17 /min 20200607 temperature_metric 36.56 C 20200607 temperature_standard 97.8 F Social History date description facility [id number]
[2020-06-08] MEDS ORDERED: ONDANSETRON 4 MG/2 ML VIAL IVP STA (15:21)
[2020-06-08] MEDS ORDERED: SODIUM CHLORIDE 0.9% 1,000 ML IV STA (15:21)
--- OUTSIDE RECORDS SUMMARY | 2020-06-08 15:22 | EXTERNAL MEDICAL SUMMARY RPT | Continuity of Care Document ---
:1950 Demographics Phone Unavailable Preferred Language Irish Marital Status Unknown Druze Affiliation Unknown Race Unknown Ethnic Group Unknown Author Organization [place] Address [address] [phone] Phone Care Team Providers Name Role Phone Clerc Unavailable Unavailable Allison Unavailable Unavailable Botnick Unavailable Unavailable Problems date description facility [id number] [facility], [facility] [id number] Other specified diseases of pancreas [facility] [id number] Secondary malignant neoplasm of left [facility] 23446399 Secondary malignant neoplasm of liver a [facility] bile 98812569 Secondary malignant neoplasm of right [facility] 22585347 Secondary malignant neoplasm of [facility] 27291438 Malignant neoplasm of pancreas, [facility] 40115957 [facility], [facility] 97988[facility] Secondary malignant neoplasm of left [facility] 35426835 Secondary malignant neoplasm of liver a [facility] bile 52161433 Secondary malignant neoplasm of right [facility] 26860047 Secondary malignant neoplasm of [facility] Medications date description facility 20200503 Ondansetron 4 MG Disintegrating Tablet [facility] 33679610 Ondansetron 4 MG Disintegrating Tablet [facility] 88653733 Ondansetron 4 MG Disintegrating Tablet [facility] 46400087 24 HR Divalproex Sodium 500 MG Extended Release [facility] 82804248 olopatadine 1 MG/ML Ophthalmic Solution [facility] 45208214 Doxazosin 4 MG Oral Tablet [facility] 26251751 Prazosin 5 MG Oral Capsule [facility] 23726651 carvedilol 6.25 MG Oral Tablet [facility] 01216574 Famotidine 40 MG Oral Tablet [facility] spital 12359287 Finasteride 5 MG Oral Tablet [facility] spital 20200504 Lisinopril 10 MG Oral Tablet [facility] sp[facility] 20200504 pantoprazole 40 MG Enteric Coated Table [facility] 16634407 atorvastatin 40 MG Oral Tablet [facility] 20200504 tramadol hydrochloride 50 MG Oral Table [facility] 20200504 3 ML Insulin Glargine 100 UNT/ML Prefil led Syringe [facility] 06093211 Brimonidine tartrate 2 MG/ML [facility] 68869252 24 HR Divalproex Sodium 500 MG Extended Release [facility] 65603771 olopatadine 1 MG/ML [facility] 01413060 Doxazosin 4 MG Oral [facility] 86474129 Prazosin 5 MG Oral Capsule [facility] 59898017 carvedilol 6.25 MG Oral Tablet [facility] 55684747 Famotidine 40 MG Oral Table[facility] 69947349 Finasteride 5 MG Oral Tablet [facility]ital 70831596 Lisinopril 10 MG Oral Tablet [facility] 92283473 pantoprazole 40 MG Enteric Coated [facility] 70191740 atorvastatin 40 MG Oral Tablet [facility] 39684060 tramadol hydrochloride 50 MG Oral [facility] 30327665 3 ML Insulin Glargine 100 UNT/ML Prefil led [facility] 57810734 Brimonidine tartrate 2 MG/ML [facility] 62031423 Ondansetron 4 MG Disintegrating Table[facility] 55988583 pantoprazole 40 MG Enteric Coated [facility] 00243510 Ondansetron 4 MG Disintegrating [facility] 43266325 pantoprazole 40 MG Enteric Coated [facility] 90923495 Metoclopramide 10 MG Oral Tablet [facility] 41954491 atorvastatin 40 MG Oral Tablet [facility] 77332554 Baclofen 10 MG Oral [facility] Procedures date description facility [id number] [facility] date description facility [id number] [facility] date description facility [id number] [facility] date description facility [id number] [facility] date description facility [id number] [facility] date description facility [id number] [facility] date description facility [id number] [facility] date description facility [id number] [facility] date description facility [id number] [facility] date description facility [id number] [facility] date description facility [id number] [facility] date description facility [id number] [facility] date description facility [id number] [facility] Vital Signs date measurement value source [...] weight_standard 86.18 lb date measurement value source 66436993 BMI 23.7 kg/m2 49187138 BP_diastolic 74 mm[Hg] 19165776 BP_systolic 159 mm[Hg] 20200605 heart_rate 104 /min 20200605 height_metric 185.42 cm 20200605 height_standard 73 in 20200605 respiration_rate 13 /min 20200605 temperature_metric 36.83 C 20200605 temperature_standard 98.3 F 20200605 weight_metric 37.03 kg 20200605 weight_standard 81.65 lb date measurement value source 20200607 BP_diastolic 58 mm[Hg] 58384330 BP_systolic 151 mm[Hg] 20200607 heart_rate 84 /min 20200607 respiration_rate 17 /min 20200607 temperature_metric 36.56 C 20200607 temperature_standard 97.8 F Social History date description facility [id number]
[2020-06-08 15:39] LABS: EOSINOPHILS % (AUTO) 2.2 %; HCT - HEMATOCRIT 30.2 % (42.0-52.0); HGB - HEMOGLOBIN 10.6 g/dL (14.0-18.0); LYMPHOCYTES % (AUTO) 32.1 %; MEAN CORPUSCULAR HEMOGLOBIN 31.2 pg (27.0-31.0); MEAN CORPUSCULAR HGB CONC 35.1 g/dL (32.0-36.0); MEAN CORPUSCULAR VOLUME 88.8 fL (80.0-94.0); MEAN PLATELET VOLUME 10.8 fL (7.4-11.4); MONOCYTES % (AUTO) 3.7 %; PLT - PLATELET COUNT 141 10^3/uL (130-450); RED CELL DISTRIBUTION WIDTH 11.5 % (12.0-15.0)
[2020-06-08 15:41] LABS: WHITE BLOOD COUNT 1.3 x10^3/uL (4.8-10.8)
[2020-06-08 15:42] LABS: ABNORMAL LYMPHS % (MANUAL) 0 %; BAND NEUTROPHILS % (MANUAL) 0 %
[2020-06-08] MEDS ORDERED: HALOPERIDOL 5 MG/ML VIAL IVP ONE ×2 (15:42→19:12)
--- NOTE | 2020-06-08 15:43 | ED Physician Documentation ---
PD HPI ABD PAIN - Stated complaint Stated Complaint: VOMITING,NAUSEA - Chief complaint Chief Complaint: Abd Pain - History obtained from History obtained from: Patient - Treatment prior to arrival Treatment prior to arrival: Recent dx metastatic pancreatic CA, first round chemo 5 days ago with progressive Nausea and vomiting over the last few days. Seen last night and feeling better after meds. But oral Zofran at home was not helpful. No current pain except for soreness from the vomiting. Denies fevers. No diarrhea. - Additional information Additional information: For him the most distressing thing is hiccups. Of note he is tearful having lost his just a few days ago. Review of Systems Ten Systems: 10 systems reviewed and negative Constitutional: reports: Fatigue, Weight Loss Cardiac: denies: Chest pain / pressure, Palpitations Respiratory: denies: Dyspnea, Cough PD PAST MEDICAL HISTORY - Past Medical History Cardiovascular: Hypertension, High cholesterol, Coronary artery disease Respiratory: Sleep apnea Neuro: Peripheral neuropathy Endocrine/Autoimmune: Type 1 diabetes (dx 25 years ago) GI: GERD : Benign prostate hypertrophy, Renal insuffiency, Kidney stones HEENT: Glaucoma, Other (Diabetic retinopathy (receives injections)) Psych: Depression, Panic attacks, Post traumatic stress disorder Musculoskeletal: Osteoarthritis, Gout Derm: Psoriasis - Past Surgical History Past Surgical History: Yes General: Cholecystectomy, Colonoscopy, EGD 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: Other (Kidney stone removal) Cardiovascular: Cardiac catheterization, Angioplasty HEENT: Cataracts - Present Medications Home Medications: Ambulatory Orders Medication Instructions Recorded Confirmed Insulin Aspart (Vial) [NovoLOG 15 - 25 unit SQ TID 10/28/12 06/08/20 (VIAL FOR ED USE)] Pantoprazole Sodium [Protonix] 40 mg PO DAILY 11/06/13 06/08/20 Doxazosin [Cardura] 4 mg PO DAILY 07/13/16 06/08/20 Finasteride [Proscar] 5 mg ORAL DAILY 07/13/16 06/08/20 Insulin Degludec [Tresiba 30 units SUBQ DAILY 08/28/17 06/08/20 Flextouch U-100] Atorvastatin Calcium 40 mg ORAL DAILY 03/26/18 06/08/20 Carvedilol [Coreg] 6.25 mg PO DAILY 04/30/20 06/08/20 Lisinopril [Zestril] 20 mg PO DAILY 04/30/20 06/08/20 Magnesium Oxide [Mag Ox] 400 mg PO DAILY 04/30/20 06/08/20 Ondansetron Odt [Zofran Odt] 4 mg PO Q6HR PRN 05/30/20 06/08/20 Brimonidine 0.2% Ophth Drops 1 drops TOP PRN PRN 06/02/20 06/08/20 [Alphagan P 0.2% Ophth Drops] Dorzolamide/Timolol/Pf [Timolol 1 drops TOP DAILY 06/02/20 06/08/20 0.5%-Dorzolamide 2%] Naloxone HCl [Narcan] 1 spray PO PRN PRN 06/02/20 06/08/20 Prochlorperazine Maleate 10 mg PO Q6H PRN 06/02/20 06/08/20 Senna [Senokot] 1 tab PO QPM 06/02/20 06/08/20 Travoprost [Travatan Z] 1 drops TOP BID 06/02/20 06/08/20 fentaNYL [Fentanyl 37.5mcg patch] 37.5 mcg TP Q72H 06/02/20 06/08/20 polyethylene glycoL 3350 [Miralax] 8.5 g PO DAILY 06/02/20 06/08/20 Prochlorperazine Supp [Compazine 25 mg [place] DAILY PRN 06/04/20 06/08/20 Supp] - Allergies Allergies/Adverse Reactions: Allergies Allergy/AdvReac Type Severity Reaction Status Date / Time brompheniramine Allergy Unknown Verified 06/08/20 03:04 codeine Allergy Hives Verified 06/08/20 03:04 hydrocodone Allergy Unknown Verified 06/08/20 03:04 NSAIDS (Non-Steroidal Allergy Anaphylaxis Verified 06/08/20 03:04 Anti-Inflamma propoxyphene Allergy Unknown Verified 06/08/20 03:04 amoxicillin [From Augmentin] AdvReac Unknown Verified 06/08/20 15:14 aspirin AdvReac Anaphylaxis Verified 06/08/20 15:14 clavulanic acid AdvReac Unknown Verified 06/08/20 15:14 [From Augmentin] hydroxyzine [From Vistaril] AdvReac Unknown Verified 06/08/20 15:14 lactose AdvReac Nausea Verified 06/08/20 15:14 meperidine [From Demerol] AdvReac Respiratory Verified 06/08/20 15:14 metformin AdvReac Unknown Verified 06/08/20 15:14 morphine AdvReac Unknown Verified 06/08/20 15:14 procaine [From Novocain] AdvReac Unknown Verified 06/08/20 15:14 promethazine HCl * AdvReac Unknown Verified 06/08/20 15:14 [From Phenergan] diphenhydramine/lidocaine/nystatin Allergy Anaphylaxis Uncoded 06/08/20 15:14 eggs Allergy Respiratory Uncoded 06/08/20 15:14 opiods Allergy Anaphylaxis Uncoded 06/08/20 15:14 tuberculin purified protein Allergy Unknown Uncoded 06/08/20 15:14 derivat sodium biphosphate AdvReac Unknown Uncoded 06/08/20 15:14 - Social History Does the pt smoke?: No Smoking Status: Never smoker Does the pt drink ETOH?: No Does the pt have substance abuse?: No - Immunizations Immunizations are current?: Yes - POLST Patient has POLST: No POLST Status: Full Code PD ED PE NORMAL - Vitals Vital signs reviewed: Yes - General General: Alert and oriented X 3, No acute distress - HEENT HEENT: PERRL, EOMI - Neck Neck: Supple, no meningeal sign, No bony TTP - Cardiac Cardiac: RRR, No murmur - Respiratory Respiratory: No respiratory distress, Clear bilaterally - Abdomen Abdomen: Soft, Non tender - Back Back: No CVA TTP, No spinal TTP - Derm Derm: Normal color, Warm and dry - Extremities Extremities: No edema, No calf tenderness / cord - Neuro Neuro: Alert and oriented X 3, Normal speech Results - Vitals Vitals: Vital Signs - 24 hr 06/08/20 06/08/20 06/08/20 15:15 15:54 16:00 Temperature 36.5 C Heart Rate 87 82 80 Respiratory 18 16 16 Rate Blood Pressure 157/80 H 166/82 H 163/69 H O2 Saturation 98 97 95 06/08/20 06/08/20 17:48 18:27 Temperature Heart Rate 92 92 Respiratory 18 18 Rate Blood Pressure 178/91 H 196/81 H O2 Saturation 98 99 Oxygen O2 Source Room air - Labs Labs: Laboratory Tests 06/08/20 06/08/20 06/08/20 15:25 15:25 19:53 WBC 1.3 L* RBC 3.40 L Hgb 10.6 L Hct 30.2 L MCV 88.8 MCH 31.2 H MCHC 35.1 RDW 11.5 L Plt Count 141 MPV 10.8 Neut # (Auto) Not Reportable Lymph # (Auto) Not Reportable [place] # (Auto) Not Reportable Eos # (Auto) Not Reportable Baso # (Auto) Not Reportable Absolute Nucleated RBC Not Reportable Total Counted 100 Band Neuts % (Manual) 0 Abnorm Lymph % (Manual) 0 Nucleated RBC % Not Reportable Neutrophils # (Manual) 0.8 L Lymphocytes # (Manual) 0.5 L Monocytes # (Manual) 0.0 Eosinophils # (Manual) 0.0 Basophils # (Manual) 0.0 Differential Comment MANUAL DIFFERENTIAL WBC Morphology NORMAL APPEARANCE Platelet Estimate NORMAL (130-450,000) Platelet Morphology NORMAL APPEARANCE RBC Morph Micro Appear NORMAL APPEARANCE Sodium 132 L Potassium 3.3 L Chloride 96 L Carbon Dioxide 25 Anion Gap 11.0 BUN 8 Creatinine 0.7 Estimated GFR (MDRD) 135 Glucose 262 H Calcium 8.7 Magnesium 1.7 Total Bilirubin 1.2 H AST 25 ALT 33 Alkaline Phosphatase 122 H Total Protein 6.0 L Albumin 2.9 L Globulin 3.1 Albumin/Globulin Ratio 0.9 L Nasal Adenovirus (PCR) NOT DETECTED Nasal B. parapertussis DNA (PCR) NOT DETECTED Nasal Coronavir 229E PCR NOT DETECTED Nasal Coronavir HKU1 PCR NOT DETECTED Nasal Coronavir NL63 PCR NOT DETECTED Nasal Coronavir OC43 PCR NOT DETECTED Nasal Enterovir/Rhinovir PCR NOT DETECTED Nasal Influenza B PCR NOT DETECTED Nasal Influenza A PCR NOT DETECTED Nasal Parainfluen 1 PCR NOT DETECTED Nasal Parainfluen 2 PCR NOT DETECTED Nasal Parainfluen 3 PCR NOT DETECTED Nasal Parainfluen 4 PCR NOT DETECTED Nasal RSV (PCR) NOT DETECTED Nasal B.pertussis DNA PCR NOT DETECTED Nasal C.pneumoniae (PCR) NOT DETECTED Ángel Human Metapneumo PCR NOT DETECTED Nasal M.pneumoniae (PCR) NOT DETECTED Nasal SARS-CoV-2 (PCR) NOT DETECTED PD MEDICAL DECISION MAKING - ED course ED course: 70-year-old gentleman with metastatic pancreatic cancer presents with chemotherapy related nausea and vomiting which is now intractable and received 4 doses of antiemetics in the department without resolution. Dr. Benavidez will observe. Departure - Departure Disposition: ED Place in Observation Clinical Impression: Hyperglycemia due to type 1 diabetes mellitus, Chemotherapy induced nausea and vomiting Condition: Stable Discharge Date/Time: 06/08/20 21:50
[2020-06-08 15:50] LABS: ALBUMIN 2.9 g/dL (3.2-5.5); ALBUMIN/GLOBULIN RATIO 0.9 (1.0-2.2); BILIRUBIN,TOTAL 1.2 mg/dL (0.2-1.0); CALCIUM 8.7 mg/dL (8.5-10.3); CREATININE 0.7 mg/dL (0.6-1.2); MAGNESIUM 1.7 mg/dL (1.7-2.8); POTASSIUM 3.3 mmol/L (3.5-5.0)
[2020-06-08 16:04] LABS: BASOPHILS % (MANUAL) 1 %; LYMPHOCYTES # (MANUAL) 0.5 10^3/uL (1.5-3.5); LYMPHOCYTES % (MANUAL) 37 %; NEUTROPHILS # (MANUAL) 0.8 10^3/uL (1.5-6.6)
[2020-06-08 16:05] LABS: DIFFERENTIAL COMMENT MANUAL DIFFERENTIAL; PLATELET ESTIMATE, MANUAL NORMAL (130-450,000) (NORMAL); PLATELET MORPHOLOGY NORMAL APPEARANCE (NORMAL); RBC MORPHOLOGY (MULTIPLE) NORMAL APPEARANCE (NORMAL); WBC MORPHOLOGY (MULTIPLE) NORMAL APPEARANCE (NORMAL)
[2020-06-08] MEDS ORDERED: METOCLOPRAMIDE 10 MG/2 ML VIAL IVP STA (17:53)
[2020-06-08] MEDS ORDERED: NS W/20 MEQ KCL 1,000 ML IV STA (18:29)
[2020-06-08 20:52] LABS: B. PARAPERTUSSIS- RESP PCR PAN NOT DETECTED; B. PERTUSSIS- RESP PCR PANEL NOT DETECTED; C. PNEUMONIAE- RESP PCR PANEL NOT DETECTED; CORONAVIRUS 229E-RESP PCR NOT DETECTED; CORONAVIRUS HKU1-RESP PCR NOT DETECTED; CORONAVIRUS NL63-RESP PCR NOT DETECTED; CORONAVIRUS OC43-RESP PCR NOT DETECTED; HUMAN METAPNEUMOVIRUS NOT DETECTED; INFLUENZA A- RESP PCR PANEL NOT DETECTED; INFLUENZA B - RESP PCR PANEL NOT DETECTED; M. PNEUMONIAE- RESP PCR PANEL NOT DETECTED; PARAINFLUENZA VIRUS 1 NOT DETECTED; PARAINFLUENZA VIRUS 2 NOT DETECTED; PARAINFLUENZA VIRUS 3 NOT DETECTED; PARAINFLUENZA VIRUS 4 NOT DETECTED; RHINOVIRUS/ENTEROVIRUS NOT DETECTED; RSV- RESP PCR PANEL NOT DETECTED; SARS-CoV-2 -RESP PCR PANEL NOT DETECTED
[2020-06-08] MEDS ORDERED: DEXTROSE 5%-0.9% NACL 1,000 ML IV SCH (21:00)
[2020-06-08] MEDS ORDERED: FENTANYL TP SCH (21:00)
--- OUTSIDE RECORDS SUMMARY | 2020-06-08 21:02 | EXTERNAL MEDICAL SUMMARY RPT | Continuity of Care Document ---
:1950 Demographics Phone Unavailable Preferred Language Setswana Marital Status Unknown Lutheran Affiliation Unknown Race Unknown Ethnic Group Unknown Author Organization [place] Address [address] [id number] Phone Care Team Providers Name Role Phone Clerc Unavailable Unavailable Allison Unavailable Unavailable Botnick Unavailable Unavailable Problems date description facility [id number] [facility], [id number] ne[facility] of pancreas, [facility] [id number] Other specified diseases of pancreas [facility] [id number] Secondary malignant neoplasm of left [facility] [id number] Secondary malignant neoplasm of liver a [facility] bile [id number] Secondary malignant neoplasm of right [facility] [id number] Secondary malignant neoplasm of [facility] 12796853 Malignant neoplasm of pancreas, [facility] [id number] [facility], [facility] [id number] Secondary malignant neoplasm of left [facility] 19043825 Secondary malignant neoplasm of liver a [facility] bile 33305884 Secondary malignant neoplasm of right [facility] [id number] Secondary malignant neoplasm of [facility] Medications date description facility [id number] Ondansetron 4 MG Disintegrating Tablet [facility] 03269800 Ondansetron 4 MG Disintegrating Tablet [facility] 49835386 Ondansetron 4 MG Disintegrating Tablet [facility] 78869284 24 HR Divalproex Sodium 500 MG Extended Release Tablet [facility] 29139441 olopatadine 1 MG/ML Ophthalmic Solution [facility] 44694828 Doxazosin 4 MG Oral Tablet [facility] 52356994 Prazosin 5 MG Oral Capsule [facility] 35777179 carvedilol 6.25 MG Oral Tablet [facility] 44254442 Famotidine [address] [facility] 83633972 Finasteride [address] [facility] 20200504 Lisinopril [address] [facility] 20200504 pantoprazole 40 MG Enteric Coated Table [facility] 03600268 atorvastatin 40 MG Oral Tablet [facility] 20200504 tramadol hydrochloride 50 MG Oral Table [facility] 20200504 3 ML Insulin Glargine 100 UNT/ML Prefil led Syringe [facility] 93937588 Brimonidine tartrate 2 MG/ML [facility] 08320385 24 HR Divalproex Sodium 500 MG Extended Release Tablet [facility] 06412260 olopatadine 1 MG/ML [facility] 62605653 Doxazosin 4 MG Oral Tablet [facility] 76016944 Prazosin 5 MG Oral Capsule [facility] 41321592 carvedilol 6.25 MG Oral Tablet [facility] 43493717 Famotidine 40 MG Oral Tablet [facility] 12314481 Finasteride [address] [facility] 46714106 Lisinopril [address] [facility] 34419204 pantoprazole 40 MG Enteric Coated [facility] 13146486 atorvastatin 40 MG Oral Tablet [facility] 89328834 tramadol hydrochloride 50 MG Oral [facility] 64675972 3 ML Insulin Glargine 100 UNT/ML Prefil led [facility] 86563387 Brimonidine tartrate 2 MG/ML [facility] 29373245 Ondansetron 4 MG Disintegrating Tablet [facility] 81622579 pantoprazole 40 MG Enteric Coated [facility] 11962894 Ondansetron 4 MG Disintegrating Tablet [facility] 38728548 pantoprazole 40 MG Enteric Coated [facility] 47462804 Metoclopramide 10 MG Oral Tablet [facility] 03772703 atorvastatin 40 MG Oral Tablet [facility] 59550382 Baclofen 10 MG Oral Tablet [facility] Procedures date description facility [id number] [facility] date description facility [id number] [facility] date description facility [id number] [facility] date description facility [id number] [facility] date description facility [id number] [facility] date description facility [id number] [facility] date description facility [id number] [facility] date description facility [id number] [facility] date description facility [id number] [facility] date description facility [id number] [facility] date description facility [id number] [facility] date description facility [id number] [facility] date description facility [id number] [facility] Vital Signs date measurement value source 20200503 BMI 27.8 kg/m2 20200503 BP_diastolic 82 mm[Hg] 20200503 BP_systolic 153 mm[Hg] 20200503 heart_rate 85 /min 20200503 height_metric 185.42 cm 20200503 height_standard 73 in 20200503 respiration_rate 18 /min 20200503 temperature_metric 36.33 C 20200503 temperature_standard 97.4 F 20200503 weight_metric 43.41 kg 20200503 weight_standard 95.71 lb date measurement value source 20200505 BMI 27.6 kg/m2 20200505 BP_diastolic 81 mm[Hg] 61874011 BP_systolic 156 mm[Hg] 20200505 heart_rate 80 /min [...] weight_standard 86.18 lb date measurement value source 68562391 BMI 23.7 kg/m2 17280999 BP_diastolic 74 mm[Hg] 80910822 BP_systolic 159 mm[Hg] 20200605 heart_rate 104 /min 20200605 height_metric 185.42 cm 20200605 height_standard 73 in 20200605 respiration_rate 13 /min 20200605 temperature_metric 36.83 C 20200605 temperature_standard 98.3 F 20200605 weight_metric 37.03 kg 20200605 weight_standard 81.65 lb date measurement value source 20200607 BP_diastolic 58 mm[Hg] 52003961 BP_systolic 151 mm[Hg] 20200607 heart_rate 84 /min 20200607 respiration_rate 17 /min 20200607 temperature_metric 36.56 C 20200607 temperature_standard 97.8 F Social History date description facility [id number]
[2020-06-08] MEDS: FAMOTIDINE 20 MG/2 ML VIAL IVP SCH (21:49)
[2020-06-08] MEDS: SUCRALFATE 1 GM/10 ML UDC PO PRN (21:49)
[2020-06-08] MEDS: METOPROLOL 5 MG/5 ML VIAL IVP SCH (21:49)
[2020-06-08] MEDS ORDERED: fentaNYL 50 MCG PATCH TOP SCH (22:00)
--- NOTE | 2020-06-08 22:10 | HISTORY & PHYSICAL EXAMINATION ---
History of Present Illness - History Obtained From History obtained from: Patient and ED provider summary - History of Present Illness HPI Comment/Other: This is a 70-year-old black male, born in [facility], moved to the as a child with his parents, has been in the [employer] at [place]. He has a history of DM type I diagnosed 25 years ago, sleep apnea, CAD, BPH, glaucoma who has had extensive work-up for longstanding abdominal pain and recently underwent pancreas biopsy that showed cancer. He had a port placed and was just started on chemotherapy last week. He has suffered incessant nausea and vomiting since chemo and has been seen at [facility] emergency room and at our ER for managing nausea, vomiting and dehydration, incessant hiccups, has had IV fluids, pain medicines and various forms of treatment tried for the hiccups. His 4 days ago. He he was in our ER this last night but left in order to be present at her which was today. He presents back to the emergency room this evening with complaints of 10/10 abdominal pain and continued incessant nausea, vomiting and hiccups. History - Past Medical History Cardiovascular: reports: Hypertension, High cholesterol, Coronary artery disease Respiratory: reports: Sleep apnea Neuro: reports: Peripheral neuropathy Endocrine/Autoimmune: reports: Type 1 diabetes GI: reports: GERD, Other (Pancreatic cancer) : reports: Benign prostate hypertrophy, Renal insuffiency, Kidney stones HEENT: reports: Glaucoma, Other (Diabetic retinopathy (receives injections)) Psych: reports: Depression, Panic attacks, Post traumatic stress disorder Musculoskeletal: reports: Osteoarthritis, Gout Derm: reports: Psoriasis MRSA Hx?: No - Past Surgical History General: reports: Cholecystectomy, Colonoscopy, EGD Ortho: reports: Arthroscopic surgery /PHOTOGRAPHY EDITOR: reports: Other Cardiovascular: reports: Cardiac catheterization, Angioplasty HEENT: reports: Cataracts Other past surgical history: Pancreas biopsy several weeks ago - Family & Social History Family History: Mother: Alive and Well, Father: Alive and Well, Sister: Alive and Well, Brother: Alive and Well Family History Comment/Other: The patient denies any family history of diabetes, hypertension, heart disease or cancer. He also denies any family history of any gastrointestinal problems. Living arrangement: At home Living Situation: Alone (His several days ago and her was just today) Social History Notes: The patient lived in [place] with his and 6 children. The 4 days ago. He is originally from [facility] [place], then [place] but moved over here with the [employer]. He is retired [employer]. He denies any alcohol use, history of tobacco use or any illicit drug use. - Substance History Use: Uses substance without health or social issues: NONE (Never used tobacco or drank alcohol) - POLST Patient has POLST: No POLST Status: Full Code Meds/Allgy - Home Medications Home Medications: Ambulatory Orders Medication Instructions Recorded Confirmed Insulin Aspart (Vial) [NovoLOG 15 - 25 unit SQ TID 10/28/12 06/08/20 (VIAL FOR ED USE)] Pantoprazole Sodium [Protonix] 40 mg PO DAILY 11/06/13 06/08/20 Doxazosin [Cardura] 4 mg PO DAILY 07/13/16 06/08/20 Finasteride [Proscar] 5 mg ORAL DAILY 07/13/16 06/08/20 Insulin Degludec [Tresiba 30 units SUBQ DAILY 08/28/17 06/08/20 Flextouch U-100] Atorvastatin Calcium 40 mg ORAL DAILY 03/26/18 06/08/20 Carvedilol [Coreg] 6.25 mg PO DAILY 04/30/20 06/08/20 Lisinopril [Zestril] 20 mg PO DAILY 04/30/20 06/08/20 Magnesium Oxide [Mag Ox] 400 mg PO DAILY 04/30/20 06/08/20 Ondansetron Odt [Zofran Odt] 4 mg PO Q6HR PRN 05/30/20 06/08/20 Brimonidine 0.2% Ophth Drops 1 drops TOP PRN PRN 06/02/20 06/08/20 [Alphagan P 0.2% Ophth Drops] Dorzolamide/Timolol/Pf [Timolol 1 drops TOP DAILY 06/02/20 06/08/20 0.5%-Dorzolamide 2%] Naloxone HCl [Narcan] 1 spray PO PRN PRN 06/02/20 06/08/20 Prochlorperazine Maleate 10 mg PO Q6H PRN 06/02/20 06/08/20 Senna [Senokot] 1 tab PO QPM 06/02/20 06/08/20 Travoprost [Travatan Z] 1 drops TOP BID 06/02/20 06/08/20 fentaNYL [Fentanyl 37.5mcg patch] 37.5 mcg TP Q72H 06/02/20 06/08/20 polyethylene glycoL 3350 [Miralax] 8.5 g PO DAILY 06/02/20 06/08/20 Prochlorperazine Supp [Compazine 25 mg MA DAILY PRN 06/04/20 06/08/20 Supp] - Allergies Allergies/Adverse Reactions: Allergies Allergy/AdvReac Type Severity Reaction Status Date / Time brompheniramine Allergy Unknown Verified 06/08/20 03:04 codeine Allergy Hives Verified 06/08/20 03:04 hydrocodone Allergy Unknown Verified 06/08/20 03:04 NSAIDS (Non-Steroidal Allergy Anaphylaxis Verified 06/08/20 03:04 Anti-Inflamma propoxyphene Allergy Unknown Verified 06/08/20 03:04 amoxicillin [From Augmentin] AdvReac Unknown Verified 06/08/20 15:14 aspirin AdvReac Anaphylaxis Verified 06/08/20 15:14 clavulanic acid AdvReac Unknown Verified 06/08/20 15:14 [From Augmentin] hydroxyzine [From Vistaril] AdvReac Unknown Verified 06/08/20 15:14 lactose AdvReac Nausea Verified 06/08/20 15:14 meperidine [From Demerol] AdvReac Respiratory Verified 06/08/20 15:14 metformin AdvReac Unknown Verified 06/08/20 15:14 morphine AdvReac Unknown Verified 06/08/20 15:14 procaine [From Novocain] AdvReac Unknown Verified 06/08/20 15:14 promethazine HCl * AdvReac Unknown Verified 06/08/20 15:14 [From Phenergan] diphenhydramine/lidocaine/nystatin Allergy Anaphylaxis Uncoded 06/08/20 15:14 eggs Allergy Respiratory Uncoded 06/08/20 15:14 opiods Allergy Anaphylaxis Uncoded 06/08/20 15:14 tuberculin purified protein Allergy Unknown Uncoded 06/08/20 15:14 derivat sodium biphosphate AdvReac Unknown Uncoded 06/08/20 15:14 Review of Systems - Constitutional Constitutional: reports: Weakness - Gastrointestinal Gastrointestinal: reports: Abdominal pain, Nausea, Vomiting Exam - Vital Signs Reviewed Vital Signs: Yes Vital Signs: Vital Signs x48h Temp Pulse Resp BP Pulse Ox 06/08/20 21:00 36.5 C 81 18 169/74 H 99 06/08/20 18:27 92 18 196/81 H 99 06/08/20 17:48 92 18 178/91 H 98 06/08/20 16:00 80 16 163/69 H 95 06/08/20 15:54 82 16 166/82 H 97 06/08/20 15:15 36.5 C 87 18 157/80 H 98 - Physical Exam General Appearance: positive: Moderate distress Eyes Bilateral: positive: Normal inspection, EOMI ENT: positive: ENT inspection nml, Dry mucous membranes Neck: positive: Nml inspection, No JVD Respiratory: positive: No respiratory distress, Breath sounds nml Cardiovascular: positive: Regular rate & rhythm, No murmur Abdomen: positive: No distention, Other (Diminished bowel sounds. Tender in the lower midabdomen. No guarding or rebound.) Skin: positive: Color nml, Warm, Dry Extremities: positive: Non-tender, No pedal edema Neurologic/Psychiatric: positive: Oriented x3, Motor nml Conclusion/Plan - Problem List (1) Chemotherapy induced nausea and vomiting Conclusion/Plan: Continue IV fluids for hydration. Continue with IV antiemetics alternating Zofran and Compazine if needed. Will give empiric IV Pepcid twice daily. We will treat hiccups with IV Haldol which has worked in the past and also as needed sucralfate. Ice chips will be tried and advance to clear liquids as tolerated (2) Pancreatic cancer Conclusion/Plan: As per recent history. He has had his first round of chemo 5 days ago. The patient has started to see SOPHIA Hightower, in palliative care. He is on a fentanyl patch of 37.5 mg every 3 days, from home meds. We will order an increased Fentanyl dose since he needs better pain control. He is allergic to nearly all narcotics therefore those will not be ordered. (3) Hyponatremia Conclusion/Plan: D5 with NS will be ordered Follow BMP daily (4) Hypokalemia Conclusion/Plan: Corrected with IV K riders. Follow BMP daily (5) Chemotherapy induced neutropenia Conclusion/Plan: There is been no neutropenic fever to start empiric antibiotics. Follow CBC daily. Will order neutropenic precautions. (6) DM type 1 (diabetes mellitus, type 1) Conclusion/Plan: He uses 3 times daily short acting sq insulin and a trade name long-acting sq insulin that we do not carry on formulary. We will start sliding scale insulin for patient who is n.p.o., start hypoglycemic protocol as well and follow fingerstick glucose checks. Start empiric Lantus 5 units daily only Check A1c with the morning labs (7) Sleep apnea Conclusion/Plan: Will order his CPAP from home to be used while here (8) Hx of coronary artery disease Conclusion/Plan: Is beta-maite but will change to IV form since it is unlikely he can swallow a lot of p.o. meds by tomorrow. He is not on aspirin according to his med list. His cholesterol medication will be on hold temporarily till his diet resumes. Will also continue his medications for BPH, glaucoma (9) Grief reaction Conclusion/Plan: The 's was today, in [place]. She had lung cancer and then complications from Covid and also suffered cardiac arrest in our hospital's parking lot, for which there was CPR done and she did not survive. We will order Social Work consult for support during grief reaction. - Lab Results Fish Bones: 06/08/20 15:25 06/08/20 15:25
[2020-06-08] MEDS: ONDANSETRON 4 MG/2 ML VIAL IVP PRN (23:54)
[2020-06-09] MEDS: SODIUM CHLORIDE FLUSH 0.9% 10 ML SYRINGE IVP SCH ×3 (00:12→18:09)
[2020-06-09] MEDS: METOPROLOL 5 MG/5 ML VIAL IVP SCH (05:56)
[2020-06-09 06:18] LABS: EOSINOPHILS % (AUTO) 1.8 %; HCT - HEMATOCRIT 29.8 % (42.0-52.0); HGB - HEMOGLOBIN 10.4 g/dL (14.0-18.0); LYMPHOCYTES % (AUTO) 29.6 %; MEAN CORPUSCULAR HGB CONC 34.9 g/dL (32.0-36.0); MEAN PLATELET VOLUME 10.3 fL (7.4-11.4); MONOCYTES % (AUTO) 4.7 %; NEUTROPHILS % (AUTO) 63.9 %; PLT - PLATELET COUNT 125 10^3/uL (130-450); RED BLOOD COUNT 3.35 10^6/uL (4.70-6.10); RED CELL DISTRIBUTION WIDTH 11.3 % (12.0-15.0)
[2020-06-09 06:21] LABS: WHITE BLOOD COUNT 1.7 x10^3/uL (4.8-10.8)
[2020-06-09 06:22] LABS: ABNORMAL LYMPHS % (MANUAL) 0 %; BAND NEUTROPHILS % (MANUAL) 0 %
[2020-06-09 06:26] LABS: CALCIUM 7.9 mg/dL (8.5-10.3); CREATININE 0.7 mg/dL (0.6-1.2); POTASSIUM 2.9 mmol/L (3.5-5.0)
[2020-06-09 06:34] LABS: LYMPHOCYTES # (MANUAL) 0.6 10^3/uL (1.5-3.5); LYMPHOCYTES % (MANUAL) 33 %; NEUTROPHILS # (MANUAL) 1.1 10^3/uL (1.5-6.6)
[2020-06-09 06:35] LABS: DIFFERENTIAL COMMENT MANUAL DIFFERENTIAL; PLATELET ESTIMATE, MANUAL NORMAL (130-450,000) (NORMAL); PLATELET MORPHOLOGY NORMAL APPEARANCE (NORMAL); RBC MORPHOLOGY (MULTIPLE) NORMAL APPEARANCE (NORMAL); WBC MORPHOLOGY (MULTIPLE) NORMAL APPEARANCE (NORMAL)
[2020-06-09] MEDS: INSULIN REGULAR HUMAN 300 UNIT/3 ML VIAL SUBQ SCH ×4 (07:04→19:16)
[2020-06-09] MEDS ORDERED: ACETAMINOPHEN 325 MG TABLET PO PRN (07:37)
[2020-06-09] MEDS ORDERED: NALOXONE HCL 4 MG PO PRN (08:00)
[2020-06-09] MEDS: POTASSIUM CHLOR 10 MEQ/100 ML 10 MEQ/100 ML BAG IV SCH ×6 (08:02→13:20)
[2020-06-09] MEDS ORDERED: PROCHLORPERAZINE 25 MG SUPP PR PRN (08:04)
[2020-06-09] MEDS: ONDANSETRON 4 MG/2 ML VIAL IVP PRN ×3 (08:16→19:27)
[2020-06-09] MEDS ORDERED: PROCHLORPERAZINE 5 MG TABLET PO PRN (08:20)
[2020-06-09 08:36] LABS: MAGNESIUM 1.6 mg/dL (1.7-2.8); PHOSPHORUS 1.8 mg/dL (2.5-4.6)
[2020-06-09] MEDS ORDERED: chlorproMAZINE 25 MG TABLET PO PRN (08:51)
[2020-06-09] MEDS: FAMOTIDINE 20 MG/2 ML VIAL IVP SCH ×2 (09:37→20:49)
[2020-06-09] MEDS: MAGNESIUM OXIDE 400 MG TABLET PO SCH (09:37)
[2020-06-09] MEDS: carvediloL 3.125 MG TABLET PO SCH (09:37)
[2020-06-09] MEDS: FINASTERIDE 5 MG TABLET PO SCH (09:38)
[2020-06-09] MEDS: INSULIN GLARGINE 300 UNIT/3 ML PEN SUBQ SCH (09:38)
[2020-06-09] MEDS: DORZOLAMIDE/TIMOLOL OPHTH DROPS EACHEYE SCH (10:07)
[2020-06-09] MEDS: lisinopriL 20 MG TABLET PO SCH (10:10)
[2020-06-09] MEDS: DOXAZOSIN 4 MG TABLET PO SCH (10:17)
[2020-06-09] MEDS ORDERED: METOCLOPRAMIDE 10 MG/2 ML VIAL IVP PRN (10:32)
[2020-06-09] MEDS: NEUTRA-PHOS 250 MG TABLET PO SCH ×2 (11:31→20:48)
--- NOTE | 2020-06-09 12:19 | PROVIDER PROGRESS NOTE ---
Subjective - Prog Note Date Prog Note Date: 06/09/20 - Subjective Pt reports feeling: No change Subjective: pt still present significant nausea and vomiting, very poor appetite and can not swallow down food. pt report his pain is good control with FentaNYL patch and Tylenol. pt also present Hiccups. This is his chronic condition but worsening. Patient reported he had his oncologist appointment on tomorrow [id number], He really hope to catch that appointment. Current Medications - Current Medications Current Medications: Active Medications Acetaminophen (Acetaminophen 325 Mg Tablet) 650 mg PO Q4HR PRN PRN Reason: Pain or Fever > 38C (100.4F) Last Admin: 06/09/20 08:01 Dose: 650 mg Documented by: Carvedilol (Carvedilol 3.125 Mg Tablet) 6.25 mg PO DAILY [facility] Last Admin: 06/09/20 09:37 Dose: 6.25 mg Documented by: Dorzolamide/Timolol (Dorzolamide/Timolol Ophth Drops) 1 drops EACHEYE DAILY [facility] Last Admin: 06/09/20 10:07 Dose: 1 drops Documented by: Doxazosin Mesylate (Doxazosin 4 Mg Tablet) 4 mg PO DAILY [facility] Last Admin: 06/09/20 10:17 Dose: 4 mg Documented by: Famotidine (Famotidine 20 Mg/2 Ml Vial) 20 mg IVP BID [facility] Last Admin: 06/09/20 09:37 Dose: 20 mg Documented by: Fentanyl (Fentanyl 50 Mcg Patch) 1 patch TOP Q3D [facility] Last Admin: 06/08/20 22:26 Dose: 1 patch Documented by: Finasteride (Finasteride 5 Mg Tablet) 5 mg PO DAILY [facility] Last Admin: 06/09/20 09:38 Dose: 5 mg Documented by: Haloperidol (Haloperidol 5 Mg/Ml Vial) 1 mg IVP Q6H PRN PRN Reason: Hiccups Potassium Chloride (Potassium Chloride) 10 meq in 100 mls @ 100 mls/hr IV Q1H [facility] Stop: 06/09/20 12:59 Last Admin: 06/09/20 12:08 Dose: 100 mls/hr Documented by: Potassium Chloride/Sodium Chloride (Normal Saline 0.9% W/20 Meq Kcl) 1,000 mls @ 100 mls/hr IV .Q10H [facility] Insulin Glargine (Insulin Glargine 300 Unit/3 Ml Pen) 5 unit SUBQ DAILY [facility] Last Admin: 06/09/20 09:38 Dose: 5 unit Documented by: Insulin Human Regular (Insulin Regular Human 300 Unit/3 Ml Vial) 1 - 5 unit SUBQ Q6HR [facility]; Protocol Last Admin: 06/09/20 11:38 Dose: 3 unit Documented by: Latanoprost (Latanoprost 0.005% Ophth Drops) 1 drops EACHEYE QPM [facility] Lisinopril (Lisinopril 20 Mg Tablet) 20 mg PO DAILY [facility] Last Admin: 06/09/20 10:10 Dose: 20 mg Documented by: Magnesium Oxide (Magnesium Oxide 400 Mg Tablet) 400 mg PO DAILY [facility] Last Admin: 06/09/20 09:37 Dose: 400 mg Documented by: Magnesium Oxide (Magnesium Oxide 400 Mg Tablet) 400 mg PO ONCE [facility] Stop: 06/09/20 16:00 Metoclopramide HCl (Metoclopramide 10 Mg/2 Ml Vial) 5 mg IVP Q6HR PRN PRN Reason: Nausea / Vomiting Ondansetron HCl (Ondansetron 4 Mg/2 Ml Vial) 4 mg IVP Q6HR PRN PRN Reason: Nausea / Vomiting Last Admin: 06/09/20 08:16 Dose: 4 mg Documented by: Prochlorperazine Maleate (Prochlorperazine 25 Mg Supp) 25 mg OK DAILY PRN PRN Reason: Nausea / Vomiting Prochlorperazine Maleate (Prochlorperazine 5 Mg Tablet) 10 mg PO Q6HR PRN PRN Reason: Nausea / Vomiting Last Admin: 06/09/20 11:31 Dose: 10 mg Documented by: Sodium Chloride (Sodium Chloride Flush 0.9% 10 Ml Syringe) 10 ml IVP PRN PRN PRN Reason: NEEDED PER PROVIDER ORDERS Sodium Chloride (Sodium Chloride Flush 0.9% 10 Ml Syringe) 10 ml IVP 0100,0900,1700 [facility] Last Admin: 06/09/20 09:38 Dose: 10 ml Documented by: Sodium Phosphate (Neutra-Phos 250 Mg Tablet) 250 mg PO TIDWM [facility] Last Admin: 06/09/20 11:31 Dose: 250 mg Documented by: Sucralfate (Sucralfate 1 Gm/10 Ml Udc) 1 gm PO 0700,1100,1600,2200 PRN PRN Reason: Heartburn Last Admin: 06/08/20 21:49 Dose: 1 gm Documented by: Insulin Aspart (Vial) [NovoLOG (VIAL FOR ED USE)] 15 - 25 unit SQ TID 10/28/12 Pantoprazole Sodium [Protonix] 40 mg PO DAILY 11/06/13 Doxazosin [Cardura] 4 mg PO DAILY 07/13/16 Finasteride [Proscar] 5 mg ORAL DAILY 07/13/16 Insulin Degludec [Tresiba Flextouch U-100] 30 units SUBQ DAILY 08/28/17 Atorvastatin Calcium 40 mg ORAL DAILY 03/26/18 Carvedilol [Coreg] 6.25 mg PO DAILY 04/30/20 Lisinopril [Zestril] 20 mg PO DAILY 04/30/20 Magnesium Oxide [Mag Ox] 400 mg PO DAILY 04/30/20 Ondansetron Odt [Zofran Odt] 4 mg PO Q6HR PRN 05/30/20 Brimonidine 0.2% Ophth Drops [Alphagan P 0.2% Ophth Drops] 1 drops TOP PRN PRN 06/02/20 Dorzolamide/Timolol/Pf [Timolol 0.5%-Dorzolamide 2%] 1 drops TOP DAILY 06/02/20 Naloxone HCl [Narcan] 1 spray PO PRN PRN 06/02/20 Prochlorperazine Maleate 10 mg PO Q6H PRN 06/02/20 Senna [Senokot] 1 tab PO QPM 06/02/20 Travoprost [Travatan Z] 1 drops TOP BID 06/02/20 fentaNYL [Fentanyl 37.5mcg patch] 37.5 mcg TP Q72H 06/02/20 polyethylene glycoL 3350 [Miralax] 8.5 g PO DAILY 06/02/20 Prochlorperazine Supp [Compazine Supp] 25 mg OK DAILY PRN 06/04/20 Objective - Vital Signs/Intake & Output Vital Signs: Vital Signs x48h Temp Pulse Resp BP BP Pulse Ox 06/09/20 11:27 36.7 C 78 18 159/73 H 98 06/09/20 07:47 37.1 C 77 18 151/67 H 97 06/09/20 05:56 153/78 H 06/09/20 05:00 37.1 C 77 20 156/78 H 93 Intake & Output: Intake & Output 06/06/20 06/07/20 06/08/20 06/09/20 23:59 23:59 23:59 23:59 Intake Total 8230.532 5859 Output Total 1400 1075 Balance 4.170 430 - Objective General Appearance: positive: Alert, Mild distress. negative: Lethargic Eyes Bilateral: positive: Normal inspection, PERRL, No lid inflammation ENT: positive: ENT inspection nml. negative: Purulent nasal drainage Neck: positive: Nml inspection, Trachea midline. negative: Thyromegaly, Tracheal deviation Respiratory: positive: Chest non-tender, No respiratory distress. negative: Whe ezes, Rales Cardiovascular: positive: Regular rate & rhythm, No murmur. negative: Tachycardia, Bradycardia, Systolic murmur, Diastolic murmur Peripheral Pulses: 2+ Radial (R), 2+ Radial (L) Abdomen: positive: Non-tender, Nml bowel sounds. negative: Tenderness Back: positive: Nml inspection Skin: positive: Color nml, Warm, Dry. negative: Cyanosis Extremities: positive: Non-tender, Full ROM, Nml appearance. negative: Calf tenderness Neurologic/Psychiatric: positive: Oriented x3, Motor nml, Sensation nml. negative: Weakness, Sensory loss, Facial droop, Slurred/abnml speech - Lab Results Fish Bones: 06/09/20 05:59 06/09/20 05:59 Other Labs: Lab Results x24hrs 06/09/20 06/09/20 06/09/20 Range/Units 11:14 08:08 05:59 WBC (4.8-10.8) x10^3/uL RBC (4.70-6.10) 10^6/uL Hgb (14.0-18.0) g/dL Hct (42.0-52.0) % MCV (80.0-94.0) fL MCH (27.0-31.0) pg MCHC (32.0-36.0) g/dL RDW (12.0-15.0) % Plt Count (130-450) 10^3/uL MPV (7.4-11.4) fL Neut # (Auto) Lymph # (Auto) Mchenry # (Auto) Eos # (Auto) Baso # (Auto) Absolute Nucleated RBC Total Counted Band Neuts % (Manual) (0 - 10) % Abnorm Lymph % (Manual) % Nucleated RBC % Neutrophils # (Manual) (1.5-6.6) 10^3/uL Lymphocytes # (Manual) (1.5-3.5) 10^3/uL Monocytes # (Manual) (0.0-1.0) 10^3/uL Eosinophils # (Manual) (0-0.7) 10^3/uL Basophils # (Manual) (0-0.1) 10^3/uL Differential Comment WBC Morphology (NORMAL) Platelet Estimate (NORMAL) Platelet Morphology (NORMAL) RBC Morph Micro Appear (NORMAL) Sodium 131 L (135-145) mmol/L Potassium 2.9 L (3.5-5.0) mmol/L Chloride 97 L (101-111) mmol/L Carbon Dioxide 26 (21-32) mmol/L Anion Gap 8.0 (6-13) BUN 6 (6-20) mg/dL Creatinine 0.7 (0.6-1.2) mg/dL Estimated GFR (MDRD) 135 (>89) Glucose 259 H (70-100) mg/dL POC Whole Bld Glucose 230 H (70 - 100) mg/dL Calcium 7.9 L (8.5-10.3) mg/dL Phosphorus 1.8 L (2.5-4.6) mg/dL Magnesium 1.6 L (1.7-2.8) mg/dL Total Bilirubin (0.2-1.0) mg/dL AST (10-42) IU/L ALT (10-60) IU/L Alkaline Phosphatase (42-121) IU/L Total Protein (6.7-8.2) g/dL Albumin (3.2-5.5) g/dL Globulin (2.1-4.2) g/dL Albumin/Globulin Ratio (1.0-2.2) Nasal Adenovirus (PCR) Nasal B. parapertussis DNA (PCR) Nasal Coronavir 229E PCR Nasal Coronavir HKU1 PCR Nasal Coronavir NL63 PCR Nasal Coronavir OC43 PCR Nasal Enterovir/Rhinovir PCR Nasal Influenza B PCR Nasal Influenza A PCR Nasal Parainfluen 1 PCR Nasal Parainfluen 2 PCR Nasal Parainfluen 3 PCR Nasal Parainfluen 4 PCR Nasal RSV (PCR) Nasal B.pertussis DNA PCR Nasal C.pneumoniae (PCR) Ángel Human Metapneumo PCR Nasal M.pneumoniae (PCR) Nasal SARS-CoV-2 (PCR) 06/09/20 06/08/20 06/08/20 Range/Units 05:59 23:53 19:53 WBC 1.7 L* (4.8-10.8) x10^3/uL RBC 3.35 L (4.70-6.10) 10^6/uL Hgb 10.4 L (14.0-18.0) g/dL Hct 29.8 L (42.0-52.0) % MCV 89.0 (80.0-94.0) fL MCH 31.0 (27.0-31.0) pg MCHC 34.9 (32.0-36.0) g/dL RDW 11.3 L (12.0-15.0) % Plt Count 125 L (130-450) 10^3/uL MPV 10.3 (7.4-11.4) fL Neut # (Auto) Not Reportable Lymph # (Auto) Not Reportable Mchenry # (Auto) Not Reportable Eos # (Auto) Not Reportable Baso # (Auto) Not Reportable Absolute Nucleated RBC Not Reportable Total Counted 100 Band Neuts % (Manual) 0 (0 - 10) % Abnorm Lymph % (Manual) 0 % Nucleated RBC % Not Reportable Neutrophils # (Manual) 1.1 L (1.5-6.6) 10^3/uL Lymphocytes # (Manual) 0.6 L (1.5-3.5) 10^3/uL Monocytes # (Manual) 0.0 (0.0-1.0) 10^3/uL Eosinophils # (Manual) 0.0 (0-0.7) 10^3/uL Basophils # (Manual) 0.0 (0-0.1) 10^3/uL Differential Comment MANUAL DIFFERENTIAL WBC Morphology NORMAL APPEARANCE (NORMAL) Platelet Estimate NORMAL (130-450,000) (NORMAL) Platelet Morphology NORMAL APPEARANCE (NORMAL) RBC Morph Micro Appear NORMAL APPEARANCE (NORMAL) Sodium (135-145) mmol/L Potassium (3.5-5.0) mmol/L Chloride (101-111) mmol/L Carbon Dioxide (21-32) mmol/L Anion Gap (6-13) BUN (6-20) mg/dL Creatinine (0.6-1.2) mg/dL Estimated GFR (MDRD) (>89) Glucose (70-100) mg/dL POC Whole Bld Glucose 291 H (70 - 100) mg/dL Calcium (8.5-10.3) mg/dL Phosphorus (2.5-4.6) mg/dL Magnesium (1.7-2.8) mg/dL Total Bilirubin (0.2-1.0) mg/dL AST (10-42) IU/L ALT (10-60) IU/L Alkaline Phosphatase (42-121) IU/L Total Protein (6.7-8.2) g/dL Albumin (3.2-5.5) g/dL Globulin (2.1-4.2) g/dL Albumin/Globulin Ratio (1.0-2.2) Nasal Adenovirus (PCR) NOT DETECTED Nasal B. parapertussis DNA (PCR) NOT DETECTED Nasal Coronavir 229E PCR NOT DETECTED Nasal Coronavir HKU1 PCR NOT DETECTED Nasal Coronavir NL63 PCR NOT DETECTED Nasal Coronavir OC43 PCR NOT DETECTED Nasal Enterovir/Rhinovir PCR NOT DETECTED Nasal Influenza B PCR NOT DETECTED Nasal Influenza A PCR NOT DETECTED Nasal Parainfluen 1 PCR NOT DETECTED Nasal Parainfluen 2 PCR NOT DETECTED Nasal Parainfluen 3 PCR NOT DETECTED Nasal Parainfluen 4 PCR NOT DETECTED Nasal RSV (PCR) NOT DETECTED Nasal B.pertussis DNA PCR NOT DETECTED Nasal C.pneumoniae (PCR) NOT DETECTED Ángel Human Metapneumo PCR NOT DETECTED Nasal M.pneumoniae (PCR) NOT DETECTED Nasal SARS-CoV-2 (PCR) NOT DETECTED 06/08/20 06/08/20 Range/Units 15:25 15:25 WBC 1.3 L* (4.8-10.8) x10^3/uL RBC 3.40 L (4.70-6.10) 10^6/uL Hgb 10.6 L (14.0-18.0) g/dL Hct 30.2 L (42.0-52.0) % MCV 88.8 (80.0-94.0) fL MCH 31.2 H (27.0-31.0) pg MCHC 35.1 (32.0-36.0) g/dL RDW 11.5 L (12.0-15.0) % Plt Count 141 (130-450) 10^3/uL MPV 10.8 (7.4-11.4) fL Neut # (Auto) Not Reportable Lymph # (Auto) Not Reportable Mchenry # (Auto) Not Reportable Eos # (Auto) Not Reportable Baso # (Auto) Not Reportable Absolute Nucleated RBC Not Reportable Total Counted 100 Band Neuts % (Manual) 0 (0 - 10) % Abnorm Lymph % (Manual) 0 % Nucleated RBC % Not Reportable Neutrophils # (Manual) 0.8 L (1.5-6.6) 10^3/uL Lymphocytes # (Manual) 0.5 L (1.5-3.5) 10^3/uL Monocytes # (Manual) 0.0 (0.0-1.0) 10^3/uL Eosinophils # (Manual) 0.0 (0-0.7) 10^3/uL Basophils # (Manual) 0.0 (0-0.1) 10^3/uL Differential Comment MANUAL DIFFERENTIAL WBC Morphology NORMAL APPEARANCE (NORMAL) Platelet Estimate NORMAL (130-450,000) (NORMAL) Platelet Morphology NORMAL APPEARANCE (NORMAL) RBC Morph Micro Appear NORMAL APPEARANCE (NORMAL) Sodium 132 L (135-145) mmol/L Potassium 3.3 L (3.5-5.0) mmol/L Chloride 96 L (101-111) mmol/L Carbon Dioxide 25 (21-32) mmol/L Anion Gap 11.0 (6-13) BUN 8 (6-20) mg/dL Creatinine 0.7 (0.6-1.2) mg/dL Estimated GFR (MDRD) 135 (>89) Glucose 262 H (70-100) mg/dL POC Whole Bld Glucose (70 - 100) mg/dL Calcium 8.7 (8.5-10.3) mg/dL Phosphorus (2.5-4.6) mg/dL Magnesium 1.7 (1.7-2.8) mg/dL Total Bilirubin 1.2 H (0.2-1.0) mg/dL AST 25 (10-42) IU/L ALT 33 (10-60) IU/L Alkaline Phosphatase 122 H (42-121) IU/L Total Protein 6.0 L (6.7-8.2) g/dL Albumin 2.9 L (3.2-5.5) g/dL Globulin 3.1 (2.1-4.2) g/dL Albumin/Globulin Ratio 0.9 L (1.0-2.2) Nasal Adenovirus (PCR) Nasal B. parapertussis DNA (PCR) Nasal Coronavir 229E PCR Nasal Coronavir HKU1 PCR Nasal Coronavir NL63 PCR Nasal Coronavir OC43 PCR Nasal Enterovir/Rhinovir PCR Nasal Influenza B PCR Nasal Influenza A PCR Nasal Parainfluen 1 PCR Nasal Parainfluen 2 PCR Nasal Parainfluen 3 PCR Nasal Parainfluen 4 PCR Nasal RSV (PCR) Nasal B.pertussis DNA PCR Nasal C.pneumoniae (PCR) Ángel Human Metapneumo PCR Nasal M.pneumoniae (PCR) Nasal SARS-CoV-2 (PCR) ABX Reporting Has patient been on IV antibiotics over the past 48 hours?: No Assessment/Plan - Problem List (1) Chemotherapy induced nausea and vomiting Impression: Patient had a chemotherapy treated 5 days ago. She had chronic nausea and vomiting plus this chemotherapy Induced nausea and vomiting Plan: Continue IV fluids for hydration. Continue with IV antiemetics alternating Zofran and Compazine, add reglan which also help pt's Hiccups if needed. continue empiric IV Pepcid twice daily. continue clear diet and advance diet as tolerated (2) metastatic Pancreatic cancer Conclusion/Plan: pt is very interested in active treatment, he will followup with oncologist Dr. Allison at [facility]. He has had his first round of chemo of gemcitabine and Abraxane and 5 days ago. The patient is also followup with to see SOPHIA Hightower i n palliative care. continue Fentanyl patch, since it is works to him, and Tylenol PRN. He is allergic to nearly all narcotics therefore those will not be ordered. (3)hiccups pt still present hiccups in the morning, continue treat hiccups with IV Haldol which has worked in the past and also as needed sucralfate, add Reglan as well PRN. (4) Hyponatremia Conclusion/Plan: Na 131, continue NS IVF Follow BMP daily (5) Hypokalemia Conclusion/Plan: Corrected with IV K riders. Follow BMP daily (6) Chemotherapy induced neutropenia Conclusion/Plan: Pt's WBC is 1.7 today, slight increased. pt has no neutropenic fever. Follow CBC daily. Will order neutropenic precautions. (7) DM type 1 (diabetes mellitus, type 1) Conclusion/Plan: continue slide scale, ACHS to check glucose, and continue hypoglycemia protocol Check A1c with the morning labs, is pending (8) Sleep apnea Conclusion/Plan: Will order his CPAP from home to be used while here (9) Hx of coronary artery disease Conclusion/Plan: resume Coreg and hold IVF metoprolol now, continue vital monitor (10) Grief reaction Conclusion/Plan: The 's was today, in [place]. She had lung cancer and then complications from Covid and also suffered cardiac arrest in our hospital's parking lot, for which there was CPR done and she did not survive. We will order Social Work consult for support during grief reaction.
--- NOTE | 2020-06-09 12:48 | CONSULTATION NOTE ---
Palliative Care Follow Up - Referral Referring Provider: SOPHIA Jennings Time of Visit: [id number] Referral setting: Hospitalized patient Referral Reason: Nausea/Vomiting/Pain of Neoplastic Origin - Information Sources Records reviewed: Previous records reviewed History/Review of Systems obtained from: Patient, Nursing (HÉCTOR Sequeira and SOPHIA Allison) - History of Present Illness Update Brief HPI Update: Is a 70-year-old gentleman who was admitted for intractable nausea and vomiting in the setting of new diagnosis of metastatic pancreatic cancer found to have neutropenia and hypokalemia. He has been seen at either [place] or [facility] emergency departments due to frequent nausea and vomiting. He has had a severe difficulty keeping down oral hydration and nutrition for approximately the last 2 months and has had an about a 40 to 50 pound weight loss. Last week this patient was admitted to palliative care service and was started on oral Compazine as well as rectal Compazine. The patient reports to some mild improvement with the use of rectal Compazine. However, he still required IV hydration in the emergency department. He then unfortunately developed an retractable hiccups which responded to administration of Reglan. He presently reports that his nausea and vomiting is better controlled however, when attempting clear liquids today he was unable to keep the clear liquids down. He is presently receiving IV hy dration. The patient does report that he had a bowel movement yesterday. He denies rectal discomfort. His pain has subsequently improved with increase of his fentanyl patch from 37.5 mcg to 50 mcg. He finds that at the present time his pain is more adequately controlled. He is not been using as needed tramadol while at home but instead has been using acetaminophen for breakthrough pain. He is currently undergoing treatment at [facility] cancer center. He had his first chemotherapy with abrazane and gemcitabine on 06/03/2020. He is followed by Dr. Allison at [facility]. He unfortunately unexpectedly lost his last week and she was buried yesterday, 06/08/2020 and he was unable to attend due to his medical state. The patient is seen resting in bed on his right side with the blankets pulled up. No evidence of acute distress with IV hydration infusing. Past Medical History: Past medical history of hypertension, hyperlipidemia, coronary artery disease, sleep apnea, peripheral diabetic neuropathy, type 1 diabetes mellitus diagnosed 25 years ago, PTSD, BPH, GERD, renal insufficiency, diabetic retinopathy, depression, panic attacks, osteoarthritis, gout, adenocarcinoma of the pancreatic with metastatic lesions in liver and lungs 2020, COVID-19. Social History - Living Situation Living arrangement: At home Living Situation: Alone (His several days ago and her was just today) Support System: The patient unexpectedly lost his of approximately 30 years last week. They have 10 children together. The patient does have a daughter from his first marriage who he has been estranged with since the time she was 13. They have recently reconnected and he is cautiously moving forward with the relationship with her. The patient served for 26 years in the [employer]. He was born in [facility] and then grew up in [place]. His daughter, Alvarez is his DPOA. Now that his has it is unclear at this time who is going to be providing a direct assistance for the patient in regards to transportation to his oncology appointments as well as assistance within the home. Medications/Allergies - Medications Active Medication List: Active Medications Acetaminophen (Acetaminophen 325 Mg Tablet) 650 mg PO Q4HR PRN PRN Reason: Pain or Fever > 38C (100.4F) Last Admin: 06/09/20 08:01 Dose: 650 mg Documented by: Carvedilol (Carvedilol 3.125 Mg Tablet) 6.25 mg PO DAILY [facility] Last Admin: 06/09/20 09:37 Dose: 6.25 mg Documented by: Dorzolamide/Timolol (Dorzolamide/Timolol Ophth Drops) 1 drops EACHEYE DAILY [facility] Last Admin: 06/09/20 10:07 Dose: 1 drops Documented by: Doxazosin Mesylate (Doxazosin 4 Mg Tablet) 4 mg PO DAILY [facility] Last Admin: 06/09/20 10:17 Dose: 4 mg Documented by: Enoxaparin Sodium (Enoxaparin 40 Mg/0.4 Ml Syringe) 40 mg SUBQ DAILY [facility] Famotidine (Famotidine 20 Mg/2 Ml Vial) 20 mg IVP BID [facility] Last Admin: 06/09/20 09:37 Dose: 20 mg Documented by: Fentanyl (Fentanyl 50 Mcg Patch) 1 patch TOP Q3D [facility] Last Admin: 06/08/20 22:26 Dose: 1 patch Documented by: Finasteride (Finasteride 5 Mg Tablet) 5 mg PO DAILY [facility] Last Admin: 06/09/20 09:38 Dose: 5 mg Documented by: Haloperidol (Haloperidol 5 Mg/Ml Vial) 1 mg IVP Q6H PRN PRN Reason: Hiccups Potassium Chloride (Potassium Chloride) 10 meq in 100 mls @ 100 mls/hr IV Q1H [facility] Stop: 06/09/20 12:59 Last Admin: 06/09/20 12:08 Dose: 100 mls/hr Documented by: Potassium Chloride/Sodium Chloride (Normal Saline 0.9% W/20 Meq Kcl) 1,000 mls @ 100 mls/hr IV .Q10H [facility] Insulin Glargine (Insulin Glargine 300 Unit/3 Ml Pen) 5 unit SUBQ DAILY [facility] Last Admin: 06/09/20 09:38 Dose: 5 unit Documented by: Insulin Human Regular (Insulin Regular Human 300 Unit/3 Ml Vial) 1 - 5 unit SUBQ Q6HR [facility]; Protocol Last Admin: 06/09/20 11:38 Dose: 3 unit Documented by: Latanoprost (Latanoprost 0.005% Ophth Drops) 1 drops EACHEYE QPM [facility] Lisinopril (Lisinopril 20 Mg Tablet) 20 mg PO DAILY [facility] Last Admin: 06/09/20 10:10 Dose: 20 mg Documented by: Magnesium Oxide (Magnesium Oxide 400 Mg Tablet) 400 mg PO DAILY [facility] Last Admin: 06/09/20 09:37 Dose: 400 mg Documented by: Magnesium Oxide (Magnesium Oxide 400 Mg Tablet) 400 mg PO ONCE [facility] Stop: 06/09/20 16:00 Metoclopramide HCl (Metoclopramide 10 Mg/2 Ml Vial) 5 mg IVP Q6HR PRN PRN Reason: Nausea / Vomiting Ondansetron HCl (Ondansetron 4 Mg/2 Ml Vial) 4 mg IVP Q6HR PRN PRN Reason: Nausea / Vomiting Last Admin: 06/09/20 08:16 Dose: 4 mg Documented by: Prochlorperazine Maleate (Prochlorperazine 25 Mg Supp) 25 mg VA DAILY PRN PRN Reason: Nausea / Vomiting Prochlorperazine Maleate (Prochlorperazine 5 Mg Tablet) 10 mg PO Q6HR PRN PRN Reason: Nausea / Vomiting Last Admin: 06/09/20 11:31 Dose: 10 mg Documented by: Sodium Chloride (Sodium Chloride Flush 0.9% 10 Ml Syringe) 10 ml IVP PRN PRN PRN Reason: NEEDED PER PROVIDER ORDERS Sodium Chloride (Sodium Chloride Flush 0.9% 10 Ml Syringe) 10 ml IVP 0100,0900,1700 [facility] Last Admin: 06/09/20 09:38 Dose: 10 ml Documented by: Sodium Phosphate (Neutra-Phos 250 Mg Tablet) 250 mg PO TIDWM [facility] Last Admin: 06/09/20 11:31 Dose: 250 mg Documented by: Sucralfate (Sucralfate 1 Gm/10 Ml Udc) 1 gm PO 0700,1100,1600,2200 PRN PRN Reason: Heartburn Last Admin: 06/08/20 21:49 Dose: 1 gm Documented by: Insulin Aspart (Vial) [NovoLOG (VIAL FOR ED USE)] 15 - 25 unit SQ TID 10/28/12 Pantoprazole Sodium [Protonix] 40 mg PO DAILY 11/06/13 Doxazosin [Cardura] 4 mg PO DAILY 07/13/16 Finasteride [Proscar] 5 mg ORAL DAILY 07/13/16 Insulin Degludec [Tresiba Flextouch U-100] 30 units SUBQ DAILY 08/28/17 Atorvastatin Calcium 40 mg ORAL DAILY 03/26/18 Carvedilol [Coreg] 6.25 mg PO DAILY 04/30/20 Lisinopril [Zestril] 20 mg PO DAILY 04/30/20 Magnesium Oxide [Mag Ox] 400 mg PO DAILY 04/30/20 Ondansetron Odt [Zofran Odt] 4 mg PO Q6HR PRN 05/30/20 Brimonidine 0.2% Ophth Drops [Alphagan P 0.2% Ophth Drops] 1 drops TOP PRN PRN 06/02/20 Dorzolamide/Timolol/Pf [Timolol 0.5%-Dorzolamide 2%] 1 drops TOP DAILY 06/02/20 Naloxone HCl [Narcan] 1 spray PO PRN PRN 06/02/20 Prochlorperazine Maleate 10 mg PO Q6H PRN 06/02/20 Senna [Senokot] 1 tab PO QPM 06/02/20 Travoprost [Travatan Z] 1 drops TOP BID 06/02/20 fentaNYL [Fentanyl 37.5mcg patch] 37.5 mcg TP Q72H 06/02/20 polyethylene glycoL 3350 [Miralax] 8.5 g PO DAILY 06/02/20 Prochlorperazine Supp [Compazine Supp] 25 mg VA DAILY PRN 06/04/20 - Allergies Allergies/Adverse Reactions: Allergies Allergy/AdvReac Type Severity Reaction Status Date / Time brompheniramine Allergy Unknown Verified 06/08/20 03:04 codeine Allergy Hives Verified 06/08/20 03:04 egg Allergy Respiratory Verified 06/09/20 10:35 hydrocodone Allergy Unknown Verified 06/08/20 03:04 NSAIDS (Non-Steroidal Allergy Anaphylaxis Verified 06/08/20 03:04 Anti-Inflamma Opioids - Morphine Analogues Allergy Anaphylaxis Verified 06/09/20 10:36 propoxyphene Allergy Unknown Verified 06/08/20 03:04 tuberculin, purified protein Allergy Unknown Verified 06/09/20 10:37 deriva amoxicillin [From Augmentin] AdvReac Unknown Verified 06/08/20 15:14 aspirin AdvReac Anaphylaxis Verified 06/08/20 15:14 clavulanic acid AdvReac Unknown Verified 06/08/20 15:14 [From Augmentin] hydroxyzine [From Vistaril] AdvReac Unknown Verified 06/08/20 15:14 lactose AdvReac Nausea Verified 06/08/20 15:14 meperidine [From Demerol] AdvReac Respiratory Verified 06/08/20 15:14 metformin AdvReac Unknown Verified 06/08/20 15:14 morphine AdvReac Unknown Verified 06/08/20 15:14 procaine [From Novocain] AdvReac Unknown Verified 06/08/20 15:14 promethazine HCl * AdvReac Unknown Verified 06/08/20 15:14 [From Phenergan] diphenhydramine/lidocaine/nystatin Allergy Anaphylaxis Uncoded 06/08/20 15:14 sodium biphosphate AdvReac Unknown Uncoded 06/08/20 15:14 Review of Systems - Constitutional Constitutional: reports: Fatigue, Weight loss (appx 40-50lbs in the last 2 months). denies: Fever - Eyes Eyes: reports: Other (Diabetic retinopahty). denies: Irritation - Ears, Nose & Throat Ears, Nose & Throat: reports: Dry mouth - Cardiovascular Cardiovascular: denies: Edema - Respiratory Respiratory: denies: Wheezing - Gastrointestinal Gastrointestinal: reports: Constipation (on-going problem due to lack of oral intake, LBM 06/08/20), Nausea, Vomiting, Poor appetite. denies: Abdominal distention, Diarrhea, Rei blood emesis - Genitourinary Genitourinary: denies: Dysuria - Musculoskeletal Musculoskeletal: reports: Joint pain. denies: Assistive devices - Integumentary Integumentary: reports: Dryness - Neurological Neurological: reports: Dizziness (due to decreased oral intake with episodes of near syncope reported, presently receiving IV hydration) - Psychiatric Psychiatric: reports: Other (PTSD history; acute grief in the setting of the loss of his spouse) - Endocrine Endocrine: reports: Other (Type I DM) - All Other Systems All Other Systems: reports: Reviewed and negative Physical Exam - Vital Signs Vital Signs: Vital Signs x48h Temp Pulse Resp BP BP Pulse Ox 06/09/20 11:27 36.7 C 78 18 159/73 H 98 06/09/20 07:47 37.1 C 77 18 151/67 H 97 06/09/20 05:56 153/78 H 06/09/20 05:00 37.1 C 77 20 156/78 H 93 - Physical Exam General Appearance: positive: No acute distress, Alert Eyes Bilateral: positive: Normal inspection ENT: positive: Dry mucous membranes (slightly dry with some plaque build-up on dentition). negative: Oral lesions Neck: positive: Trachea midline Cardiovascular: positive: Regular rate & rhythm Respiratory: positive: No respiratory distress, Breath sounds nml Abdomen: positive: Non-tender, Soft, Other (increasd bowel sounds from last eval uation x4 quadranats, remains slightly hypoactive). 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 He continues to wish to proceed with chemotherapy and it is his hope that he will be able to be discharged to attend his oncology appointment tomorrow morning. The patient has had improvement and no longer has hiccups and his nausea and vomiting is subsequently improving but not completely resolved. He continues to have a vicious cycle of nausea and vomiting with little oral intake with some underlying constipation all contributing to his symptom burden related to his underlying oncologic diagnosis. Before his she was very clear that that their children look after their father and he feels blessed to have his children. He does recognize that his will no longer be in pain however, this grief on top of his own complex health concerns and navigating through decision-making at this time is entirely overwhelming for him. He can only see right now in the present and does not wish to look towards the future at this moment in time. Results - Lab Results Fish Bones: 06/09/20 05:59 06/09/20 05:59 Lab and Imaging Results: Lab Results x24hrs 06/09/20 06/09/20 06/09/20 Range/Units 11:14 08:08 05:59 WBC (4.8-10.8) x10^3/uL RBC (4.70-6.10) 10^6/uL Hgb (14.0-18.0) g/dL Hct (42.0-52.0) % MCV (80.0-94.0) fL MCH (27.0-31.0) pg MCHC (32.0-36.0) g/dL RDW (12.0-15.0) % Plt Count (130-450) 10^3/uL MPV (7.4-11.4) fL Neut # (Auto) Lymph # (Auto) Ogle # (Auto) Eos # (Auto) Baso # (Auto) Absolute Nucleated RBC Total Counted Band Neuts % (Manual) (0 - 10) % Abnorm Lymph % (Manual) % Nucleated RBC % Neutrophils # (Manual) (1.5-6.6) 10^3/uL Lymphocytes # (Manual) (1.5-3.5) 10^3/uL Monocytes # (Manual) (0.0-1.0) 10^3/uL Eosinophils # (Manual) (0-0.7) 10^3/uL Basophils # (Manual) (0-0.1) 10^3/uL Differential Comment WBC Morphology (NORMAL) Platelet Estimate (NORMAL) Platelet Morphology (NORMAL) RBC Morph Micro Appear (NORMAL) Sodium 131 L (135-145) mmol/L Potassium 2.9 L (3.5-5.0) mmol/L Chloride 97 L (101-111) mmol/L Carbon Dioxide 26 (21-32) mmol/L Anion Gap 8.0 (6-13) BUN 6 (6-20) mg/dL Creatinine 0.7 (0.6-1.2) mg/dL Estimated GFR (MDRD) 135 (>89) Glucose 259 H (70-100) mg/dL POC Whole Bld Glucose 230 H (70 - 100) mg/dL Calcium 7.9 L (8.5-10.3) mg/dL Phosphorus 1.8 L (2.5-4.6) mg/dL Magnesium 1.6 L (1.7-2.8) mg/dL Total Bilirubin (0.2-1.0) mg/dL AST (10-42) IU/L ALT (10-60) IU/L Alkaline Phosphatase (42-121) IU/L Total Protein (6.7-8.2) g/dL Albumin (3.2-5.5) g/dL Globulin (2.1-4.2) g/dL Albumin/Globulin Ratio (1.0-2.2) Nasal Adenovirus (PCR) Nasal B. parapertussis DNA (PCR) Nasal Coronavir 229E PCR Nasal Coronavir HKU1 PCR Nasal Coronavir NL63 PCR Nasal Coronavir OC43 PCR Nasal Enterovir/Rhinovir PCR Nasal Influenza B PCR Nasal Influenza A PCR Nasal Parainfluen 1 PCR Nasal Parainfluen 2 PCR Nasal Parainfluen 3 PCR Nasal Parainfluen 4 PCR Nasal RSV (PCR) Nasal B.pertussis DNA PCR Nasal C.pneumoniae (PCR) Ángel Human Metapneumo PCR Nasal M.pneumoniae (PCR) Nasal SARS-CoV-2 (PCR) 06/09/20 06/08/20 06/08/20 Range/Units 05:59 23:53 19:53 WBC 1.7 L* (4.8-10.8) x10^3/uL RBC 3.35 L (4.70-6.10) 10^6/uL Hgb 10.4 L (14.0-18.0) g/dL Hct 29.8 L (42.0-52.0) % MCV 89.0 (80.0-94.0) fL MCH 31.0 (27.0-31.0) pg MCHC 34.9 (32.0-36.0) g/dL RDW 11.3 L (12.0-15.0) % Plt Count 125 L (130-450) 10^3/uL MPV 10.3 (7.4-11.4) fL Neut # (Auto) Not Reportable Lymph # (Auto) Not Reportable Ogle # (Auto) Not Reportable Eos # (Auto) Not Reportable Baso # (Auto) Not Reportable Absolute Nucleated RBC Not Reportable Total Counted 100 Band Neuts % (Manual) 0 (0 - 10) % Abnorm Lymph % (Manual) 0 % Nucleated RBC % Not Reportable Neutrophils # (Manual) 1.1 L (1.5-6.6) 10^3/uL Lymphocytes # (Manual) 0.6 L (1.5-3.5) 10^3/uL Monocytes # (Manual) 0.0 (0.0-1.0) 10^3/uL Eosinophils # (Manual) 0.0 (0-0.7) 10^3/uL Basophils # (Manual) 0.0 (0-0.1) 10^3/uL Differential Comment MANUAL DIFFERENTIAL WBC Morphology NORMAL APPEARANCE (NORMAL) Platelet Estimate NORMAL (130-450,000) (NORMAL) Platelet Morphology NORMAL APPEARANCE (NORMAL) RBC Morph Micro Appear NORMAL APPEARANCE (NORMAL) Sodium (135-145) mmol/L Potassium (3.5-5.0) mmol/L Chloride (101-111) mmol/L Carbon Dioxide (21-32) mmol/L Anion Gap (6-13) BUN (6-20) mg/dL Creatinine (0.6-1.2) mg/dL Estimated GFR (MDRD) (>89) Glucose (70-100) mg/dL POC Whole Bld Glucose 291 H (70 - 100) mg/dL Calcium (8.5-10.3) mg/dL Phosphorus (2.5-4.6) mg/dL Magnesium (1.7-2.8) mg/dL Total Bilirubin (0.2-1.0) mg/dL AST (10-42) IU/L ALT (10-60) IU/L Alkaline Phosphatase (42-121) IU/L Total Protein (6.7-8.2) g/dL Albumin (3.2-5.5) g/dL Globulin (2.1-4.2) g/dL Albumin/Globulin Ratio (1.0-2.2) Nasal Adenovirus (PCR) NOT DETECTED Nasal B. parapertussis DNA (PCR) NOT DETECTED Nasal Coronavir 229E PCR NOT DETECTED Nasal Coronavir HKU1 PCR NOT DETECTED Nasal Coronavir NL63 PCR NOT DETECTED Nasal Coronavir OC43 PCR NOT DETECTED Nasal Enterovir/Rhinovir PCR NOT DETECTED Nasal Influenza B PCR NOT DETECTED Nasal Influenza A PCR NOT DETECTED Nasal Parainfluen 1 PCR NOT DETECTED Nasal Parainfluen 2 PCR NOT DETECTED Nasal Parainfluen 3 PCR NOT DETECTED Nasal Parainfluen 4 PCR NOT DETECTED Nasal RSV (PCR) NOT DETECTED Nasal B.pertussis DNA PCR NOT DETECTED Nasal C.pneumoniae (PCR) NOT DETECTED Ángel Human Metapneumo PCR NOT DETECTED Nasal M.pneumoniae (PCR) NOT DETECTED Nasal SARS-CoV-2 (PCR) NOT DETECTED 06/08/20 06/08/20 Range/Units 15:25 15:25 WBC 1.3 L* (4.8-10.8) x10^3/uL RBC 3.40 L (4.70-6.10) 10^6/uL Hgb 10.6 L (14.0-18.0) g/dL Hct 30.2 L (42.0-52.0) % MCV 88.8 (80.0-94.0) fL MCH 31.2 H (27.0-31.0) pg MCHC 35.1 (32.0-36.0) g/dL RDW 11.5 L (12.0-15.0) % Plt Count 141 (130-450) 10^3/uL MPV 10.8 (7.4-11.4) fL Neut # (Auto) Not Reportable Lymph # (Auto) Not Reportable Ogle # (Auto) Not Reportable Eos # (Auto) Not Reportable Baso # (Auto) Not Reportable Absolute Nucleated RBC Not Reportable Total Counted 100 Band Neuts % (Manual) 0 (0 - 10) % Abnorm Lymph % (Manual) 0 % Nucleated RBC % Not Reportable Neutrophils # (Manual) 0.8 L (1.5-6.6) 10^3/uL Lymphocytes # (Manual) 0.5 L (1.5-3.5) 10^3/uL Monocytes # (Manual) 0.0 (0.0-1.0) 10^3/uL Eosinophils # (Manual) 0.0 (0-0.7) 10^3/uL Basophils # (Manual) 0.0 (0-0.1) 10^3/uL Differential Comment MANUAL DIFFERENTIAL WBC Morphology NORMAL APPEARANCE (NORMAL) Platelet Estimate NORMAL (130-450,000) (NORMAL) Platelet Morphology NORMAL APPEARANCE (NORMAL) RBC Morph Micro Appear NORMAL APPEARANCE (NORMAL) Sodium 132 L (135-145) mmol/L Potassium 3.3 L (3.5-5.0) mmol/L Chloride 96 L (101-111) mmol/L Carbon Dioxide 25 (21-32) mmol/L Anion Gap 11.0 (6-13) BUN 8 (6-20) mg/dL Creatinine 0.7 (0.6-1.2) mg/dL Estimated GFR (MDRD) 135 (>89) Glucose 262 H (70-100) mg/dL POC Whole Bld Glucose (70 - 100) mg/dL Calcium 8.7 (8.5-10.3) mg/dL Phosphorus (2.5-4.6) mg/dL Magnesium 1.7 (1.7-2.8) mg/dL Total Bilirubin 1.2 H (0.2-1.0) mg/dL AST 25 (10-42) IU/L ALT 33 (10-60) IU/L Alkaline Phosphatase 122 H (42-121) IU/L Total Protein 6.0 L (6.7-8.2) g/dL Albumin 2.9 L (3.2-5.5) g/dL Globulin 3.1 (2.1-4.2) g/dL Albumin/Globulin Ratio 0.9 L (1.0-2.2) Nasal Adenovirus (PCR) Nasal B. parapertussis DNA (PCR) Nasal Coronavir 229E PCR Nasal Coronavir HKU1 PCR Nasal Coronavir NL63 PCR Nasal Coronavir OC43 PCR Nasal Enterovir/Rhinovir PCR Nasal Influenza B PCR Nasal Influenza A PCR Nasal Parainfluen 1 PCR Nasal Parainfluen 2 PCR Nasal Parainfluen 3 PCR Nasal Parainfluen 4 PCR Nasal RSV (PCR) Nasal B.pertussis DNA PCR Nasal C.pneumoniae (PCR) Ángel Human Metapneumo PCR Nasal M.pneumoniae (PCR) Nasal SARS-CoV-2 (PCR) Impression and Recommendations - Palliative Care Impression: This is an unfortunate 70-year-old gentleman who was diagnosed with metastatic adenocarcinoma of the pancreas on palliative chemotherapy with high symptom burden of pain, weight loss, constipation, nausea and vomiting, and hiccups. Palliative care will continue to build rapport, provide support for pain and symptom management, advance care planning and anticipatory guidance. Recommendations/Counseling Done: 1. Nausea and vomiting due to underlying malignancy.At home patient was using Zofran 4 mg ODT and Compazine 10 mg orally to manage symptoms and did have some benefit from rectal compazine per his report. He had been unable to take his oral PPI, Protonix while at home and we need to have this continued upon discharge with continued education. Presently additional symptoms are being managed by Pepcid while inpatient via IV. We will continue clear liquid diet and advance as tolerated for the patient and plan to follow-up upon discharge from the hospital. Encouraged the patient today the importance of maintaining oral hydration throughout the day. 2. Hypokalemia. In the setting of nausea and vomiting, persistent due to underlying malignancy. Being repleted by hospitalist. Trend to be followed and repletion as ordered by hospitalist. 3. Pain of neoplastic origin. Patient has multiple opioid allergies and has had his fentanyl patch titrated upwards with the last increase performed today, 06/10/2019 21-50 MCG patch with the use of acetaminophen for breakthrough pain. The patient has had improvement of his overall pain with this further increase from 50% of his baseline. We will continue to encourage use of tramadol 50 mg 1 to 2 tablets every 6 hours as needed for pain in addition to acetaminophen upon discharge once we have better control of his nausea and vomiting. The patient has previously expressed his desire to have his pain adequately managed as a short-term goal. 4. Constipation. Persistent. Last bowel movement reported on 06/08/2020. Continue to monitor upon discharge despite decreased oral intake we reviewed the need for continued defecation. 5. Grief. In the setting of acute loss of his spouse of 30 years. Presently grieving appropriately. Supportive listening provided and empathetic presents. We will continue to provide support moving forward and acknowledge it of the patient's grief and management. 6. Pancreatic cancer. Patient wishes to continue with chemotherapy that is palliative in treatment. He has a appointment at [facility] on 06/10/2020 with the goal for the patient to be discharged to attend this appointment. Contacted nurse triage line at the [facility] message left with a return phone call request back requested. Total time spent 40 minutes with greater than 50% of this spent in counseling and coordination of care with patient, hospitalist, nursing; examination of patient; supportive listening; review of pain and symptom management and antici patory guidance. Plan for Palliative Care to follow-up if discharged in home on 06/11/2020 and patient aware. Disclaimer: The chart note was formulated using voice recognition technology and unfortunately sound alike errors may occur.
[2020-06-09] MEDS ORDERED: MAGNESIUM OXIDE 400 MG TABLET PO SCH (13:00)
[2020-06-09] MEDS ORDERED: NS W/20 MEQ KCL 1,000 ML IV SCH (13:00)
[2020-06-09] MEDS: HALOPERIDOL 5 MG/ML VIAL IVP PRN ×2 (13:21→19:21)
[2020-06-09 13:33] LABS: ESTIMATED AVERAGE GLUCOSE 128 mg/dL (70-100); HEMOGLOBIN A1c% 6.1 % (4.27-6.07)
[2020-06-09] MEDS: D5.45NS W/20 MEQ KCL 1,000 ML IV SCH (18:24)
[2020-06-09] MEDS: MEGESTROL 400 MG/10 ML UDC PO SCH (20:48)
[2020-06-09] MEDS ORDERED: LATANOPROST 0.005% OPHTH DROPS EACHEYE SCH (21:00)
[2020-06-10] MEDS: INSULIN REGULAR HUMAN 300 UNIT/3 ML VIAL SUBQ SCH ×2 (00:34→06:28)
[2020-06-10] MEDS: SODIUM CHLORIDE FLUSH 0.9% 10 ML SYRINGE IVP SCH ×2 (00:35→07:39)
[2020-06-10] MEDS: HALOPERIDOL 5 MG/ML VIAL IVP PRN ×2 (01:17→07:36)
[2020-06-10] MEDS: ONDANSETRON 4 MG/2 ML VIAL IVP PRN ×2 (01:17→09:34)
[2020-06-10] MEDS: D5.45NS W/20 MEQ KCL 1,000 ML IV SCH (06:26)
[2020-06-10] MEDS: SUCRALFATE 1 GM/10 ML UDC PO PRN (06:27)
[2020-06-10 06:46] LABS: HCT - HEMATOCRIT 30.8 % (42.0-52.0); HGB - HEMOGLOBIN 10.6 g/dL (14.0-18.0); LYMPHOCYTES # (AUTO) 0.6 10^3/uL (1.5-3.5); LYMPHOCYTES % (AUTO) 19.9 %; MEAN CORPUSCULAR HEMOGLOBIN 30.7 pg (27.0-31.0); MEAN CORPUSCULAR HGB CONC 34.4 g/dL (32.0-36.0); MEAN CORPUSCULAR VOLUME 89.3 fL (80.0-94.0); MEAN PLATELET VOLUME 10.6 fL (7.4-11.4); MONOCYTES # (AUTO) 0.2 10^3/uL (0.0-1.0); MONOCYTES % (AUTO) 6.2 %; NEUTROPHILS # (AUTO) 2.1 10^3/uL (1.5-6.6); NEUTROPHILS % (AUTO) 71.9 %; PLT - PLATELET COUNT 105 10^3/uL (130-450); RED BLOOD COUNT 3.45 10^6/uL (4.70-6.10); RED CELL DISTRIBUTION WIDTH 11.4 % (12.0-15.0); WHITE BLOOD COUNT 2.9 x10^3/uL (4.8-10.8)
[2020-06-10 06:58] LABS: CALCIUM 8.2 mg/dL (8.5-10.3); CREATININE 0.7 mg/dL (0.6-1.2); PHOSPHORUS 1.9 mg/dL (2.5-4.6); POTASSIUM 3.4 mmol/L (3.5-5.0)
[2020-06-10] MEDS ORDERED: POTASSIUM CHLORIDE 20 MEQ TABLET PO ONE (07:21)
[2020-06-10 08:05] VITALS: BP 163/67
[2020-06-10 08:32] LABS: ABSOLUTE RETICS # AUTO 0.009 10^6/uL (0.020-0.110); RED BLOOD COUNT 3.4 10^6/uL (4.70-6.10); RETICULOCYTE COUNT % (AUTO) 0.27 % (0.5-2.3)
[2020-06-10] MEDS ORDERED: SODIUM CHLORIDE 0.9% 1,000 ML IV SCH (09:00)
[2020-06-10] MEDS ORDERED: ENOXAPARIN 40 MG/0.4 ML SYRINGE SUBQ SCH (09:00)
[2020-06-10 09:03] LABS: % IRON SATURATION 11 % (20-50); FERRITIN 410.9 ng/mL (23.9-336.2); IRON 19 ug/dL (45-182); TOTAL IRON BINDING CAPACITY 176 ug/dL (250-450); TRANSFERRIN 126 mg/dL (180-329)
--- NOTE | 2020-06-10 09:18 | Discharge Plan ---
Discharge Plan Problem Reviewed?: Yes Disposition: Home, Self Care Condition: Stable Prescriptions: fentaNYL 50 MCG PATCH [Duragesic 50mcg patch] 1 patch TOP Q3D PRN #10 patch PRN Reason: Pain haloperidoL [Haldol] 1 mg PO Q8H PRN #15 tablet PRN Reason: Hiccups Megestrol [Megace] 400 mg PO DAILY PRN #100 merrick u PRN Reason: loss of appetite Diet: Diabetic Activity Restrictions: Activity as Tolerated Shower Restrictions: No (fall precaution) Instruction Topics: Cancer Pancreatic, Nausea Vomit Control, Haloperidol injection, fentanyl skin patch, Megestrol tablets Health Concerns: nausea and vomiting control, poor appetite, pancreatic cancer Plan of Treatment: you may keep hydration at home, continue take your antiemesis meds as needed to control your symptoms, take Haldol as needed for your hiccup, try to eat food as you like to eat as possible and take Megace to enhance your appetite as needed. Your WBC cell is increased now. You may followup with your oncologist as early as possible when your symptoms is controlled, and followup with your palliative care provider on next week. Care Goals: stabilization and improvement of your medical condition Assessment: discussed the care plan with you, answered your questions, you understood Additional Instructions or Follow Up instructions: you may followup with your PCP and your oncologist in 1-2 weeks. should your symptoms return or worsen, you may present ER or call 911 for help. No Smoking: If you smoke, Please STOP! Call for help. Follow-up with: Kassie Whiteside MD [Primary Care Provider] -
[2020-06-10] MEDS: FAMOTIDINE 20 MG/2 ML VIAL IVP SCH (09:22)
[2020-06-10] MEDS: DORZOLAMIDE/TIMOLOL OPHTH DROPS EACHEYE SCH (09:23)
[2020-06-10] MEDS: SODIUM CHLORIDE FLUSH 0.9% 10 ML SYRINGE IVP PRN ×3 (09:24→10:40)
--- NOTE | 2020-06-10 09:27 | CONSULTATION NOTE ---
"Palliative Care Follow Up - Referral Referring Provider: SOPHIA Jennings Time of Visit: [id number] Referral setting: Hospitalized patient Referral Reason: Pain of neoplastic origin/Pancreatic Cancer - Information Sources Records reviewed: Previous records reviewed History/Review of Systems obtained from: Patient, Other (Hospitalist) Exam limitations: No limitations - History of Present Illness Update Brief HPI Update: This is a 70-year-old -Citizen Of [place] gentleman who was admitted for intractable nausea and vomiting in the setting of a new diagnosis of metastatic pancreatic cancer he was found to have neutropenia and hyperkalemia. He has been repleted for his hyperkalemia and since admission has had improv ement in his nausea and vomiting. He reports that yesterday he was able to keep down some soup. However, this morning he found one of his offerings was ascitic that led to nausea. He is aware that his chemotherapy has been postponed until next week due to his underlying neutropenia which has also subsequently improved during this admission to a WBC of 2.9. He reports last night it was a bad night due to his underlying PTSD and is quite anxious to return home. His bed has been repositioned to face the door to his room to reduce his underlying distress. He reports to being pleasantly surprised that he had 3 bowel movements yesterday that were well formed and no evidence of diarrhea. Reeducated the importance of having routine bowel movements despite decreased oral intake. He reports that his pain is presently controlled at this time with the increase of his fentanyl patch to 50 mcg. Patient is seen resting in bed. Alert and engaged with no evidence of acute distress. Past Medical History: Past medical history of hypertension, hyperlipidemia, coronary artery disease, sleep apnea, peripheral diabetic neuropathy, type 1 diabetes mellitus diagnosed 25 years ago, PTSD, BPH, GERD, renal insufficiency, diabetic retinopathy, depression, panic attacks, osteoarthritis, gout, adenocarcinoma of the pancreatic with metastatic lesions in liver and lungs 2020, COVID-19. Social History - Living Situation Living arrangement: At home Living Situation: Alone (His several days ago and her was just today) Support System: The patient unexpectedly lost his of approximately 30 years last week. They have 10 children together. The patient does have a daughter from his first marriage who he has been estranged with since the time she was 13. They have recently reconnected and he is cautiously moving forward with the relationship with her. 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 He was born in [facility] and then grew up in [place]. His daughter, Alvarez is his DPOA. Interagency referral form for [facility] previously faxed on 06/03/2020 To evaluate the patient for any additional assistance that he may qualify for. He has many documents and paperwork to sign and complete beginning tomorrow, 06/11 in relation to his 's recent that only he can sign for. Therefore, he is quite anxious to leave the hospital to move forward with this. Medications/Allergies - Medications Active Medication List: Active Medications Acetaminophen (Acetaminophen 325 Mg Tablet) 650 mg PO Q4HR PRN PRN Reason: Pain or Fever > 38C (100.4F) Last Admin: 06/09/20 08:01 Dose: 650 mg Documented by: Carvedilol (Carvedilol 3.125 Mg Tablet) 6.25 mg PO DAILY [facility] Last Admin: 06/09/20 09:37 Dose: 6.25 mg Documented by: Dorzolamide/Timolol (Dorzolamide/Timolol Ophth Drops) 1 drops EACHEYE DAILY [facility] Last Admin: 06/09/20 10:07 Dose: 1 drops Documented by: Doxazosin Mesylate (Doxazosin 4 Mg Tablet) 4 mg PO DAILY [facility] Last Admin: 06/09/20 10:17 Dose: 4 mg Documented by: Enoxaparin Sodium (Enoxaparin 40 Mg/0.4 Ml Syringe) 40 mg SUBQ DAILY [facility] Famotidine (Famotidine 20 Mg/2 Ml Vial) 20 mg IVP BID [facility] Last Admin: 06/09/20 20:49 Dose: 20 mg Documented by: Fentanyl (Fentanyl 50 Mcg Patch) 1 patch TOP Q3D [facility] Last Admin: 06/08/20 22:26 Dose: 1 patch Documented by: Finasteride (Finasteride 5 Mg Tablet) 5 mg PO DAILY [facility] Last Admin: 06/09/20 09:38 Dose: 5 mg Documented by: Haloperidol (Haloperidol 5 Mg/Ml Vial) 1 mg IVP Q6H PRN PRN Reason: Hiccups Last Admin: 06/10/20 07:36 Dose: 1 mg Documented by: Sodium Chloride (Normal Saline 0.9%) 1,000 mls @ 100 mls/hr IV .Q10H [facility] Stop: 06/11/20 04:59 Insulin Glargine (Insulin Glargine 300 Unit/3 Ml Pen) 5 unit SUBQ DAILY [facility] Last Admin: 06/09/20 09:38 Dose: 5 unit Documented by: Insulin Human Regular (Insulin Regular Human 300 Unit/3 Ml Vial) 1 - 5 unit SUBQ Q6HR [facility]; Protocol Last Admin: 06/10/20 06:28 Dose: 4 unit Documented by: Latanoprost (Latanoprost 0.005% Ophth Drops) 1 drops EACHEYE QPM [facility] Last Admin: 06/09/20 20:49 Dose: 1 drops Documented by: Lisinopril (Lisinopril 20 Mg Tablet) 20 mg PO DAILY [facility] Last Admin: 06/09/20 10:10 Dose: 20 mg Documented by: Magnesium Oxide (Magnesium Oxide 400 Mg Tablet) 400 mg PO DAILY [facility] Last Admin: 06/09/20 09:37 Dose: 400 mg Documented by: Megestrol Acetate (Megestrol 400 Mg/10 Ml Udc) 400 mg PO DAILY [facility] Last Admin: 06/09/20 20:48 Dose: Not Given Documented by: Metoclopramide HCl (Metoclopramide 10 Mg/2 Ml Vial) 5 mg IVP Q6HR PRN PRN Reason: Nausea / Vomiting Ondansetron HCl (Ondansetron 4 Mg/2 Ml Vial) 4 mg IVP Q6HR PRN PRN Reason: Nausea / Vomiting Last Admin: 06/10/20 01:17 Dose: 4 mg Documented by: Prochlorperazine Maleate (Prochlorperazine 25 Mg Supp) 25 mg SD DAILY PRN PRN Reason: Nausea / Vomiting Prochlorperazine Maleate (Prochlorperazine 5 Mg Tablet) 10 mg PO Q6HR PRN PRN Reason: Nausea / Vomiting Last Admin: 06/09/20 11:31 Dose: 10 mg Documented by: Sodium Chloride (Sodium Chloride Flush 0.9% 10 Ml Syringe) 10 ml IVP PRN PRN PRN Reason: NEEDED PER PROVIDER ORDERS Sodium Chloride (Sodium Chloride Flush 0.9% 10 Ml Syringe) 10 ml IVP 0100,0900,1700 [facility] Last Admin: 06/10/20 07:39 Dose: 10 ml Documented by: Sodium Phosphate (Neutra-Phos 250 Mg Tablet) 250 mg PO TIDWM [facility] Last Admin: 06/09/20 20:48 Dose: Not Given Documented by: Sucralfate (Sucralfate 1 Gm/10 Ml Udc) 1 gm PO 0700,1100,1600,2200 PRN PRN Reason: Heartburn Last Admin: 06/10/20 06:27 Dose: 1 gm Documented by: Insulin Aspart (Vial) [NovoLOG (VIAL FOR ED USE)] 15 - 25 unit SQ TID 10/28/12 Pantoprazole Sodium [Protonix] 40 mg PO DAILY 11/06/13 Doxazosin [Cardura] 4 mg PO DAILY 07/13/16 Finasteride [Proscar] 5 mg ORAL DAILY 07/13/16 Insulin Degludec [Tresiba Flextouch U-100] 30 units SUBQ DAILY 08/28/17 Atorvastatin Calcium 40 mg ORAL DAILY 03/26/18 Carvedilol [Coreg] 6.25 mg PO DAILY 04/30/20 Lisinopril [Zestril] 20 mg PO DAILY 04/30/20 Magnesium Oxide [Mag Ox] 400 mg PO DAILY 04/30/20 Ondansetron Odt [Zofran Odt] 4 mg PO Q6HR PRN 05/30/20 Brimonidine 0.2% Ophth Drops [Alphagan P 0.2% Ophth Drops] 1 drops TOP PRN PRN 06/02/20 Dorzolamide/Timolol/Pf [Timolol 0.5%-Dorzolamide 2%] 1 drops TOP DAILY 06/02/20 Naloxone HCl [Narcan] 1 spray PO PRN PRN 06/02/20 Prochlorperazine Maleate 10 mg PO Q6H PRN 06/02/20 Senna [Senokot] 1 tab PO QPM 06/02/20 Travoprost [Travatan Z] 1 drops TOP BID 06/02/20 polyethylene glycoL 3350 [Miralax] 8.5 g PO DAILY 06/02/20 Prochlorperazine Supp [Compazine Supp] 25 mg SD DAILY PRN 06/04/20 - Allergies Allergies/Adverse Reactions: Allergies Allergy/AdvReac Type Severity Reaction Status Date / Time brompheniramine Allergy Unknown Verified 06/08/20 03:04 codeine Allergy Hives Verified 06/08/20 03:04 egg Allergy Respiratory Verified 06/09/20 10:35 hydrocodone Allergy Unknown Verified 06/08/20 03:04 NSAIDS (Non-Steroidal Allergy Anaphylaxis Verified 06/08/20 03:04 Anti-Inflamma Opioids - Morphine Analogues Allergy Anaphylaxis Verified 06/09/20 10:36 propoxyphene Allergy Unknown Verified 06/08/20 03:04 tuberculin, purified protein Allergy Unknown Verified 06/09/20 10:37 deriva amoxicillin [From Augmentin] AdvReac Unknown Verified 06/08/20 15:14 aspirin AdvReac Anaphylaxis Verified 06/08/20 15:14 clavulanic acid AdvReac Unknown Verified 06/08/20 15:14 [From Augmentin] hydroxyzine [From Vistaril] AdvReac Unknown Verified 06/08/20 15:14 lactose AdvReac Nausea Verified 06/08/20 15:14 meperidine [From Demerol] AdvReac Respiratory Verified 06/08/20 15:14 metformin AdvReac Unknown Verified 06/08/20 15:14 morphine AdvReac Unknown Verified 06/08/20 15:14 procaine [From Novocain] AdvReac Unknown Verified 06/08/20 15:14 promethazine HCl * AdvReac Unknown Verified 06/08/20 15:14 [From Phenergan] diphenhydramine/lidocaine/nystatin Allergy Anaphylaxis Uncoded 06/08/20 15:14 sodium biphosphate AdvReac Unknown Uncoded 06/08/20 15:14 Review of Systems - Constitutional Constitutional: reports: Fatigue, Weight loss (appx 40-50lbs in the last 2 months). denies: Fever - Eyes Eyes: reports: Other (Diabetic retinopahty) - Ears, Nose & Throat Ears, Nose & Throat: denies: Hearing aids - Cardiovascular Cardiovascular: denies: Edema - Respiratory Respiratory: denies: Wheezing - Gastrointestinal Gastrointestinal: reports: Constipation (on-going problem due to lack of oral intake, LBM 06/10/20, see HPI), Nausea, Vomiting, Poor appetite. denies: Abd ominal distention, Diarrhea, Rei blood emesis - Genitourinary Genitourinary: denies: Dysuria - Musculoskeletal Musculoskeletal: reports: Joint pain. denies: Assistive devices - Integumentary Integumentary: reports: Dryness - Neurological Neurological: denies: Headache - Psychiatric Psychiatric: reports: Other (PTSD history, see HPI) - Endocrine Endocrine: reports: Other (Type I DM) - All Other Systems All Other Systems: reports: Reviewed and negative Physical Exam - Vital Signs Vital Signs: Vital Signs x48h Temp Pulse Resp BP Pulse Ox 06/10/20 08:04 36.8 C 81 16 163/67 H 98 06/10/20 05:00 36.8 C 79 18 157/69 H 96 - Physical Exam General Appearance: positive: No acute distress, Alert Eyes Bilateral: positive: Normal inspection ENT: negative: Oral lesions Neck: positive: Trachea midline Cardiovascular: positive: Regular rate & rhythm, No murmur Respiratory: positive: No respiratory distress, Breath sounds nml Abdomen: positive: Non-tender, Soft, Nml bowel sounds. 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 He is not able to look forward towards the future due to his recent, acute loss and present physical health conditions. However, he is optimistic about his ability to increase his oral intake with improved control of his nausea and vomiting. He is looking forward to having blueberries when he returns home which is one of his favorite foods. He reports to having a wonderful support system through all of his children. We will need to continue to work on control of his nausea and vomiting to break the cycle so the patient may be able to have limited anorexia. Given his underlying type 1 diabetes mellitus he requires close observation for management for risk of hyper and hypoglycemia. Results - Lab Results Fish Bones: 06/10/20 06:39 06/10/20 06:39 Lab and Imaging Results: Lab Results x24hrs 06/10/20 06/10/20 06/10/20 Range/Units 06:39 06:39 06:39 WBC (4.8-10.8) x10^3/uL RBC (4.70-6.10) 10^6/uL Hgb (14.0-18.0) g/dL Hct (42.0-52.0) % MCV (80.0-94.0) fL MCH (27.0-31.0) pg MCHC (32.0-36.0) g/dL RDW (12.0-15.0) % Plt Count (130-450) 10^3/uL MPV (7.4-11.4) fL Reticulocyte % (Auto) (0.5-2.3) % Neut # (Auto) (1.5-6.6) 10^3/uL Lymph # (Auto) (1.5-3.5) 10^3/uL Putnam # (Auto) (0.0-1.0) 10^3/uL Eos # (Auto) (0.0-0.7) 10^3/uL Baso # (Auto) (0.0-0.1) 10^3/uL Absolute Nucleated RBC x10^3/uL Nucleated RBC % /100WBC Absolute Retic (0.020-0.110) 10^6/uL Sodium (135-145) mmol/L Potassium (3.5-5.0) mmol/L Chloride (101-111) mmol/L Carbon Dioxide (21-32) mmol/L Anion Gap (6-13) BUN (6-20) mg/dL Creatinine (0.6-1.2) mg/dL Estimated GFR (MDRD) (>89) Glucose (70-100) mg/dL POC Whole Bld Glucose (70 - 100) mg/dL Estimat Average Glucose (70-100) mg/dL Hemoglobin A1c % (4.27-6.07) % Calcium (8.5-10.3) mg/dL Phosphorus (2.5-4.6) mg/dL Magnesium (1.7-2.8) mg/dL Iron 19 L (45-182) ug/dL TIBC 176 L (250-450) ug/dL % Saturation 11 L (20-50) % Transferrin 126 L (180-329) mg/dL Ferritin 410.9 H (23.9-336.2) ng/mL Lactate Dehydrogenase 139 (91-225) IU/L Vitamin B12 705 (180-914) pg/mL 06/10/20 06/10/20 06/10/20 Range/Units 06:39 06:39 06:39 WBC 2.9 L (4.8-10.8) x10^3/uL RBC 3.40 L 3.45 L (4.70-6.10) 10^6/uL Hgb 10.6 L (14.0-18.0) g/dL Hct 30.8 L (42.0-52.0) % MCV 89.3 (80.0-94.0) fL MCH 30.7 (27.0-31.0) pg MCHC 34.4 (32.0-36.0) g/dL RDW 11.4 L (12.0-15.0) % Plt Count 105 L (130-450) 10^3/uL MPV 10.6 (7.4-11.4) fL Reticulocyte % (Auto) 0.27 L (0.5-2.3) % Neut # (Auto) 2.1 (1.5-6.6) 10^3/uL Lymph # (Auto) 0.6 L (1.5-3.5) 10^3/uL Putnam # (Auto) 0.2 (0.0-1.0) 10^3/uL Eos # (Auto) 0.0 (0.0-0.7) 10^3/uL Baso # (Auto) 0.0 (0.0-0.1) 10^3/uL Absolute Nucleated RBC 0.00 x10^3/uL Nucleated RBC % 0.0 /100WBC Absolute Retic 0.009 L (0.020-0.110) 10^6/uL Sodium 131 L (135-145) mmol/L Potassium 3.4 L (3.5-5.0) mmol/L Chloride 97 L (101-111) mmol/L Carbon Dioxide 25 (21-32) mmol/L Anion Gap 9.0 (6-13) BUN 7 (6-20) mg/dL Creatinine 0.7 (0.6-1.2) mg/dL Estimated GFR (MDRD) 135 (>89) Glucose 284 H (70-100) mg/dL POC Whole Bld Glucose (70 - 100) mg/dL Estimat Average Glucose (70-100) mg/dL Hemoglobin A1c % (4.27-6.07) % Calcium 8.2 L (8.5-10.3) mg/dL Phosphorus 1.9 L (2.5-4.6) mg/dL Magnesium 2.0 (1.7-2.8) mg/dL Iron (45-182) ug/dL TIBC (250-450) ug/dL % Saturation (20-50) % Transferrin (180-329) mg/dL Ferritin (23.9-336.2) ng/mL Lactate Dehydrogenase (91-225) IU/L Vitamin B12 (180-914) pg/mL 06/10/20 06/10/20 06/09/20 Range/Units 06:08 00:24 17:42 WBC (4.8-10.8) x10^3/uL RBC (4.70-6.10) 10^6/uL Hgb (14.0-18.0) g/dL Hct (42.0-52.0) % MCV (80.0-94.0) fL MCH (27.0-31.0) pg MCHC (32.0-36.0) g/dL RDW (12.0-15.0) % Plt Count (130-450) 10^3/uL MPV (7.4-11.4) fL Reticulocyte % (Auto) (0.5-2.3) % Neut # (Auto) (1.5-6.6) 10^3/uL Lymph # (Auto) (1.5-3.5) 10^3/uL Putnam # (Auto) (0.0-1.0) 10^3/uL Eos # (Auto) (0.0-0.7) 10^3/uL Baso # (Auto) (0.0-0.1) 10^3/uL Absolute Nucleated RBC x10^3/uL Nucleated RBC % /100WBC Absolute Retic (0.020-0.110) 10^6/uL Sodium (135-145) mmol/L Potassium (3.5-5.0) mmol/L Chloride (101-111) mmol/L Carbon Dioxide (21-32) mmol/L Anion Gap (6-13) BUN (6-20) mg/dL Creatinine (0.6-1.2) mg/dL Estimated GFR (MDRD) (>89) Glucose (70-100) mg/dL POC Whole Bld Glucose 305 H 309 H 177 H (70 - 100) mg/dL Estimat Average Glucose (70-100) mg/dL Hemoglobin A1c % (4.27-6.07) % Calcium (8.5-10.3) mg/dL Phosphorus (2.5-4.6) mg/dL Magnesium (1.7-2.8) mg/dL Iron (45-182) ug/dL TIBC (250-450) ug/dL % Saturation (20-50) % Transferrin (180-329) mg/dL Ferritin (23.9-336.2) ng/mL Lactate Dehydrogenase (91-225) IU/L Vitamin B12 (180-914) pg/mL 06/09/20 06/09/20 Range/Units 11:14 05:59 WBC (4.8-10.8) x10^3/uL RBC (4.70-6.10) 10^6/uL Hgb (14.0-18.0) g/dL Hct (42.0-52.0) % MCV (80.0-94.0) fL MCH (27.0-31.0) pg MCHC (32.0-36.0) g/dL RDW (12.0-15.0) % Plt Count (130-450) 10^3/uL MPV (7.4-11.4) fL Reticulocyte % (Auto) (0.5-2.3) % Neut # (Auto) (1.5-6.6) 10^3/uL Lymph # (Auto) (1.5-3.5) 10^3/uL Putnam # (Auto) (0.0-1.0) 10^3/uL Eos # (Auto) (0.0-0.7) 10^3/uL Baso # (Auto) (0.0-0.1) 10^3/uL Absolute Nucleated RBC x10^3/uL Nucleated RBC % /100WBC Absolute Retic (0.020-0.110) 10^6/uL Sodium (135-145) mmol/L Potassium (3.5-5.0) mmol/L Chloride (101-111) mmol/L Carbon Dioxide (21-32) mmol/L Anion Gap (6-13) BUN (6-20) mg/dL Creatinine (0.6-1.2) mg/dL Estimated GFR (MDRD) (>89) Glucose (70-100) mg/dL POC Whole Bld Glucose 230 H (70 - 100) mg/dL Estimat Average Glucose 128 H (70-100) mg/dL Hemoglobin A1c % 6.1 H (4.27-6.07) % Calcium (8.5-10.3) mg/dL Phosphorus (2.5-4.6) mg/dL Magnesium (1.7-2.8) mg/dL Iron (45-182) ug/dL TIBC (250-450) ug/dL % Saturation (20-50) % Transferrin (180-329) mg/dL Ferritin (23.9-336.2) ng/mL Lactate Dehydrogenase (91-225) IU/L Vitamin B12 (180-914) pg/mL Impression and Recommendations - Palliative Care Impression: This is an unfortunate 70-year-old gentleman who was diagnosed with metastatic adenocarcinoma of the pancreas on palliative chemotherapy with high symptom burden of pain, weight loss, constipation, nausea and vomiting, and hiccups. He has had improvement of his neutropenia as well as nausea vomiting and hypokalemia with repletion. His chemotherapy has been postponed to next week in the setting of neutropenia per his oncologist. Palliative care will continue to build rapport, provide support for pain and symptom management, advance care planning and anticipatory guidance. Recommendations/Counseling Done: 1. Nausea and vomiting due to underlying malignancy.At home patient was using Zofran 4 mg ODT and Compazine 10 mg orally to manage symptoms and did have some benefit from rectal compazine per his report. Upon discharged strongly encouraged use of Protonix first thing in the AM upon discharge after use of antiemetic. May need to titrate up to BID dose with PPI. He had been unable to take his oral PPI, Protonix while at home and we need to have this continued upon discharge with continued education. Would use a BRAT diet at home with small, frequent meals/snacks 6- 8 times per day. Advised against foods with acidity or spice. Would have foods and drinks at luke warm temperature. Encouraged the patient today the importance of maintaining oral hydration throughout the day. Will f/u upon discharge 2. Anorexia. Due to underlying malignancy secondary to nausea and vomiting. Advised patient that may see improvement with anorexia once nausea and vomiting is under better control. Hospitalist has plan to discharge the patient on Megestrol for appetite stimulation however, advised that this is contraindicated in a patient with pancreatic cancer due to increased risk of venous thromboembolic event and would not recommend. Recommended use of Glucerna at home for additional calorie supplementation. Continue to work on management of nausea and vomiting to increase the patient's desire to eat. 3. Neutropenia. WBC improved. Chemotherapy was cancelled 06/10/2020 per patient's oncologist, Dr. Allison and to f/u as scheduled next week for re-evaluation to proceed with treatment. Advised on precautions such as mask wearing and frequent handwashing. 4. Pain of neoplastic origin. Patient has multiple opioid allergies and has had his fentanyl patch titrated upwards with the last increase performed on 06/10/2019 to 50 MCG patch with the use of acetaminophen for breakthrough pain. Would continue to encourage use of tramadol 50 mg 1 to 2 tablets every 6 hours as needed for pain in addition to acetaminophen upon discharge once we have better control of his nausea and vomiting. The patient has previously expressed his desire to have his pain adequately managed as a short-term goal. 5. Constipation. Long standing and improved in last 48 hours. Last bowel movement reported on 06/09/2020. Continue to monitor upon discharge despite decreased oral intake we reviewed the need for continued, routine defecation with a goal every 1-2 days. 6. Pancreatic cancer. Patient wishes to continue with chemotherapy that is palliative in treatment. He has his chemotherapy at [facility] and is followed by Dr. Allison. see Dx. neutropenia for further details. Total time spent 25 minutes with greater than 50% of the spent in counseling coordination of care with the patient, and hospitalist; care coordination and discussion with hospitalist, examination of the patient; supportive listening; review of pain and symptom management and anticipatory guidance. Disclaimer: The chart note was formulated using voice recognition technology and unfortunately sound alike errors may occur."
[2020-06-10] MEDS: MEGESTROL 400 MG/10 ML UDC PO SCH (10:11)
[2020-06-10] MEDS: DOXAZOSIN 4 MG TABLET PO SCH (10:11)
[2020-06-10] MEDS: NEUTRA-PHOS 250 MG TABLET PO SCH (10:11)
[2020-06-10] MEDS: MAGNESIUM OXIDE 400 MG TABLET PO SCH (10:11)
[2020-06-10] MEDS: carvediloL 3.125 MG TABLET PO SCH (10:12)
[2020-06-10] MEDS: FINASTERIDE 5 MG TABLET PO SCH (10:12)
[2020-06-10] MEDS: lisinopriL 20 MG TABLET PO SCH (10:12)
[2020-06-10] MEDS: INSULIN GLARGINE 300 UNIT/3 ML PEN SUBQ SCH (10:13)
--- NOTE | 2020-06-10 11:02 | DISCHARGE SUMMARY ---
Discharge Summary Admit Date: 06/08/20 Discharge Date: 06/10/20 Discharging Provider: Phoenix Allison Primary Care Provider: Stevo Nguyen Condition at Discharge: Stable Discharge Disposition: 01 Home, Self Care Discharge Facility Name: home - DIAGNOSES Discharge Diagnoses with Status of Each Condition: (1) nausea and vomiting pt really want to be d/c home today. pt state he has to go to home to sign lots of documentations for his . his 5 days aga. Patient presented nausea and vomiting at the admission. pt had a chemotherapy treated 5 days ago, pt also had ongoing metastatic pancreatic cancer, which all may contribute to his symptoms. continue Pt's home Zofran and Compazine as needed. pt had hx of multiple severe allergies reaction to multiple drugs. Discussed with pt the importance to keep hydration at home, also updated all pt's medical conditions and care plan to pt's ADENIKE Heredia in the phone, emphasize oral input and keep hydration at home, If pt appear dehydration at home, pt may return ER or call 911 for help. ANAHY Heredia agree pt go to home. pt also is alert and oriented on today. (2) metastatic Pancreatic cancer pt is following with oncologist Dr. Allison at [facility]. Palliative care provider called Dr. Allison on yesterday and hope to see pt on 06/17, consult with director of social services to help pt as well. pt was Consulted with palliative care. pt may followup with to see SOPHIA Hightower, in palliative care. pt may continue Fentanyl patch, since it is works to him, and Tylenol PRN from over counter. He is allergic to nearly all narcotics therefore those will not be ordered. pt knew the poor prognosis of his metastatic pancreatic cancer, his oncologist already discussed with him. (3)anorexia pt present anorexia at the admission, likely due to combination of ongoing metastatic pancreatic cancer and recently chemotherapy. pt is prescribed megace, discussed with pt the importance to keep hydration, also updated all pt's medical conditions and care plan to pt's ADENIKE Heredia in the phone. Discussed with the care plan with pt, and pt's son at the bedside, and ANAHY Heredia at phone. pt knew the poor prognosis of his metastatic pancreatic cancer, his oncologist already discussed with him. However, if pt continue to have anorexia, the prognosis is even poor. (4)hiccups pt is prescribed Haldol PRN for his hiccups. (5) Hyponatremia stable, Na is 131. (6) Hypokalemia K is 3.4, replaced. (7) Chemotherapy induced neutropenia improved, WBC is 2.9 on today. (8) DM type 1 (diabetes mellitus, type 1) continue home regimen, pt may pay attention to hypoglycemia when pt is poor appetite. (9) Sleep apnea stable (10) Hx of coronary artery disease stable (11) Grief reaction consult with Social Work for support during grief reaction. (12)PTSD pt has hx of PTSD, plus his a few days, and his self new diagnosis of pancreatic cancer two weeks. Discussed the care plan with pt, pt want to go to home, continue home regimen, followup with his PCP to continue management. (13)anemia pt has iron deficiency anemia, pt is prescribed iron pill. - HPI History of Present Illness: refer from Dr.Zina Jarvis's HPI on 06/08/20 This is a 70-year-old black male, born in [facility], moved to the as a child with his parents, has been in the [place] [facility] [place]. He has a history of DM type I diagnosed 25 years ago, sleep apnea, CAD, BPH, glaucoma who has had extensive work-up for longstanding abdominal pain and recently underwent pancreas biopsy that showed cancer. He had a port placed and was just started on chemotherapy last week. He has suffered incessant nausea and vomiting since chemo and has been seen at [facility] emergency room and at our ER for managing nausea, vomiting and dehydration, incessant hiccups, has had IV fluids, pain medicines and various forms of treatment tried for the hiccups. His 4 days ago. He he was in our ER this last night but left in order to be present at her which was today. He presents back to the emergency room this evening with complaints of 10/10 abdominal pain and continued incessant nausea, vomiting and hiccups. - HOSPITAL COURSE Hospital Course: pt was admitted for symptoms control of his nausea, vomiting, dehydration and hiccups. He has suffered nausea and vomiting since chemotherapy 6 days ago and has been seen at [facility] emergency room as well for above symptoms control. Pt was treated with antiemesis PRN, IVF, Haldol for his hiccups. pt also present poor oral input. pt was prescribed Megace to enhance his appetite. Today pt request to be d/c to home because pt need to deal with the event of pt's recently . Pt's nausea, vomiting has slightly improved. It is expected pt's nausea and vomiting, poor input might gradually improved after chemotherapy agent is weaning off by digestion of liver and excretion from kidney. Patient is D/C at hemodynamic stable condition. - ALLERGIES Allergies/Adverse Reactions: Allergies Allergy/AdvReac Type Severity Reaction Status Date / Time brompheniramine Allergy Unknown Verified 06/08/20 03:04 codeine Allergy Hives Verified 06/08/20 03:04 egg Allergy Respiratory Verified 06/09/20 10:35 hydrocodone Allergy Unknown Verified 06/08/20 03:04 NSAIDS (Non-Steroidal Allergy Anaphylaxis Verified 06/08/20 03:04 Anti-Inflamma Opioids - Morphine Analogues Allergy Anaphylaxis Verified 06/09/20 10:36 propoxyphene Allergy Unknown Verified 06/08/20 03:04 tuberculin, purified protein Allergy Unknown Verified 06/09/20 10:37 deriva amoxicillin [From Augmentin] AdvReac Unknown Verified 06/08/20 15:14 aspirin AdvReac Anaphylaxis Verified 06/08/20 15:14 clavulanic acid AdvReac Unknown Verified 06/08/20 15:14 [From Augmentin] hydroxyzine [From Vistaril] AdvReac Unknown Verified 06/08/20 15:14 lactose AdvReac Nausea Verified 06/08/20 15:14 meperidine [From Demerol] AdvReac Respiratory Verified 06/08/20 15:14 metformin AdvReac Unknown Verified 06/08/20 15:14 morphine AdvReac Unknown Verified 06/08/20 15:14 procaine [From Novocain] AdvReac Unknown Verified 06/08/20 15:14 promethazine HCl * AdvReac Unknown Verified 06/08/20 15:14 [From Phenergan] diphenhydramine/lidocaine/nystatin Allergy Anaphylaxis Uncoded 06/08/20 15:14 sodium biphosphate AdvReac Unknown Uncoded 06/08/20 15:14 - MEDICATIONS Home Medications: Ambulatory Orders Medication Instructions Recorded Confirmed Insulin Aspart (Vial) [NovoLOG 15 - 25 unit SQ TID 10/28/12 06/08/20 (VIAL FOR ED USE)] Pantoprazole Sodium [Protonix] 40 mg PO DAILY 11/06/13 06/08/20 Doxazosin [Cardura] 4 mg PO DAILY 07/13/16 06/08/20 Finasteride [Proscar] 5 mg ORAL DAILY 07/13/16 06/08/20 Insulin Degludec [Tresiba 30 units SUBQ DAILY 08/28/17 06/08/20 Flextouch U-100] Atorvastatin Calcium 40 mg ORAL DAILY 03/26/18 06/08/20 Carvedilol [Coreg] 6.25 mg PO DAILY 04/30/20 06/08/20 Lisinopril [Zestril] 20 mg PO DAILY 04/30/20 06/08/20 Magnesium Oxide [Mag Ox] 400 mg PO DAILY 04/30/20 06/08/20 Ondansetron Odt [Zofran Odt] 4 mg PO Q6HR PRN 05/30/20 06/08/20 Brimonidine 0.2% Ophth Drops 1 drops TOP PRN PRN 06/02/20 06/08/20 [Alphagan P 0.2% Ophth Drops] Dorzolamide/Timolol/Pf [Timolol 1 drops TOP DAILY 06/02/20 06/08/20 0.5%-Dorzolamide 2%] Naloxone HCl [Narcan] 1 spray PO PRN PRN 06/02/20 06/08/20 Prochlorperazine Maleate 10 mg PO Q6H PRN 06/02/20 06/08/20 Senna [Senokot] 1 tab PO QPM 06/02/20 06/08/20 Travoprost [Travatan Z] 1 drops TOP BID 06/02/20 06/08/20 polyethylene glycoL 3350 [Miralax] 8.5 g PO DAILY 06/02/20 06/08/20 Prochlorperazine Supp [Compazine 25 mg [place] DAILY PRN 06/04/20 06/08/20 Supp] Ferrous Sulfate 325 mg PO DAILY #30 tab 06/10/20 Megestrol [Megace] 400 mg PO DAILY PRN #100 merrick u 06/10/20 fentaNYL 50 MCG PATCH [Duragesic 1 patch TOP Q3D PRN #10 patch 06/10/20 50mcg patch] haloperidoL [Haldol] 1 mg PO Q8H PRN #15 tablet 06/10/20 - PHYSICAL EXAM AT DISCHARGE General Appearance: positive: No acute distress, Alert. negative: Lethargic Eyes Bilateral: positive: Normal inspection, PERRL, No lid inflammation ENT: positive: ENT inspection nml, No signs of dehydration. negative: Purulent nasal drainage Neck: positive: Nml inspection, Trachea midline. negative: Thyromegaly, Tracheal deviation Respiratory: positive: Chest non-tender, No respiratory distress. negative: Wheezes, Rales Cardiovascular: positive: Regular rate & rhythm, No murmur. negative: Tachycardia, Bradycardia, Systolic murmur, Diastolic murmur Peripheral Pulses: positive: 2+ Abdomen: positive: Non-tender, Nml bowel sounds, No distention. negative: Tenderness Back: positive: Nml inspection Skin: positive: Color nml, Warm, Dry. negative: Cyanosis Extremities: positive: Non-tender, Full ROM, Nml appearance. negative: Calf tenderness Neurologic/Psychiatric: positive: Oriented x3, Motor nml, Sensation nml, Mood/affect nml. negative: Weakness, Sensory loss, Facial droop, Slurred/abnml speech - LABS Result Diagrams: 06/10/20 06:39 06/10/20 06:39 - FOLLOW UP Follow Up: you may keep hydration at home, continue take your antiemesis meds as needed to control your symptoms, take Haldol as needed for your hiccup, try to eat food as you like to eat as possible and take Megace to enhance your appetite as needed. Your WBC cell is increased now. You may followup with your oncologist as early as possible when your symptoms is controlled, and followup with your palliative care provider on next week. you may followup with your PCP and your oncologist in 1-2 weeks. should your symptoms return or worsen, you may present ER or call 911 for help. - TIME SPENT Time Spent in Discharge (Minutes): 30
== END 2020-06-10 10:45 | disposition home or self-care (01) | DRG 392 ==
LOC: ED 15:03 → MS2 20:23 → OBSVTOIN 06-09 10:37
PROVIDERS: ADMIT Nurse Practitioner Gerontology; ATTEND Nurse Practitioner Gerontology
DX: R11.2 Nausea with vomiting, unspecified (principal); C25.9 Malignant neoplasm of pancreas, unspecified; E87.1 Hypo-osmolality and hyponatremia; E10.65 Type 1 diabetes mellitus with hyperglycemia; C78.7 Secondary malignant neoplasm of liver and intrahepatic bile duct; C78.00 Secondary malignant neoplasm of unspecified lung; T45.1X5A Adverse effect of antineoplastic and immunosuppressive drugs, initial encounter; R63.0 Anorexia; R06.6 Hiccough; E86.0 Dehydration; E87.6 Hypokalemia; D70.1 Agranulocytosis secondary to cancer chemotherapy; G47.30 Sleep apnea, unspecified; I25.10 Atherosclerotic heart disease of native coronary artery without angina pectoris; D70.2 Other drug-induced agranulocytosis; F43.20 Adjustment disorder, unspecified; F43.10 Post-traumatic stress disorder, unspecified; D50.9 Iron deficiency anemia, unspecified; K86.81 Exocrine pancreatic insufficiency; I10 Essential (primary) hypertension; N40.0 Benign prostatic hyperplasia without lower urinary tract symptoms; N28.9 Disorder of kidney and ureter, unspecified; E10.319 Type 1 diabetes mellitus with unspecified diabetic retinopathy without macular edema; E78.5 Hyperlipidemia, unspecified; E10.42 Type 1 diabetes mellitus with diabetic polyneuropathy; F32.9 Major depressive disorder, single episode, unspecified; Z68.25 Body mass index [BMI] 25.0-25.9, adult; G89.3 Neoplasm related pain (acute) (chronic); Z88.6 Allergy status to analgesic agent; K59.00 Constipation, unspecified; Z51.5 Encounter for palliative care; Z86.16 Personal history of COVID-19; Z98.61 Coronary angioplasty status; H40.9 Unspecified glaucoma; K21.9 Gastro-esophageal reflux disease without esophagitis; Z79.4 Long term (current) use of insulin; Z79.899 Other long term (current) drug therapy
CPT/HCPCS: 36415; 80048; 80053; 82607; 82728; 83036; 83540; 83615; 83690; 83735; 84100; 84466; 85025; 85045; 87631; 96361; 96365; 96366; 96374; 96375; 96376; 99232; 99233; 99284; 99285; A9270; G0378; J1650; J1815; J2765; 0202U

== ENCOUNTER 2020-06-13 22:16 | Emergency (ER) | payer MEDICARE, OTHER ==
--- OUTSIDE RECORDS SUMMARY | 2020-06-13 22:20 | EXTERNAL MEDICAL SUMMARY RPT | Continuity of Care Document ---
:1950 Demographics Phone Unavailable Preferred Language Welsh Marital Status Unknown Mu-Ism Affiliation Unknown Race Unknown Ethnic Group Unknown Author Organization [place] Address [address] [phone] Phone Care Team Providers Name Role Phone Clerc Unavailable Unavailable Allison Unavailable Unavailable Botnick Unavailable Unavailable Problems date description facility [id number] [id number], [facility] [id number] Other specified diseases of pancreas [facility] [id number] Secondary malignant neoplasm of left [facility] [id number] Secondary malignant neoplasm of liver a [facility] bile [id number] Secondary malignant neoplasm of right [facility] 08697283 Secondary malignant neoplasm of [facility] [id number] Malignant neoplasm of pancreas, [facility] [id number] [facility], [facility] [id number] Secondary malignant neoplasm of left [facility] [id number] Secondary malignant neoplasm of liver a [facility] bile 98819255 Secondary malignant neoplasm of right [facility] 65408210 Secondary malignant neoplasm of [facility] Medications date description facility [id number] Ondansetron 4 MG Disintegrating Tablet [facility] 33438252 Ondansetron 4 MG Disintegrating Tablet [facility] 38890845 Ondansetron 4 MG Disintegrating Tablet [facility] 26157512 24 HR Divalproex Sodium 500 MG Extended Release Tablet [facility] 30205510 olopatadine 1 MG/ML Ophthalmic Solution [facility] 43371452 Doxazosin 4 MG Oral Tablet [facility] 96915732 Prazosin 5 MG Oral Capsule [facility] 31929256 carvedilol 6.25 MG Oral Tablet [facility] 37449287 Famotidine 40 MG Oral Tablet [facility] 23258961 Finasteride 5 MG Oral Tablet [facility] 20200504 Lisinopril 10 MG Oral Tablet [facility] 20200504 pantoprazole 40 MG Enteric Coated Table [facility] 81017248 atorvastatin 40 MG Oral Tablet [facility] 20200504 tramadol hydrochloride 50 MG Oral Table [facility] 20200504 3 ML Insulin Glargine 100 UNT/ML Prefil led Syringe [facility] 68073347 Brimonidine tartrate 2 MG/ML [facility] 69884441 24 HR Divalproex Sodium 500 MG Extended Release Tablet [facility] 11461527 olopatadine 1 MG/ML [facility] 46597357 Doxazosin 4 MG Oral Tablet [facility] 83814270 Prazosin 5 MG Oral Capsule [facility] 77075775 carvedilol 6.25 MG Oral Tablet [facility] 94442517 Famotidine 40 MG Oral Tablet [facility] 23114286 Finasteride 5 MG Oral Tablet [facility] 13094612 Lisinopril 10 MG Oral Tablet [facility] 90634416 pantoprazole 40 MG Enteric Coated [facility] 84974273 atorvastatin 40 MG Oral Tablet [facility] 00133165 tramadol hydrochloride 50 MG Oral [facility] 22830609 3 ML Insulin Glargine 100 UNT/ML Prefil led [facility] 73388675 Brimonidine tartrate 2 MG/ML [facility] 64829162 Ondansetron 4 MG Disintegrating Tablet [facility] 03071742 pantoprazole 40 MG Enteric Coated [facility] 47838748 Ondansetron 4 MG Disintegrating Tablet [facility] 45211260 pantoprazole 40 MG Enteric Coated [facility] 34604466 Metoclopramide 10 MG Oral Tablet [facility] 87765758 atorvastatin 40 MG Oral Tablet [facility] 42337839 Baclofen 10 MG Oral Tablet [facility] Procedures date description facility [id number] [facility] date description facility [id number] [facility] date description facility [id number] [facility] date description facility [id number] [facility] date description facility [id number] [facility] date description facility [id number] [facility] date description facility [id number] [facility] date description facility [id number] [facility] date description facility [id number] [facility] date description facility [id number] [facility] date description facility [id number] [facility] date description facility [id number] [facility] date description facility [id number] [facility] Vital Signs date measurement value source 20200503 [...] weight_standard 86.18 lb date measurement value source 98201923 BMI 23.7 kg/m2 12869787 BP_diastolic 74 mm[Hg] 67526575 BP_systolic 159 mm[Hg] 20200605 heart_rate 104 /min 20200605 height_metric 185.42 cm 20200605 height_standard 73 in 20200605 respiration_rate 13 /min 20200605 temperature_metric 36.83 C 20200605 temperature_standard 98.3 F 20200605 weight_metric 37.03 kg 20200605 weight_standard 81.65 lb date measurement value source 20200607 BP_diastolic 58 mm[Hg] 40218017 BP_systolic 151 mm[Hg] 20200607 heart_rate 84 /min 20200607 respiration_rate 17 /min 20200607 temperature_metric 36.56 C 20200607 temperature_standard 97.8 F Social History date description facility [id number]
--- OUTSIDE RECORDS SUMMARY | 2020-06-13 22:23 | EXTERNAL MEDICAL SUMMARY RPT | Continuity of Care Document ---
:1950 Demographics Phone Unavailable Preferred Language Korean Marital Status Unknown Protestant Affiliation Unknown Race Unknown Ethnic Group Unknown Author Organization [place] Address [address] [phone] Phone Care Team Providers Name Role Phone Keegan Unavailable Unavailable Clerc Unavailable Unavailable Botnick Unavailable Unavailable Problems date description facility [id number] [facility], [facility] [id number] Malignant neoplasm of pancreas, [facility] [id number] Other specified diseases of pancreas [facility] 09261775 Secondary malignant neoplasm of left [facility] 42071411 Secondary malignant neoplasm of liver a [facility] bile 55549502 Secondary malignant neoplasm of right [facility] 67341165 Secondary malignant neoplasm of [facility] 23427969 Malignant neoplasm of pancreas, [facility] 14930167 [facility], [facility] [id number] Secondary malignant neoplasm of left [facility] 11051998 Secondary malignant neoplasm of liver a [facility] bile 77385433 Secondary malignant neoplasm of right [facility] 28437583 Secondary malignant neoplasm of [facility] Medications date description facility 20200503 Ondansetron 4 MG Disintegrating Tablet [facility] 87798868 Ondansetron 4 MG Disintegrating Tablet [facility] 63969093 Ondansetron 4 MG Disintegrating Tablet [facility] 45877599 24 HR Divalproex Sodium 500 MG Extended Release Tablet [facility] 75402670 olopatadine 1 MG/ML Ophthalmic Solution [facility] 98156088 Doxazosin 4 MG Oral Tablet [facility] 87392396 Prazosin 5 MG Oral Capsule [facility] 63401182 carvedilol 6.25 MG Oral Tablet [facility] 66283009 Famotidine 40 MG Oral Tablet [facility] 51386923 Finasteride 5 MG Oral Tablet [facility] 20200504 Lisinopril 10 MG Oral Tablet [facility] 20200504 pantoprazole 40 MG Enteric Coated Table [facility] 26990819 atorvastatin 40 MG Oral Tablet [facility] 20200504 tramadol hydrochloride 50 MG Oral Table [facility] 58991594 3 ML Insulin Glargine 100 UNT/ML Prefil led Syringe [facility] 74751673 Brimonidine tartrate 2 MG/ML [facility] 32891007 24 HR Divalproex Sodium 500 MG Extended Release Tablet [facility] 89091672 olopatadine 1 MG/ML [facility] 15887992 Doxazosin 4 MG Oral Tablet [facility] 36290151 Prazosin 5 MG Oral Capsule [facility] 48390403 carvedilol 6.25 MG Oral Tablet [facility] 16282443 Famotidine 40 MG Oral Tablet [facility] 75543783 Finasteride 5 MG Oral Tablet [facility] 49729432 Lisinopril 10 MG Oral Tablet [facility] 45344440 pantoprazole 40 MG Enteric Coated [facility] 94578671 atorvastatin 40 MG Oral Tablet [facility] 47097286 tramadol hydrochloride 50 MG Oral [facility] 50373088 3 ML Insulin Glargine 100 UNT/ML Prefil led [facility] 14402199 Brimonidine tartrate 2 MG/ML [facility] 57968208 Ondansetron 4 MG Disintegrating Tablet [facility] 08221318 pantoprazole 40 MG Enteric Coated [facility] 30280382 Ondansetron 4 MG Disintegrating Tablet [facility] 47992807 pantoprazole 40 MG Enteric Coated [facility] 15585512 Metoclopramide 10 MG Oral Tablet [facility] 86714106 atorvastatin 40 MG Oral Tablet [facility] 36765760 Baclofen 10 MG Oral Tablet [facility] Procedures date description facility 20200503 [facility] date description facility [id number] [facility] date description facility [id number] [facility] date description facility [id number] [facility] date description facility [id number] [facility] date description facility [id number] [facility] date description facility [id number] [facility] date description facility [id number] [facility] date description facility [id number] [facility] date description facility [id number] [facility] date description facility [id number] [facility] date description facility [id number] [facility] date description facility [id number] [facility] Vital Signs date measurement value source [...] weight_standard 86.18 lb date measurement value source 76664634 BMI 23.7 kg/m2 92775249 BP_diastolic 74 mm[Hg] 07237195 BP_systolic 159 mm[Hg] 20200605 heart_rate 104 /min 20200605 height_metric 185.42 cm 20200605 height_standard 73 in 20200605 respiration_rate 13 /min 20200605 temperature_metric 36.83 C 20200605 temperature_standard 98.3 F 20200605 weight_metric 37.03 kg 20200605 weight_standard 81.65 lb date measurement value source 20200607 BP_diastolic 58 mm[Hg] 65457203 BP_systolic 151 mm[Hg] 20200607 heart_rate 84 /min 20200607 respiration_rate 17 /min 20200607 temperature_metric 36.56 C 20200607 temperature_standard 97.8 F Social History date description facility [id number]
--- NOTE | 2020-06-13 22:29 | ED Physician Documentation ---
PD HPI NVD - Stated complaint Stated Complaint: VOMITING, HUCKUPS - Chief complaint Chief Complaint: Abd Pain - History obtained from History obtained from: Patient - History of Present Illness Timing - onset: How many hours ago (few), Today Timing - duration: Hours (few) Timing - details: Abrupt onset, Still present Associated symptoms: Abdominal pain (epigastric), Other (hiccups). No: Fever, Near syncope / syncope Contributing factors: No: Sick contact, Bad food, Alcohol use Similar symptoms before: Diagnosis (History of gastritis and esophagitis and will have hiccups with pain of this at times. Also prior history of cancer with chemo 9 days ago and has had similar symptoms related to that.) Recently seen: Clinic Review of Systems Constitutional: denies: Fever, Chills Nose: denies: Rhinorrhea / runny nose, Congestion Throat: denies: Sore throat Respiratory: denies: Cough GI: reports: Abdominal Pain, Nausea. denies: Vomiting, Diarrhea : denies: Dysuria, Frequency PD PAST MEDICAL HISTORY - Past Medical History Cardiovascular: Hypertension, High cholesterol, Coronary artery disease Respiratory: Sleep apnea Neuro: Peripheral neuropathy Endocrine/Autoimmune: Type 1 diabetes (dx 25 years ago) GI: GERD : Benign prostate hypertrophy, Renal insuffiency, Kidney stones HEENT: Glaucoma, Other (Diabetic retinopathy (receives injections)) Psych: Depression, Panic attacks, Post traumatic stress disorder Musculoskeletal: Osteoarthritis, Gout Derm: Psoriasis - Past Surgical History Past Surgical History: Yes General: Cholecystectomy, Colonoscopy, EGD Ortho: Arthroscopic surgery /[employer]ICAL [employer]IANCE [employer]ER: Other (Kidney stone removal) Cardiovascular: Cardiac catheterization, Angioplasty HEENT: Cataracts - Present Medications Home Medications: Ambulatory Orders Medication Instructions Recorded Confirmed Insulin Aspart (Vial) [NovoLOG 15 - 25 unit SQ TID 10/28/12 06/08/20 (VIAL FOR ED USE)] Pantoprazole Sodium [Protonix] 40 mg PO DAILY 11/06/13 06/08/20 Doxazosin [Cardura] 4 mg PO DAILY 07/13/16 06/08/20 Finasteride [Proscar] 5 mg ORAL DAILY 07/13/16 06/08/20 Insulin Degludec [Tresiba 30 units SUBQ DAILY 08/28/17 06/08/20 Flextouch U-100] Atorvastatin Calcium 40 mg ORAL DAILY 03/26/18 06/08/20 Carvedilol [Coreg] 6.25 mg PO DAILY 04/30/20 06/08/20 Lisinopril [Zestril] 20 mg PO DAILY 04/30/20 06/08/20 Magnesium Oxide [Mag Ox] 400 mg PO DAILY 04/30/20 06/08/20 Ondansetron Odt [Zofran Odt] 4 mg PO Q6HR PRN 05/30/20 06/08/20 Brimonidine 0.2% Ophth Drops 1 drops TOP PRN PRN 06/02/20 06/08/20 [Alphagan P 0.2% Ophth Drops] Dorzolamide/Timolol/Pf [Timolol 1 drops TOP DAILY 06/02/20 06/08/20 0.5%-Dorzolamide 2%] Naloxone HCl [Narcan] 1 spray PO PRN PRN 06/02/20 06/08/20 Prochlorperazine Maleate 10 mg PO Q6H PRN 06/02/20 06/08/20 Senna [Senokot] 1 tab PO QPM 06/02/20 06/08/20 Travoprost [Travatan Z] 1 drops TOP BID 06/02/20 06/08/20 polyethylene glycoL 3350 [Miralax] 8.5 g PO DAILY 06/02/20 06/08/20 Prochlorperazine Supp [Compazine 25 mg ND DAILY PRN 06/04/20 06/08/20 Supp] Ferrous Sulfate 325 mg PO DAILY #30 tab 06/10/20 Megestrol [Megace] 400 mg PO DAILY PRN #100 merrick u 06/10/20 fentaNYL 50 MCG PATCH [Duragesic 1 patch TOP Q3D PRN #10 patch 06/10/20 50mcg patch] haloperidoL [Haldol] 1 mg PO Q8H PRN #15 tablet 06/10/20 Lidocaine Viscous 2% [Xylocaine 5 ml PO Q4H PRN #100 ml 06/13/20 Viscous 2%] - Allergies Allergies/Adverse Reactions: Allergies Allergy/AdvReac Type Severity Reaction Status Date / Time brompheniramine Allergy Unknown Verified 06/08/20 03:04 codeine Allergy Hives Verified 06/08/20 03:04 egg Allergy Respiratory Verified 06/09/20 10:35 hydrocodone Allergy Unknown Verified 06/08/20 03:04 NSAIDS (Non-Steroidal Allergy Anaphylaxis Verified 06/08/20 03:04 Anti-Inflamma Opioids - Morphine Analogues Allergy Anaphylaxis Verified 06/09/20 10:36 propoxyphene Allergy Unknown Verified 06/08/20 03:04 tuberculin, purified protein Allergy Unknown Verified 06/09/20 10:37 deriva amoxicillin [From Augmentin] AdvReac Unknown Verified 06/08/20 15:14 aspirin AdvReac Anaphylaxis Verified 06/08/20 15:14 clavulanic acid AdvReac Unknown Verified 06/08/20 15:14 [From Augmentin] hydroxyzine [From Vistaril] AdvReac Unknown Verified 06/08/20 15:14 lactose AdvReac Nausea Verified 06/08/20 15:14 meperidine [From Demerol] AdvReac Respiratory Verified 06/08/20 15:14 metformin AdvReac Unknown Verified 06/08/20 15:14 morphine AdvReac Unknown Verified 06/08/20 15:14 procaine [From Novocain] AdvReac Unknown Verified 06/08/20 15:14 promethazine HCl * AdvReac Unknown Verified 06/08/20 15:14 [From Phenergan] diphenhydramine/lidocaine/nystatin Allergy Anaphylaxis Uncoded 06/08/20 15:14 sodium biphosphate AdvReac Unknown Uncoded 06/08/20 15:14 - Social History Does the pt smoke?: No Smoking Status: Never smoker Does the pt drink ETOH?: No Does the pt have substance abuse?: No - Immunizations Immunizations are current?: Yes - POLST Patient has POLST: No POLST Status: Full Code PD ED PE NORMAL - Vitals Vital signs reviewed: Yes - General General: Alert and oriented X 3, Well developed/nourished, Other (ppears uncomfortable with hiccups as well as nausea. ) - Cardiac Cardiac: RRR, No murmur - Respiratory Respiratory: Clear bilaterally - Abdomen Abdomen: Normal bowel sounds, Soft, Non distended, No organomegaly, Other (mild epigastric tender without guarding. ) - Derm Derm: Normal color, Warm and dry - Neuro Neuro: Alert and oriented X 3, No motor deficit, Normal speech Results - Vitals Vitals: Oxygen O2 Source Room air PD MEDICAL DECISION MAKING - ED course Complexity details: re-evaluated patient (Is feeling much better with less pain and no hiccups after just a GI cocktail. He feels good for discharge.), consid ered differential (He gets this type symptoms from gastritis/esophagitis. He requests a GI cocktail to see if that will help.), d/w patient Departure - Departure Disposition: 01 Home, Self Care Clinical Impression: Nausea and vomiting Qualifiers: Vomiting type: unspecified Vomiting Intractability: unspecified Qualified Code(s): R11.2 - Nausea with vomiting, unspecified Gastritis Qualifiers: Gastritis type: unspecified gastritis Chronicity: acute Gastritis bleeding: without bleeding Qualified Code(s): K29.00 - Acute gastritis without bleeding Condition: Stable Record reviewed to determine appropriate education?: Yes Prescriptions: Lidocaine Viscous 2% [Xylocaine Viscous 2%] 5 ml PO Q4H PRN #100 ml PRN Reason: Pain Comments: Continue your current medications. Add the lidocaine 1 teaspoon (5 mL) along with 30 mils of antacid such as Maalox or Mylanta periodically if needed for nausea/upset stomach/hiccups. Follow-up with your primary care and oncologist as planned. Return if needed. Discharge Date/Time: 06/13/20 23:32
[2020-06-13] MEDS ORDERED: LIDOCAINE VISCOUS 2% 15 ML UDC MM STA (22:43)
[2020-06-13] MEDS ORDERED: ONDANSETRON ODT 4 MG TABLET TL STA (22:43)
[2020-06-13] MEDS ORDERED: MAG HYDROX/AL HYDROX/SIMETH 30 ML UDC PO STA (22:43)
[2020-06-13 23:32] VITALS: BP 115/60
== END 2020-06-13 23:32 | disposition home or self-care (01) ==
LOC: ED 22:16
DX: K29.00 Acute gastritis without bleeding (principal); K21.9 Gastro-esophageal reflux disease without esophagitis; R06.6 Hiccough; C80.1 Malignant (primary) neoplasm, unspecified; I10 Essential (primary) hypertension; E10.319 Type 1 diabetes mellitus with unspecified diabetic retinopathy without macular edema; E10.42 Type 1 diabetes mellitus with diabetic polyneuropathy
CPT/HCPCS: 99282; 99284; A9270; Q0162

== ENCOUNTER 2020-06-15 13:52 | Emergency (ER) | payer MEDICARE, OTHER ==
--- OUTSIDE RECORDS SUMMARY | 2020-06-15 13:56 | EXTERNAL MEDICAL SUMMARY RPT | Continuity of Care Document ---
:1950 Demographics Phone Unavailable Preferred Language Georgian Marital Status Unknown Confucianist Affiliation Unknown Race Unknown Ethnic Group Unknown Author Organization [facility] Address [address] [phone] Phone Care Team Providers Name Role Phone Botnick Unavailable Unavailable Clerc Unavailable Unavailable Allison Unavailable Unavailable Problems date description facility [id number] [id number] [id number] Other specified diseases of pancreas [facility] [id number] Secondary malignant neoplasm of left [facility] [id number] Secondary malignant neoplasm of liver a [facility] bile [id number] Secondary malignant neoplasm of right [facility] [id number] Secondary malignant neoplasm of [facility] [id number] Malignant neoplasm of pancreas, [facility] [id number] [facility], [facility] [id number] Secondary malignant neoplasm of left [facility] [id number] Secondary malignant neoplasm of liver a [facility] bile 67025905 Secondary malignant neoplasm of right [facility] [id number] Secondary malignant neoplasm of [facility] Medications date description facility [id number] Ondansetron 4 MG Disintegrating Tablet [facility] 34545609 Ondansetron 4 MG Disintegrating Tablet [facility] 85133410 Ondansetron 4 MG Disintegrating Tablet [facility] 58173387 24 HR Divalproex Sodium 500 MG Extended Release Tablet [facility] 78321722 olopatadine 1 MG/ML Ophthalmic Solution [facility] 68590591 Doxazosin 4 MG Oral Tablet [facility] 84274254 Prazosin 5 MG Oral Capsule [facility] 26644915 carvedilol 6.25 MG Oral Tablet [facility] 18316840 Famotidine [address] [facility] 80165037 Finasteride [address] [facility] 20200504 Lisinopril [address] [facility] 20200504 pantoprazole 40 MG Enteric Coated Table [facility] 62081029 atorvastatin 40 MG Oral Tablet [facility] 20200504 tramadol hydrochloride 50 MG Oral Table [facility] 20200504 3 ML Insulin Glargine 100 UNT/ML Prefil led Syringe [facility] 75154262 Brimonidine tartrate 2 MG/ML [facility] 38442146 24 HR Divalproex Sodium 500 MG Extended Release Tablet [facility] 38097008 olopatadine 1 MG/ML [facility] 89136580 Doxazosin 4 MG Oral Tablet [facility] 46948619 Prazosin 5 MG Oral Capsule [facility] 27644451 carvedilol 6.25 MG Oral Tablet [facility] 27455551 Famotidine 40 MG Oral Tablet [facility] 23744925 Finasteride [address] [facility] 70564475 Lisinopril [address] [facility] 14466181 pantoprazole 40 MG Enteric Coated [facility] 73804102 atorvastatin 40 MG Oral Tablet [facility] 68345142 tramadol hydrochloride 50 MG Oral [facility] 41141920 3 ML Insulin Glargine 100 UNT/ML Prefil led [facility] 67689213 Brimonidine tartrate 2 MG/ML [facility] 17300683 Ondansetron 4 MG Disintegrating Tablet [facility] 39285225 pantoprazole 40 MG Enteric Coated [facility] 86315992 Ondansetron 4 MG Disintegrating Tablet [facility] 02122552 pantoprazole 40 MG Enteric Coated [facility] 79436414 Metoclopramide 10 MG Oral Tablet [facility] 34300501 atorvastatin 40 MG Oral Tablet [facility] 51438187 Baclofen 10 MG Oral Tablet [facility] Procedures date description facility [id number] [facility] date description facility [id number] [facility] date description facility [id number] [facility] date description facility [id number] [facility] date description facility [id number] [facility] date description facility [id number] [facility] date description facility [id number] [facility] date description facility [id number] [facility] date description facility [id number] [facility] date description facility [id number] [facility] date description facility [id number] [facility] date description facility [id number] [facility] date description facility [id number] [facility] Vital Signs date measurement value source 20200503 [...] weight_standard 86.18 lb date measurement value source 11310022 BMI 23.7 kg/m2 07104974 BP_diastolic 74 mm[Hg] 55306077 BP_systolic 159 mm[Hg] 20200605 heart_rate 104 /min 20200605 height_metric 185.42 cm 20200605 height_standard 73 in 20200605 respiration_rate 13 /min 20200605 temperature_metric 36.83 C 20200605 temperature_standard 98.3 F 20200605 weight_metric 37.03 kg 20200605 weight_standard 81.65 lb date measurement value source 20200607 BP_diastolic 58 mm[Hg] 34575816 BP_systolic 151 mm[Hg] 20200607 heart_rate 84 /min 20200607 respiration_rate 17 /min 20200607 temperature_metric 36.56 C 20200607 temperature_standard 97.8 F Social History date description facility [id number]
[2020-06-15] MEDS ORDERED: HALOPERIDOL 5 MG/ML VIAL IVP ONE (14:14)
[2020-06-15] MEDS ORDERED: SODIUM CHLORIDE 0.9% 1,000 ML IV STA (14:14)
--- NOTE | 2020-06-15 14:18 | ED Physician Documentation ---
PD HPI ABD PAIN - Stated complaint Stated Complaint: VOMITING - Chief complaint Chief Complaint: Abd Pain - History obtained from History obtained from: Patient - Additional information Additional information: 70-year-old gentleman with recent diagnosis of metastatic pancreatic cancer. Also recent loss of his longtime . He has only had 1 round of chemo so far, that was about 11 days ago. Since then he has been having a lot of trouble with vomiting and hiccups. This is his third visit in that time for same, and on 1 of those episodes he was admitted to the hospital, he also had pancytopenia, likely related to the chemotherapy. He is a type II diabetic. He has had coronary disease, recent pancreatic biopsy, and a cholecystectomy. Pain is minimal, some esophageal pain from vomiting. He notes decreased bowel movements, cannot quite absence but has not been eating. Review of Systems Ten Systems: 10 systems reviewed and negative Constitutional: reports: Reviewed and negative Cardiac: reports: Reviewed and negative Respiratory: reports: Reviewed and negative PD PAST MEDICAL HISTORY - Past Medical History Cardiovascular: Hypertension, High cholesterol, Coronary artery disease Respiratory: Sleep apnea Neuro: Peripheral neuropathy Endocrine/Autoimmune: Type 1 diabetes (dx 25 years ago) GI: GERD : Benign prostate hypertrophy, Renal insuffiency, Kidney stones HEENT: Glaucoma, Other (Diabetic retinopathy (receives injections)) Psych: Depression, Panic attacks, Post traumatic stress disorder Musculoskeletal: Osteoarthritis, Gout Derm: Psoriasis - Past Surgical History Past Surgical History: Yes General: Cholecystectomy, Colonoscopy, EGD Ortho: Arthroscopic surgery /ROLLER: Other (Kidney stone removal) Cardiovascular: Cardiac catheterization, Angioplasty HEENT: Cataracts - Present Medications Home Medications: Ambulatory Orders Medication Instructions Recorded Confirmed Insulin Aspart (Vial) [NovoLOG 15 - 25 unit SQ TID 10/28/12 06/15/20 (VIAL FOR ED USE)] Pantoprazole Sodium [Protonix] 40 mg PO DAILY 11/06/13 06/15/20 Doxazosin [Cardura] 4 mg PO DAILY 07/13/16 06/15/20 Finasteride [Proscar] 5 mg ORAL DAILY 07/13/16 06/15/20 Insulin Degludec [Tresiba 30 units SUBQ DAILY 08/28/17 06/15/20 Flextouch U-100] Atorvastatin Calcium 40 mg ORAL DAILY 03/26/18 06/15/20 Carvedilol [Coreg] 6.25 mg PO DAILY 04/30/20 06/15/20 Lisinopril [Zestril] 20 mg PO DAILY 04/30/20 06/15/20 Magnesium Oxide [Mag Ox] 400 mg PO DAILY 04/30/20 06/15/20 Ondansetron Odt [Zofran Odt] 4 mg PO Q6HR PRN 05/30/20 06/15/20 Brimonidine 0.2% Ophth Drops 1 drops TOP PRN PRN 06/02/20 06/15/20 [Alphagan P 0.2% Ophth Drops] Dorzolamide/Timolol/Pf [Timolol 1 drops TOP DAILY 06/02/20 06/15/20 0.5%-Dorzolamide 2%] Naloxone HCl [Narcan] 1 spray PO PRN PRN 06/02/20 06/15/20 Prochlorperazine Maleate 10 mg PO Q6H PRN 06/02/20 06/15/20 Senna [Senokot] 1 tab PO QPM 06/02/20 06/15/20 Travoprost [Travatan Z] 1 drops TOP BID 06/02/20 06/15/20 polyethylene glycoL 3350 [Miralax] 8.5 g PO DAILY 06/02/20 06/15/20 Prochlorperazine Supp [Compazine 25 mg IN DAILY PRN 06/04/20 06/15/20 Supp] Ferrous Sulfate 325 mg PO DAILY #30 tab 06/10/20 06/15/20 Megestrol [Megace] 400 mg PO DAILY PRN #100 merrick u 06/10/20 06/15/20 fentaNYL 50 MCG PATCH [Duragesic 1 patch TOP Q3D PRN #10 patch 06/10/20 06/15/20 50mcg patch] haloperidoL [Haldol] 1 mg PO Q8H PRN #15 tablet 06/10/20 06/15/20 Lidocaine Viscous 2% [Xylocaine 5 ml PO Q4H PRN #100 ml 06/13/20 06/15/20 Viscous 2%] - Allergies Allergies/Adverse Reactions: Allergies Allergy/AdvReac Type Severity Reaction Status Date / Time brompheniramine Allergy Unknown Verified 06/15/20 14:20 codeine Allergy Hives Verified 06/15/20 14:20 egg Allergy Respiratory Verified 06/15/20 14:20 hydrocodone Allergy Unknown Verified 06/15/20 14:20 NSAIDS (Non-Steroidal Allergy Anaphylaxis Verified 06/15/20 14:20 Anti-Inflamma Opioids - Morphine Analogues Allergy Anaphylaxis Verified 06/15/20 14:20 propoxyphene Allergy Unknown Verified 06/15/20 14:20 tuberculin, purified protein Allergy Unknown Verified 06/15/20 14:20 deriva amoxicillin [From Augmentin] AdvReac Unknown Verified 06/15/20 14:20 aspirin AdvReac Anaphylaxis Verified 06/15/20 14:20 clavulanic acid AdvReac Unknown Verified 06/15/20 14:20 [From Augmentin] hydroxyzine [From Vistaril] AdvReac Unknown Verified 06/15/20 14:20 lactose AdvReac Nausea Verified 06/15/20 14:20 meperidine [From Demerol] AdvReac Respiratory Verified 06/15/20 14:20 metformin AdvReac Unknown Verified 06/15/20 14:20 morphine AdvReac Unknown Verified 06/15/20 14:20 procaine [From Novocain] AdvReac Unknown Verified 06/15/20 14:20 promethazine HCl * AdvReac Unknown Verified 06/15/20 14:20 [From Phenergan] diphenhydramine/lidocaine/nystatin Allergy Anaphylaxis Uncoded 06/15/20 14:20 sodium biphosphate AdvReac Unknown Uncoded 06/15/20 14:20 - Social History Does the pt smoke?: No Smoking Status: Never smoker Does the pt drink ETOH?: No Does the pt have substance abuse?: No - Immunizations Immunizations are current?: Yes - POLST Patient has POLST: No POLST Status: Full Code PD ED PE NORMAL - Vitals Vital signs reviewed: Yes - General General: Alert and oriented X 3, No acute distress - HEENT HEENT: PERRL, EOMI - Neck Neck: Supple, no meningeal sign, No bony TTP - Cardiac Cardiac: RRR, No murmur - Respiratory Respiratory: No respiratory distress, Clear bilaterally - Abdomen Abdomen: Other (Absent bowel tones, no diffuse tenderness. No surgical signs.) - Back Back: No CVA TTP, No spinal TTP - Derm Derm: Normal color, Warm and dry - Extremities Extremities: No edema, No calf tenderness / cord - Neuro Neuro: Alert and oriented X 3, No motor deficit, No sensory deficit, Normal speech Results - Vitals Vitals: Vital Signs - 24 hr 06/15/20 06/15/20 06/15/20 13:58 14:30 15:41 Temperature 36.5 C Heart Rate 108 H 94 83 Respiratory 18 20 16 Rate Blood Pressure 122/63 147/63 H 163/71 H O2 Saturation 98 97 96 Oxygen O2 Source Room air - Labs Labs: Laboratory Tests 06/15/20 06/15/20 14:05 14:05 WBC 7.7 RBC 4.01 L Hgb 12.6 L Hct 36.2 L MCV 90.3 MCH 31.4 H MCHC 34.8 RDW 12.4 Plt Count 252 MPV 10.8 Neut # (Auto) 5.1 Lymph # (Auto) 1.6 [place] # (Auto) 1.0 Eos # (Auto) 0.0 Baso # (Auto) 0.0 Absolute Nucleated RBC 0.02 Nucleated RBC % 0.3 Sodium 134 L Potassium 3.0 L Chloride 94 L Carbon Dioxide 27 Anion Gap 13.0 BUN 6 Creatinine 0.9 Estimated GFR (MDRD) 101 Glucose 190 H Calcium 9.0 Phosphorus 2.6 Magnesium 2.0 Total Bilirubin 1.7 H AST 29 ALT 30 Alkaline Phosphatase 190 H Total Protein 6.6 L Albumin 3.2 Globulin 3.4 Albumin/Globulin Ratio 0.9 L Lipase 29 - Rads (name of study) CT abdomen and pelvis with IV contrast Radiology: EMP read contemporaneously (Liver densities and pancreatic density consistent with his known neoplasm. Moderate to large right-sided pleural effusion, other incidental findings. No bowel obstruction.) PD MEDICAL DECISION MAKING - ED course ED course: 70-year-old gentleman with known recent diagnosis of metastatic pancreatic cancer/vomiting. The time course now question alternative diagnoses other than chemotherapy related nausea and vomiting since it has been 11 days since his chemotherapeutic infusion and that seems like it should be improved by now. He is noted to have absent bowel tones today so we will perform CT imaging to rule out bowel obstruction. CT imaging was negative for bowel obstruction. He was feeling better and passed an oral challenge after a single dose of IV Haldol. Departure - Departure Disposition: 01 Home, Self Care Clinical Impression: Chemotherapy induced nausea and vomiting Condition: Good Record reviewed to determine appropriate education?: Yes Instructions: ED Diet Vomiting Diarrhea, ED Nausea Vomiting Comments: You need to have a discussion with your oncologist before next infusion given how much side effects you have had with the current regimen.. Return if worsening.
[2020-06-15 14:23] LABS: BASOPHILS % (AUTO) 0.1 %; EOSINOPHILS % (AUTO) 0.3 %; HCT - HEMATOCRIT 36.2 % (42.0-52.0); HGB - HEMOGLOBIN 12.6 g/dL (14.0-18.0); LYMPHOCYTES # (AUTO) 1.6 10^3/uL (1.5-3.5); LYMPHOCYTES % (AUTO) 20.2 %; MEAN CORPUSCULAR HEMOGLOBIN 31.4 pg (27.0-31.0); MEAN CORPUSCULAR HGB CONC 34.8 g/dL (32.0-36.0); MEAN CORPUSCULAR VOLUME 90.3 fL (80.0-94.0); MEAN PLATELET VOLUME 10.8 fL (7.4-11.4); MONOCYTES % (AUTO) 12.5 %; NEUTROPHILS # (AUTO) 5.1 10^3/uL (1.5-6.6); NEUTROPHILS % (AUTO) 66.4 %; NRBC ABSOLUTE COUNT (AUTO) 0.02 x10^3/uL; NUCLEATED RED BLOOD CELLS AUTO 0.3 /100WBC; PLT - PLATELET COUNT 252 10^3/uL (130-450); RED BLOOD COUNT 4.01 10^6/uL (4.70-6.10); RED CELL DISTRIBUTION WIDTH 12.4 % (12.0-15.0); WHITE BLOOD COUNT 7.7 x10^3/uL (4.8-10.8)
--- OUTSIDE RECORDS SUMMARY | 2020-06-15 14:23 | EXTERNAL MEDICAL SUMMARY RPT | Continuity of Care Document ---
:1950 Demographics Phone Unavailable Preferred Language Danish Marital Status Unknown Cheondoism Affiliation Unknown Race Unknown Ethnic Group Unknown Author Organization [place] Address [address] [phone] Phone Care Team Providers Name Role Phone Keegan Unavailable Unavailable Clerc Unavailable Unavailable Botnick Unavailable Unavailable Problems date description facility [id number] [id number], [facility] [id number] Other specified diseases of pancreas [facility] [id number] Secondary malignant neoplasm of left [facility] [id number] Secondary malignant neoplasm of liver a [facility] bile [id number] Secondary malignant neoplasm of right [facility] [id number] Secondary malignant neoplasm of [facility] [id number] Malignant neoplasm of pancreas, [facility] [id number] [facility] [id number] Secondary malignant neoplasm of left [facility] [id number] Secondary malignant neoplasm of liver a [facility] bile 60360681 Secondary malignant neoplasm of right [facility] [id number] Secondary malignant neoplasm of [facility] Medications date description facility [id number] Ondansetron 4 MG Disintegrating Tablet [facility] 29974916 Ondansetron 4 MG Disintegrating Tablet [facility] 24932582 Ondansetron 4 MG Disintegrating Tablet [facility] 50854674 24 HR Divalproex Sodium 500 MG Extended Release Tablet [facility] 38918233 olopatadine 1 MG/ML Ophthalmic Solution [facility] 24618298 Doxazosin 4 MG Oral Tablet [facility] 32403041 Prazosin 5 MG Oral Capsule [facility] 99344923 carvedilol 6.25 MG Oral Tablet [facility] 97599250 Famotidine 40 [facility] 94643000 Finasteride 5 MG [facility] 20200504 Lisinopril 10 MG [facility] 20200504 pantoprazole 40 MG Enteric Coated Table [facility] 82314172 atorvastatin 40 MG Oral Tablet [facility] 20200504 tramadol hydrochloride 50 MG Oral Table [facility] 87351785 3 ML Insulin Glargine 100 UNT/ML Prefil led Syringe [facility] 45921077 Brimonidine tartrate 2 MG/ML [facility] 39459493 24 HR Divalproex Sodium 500 MG Extended Release Tablet [facility] 72856695 olopatadine 1 MG/ML [facility] 46625997 Doxazosin 4 MG Oral Tablet [facility] 37422446 Prazosin 5 MG Oral Capsule [facility] 00370250 carvedilol 6.25 MG Oral Tablet [facility] 48808148 Famotidine 40 MG Oral Table[facility] 82547880 Finasteride 5 MG Oral [facility]ital 40164589 Lisinopril 10 MG Oral [facility]ital 73830001 pantoprazole 40 MG Enteric Coated [facility] 46804767 atorvastatin 40 MG Oral Tablet [facility] 74432819 tramadol hydrochloride 50 MG Oral [facility] 05505384 3 ML Insulin Glargine 100 UNT/ML Prefil led [facility] 09116325 Brimonidine tartrate 2 MG/ML [facility] 86570910 Ondansetron 4 MG Disintegrating Tablet [facility] 29127930 pantoprazole 40 MG Enteric Coated [facility] 82882823 Ondansetron 4 MG Disintegrating Tablet [facility] 83045116 pantoprazole 40 MG Enteric Coated [facility] 64899512 Metoclopramide 10 MG Oral Tablet [facility] 57597378 atorvastatin 40 MG Oral Tablet [facility] 54698015 Baclofen 10 MG Oral Tablet [facility] Procedures date description facility [id number] [facility] date description facility [id number] [facility] date description facility [id number] [facility] date description facility [id number] [facility] date description facility [id number] [facility] date description facility [id number] [facility] date description facility [id number] [facility] date description facility [id number] [facility] date description facility [id number] [facility] date description facility [id number] [facility] date description facility [id number] [facility] date description facility [id number] [facility] date description facility [id number] [facility] Vital Signs date measurement value source [...] weight_standard 86.18 lb date measurement value source [id number] BMI 23.7 kg/m2 73168822 BP_diastolic 74 mm[Hg] 69500930 BP_systolic 159 mm[Hg] 20200605 heart_rate 104 /min [...] 97.8 F Social History date description facility [id number]
[2020-06-15 14:41] LABS: ALBUMIN 3.2 g/dL (3.2-5.5); ALBUMIN/GLOBULIN RATIO 0.9 (1.0-2.2); BILIRUBIN,TOTAL 1.7 mg/dL (0.2-1.0); CREATININE 0.9 mg/dL (0.6-1.2); PHOSPHORUS 2.6 mg/dL (2.5-4.6); TOTAL PROTEIN 6.6 g/dL (6.7-8.2)
[2020-06-15] MEDS ORDERED: IOPAMIDOL-300 100 ML VIAL ONE (14:45)
[2020-06-15] MEDS ORDERED: IOPAMIDOL-300 100 ML VIAL IVP ONE (15:11)
[2020-06-15] MEDS ORDERED: POTASSIUM CHLOR 10 MEQ/100 ML 10 MEQ/100 ML BAG IV STA (15:23)
--- NOTE | 2020-06-15 15:45 | CT Report ---
PROCEDURE: Abdomen/Pelvis W INDICATIONS: IV only, abd pain ?sbo CONTRAST: IV CONTRAST: Isovue 300 ml: 100 PO CONTRAST: *NO PO CONTRAST TECHNIQUE: After the administration of weight appropriate dose of intravenous contrast, 5 mm thick sections acqu ired from the diaphragms to the symphysis. 5 mm thick coronal and sagittal reformats were acquired. For radiation dose reduction, the following was used: automated exposure control, adjustment of mA and/or kV according to patient size. COMPARISON: 08/29/2017 FINDINGS: Image quality: Excellent. ABDOMEN: Lung bases: [id number] right pleural effusion with associated compressive atelectasis. V isualized lung bases are otherwise clear. Heart size is normal. Small hiatal hernia. Solid organs: There are multiple ill-defined somewhat rounded hypodense lesions within the liver. Th moraima are scattered between the right and left hepatic lobes. The largest is seen in the right hepatic lobe measuring approximately 2 cm in maximum dimension. No evidence for biliary ductal dilatation. He patic vasculature appear patent. There is an ill-defined hypodense lesion noted within the distal asp ect of the pancreatic head. Margins are very ill-defined and measures approximately 3.8 x 1.9 cm in s ize (image 32, series 3). No evidence for pancreatic ductal dilatation. Minimal peripancreatic inflam matory stranding. Multiple prominent lymph nodes are seen in the josefa hepatis. Additional prominent retroperitoneal lymph nodes are noted adjacent to the IVC and right adrenal gland. Liver and spleen a re normal in size and enhancement. Gallbladder is surgically absent. No adrenal nodules. Kidneys de monstrate normal size and enhancement, without hydronephrosis. Peritoneum and bowel: Bowel loops demonstrate normal wall thickness and caliber. No free fluid or a ir. Normal appendix. Nodes and vessels: No retroperitoneal or mesenteric adenopathy by size criteria. Aorta and inferior vena cava are normal in size. Atherosclerotic calcifications are noted. Miscellaneous: Small fat-containing umbilical hernia without acute inflammation. Bilateral subcutane ous fat stranding along the lower anterior abdominal wall likely sequela of injections. This is relat ively unchanged compared to prior study. PELVIS: Genitourinary: Bladder wall thickness is normal. Miscellaneous: No inguinal hernias or adenopathy. Bones: No suspicious bony lesions. No acute vertebral body compression fractures. Multilevel lumba r spondylosis is again noted most severe in the L5-S1 level. IMPRESSION: 1. Multiple scattered ill-defined hypodense masses within the liver with associated adenopathy of the josefa hepatis and adjacent retroperitoneum. There is an ill-defined hypodensity in the inferior aspe ct of the pancreatic head, suspicious for neoplasm versus adenopathy. No pancreatic ductal dilatation seen. Findings are compatible with hepatic metastatic disease secondary to pancreatic primary. No ot her suspicious mass lesions identified in the abdomen or pelvis. Otherwise, no acute abnormalities id entified to explain patient's nausea and vomiting. 2. Moderate-large size right pleural effusion. 3. Status post cholecystectomy. 4.Atherosclerosis. 5. Small hiatal hernia. Findings were discussed with Dr. Hernandez of the emergency department at 1541 hrs PST. Reviewed by: Kevin Cannon MD on 06/15/2020 2:44 PM JELENA Approved by: Kevin Cannon MD on 06/15/2020 2:44 PM AKCHINTAN Station ID: [id number]
[2020-06-15 16:28] VITALS: BP 180/84
[2020-06-15] MEDS ORDERED: LIDOCAINE VISCOUS 2% 15 ML UDC MM STA (16:34)
[2020-06-15] MEDS ORDERED: MAG HYDROX/AL HYDROX/SIMETH 30 ML UDC PO STA (16:34)
== END 2020-06-15 17:18 | disposition home or self-care (01) ==
LOC: ED 13:52
DX: R11.2 Nausea with vomiting, unspecified (principal); T45.1X5A Adverse effect of antineoplastic and immunosuppressive drugs, initial encounter; J90 Pleural effusion, not elsewhere classified; C25.9 Malignant neoplasm of pancreas, unspecified; C78.7 Secondary malignant neoplasm of liver and intrahepatic bile duct; E10.319 Type 1 diabetes mellitus with unspecified diabetic retinopathy without macular edema; E10.42 Type 1 diabetes mellitus with diabetic polyneuropathy; I25.10 Atherosclerotic heart disease of native coronary artery without angina pectoris; G47.30 Sleep apnea, unspecified; K21.9 Gastro-esophageal reflux disease without esophagitis; E78.00 Pure hypercholesterolemia, unspecified; N40.0 Benign prostatic hyperplasia without lower urinary tract symptoms; N28.9 Disorder of kidney and ureter, unspecified; F32.9 Major depressive disorder, single episode, unspecified; F41.0 Panic disorder [episodic paroxysmal anxiety]; F43.10 Post-traumatic stress disorder, unspecified; H40.9 Unspecified glaucoma; Z79.4 Long term (current) use of insulin; Z79.899 Other long term (current) drug therapy
CPT/HCPCS: 36415; 74177; 80053; 83690; 83735; 84100; 85025; 96365; 96375; 99284; A9270; Q9967

== ENCOUNTER 2020-06-16 14:00 | Outpatient (CLI) | payer MEDICARE, OTHER ==
--- NOTE | 2020-06-16 15:55 | CONSULTATION NOTE ---
Palliative Care Follow Up - Referral Referring Provider: Kassie Whiteside MD Time of Visit: 0422-1707 Referral setting: Home Referral Reason: Persistent Nausea and Vomiting/Pain of neoplastic origin - Information Sources Records reviewed: Previous records reviewed History/Review of Systems obtained from: Patient, Family (son, Paris) Exam limitations: Clinical condition (persistent nausea and episodes that required the patient to leave due to vomiting) - History of Present Illness Update Brief HPI Update: This is a 70-year-old -[place]i gentleman who was seen in his home for follow-up after recent emergency room visits due to nausea and vomiting and pain of neoplastic origin in the setting of 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 The patient was admitted at [facility] from 06/08-06/10 due to hypokalemia and persistent nausea and vomiting. He also was having hiccups that responded to Haldol. He was discharged with an increase of his fentanyl patch to 50 mcg/h for his abdominal pain with reported improvement. He also was repleted for his hypokalemia. Unfortunately, since he was discharged she has been to the emergency department on 2 separate occasions, 06/13 and 06/15 for nausea vomiting and abdominal pain. On 06/[address] of the abdomen performed which ruled out evidence of bowel obstruction. He has not had a bowel movement in several days. He denies firmness of the abdomen and reports to positive flatus. He has not been able to keep meals or liquids down for very long before he then develops nausea and vomiting. He has had some positive response from the use of rectal Compazine. He has not been using as needed Haldol per his son's report as well as the patient. He has not been able to take all of his oral medications due to his nausea and vomiting. He reports some abdominal pain at present and states that he removed his fentanyl patch approximately an hour ago. Reeducated the importance of changing his fentanyl patch every 3 days and to reapply after removal and further not to be a break in administration with understanding verbalized. He was unable due to his nausea to find his fentanyl patch of 50 mcg and in the interim placed a 37.5 mcg patch until his 50 mcg patch box can be found in his bedroom. The patient is scheduled to see his oncologist in for chemotherapy tomorrow, 06/17 which she attend plans to attend. On initial arrival, the patient did not wish to see this palliative care pr ovider due to how he was feeling. However, he did allow this COOK FRY to speak to his son and eventually did come out of his room to participate in the conversation and management of his symptoms. Past Medical History: Patient has a past medical history of hypertension, hyperlipidemia, coronary artery disease, sleep apnea, peripheral diabetic neuropathy, type 1 diabetes laya litus diagnosed 25 years ago, PTSD, BPH, GERD, renal insufficiency, diabetic retinopathy, depression, panic attacks, osteoarthritis, gout, adenocarcinoma of the pancreas with metastatic lesions in liver and lungs 2020, Covid19 Social History - Living Situation Living arrangement: At home Living Situation: Alone (His 1 week ago and he was unable to attend the due to his symptom burden.) Support System: The patient unexpectedly lost his of approximately 30 years a week ago. They had 10 children together. He served for 26 years in the [employer]. He was born in [facility] and then grew up in [place]. The patient's son, Paris has taken a 30-day leave from work and is present in the home to assist the patient until caregiving can be set up. The patient himself feels guilty that his son has to be present to provide assistance and that he is taking his son away from his family out of state. Medications/Allergies - Medications Home Medications: Ambulatory Orders Medication Instructions Recorded Confirmed Insulin Aspart (Vial) [NovoLOG 15 - 25 unit SQ TID 10/28/12 06/15/20 (VIAL FOR ED USE)] Pantoprazole Sodium [Protonix] 40 mg PO BID 11/06/13 06/15/20 Doxazosin [Cardura] 4 mg PO DAILY 07/13/16 06/15/20 Finasteride [Proscar] 5 mg ORAL DAILY 07/13/16 06/15/20 Insulin Degludec [Tresiba 30 units SUBQ DAILY 08/28/17 06/15/20 Flextouch U-100] Atorvastatin Calcium 40 mg ORAL DAILY 03/26/18 06/15/20 Carvedilol [Coreg] 6.25 mg PO DAILY 04/30/20 06/15/20 Lisinopril [Zestril] 20 mg PO DAILY 04/30/20 06/15/20 Magnesium Oxide [Mag Ox] 400 mg PO DAILY 04/30/20 06/15/20 Ondansetron Odt [Zofran Odt] 4 mg PO Q6HR PRN 05/30/20 06/15/20 Brimonidine 0.2% Ophth Drops 1 drops TOP PRN PRN 06/02/20 06/15/20 [Alphagan P 0.2% Ophth Drops] Dorzolamide/Timolol/Pf [Timolol 1 drops TOP DAILY 06/02/20 06/15/20 0.5%-Dorzolamide 2%] Naloxone HCl [Narcan] 1 spray PO PRN PRN 06/02/20 06/15/20 Prochlorperazine Maleate 10 mg PO Q6H PRN 06/02/20 06/15/20 Senna [Senokot] 1 tab PO QPM 06/02/20 06/15/20 Travoprost [Travatan Z] 1 drops TOP BID 06/02/20 06/15/20 polyethylene glycoL 3350 [Miralax] 8.5 g PO DAILY 06/02/20 06/15/20 Prochlorperazine Supp [Compazine 25 mg OK DAILY PRN 06/04/20 06/15/20 Supp] Ferrous Sulfate 325 mg PO DAILY #30 tab 06/10/20 06/15/20 fentaNYL 50 MCG PATCH [Duragesic 1 patch TOP Q3D PRN #10 patch 06/10/20 06/15/20 50mcg patch] Lidocaine Viscous 2% [Xylocaine 5 ml PO Q4H PRN #100 ml 06/13/20 06/15/20 Viscous 2%] OLANZapine ODT [Zyprexa Odt] 1 tab PO QPM 06/16/20 06/16/20 - Allergies Allergies/Adverse Reactions: Allergies Allergy/AdvReac Type Severity Reaction Status Date / Time brompheniramine Allergy Unknown Verified 06/15/20 14:20 codeine Allergy Hives Verified 06/15/20 14:20 egg Allergy Respiratory Verified 06/15/20 14:20 hydrocodone Allergy Unknown Verified 06/15/20 14:20 NSAIDS (Non-Steroidal Allergy Anaphylaxis Verified 06/15/20 14:20 Anti-Inflamma Opioids - Morphine Analogues Allergy Anaphylaxis Verified 06/15/20 14:20 propoxyphene Allergy Unknown Verified 06/15/20 14:20 tuberculin, purified protein Allergy Unknown Verified 06/15/20 14:20 deriva amoxicillin [From Augmentin] AdvReac Unknown Verified 06/15/20 14:20 aspirin AdvReac Anaphylaxis Verified 06/15/20 14:20 clavulanic acid AdvReac Unknown Verified 06/15/20 14:20 [From Augmentin] hydroxyzine [From Vistaril] AdvReac Unknown Verified 06/15/20 14:20 lactose AdvReac Nausea Verified 06/15/20 14:20 meperidine [From Demerol] AdvReac Respiratory Verified 06/15/20 14:20 metformin AdvReac Unknown Verified 06/15/20 14:20 morphine AdvReac Unknown Verified 06/15/20 14:20 procaine [From Novocain] AdvReac Unknown Verified 06/15/20 14:20 promethazine HCl * AdvReac Unknown Verified 06/15/20 14:20 [From Phenergan] diphenhydramine/lidocaine/nystatin Allergy Anaphylaxis Uncoded 06/15/20 14:20 sodium biphosphate AdvReac Unknown Uncoded 06/15/20 14:20 Review of Systems - Constitutional Constitutional: reports: Fatigue, Weight loss (appx 40-50lbs in the last 2 months). denies: Fever - Eyes Eyes: reports: Other (Diabetic retinopahty) - Ears, Nose & Throat Ears, Nose & Throat: denies: Hearing aids - Cardiovascular Cardiovascular: denies: Chest pain, Edema - Gastrointestinal Gastrointestinal: reports: Constipation (on-going problem due to lack of oral intake, +flatus, see HPI for more details), Nausea, Vomiting, Poor appetite. denies: Abdominal distention, Diarrhea, Rei blood emesis - Genitourinary Genitourinary: denies: Dysuria - Musculoskeletal Musculoskeletal: reports: Joint pain. denies: Assistive devices - Integumentary Integumentary: reports: Dryness - Neurological Neurological: denies: Headache - Psychiatric Psychiatric: reports: Other (PTSD history, see HPI) - Endocrine Endocrine: reports: Other (Type I DM-- recent blood glucose levels around 100 (which is elevated for the patient as he prefers a tighter blood glucose control). No reported episodes of hypoglycemia.) - Hematologic/Lymphatic Hematologic/Lymph: denies: Recurrent infections - All Other Systems All Other Systems: reports: Reviewed and negative Physical Exam - Physical Exam General Appearance: positive: No acute distress, Alert, Mild distress (due to vomiting), Other (appears to visibly appear unwell) Eyes Bilateral: positive: Normal inspection ENT: positive: Dry mucous membranes (mild) Neck: positive: Trachea midline Cardiovascular: positive: Regular rate & rhythm, No murmur Respiratory: positive: No respiratory distress, Breath sounds nml Abdomen: positive: Non-tender, Soft, Nml bowel sounds (slightly diminished but present x 4 quadrants), Guarding. 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 see HPI for further details) Tiredness/Fatigue: Moderate (4-6) (having difficulty sleeping due to PTSD and episodes of vomiting) Anorexia: Severe (7-10) - Palliative Care Discussion: The patient continues with persistent nausea vomiting. Despite recent hospitalization he has unfortunately had to further trips and evaluations at the emergency department. Fortunately, his imaging was negative for bowel obstruction. He continues with a high symptom burden as recent oral and rectal medications that have been administered has only had minimal effect. Has he has underlying GERD and reported symptoms due to this recommended increase of Protonix to twice daily dosing and will also add Carafate to coat his stomach With the hopes that this may lessen some of his symptom burden and allow him to have more intake and more specifically maintaining his hydration. He continues at high risk for hyper and hypoglycemia due to his underlying type 1 diabetes mellitus. However, he denies any reported lows despite his limited oral intake. He has presently being assisted and supported by his son who has taken time off from work and left his family to provide support to the patient. The patient himself feels guilty that his children are having to take time away from her life to support him. He remains optimistic that he will be able to "beat this." Results - Lab Results Lab results reviewed: Yes Lab and Imaging Results: reviewed labwork 06/15/2020 Impression and Recommendations - Palliative Care Impression: This is an unfortunate 70-year-old gentleman who was diagnosed with metastatic adenocarcinoma of the pancreas on palliative chemotherapy with high symptom burden of pain, weight loss and persistent nausea and vomiting. He has had frequent emergency department visits has well as is and a recent hospital admis sonya due to his high symptom burden. He continues with minimal oral intake. Will initiate Zyprexa as a trial to reduce his symptom burden related to his nausea and vomiting. We will continue to work with the patient in improving his underlying GERD symptoms as well. Palliative care will continue to build rapport, provide support for pain and symptom management, advanced care planning and anticipatory guidance. Recommendations/Counseling Done: 1. Persistent nausea and vomiting. Patient has not responded to other treatment modalities. Underlying GERD contributing as well as his underlying malignancy. Advised to discontinue Haldol. Initiate Zyprexa 5 mg ODT nightly for nausea. Discussed purpose, dose and side effects of Zyprexa. Patient understands and verbalized understanding and to proceed with trial of Zyprexa. Continue O. Danza Warren 4 mg ODT and Compazine 4 mg orally to manage symptoms and if this is not effective may trial rectal Compazine. To increase his Protonix to 40 mg twice daily to further reduce gastric pH and improve symptoms. Encourage oral hydration with Luke warm drinks and small frequent meals. 2. GERD. Increase Protonix to 40 mg twice daily. Initiate Carafate 1 g per 10 mL. Take 10 mL 3 times daily prior to meals advised to coat the patient's stomach. May take even if unable to tolerate consumption of a meal. 3. Anorexia. Due to underlying malignancy secondary to nausea and vomiting. Continue to work on optimizing management of nausea and vomiting to increase the patient's desire to eat. Would avoid dexamethasone due to the patient's underlying type 1 diabetes mellitus and pancreatic cancer for risk of hyperglycemia. 4. Pain of neoplastic origin. Patient has multiple opioid allergies and has had his fentanyl patch titrated up to 50 mcg on 06/10/2019 has tolerated this well. He continues with acetaminophen for breakthrough pain. Continue to encourage tramadol use in addition to acetaminophen for pain. Presently could only find 37.5 mcg patch in the home due to the patient's present state of nausea and vomiting and applied. Reiterated to the patient and his son regarding fentanyl application every 3 days, disposal of medication, and importance of having his patch present and not being without with understanding verbalized. Patient to obtain his 50 mcg patch and replace after this COOK FRY leaves the home. The patient's ultimate desire is to have his pain adequately controlled and manage. 5. Pancreatic cancer. Patient expresses his desire to "beat this." He continues to desire to pursue chemotherapy that is palliative in treatment. He is scheduled for chemotherapy tomorrow, at [facility]. The RN, Viky at [facility] who works with Dr. Allison has been updated regarding the patient's plan of care. 6. Advanced care planning. Patient lost his spouse unexpectedly 1 week ago and with his high symptoms burden finds it difficult to have a discussion regarding advanced care planning. Introduced palliative care services in relation to support along the continuum with the patient's son who was present with the patient's permission. Will continue to work with the patient and his family regarding advanced care planning in the setting of disease projectory of pancreatic cancer as best we know as build rapport. He has established healthcare power of attorneys. Total time spent 40 minutes with greater than 50% of the spent in counseling coordination of care for the patient and son, Paris; care coordination; examination of the patient; review of palliative care services; supportive listening; review of pain and symptom management and anticipatory guidance. Disclaimer: The chart note was formulated using voice recognition technology and unfortunately sound alike errors may occur.
== END 2020-06-16 14:01 | disposition home or self-care (01) ==
LOC: PC 14:00
PROVIDERS: ATTEND Nurse Practitioner Family
DX: Z51.5 Encounter for palliative care (principal); R11.2 Nausea with vomiting, unspecified; K21.9 Gastro-esophageal reflux disease without esophagitis; R63.0 Anorexia; G89.3 Neoplasm related pain (acute) (chronic); C25.9 Malignant neoplasm of pancreas, unspecified; C78.7 Secondary malignant neoplasm of liver and intrahepatic bile duct; C78.02 Secondary malignant neoplasm of left lung; C78.01 Secondary malignant neoplasm of right lung; E10.42 Type 1 diabetes mellitus with diabetic polyneuropathy; E10.319 Type 1 diabetes mellitus with unspecified diabetic retinopathy without macular edema; Z79.4 Long term (current) use of insulin; Z79.899 Other long term (current) drug therapy; Z86.16 Personal history of COVID-19
CPT/HCPCS: 99349

== ENCOUNTER 2020-06-18 11:30 | Outpatient (CLI) | payer MEDICARE, OTHER ==
--- NOTE | 2020-06-18 13:50 | CONSULTATION NOTE ---
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 The patient continues with persistent nausea and vomiting. He was recently a dmitted at [facility] from 06/08-06/10 due to persistent nausea and vomiting and hypokalemia. He did have some improvement of his symptoms recently with the use of rectal Compazine 25 mg suppositories. He felt good yesterday and was able to eat some pizza. However, at approximately 1:30 AM this morning he began to have persistent nausea and vomiting again as well as persistent hiccups. He has been prescribed baclofen by his oncologist for his hiccups however, this medication has not been picked up yet to trial. He was prescribed Zyprexa ODT 5 mg to initiate in the evenings however, the local [facility] pharmacy did not have this prescription and therefore he has not initiated this medication at this present time. His son is planning to brain picker these prescriptions later today. He has had a reduction in the acidity that he reports in his stomach/gastric region with increase of his Protonix to 40 mg twice daily and use of Carafate 3 times daily before meals. Recommended that he trialed alta josé miguel and alta tea for reduction of nausea. He has had improvement of his pain to the umbilical area that radiates to his upper right quadrant. He was unable to find his fentanyl 50 mcg patches and continues to wear his 37.5 mcg fentanyl patch reports his pain is presently stable. We will continue with his fentanyl 37.5 mcg patch presently as symptoms appear to be controlled. We reviewed today with the patient and son the need to change the patch every 3 days and to alternate sites. The patient completed his second treatment of chemotherapy with Abraxane and [facility] yesterday, 06/17/2020. He next has treatment on 06/24/[address] Allison. Last significant bowel movement was approximately 1 week ago. When he does utilize the Compazine suppositories he does have some stool that exits the rectal vault. He reports to positive flatus. He has not been using MiraLAX or senna as previously recommended for routine bowel movements. The patient is seen in his living room sitting on his couch. He periodically has to get up to vomit. He has had a reduction in his bile emesis. Past Medical History: Patient has a past medical history of hypertension, hyperlipidemia, coronary artery disease, sleep apnea, peripheral diabetic neuropathy, type 1 diabetes mellitus diagnosed 25 years ago, PTSD, BPH, GERD, renal insufficiency, diabetic retinopathy, depression, panic attacks, osteoarthritis, gout, adenocarcinoma of the pancreas with metastatic lesions in liver and lungs 2020, Covid19 Social History - Living Situation Living arrangement: At home Living Situation: Alone (His 1 week ago and he was unable to attend the due to his symptom burden.) Support System: The patient unexpectedly lost his of approximately 30 years a week ago. They had 10 children together. He served for 26 years in the [employer]. He was born in [place] and then grew up in [place]. The patient's son, Paris has taken a 30-day leave from work and is present in the home to assist the patient until caregiving can be set up. Lorena Desai from [employer] is working with [facility] health social work professor to provide assistance and her number is [phone]. Medications/Allergies - Medications Home Medications: Ambulatory Orders Medication Instructions Recorded Confirmed Insulin Aspart (Vial) [NovoLOG 15 - 25 unit SQ TID 10/28/12 06/15/20 (VIAL FOR ED USE)] Pantoprazole Sodium [Protonix] 40 mg PO BID 11/06/13 06/15/20 Doxazosin [Cardura] 4 mg PO DAILY 07/13/16 06/15/20 Finasteride [Proscar] 5 mg ORAL DAILY 07/13/16 06/15/20 Insulin Degludec [Tresiba 30 units SUBQ DAILY 08/28/17 06/15/20 Flextouch U-100] Atorvastatin Calcium 40 mg ORAL DAILY 03/26/18 06/15/20 Carvedilol [Coreg] 6.25 mg PO DAILY 04/30/20 06/15/20 Lisinopril [Zestril] 20 mg PO DAILY 04/30/20 06/15/20 Magnesium Oxide [Mag Ox] 400 mg PO DAILY 04/30/20 06/15/20 Ondansetron Odt [Zofran Odt] 4 mg PO Q6HR PRN 05/30/20 06/15/20 Brimonidine 0.2% Ophth Drops 1 drops TOP PRN PRN 06/02/20 06/15/20 [Alphagan P 0.2% Ophth Drops] Dorzolamide/Timolol/Pf [Timolol 1 drops TOP DAILY 06/02/20 06/15/20 0.5%-Dorzolamide 2%] Naloxone HCl [Narcan] 1 spray PO PRN PRN 06/02/20 06/15/20 Prochlorperazine Maleate 10 mg PO Q6H PRN 06/02/20 06/15/20 Senna [Senokot] 1 tab PO QPM 06/02/20 06/15/20 Travoprost [Travatan Z] 1 drops TOP BID 06/02/20 06/15/20 polyethylene glycoL 3350 [Miralax] 17 g PO DAILY 06/02/20 06/15/20 Prochlorperazine Supp [Compazine 25 mg ID DAILY PRN 06/04/20 06/15/20 Supp] Ferrous Sulfate 325 mg PO DAILY #30 tab 06/10/20 06/15/20 Lidocaine Viscous 2% [Xylocaine 5 ml PO Q4H PRN #100 ml 06/13/20 06/15/20 Viscous 2%] OLANZapine ODT [Zyprexa Odt] 1 tab PO QPM 06/16/20 06/16/20 fentaNYL [Fentanyl 37.5mcg patch] 1 patch TP Q72H 06/18/20 06/18/20 - Allergies Allergies/Adverse Reactions: Allergies Allergy/AdvReac Type Severity Reaction Status Date / Time brompheniramine Allergy Unknown Verified 06/15/20 14:20 codeine Allergy Hives Verified 06/15/20 14:20 egg Allergy Respiratory Verified 06/15/20 14:20 hydrocodone Allergy Unknown Verified 06/15/20 14:20 NSAIDS (Non-Steroidal Allergy Anaphylaxis Verified 06/15/20 14:20 Anti-Inflamma Opioids - Morphine Analogues Allergy Anaphylaxis Verified 06/15/20 14:20 propoxyphene Allergy Unknown Verified 06/15/20 14:20 tuberculin, purified protein Allergy Unknown Verified 06/15/20 14:20 deriva amoxicillin [From Augmentin] AdvReac Unknown Verified 06/15/20 14:20 aspirin AdvReac Anaphylaxis Verified 06/15/20 14:20 clavulanic acid AdvReac Unknown Verified 06/15/20 14:20 [From Augmentin] hydroxyzine [From Vistaril] AdvReac Unknown Verified 06/15/20 14:20 lactose AdvReac Nausea Verified 06/15/20 14:20 meperidine [From Demerol] AdvReac Respiratory Verified 06/15/20 14:20 metformin AdvReac Unknown Verified 06/15/20 14:20 morphine AdvReac Unknown Verified 06/15/20 14:20 procaine [From Novocain] AdvReac Unknown Verified 06/15/20 14:20 promethazine HCl * AdvReac Unknown Verified 06/15/20 14:20 [From Phenergan] diphenhydramine/lidocaine/nystatin Allergy Anaphylaxis Uncoded 06/15/20 14:20 sodium biphosphate AdvReac Unknown Uncoded 06/15/20 14:20 Review of Systems - Constitutional Constitutional: reports: Fatigue, Weight loss (appx 40-50lbs in the last 2 months). denies: Fever - Eyes Eyes: reports: Other (Diabetic retinopahty) - Ears, Nose & Throat Ears, Nose & Throat: reports: Dry mouth. denies: Hearing aids - Cardiovascular Cardiovascular: denies: Chest pain, Edema - Respiratory Respiratory: denies: Cough - Gastrointestinal Gastrointestinal: reports: Constipation (on-going problem due to lack of oral intake, +flatus, see HPI for more details), Nausea, Vomiting, Poor appetite. denies: Abdominal distention, Diarrhea, Rei blood emesis - Genitourinary Genitourinary: denies: Dysuria - Musculoskeletal Musculoskeletal: denies: Assistive devices - Integumentary Integumentary: reports: Dryness (generalized) - Neurological Neurological: denies: Headache - Psychiatric Psychiatric: reports: Other (PTSD history, see HPI) - Endocrine Endocrine: reports: Other (Type I DM) - All Other Systems All Other Systems: reports: Reviewed and negative Physical Exam - Vital Signs Temperature: 36.4 C Pulse Rate: 86 O2 Saturation: 96 (on RA) Blood Pressure: 162/80 (left wrist sitting) - Physical Exam General Appearance: positive: No acute distress, Alert, Other (slightly dishelved, appears more comfortable than last evaluation but had to leave room x 2 due to emesis) Eyes Bilateral: positive: Normal inspection ENT: positive: Dry mucous membranes (mild) Neck: positive: Trachea midline Cardiovascular: positive: Regular rate & rhythm Respiratory: positive: No respiratory distress, Breath sounds nml Abdomen: positive: Non-tender, Soft, Nml bowel sounds (slightly diminished but present x 4 quadrants), Guarding. 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 Pain appears stable on 37.5mcg patch.) Constipation: Yes, Opoid induced - Palliative Care Discussion: The patient is optimistic that he was able to tolerate his chemotherapy yesterday with out much difficulty and was feeling quite well until early this a.m. when his hiccups and persistent nausea and vomiting resumed. He relates that he has been through some traumatic experiences in the past this is something that he is found difficult to manage physically. He has had some improvement with his ascitic discomfort to his stomach with the introduction of Carafate and increase of his PPI to twice daily dosing. He is optimistic that he will be able to complete all courses of chemotherapy and get on the other side of his symptoms. Unfortunately, the patient has been amenable to brain picker his Zyprexa ODT to initiate nightly for nausea and this is to be picked up and begun this evening. As well as picking up his baclofen for management of his hiccups. The patient continues to have optimistic goals regarding his ability to "beat the cancer" and will need to continue to build rapport to discuss goals of care and advanced care planning. Impression and Recommendations - Palliative Care Impression: This is an unfortunate 70-year-old gentleman who was diagnosed with metastatic adenocarcinoma of the pancreas on palliative chemotherapy with high symptom burden with weight loss, hiccups and persistent nausea and vomiting. His pain appears to be better controlled and therefore will continue with 37.5 mcg fentanyl patch. He has had frequent emergency department visits due to his high symptom burden. He continues with minimal oral intake. He has yet to trial Zyprexa to reduce his persistent nausea and vomiting. He has had improvement of his GERD symptoms with initiation of Carafate and increase of his PPI therapy to twice daily dosing. Palliative care will continue to build rapport, provide support for pain and symptom management, advance care planning and anticipatory guidance. Recommendations/Counseling Done: 1. Persistent nausea and vomiting. Patient has not responded to other treatment modalities. Does not demonstrate through vital signs dehydration as he is not tachycardic and is afebrile. Underlying GERD contributing as well as his underlying malignancy. Previously advised to discontinue Haldol. Mina Baer did not have Zyprexa on hand prescription and sent to [facility] pharmacy and confirmed prior to sending that have 5 mg ODT tablets on hand. Initiate Zyprexa 5 mg ODT tablet nightly for nausea. Continue ondansetron 4 mg ODT and Compazine 10mg as needed. He also has compazine rectal suppositories to use for severe nausea and new RX sent to [facility] per son's request. Discussed use of alta products for reduction of nausea such as alta josé miguel and alta tea. Continue to encourage oral hydration with luke warm water and small frequent meals. 2. Hiccups. Intermittent. Rx has been sent by oncologist, Dr. Rajput for baclofen. Patient to brain picker and initiate today. 3. GERD. Improved. Continue Protonix 4 mg twice daily. Continue Carafate 1 g per 10 Ankita mL take 10 mL 3 times daily prior to meals to coat the patient's stomach. May continue to take Carafate even if unable to tolerate consumption o f a meal. New Rx with refills sent to [facility] pharmacy. 4. Constipation. Lack of oral intake is contributing. We reviewed with the patient today the need to have a routine bowel movement. Requested that the patient initiate MiraLAX 1 cap daily to dissolve in 6 to 8 ounces of fluid for goal bowel movement daily. Discussed titration of MiraLAX up to 1 cap twice daily. Also reviewed initiation of senna 8.6 mg to take 1 tablet nightly for a bowel movement as well as titration of senna. 5. Pain of neoplastic origin. Patient has multiple opioid allergies and has had his fentanyl titrated up to 50 mcg on 06/10/2019. However, upon returning home the patient has been unable to find his replacement fentanyl patch and has resumed his fentanyl 37.5 mcg patch and his pain is presently controlled. Therefore, we will continue fentanyl at 37.5 mcg at the present time and optimistic that he has had some response from chemotherapy with pain reduction. If needed will titrate back up to 50 mcg patch of fentanyl if needed. We reviewed with the patient and son today regarding changing the fentanyl patch every 3 days. Advised to donna the calendar when the patch is placed and when it needs to be removed as a visual reminder. We will continue to monitor the patient's response and balance side effects to optomize comfort. 6. Advance care planning. [facility] services are working with the family and [facility] to assist the patient with caregiving services within his home. Presently, the patient's son he is use is present to provide assistance for at least the next 30 days. Patient has optimistic viewpoint regarding his disease trajectory. We will continue to work with the patient and family regarding advanced care planning in the setting of disease trajectory of pancreatic cancer as best we know as report is built. CPT 90634 Plan of care reviewed with the patient and son, Bobo at length with understanding verbalized. Plan at next visit to have the patient gather up all his medications that he is presently using and taking in a brown bag for full review has there have been many medications thrown into the mix with trial and error for control the patient's symptoms. Supportive listening provided. Disclaimer: The chart note was formulated using voice recognition technology and unfortunately sound alike errors may occur.
== END 2020-06-18 11:31 | disposition home or self-care (01) ==
LOC: PC 11:30
PROVIDERS: ATTEND Nurse Practitioner Family
DX: Z51.5 Encounter for palliative care (principal); R11.2 Nausea with vomiting, unspecified; R06.6 Hiccough; K21.9 Gastro-esophageal reflux disease without esophagitis; K59.00 Constipation, unspecified; G89.3 Neoplasm related pain (acute) (chronic); C25.9 Malignant neoplasm of pancreas, unspecified; C78.7 Secondary malignant neoplasm of liver and intrahepatic bile duct; C78.00 Secondary malignant neoplasm of unspecified lung; E10.42 Type 1 diabetes mellitus with diabetic polyneuropathy; E10.319 Type 1 diabetes mellitus with unspecified diabetic retinopathy without macular edema; Z79.4 Long term (current) use of insulin; Z86.16 Personal history of COVID-19; Z79.899 Other long term (current) drug therapy
CPT/HCPCS: 99349

== ENCOUNTER 2020-06-23 09:10 | Outpatient (CLI) | payer MEDICARE, OTHER ==
--- NOTE | 2020-06-23 14:21 | CONSULTATION NOTE ---
Palliative Care Follow Up - Referral Referring Provider: Dr. 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 The patient and has completed 2 sessions of chemotherapy at [facility] with next chemotherapy scheduled for 06/24. He reports that he has tolerated this last session of chemotherapy better than the first. He is noticing some increased forgetfulness and brain fog due to chemotherapy. 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 He is not taking many of his medications for his PTSD, hypertension, hyperlipidemia, etc. due to persistent nausea and vomiting. He reports that he is use the Compazine suppository approximately twice with positive effect. He continues to have Compazine oral and Danza Warren available in the home for nausea. He has since picked up Zyprexa 5 mg ODT tablet that he initiated the end of last week that has been effective for his nausea but he is noted the last several nights. He has been having an increase in his oral intake and has been eating more. He reports to recently having eaten [place] food, shrimp, cooked onion, etc. Most of his meals have been staying down when he has been eating. He has been sipping on alta josé miguel and alta tea. He has been more consistent with taking his MiraLAX and reports a bowel movement yesterday. He reports that his pain is presently controlled with the use of fentanyl 37.5 mcg patch. He is only taking acetaminophen 500 mg at night. He denies sores to his mouth or numbness and tingling to his lower extremities or hands. There are no peeling to the palms of his hands or feet. He continues to have hiccups that are less frequent. He last had them occur last evening. He does have baclofen in the home for use. He has had a reduction in his overall GERD symptoms with the use of Carafate and Protonix 40 mg in the morning and 40 mg in the evening. The patient does report that he has had increased symptoms of his PTSD. When this occurs he typically will walk the neighborhood to clear his head. He denies headaches or dizziness. Last evening, the patient reports that he was ambulating to the bathroom when he sustained of a fall. He denies any injuries. The patient is seen resting on his couch in his common area. He did not have to leave during the entire time with this patient was present during examination to attend in the restroom due to persistent nausea and vomiting which is much improved. Past Medical History: Patient has a past medical history of hypertension, hyperlipidemia, coronary artery disease, sleep apnea, peripheral diabetic neuropathy, type 1 diabetes mellitus diagnosed 25 years ago, PTSD, BPH, GERD, renal insufficiency, diabetic retinopathy, depression, panic attacks, osteoarthritis, gout, adenocarcinoma of the pancreas with metastatic lesions in liver and lungs 2020, Covid19 Social History - Living Situation Living arrangement: At home Living Situation: Alone (His unexpectedly in May 2020) Support System: The patient unexpectedly lost his of approximately 30 years in mid-May 2020. They had 10 children together. He served for 26 years in the [employer]. He was born in [facility] and then grew up in [place]. The patient's son, Paris has taken a 30-day leave from work and is present in the home to assist the patient until caregiving can be set up. Lorena Desai from [employer] is working with [facility] social media manager to provide assistance and her number is [phone]. Medications/Allergies - Medications Home Medications: Ambulatory Orders Medication Instructions Recorded Confirmed Insulin Aspart (Vial) [NovoLOG 15 - 25 unit SQ TID 10/28/12 06/15/20 (VIAL FOR ED USE)] Pantoprazole Sodium [Protonix] 40 mg PO BID 11/06/13 06/15/20 Insulin Degludec [Tresiba 30 units SUBQ DAILY 08/28/17 06/15/20 Flextouch U-100] Ondansetron Odt [Zofran Odt] 4 mg PO Q6HR PRN 05/30/20 06/15/20 Brimonidine 0.2% Ophth Drops 1 drops TOP PRN PRN 06/02/20 06/15/20 [Alphagan P 0.2% Ophth Drops] Dorzolamide/Timolol/Pf [Timolol 1 drops TOP DAILY 06/02/20 06/15/20 0.5%-Dorzolamide 2%] Naloxone HCl [Narcan] 1 spray PO PRN PRN 06/02/20 06/15/20 Prochlorperazine Maleate 10 mg PO Q6H PRN 06/02/20 06/15/20 Senna [Senokot] 1 tab PO QPM 06/02/20 06/15/20 Travoprost [Travatan Z] 1 drops TOP BID 06/02/20 06/15/20 polyethylene glycoL 3350 [Miralax] 17 g PO DAILY 06/02/20 06/15/20 Prochlorperazine Supp [Compazine 25 mg CA DAILY PRN 06/04/20 06/15/20 Supp] Lidocaine Viscous 2% [Xylocaine 5 ml PO Q4H PRN #100 ml 06/13/20 06/15/20 Viscous 2%] OLANZapine ODT [Zyprexa Odt] 1 tab PO QPM 06/16/20 06/16/20 fentaNYL [Fentanyl 37.5mcg patch] 1 patch TP Q72H 06/18/20 06/18/20 Sucralfate [Carafate] 1 gm PO TIDWM 06/23/20 06/23/20 - Allergies Allergies/Adverse Reactions: Allergies Allergy/AdvReac Type Severity Reaction Status Date / Time brompheniramine Allergy Unknown Verified 06/15/20 14:20 codeine Allergy Hives Verified 06/15/20 14:20 egg Allergy Respiratory Verified 06/15/20 14:20 hydrocodone Allergy Unknown Verified 06/15/20 14:20 NSAIDS (Non-Steroidal Allergy Anaphylaxis Verified 06/15/20 14:20 Anti-Inflamma Opioids - Morphine Analogues Allergy Anaphylaxis Verified 06/15/20 14:20 propoxyphene Allergy Unknown Verified 06/15/20 14:20 tuberculin, purified protein Allergy Unknown Verified 06/15/20 14:20 deriva amoxicillin [From Augmentin] AdvReac Unknown Verified 06/15/20 14:20 aspirin AdvReac Anaphylaxis Verified 06/15/20 14:20 clavulanic acid AdvReac Unknown Verified 06/15/20 14:20 [From Augmentin] hydroxyzine [From Vistaril] AdvReac Unknown Verified 06/15/20 14:20 lactose AdvReac Nausea Verified 06/15/20 14:20 meperidine [From Demerol] AdvReac Respiratory Verified 06/15/20 14:20 metformin AdvReac Unknown Verified 06/15/20 14:20 morphine AdvReac Unknown Verified 06/15/20 14:20 procaine [From Novocain] AdvReac Unknown Verified 06/15/20 14:20 promethazine HCl * AdvReac Unknown Verified 06/15/20 14:20 [From Phenergan] diphenhydramine/lidocaine/nystatin Allergy Anaphylaxis Uncoded 06/15/20 14:20 sodium biphosphate AdvReac Unknown Uncoded 06/15/20 14:20 Review of Systems - Constitutional Constitutional: reports: Fatigue, Weight loss (appx 40-50lbs in the last 2 months). denies: Fever - Eyes Eyes: reports: Other (Diabetic retinopahty) - Ears, Nose & Throat Ears, Nose & Throat: reports: Other (dry lips). denies: Hearing aids - Cardiovascular Cardiovascular: denies: Chest pain, Edema - Respiratory Respiratory: denies: Cough - Gastrointestinal Gastrointestinal: reports: Constipation (on-going problem due to lack of oral intake,, see HPI for more details), Nausea, Vomiting (improved per report), Poor appetite. denies: Abdominal distention, Diarrhea, Rei blood emesis - Genitourinary Genitourinary: denies: Dysuria, Incontinence - Musculoskeletal Musculoskeletal: denies: Assistive devices - Integumentary Integumentary: reports: Dryness (generalized), Other (see HPI for additional details) - Neurological Neurological: reports: Memory problems (increased forgetfulness reported). denies: Headache - Psychiatric Psychiatric: reports: Other (PTSD history) - Endocrine Endocrine: reports: Other (Type I DM) - Hematologic/Lymphatic Hematologic/Lymph: reports: Anemia - All Other Systems All Other Systems: reports: Reviewed and negative Physical Exam - Vital Signs Temperature: 36.5 C Pulse Rate: 93 O2 Saturation: 99 (on RA) Blood Pressure: 130/78 (left arm) - Physical Exam General Appearance: positive: No acute distress, Alert, Other (slightly dishelved, appears more comfortable and did not leave due to emesis) Eyes Bilateral: positive: Normal inspection ENT: positive: Other (lips slightly dry; oral mucousa intake without ulceration) Neck: positive: Trachea midline Cardiovascular: positive: Regular rate & rhythm, No murmur Respiratory: positive: No respiratory distress, Breath sounds nml. negative: Rales Abdomen: positive: Non-tender, Soft, Nml bowel sounds (slightly diminished but present x 4 quadrants, improved). 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 He remains optimistic and feels that he can "beat this thing" in reference to his pancreatic cancer diagnosis. He acknowledges that he will need restaging in the future and reinforced for the patient and his son that chemotherapy is cumulative in relation to side effects. Directed the patient and son to [email or web address] for further references and normalized for the patient his increased forgetfulness related to brain fog from chemotherapy. The patient has had quite an improvement in his overall persistent nausea and vomiting by demonstrating his ability to have an increased oral intake and this remaining down. Would continue Carafate, Protonix 40 mg twice daily and Zyprexa ODT 5 mg daily with as needed oh Sara Kelley and Compazine for management of his nausea and vomiting. Impression and Recommendations - Palliative Care Impression: This is an unfortunate 70-year-old gentleman who was diagnosed with metastatic adenocarcinoma of the pancreas on palliative chemotherapy with high symptom burden with weight loss, hiccups and persistent nausea and vomiting with constipation that has had some improvement. His pain is controlled per his report and will remain on 37.5 mcg fentanyl patch. He has had a positive response to Zyprexa introduction and therefore will remain on this therapy at this time. Palliative care will continue to build rapport, provide support for pain and symptom management, advance care planning and anticipatory guidance. Recommendations/Counseling Done: 1. Persistent nausea and vomiting. Improved. Underlying GERD contributing as well as his underlying malignancy. Continue zyprexa 5mg ODT nightly and advised to contact this provider before refill is needed. Continue ondansetron 4 mg ODT and Compazine 10mg as needed. He also has compazine rectal suppositories to use for severe nausea. Continue use of alta products for nausea. Reinforced avoiding spicy foods or foods with an acidic base such as tomato as this can worsen symptoms. Continue to encourage oral hydration with luke warm water and small frequent meals. 2. Hiccups. Improved. Continue baclofen as ordered PRN. 3. GERD. Improved. Continue Protonix 4 mg twice daily. Continue Carafate 1 g per 10 mL take 10 mL 3 times daily prior to meals to coat the patient's stomach. May continue to take Carafate even if unable to tolerate consumption of a meal. 4. Pain of neoplastic origin. Patient has multiple opioid allergies. Pain is controlled with fentanyl 37.5mcg patch and will continue at this present dose and patient is aware to contact palliative care if increased pain for management. If needed we can titrate back up to 50 mcg patch of fentanyl. Advised to call when 1 patch remaining for new prescription. Reviewed to change every 3 days and alternate the site of application. We will continue to monitor the patient's response and balance side effects to optomize comfort. Total time spent 30 minutes with greater than 50% of the spent in counseling and coordination of care with the patient and his son. Reviewed medications patient is taking; examination of the patient, review of fentanyl patch and administration; supportive listening provided, care coordination; and anticipatory guidance. Disclaimer: The chart note was formulated using voice recognition technology and unfortunately sound alike errors may occur.
== END 2020-06-23 09:11 | disposition home or self-care (01) ==
LOC: PC 09:10
PROVIDERS: ATTEND Nurse Practitioner Family
DX: Z51.5 Encounter for palliative care (principal); R11.2 Nausea with vomiting, unspecified; K21.9 Gastro-esophageal reflux disease without esophagitis; R06.6 Hiccough; G89.3 Neoplasm related pain (acute) (chronic); C25.9 Malignant neoplasm of pancreas, unspecified; C78.7 Secondary malignant neoplasm of liver and intrahepatic bile duct; C78.02 Secondary malignant neoplasm of left lung; C78.01 Secondary malignant neoplasm of right lung; N28.9 Disorder of kidney and ureter, unspecified; E10.319 Type 1 diabetes mellitus with unspecified diabetic retinopathy without macular edema; E10.42 Type 1 diabetes mellitus with diabetic polyneuropathy; Z86.16 Personal history of COVID-19; Z79.4 Long term (current) use of insulin; Z79.899 Other long term (current) drug therapy
CPT/HCPCS: 99348

== ENCOUNTER 2020-07-10 06:10 | Outpatient (CLI) | payer MEDICARE, OTHER | END 2020-07-10 06:11 | disposition critical access hospital (66) | LOC: EMS 06:10 | DX: R41.82 Altered mental status, unspecified (principal) | CPT/HCPCS: A0425; A0427 ==

== ENCOUNTER 2020-07-10 06:25 | Emergency (ER) | payer MEDICARE, OTHER ==
[2020-07-10] MEDS ORDERED: DEXTROSE 50% ABBOJECT 25 GM/50 ML SYRINGE IVP STA (06:33)
[2020-07-10 07:15] LABS: HCT - HEMATOCRIT 25.3 % (42.0-52.0); HGB - HEMOGLOBIN 8.1 g/dL (14.0-18.0); LYMPHOCYTES # (AUTO) 0.2 10^3/uL (1.5-3.5); LYMPHOCYTES % (AUTO) 2.6 %; MEAN CORPUSCULAR HEMOGLOBIN 31.3 pg (27.0-31.0); MEAN CORPUSCULAR VOLUME 97.7 fL (80.0-94.0); MEAN PLATELET VOLUME 10.2 fL (7.4-11.4); MONOCYTES # (AUTO) 0.2 10^3/uL (0.0-1.0); MONOCYTES % (AUTO) 2.8 %; NEUTROPHILS # (AUTO) 6.4 10^3/uL (1.5-6.6); PLT - PLATELET COUNT 254 10^3/uL (130-450); RED BLOOD COUNT 2.59 10^6/uL (4.70-6.10); RED CELL DISTRIBUTION WIDTH 16.4 % (12.0-15.0); WHITE BLOOD COUNT 6.8 x10^3/uL (4.8-10.8)
--- OUTSIDE RECORDS SUMMARY | 2020-07-10 07:22 | EXTERNAL MEDICAL SUMMARY RPT | Continuity of Care Document ---
:1950 Demographics Phone Unavailable Preferred Language [place] Marital Status Unknown Buddhism Affiliation Unknown Race Unknown Ethnic Group Unknown Author Organization [place] Address [address] [place] [address] Phone Care Team Providers Name Role Phone Kassie Whiteside Unavailable Unavailable Leticia Allison Unavailable Unavailable Reyna Cervantes Unavailable Unavailable Medications date description facility [id number] Prednisone 20 MG Oral Tablet [facility] spital [id number] Levofloxacin 750 MG Oral Tablet [facility] 61871739 Baclofen 10 MG Oral Tablet [facility] ital 18212654 atorvastatin 40 MG Oral Tablet [facility] [id number] Metoclopramide 10 MG Oral Tablet [facility] 20200505 pantoprazole 40 MG [facility] 71793550 Ondansetron 4 MG Disintegrating [facility] 26206664 pantoprazole 40 MG [facility] 55852532 Ondansetron 4 MG Disintegrating [facility] 14614325 Brimonidine tartrate 2 MG/ML [facility] 81820443 3 ML Insulin Glargine 100 UNT/ML Prefil led [facility] 04943143 tramadol hydrochloride 50 MG Oral [facility] 48882097 atorvastatin 40 MG Oral Tablet [facility] 66288293 pantoprazole 40 MG [facility] 37728770 Lisinopril 10 MG Oral Tablet [facility] 98196588 Finasteride 5 MG Oral Tablet [facility] 24318914 Famotidine 40 MG Oral Tablet [facility] 81732442 carvedilol 6.25 MG Oral Tablet [facility] 41657003 Prazosin 5 MG Oral Capsule [facility] 21744289 Doxazosin 4 MG Oral Tablet [facility] ital 28465830 olopatadine 1 MG/ML [facility] 85865040 24 HR Divalproex Sodium 500 MG Extended Release Tablet [facility] 20002005 Brimonidine tartrate 2 MG/ML [facility] 03543964 3 ML Insulin Glargine 100 UNT/ML Prefil led [facility] 88619455 tramadol hydrochloride 50 MG Oral [facility] 59087902 atorvastatin 40 MG Oral Tablet [facility] 35368615 pantoprazole 40 MG [facility] 05414584 Lisinopril 10 MG Oral Tablet [facility] 49015829 Finasteride 5 MG Oral Tablet [facility] 74081479 Famotidine 40 MG Oral Tablet [facility] 88016623 carvedilol 6.25 MG Oral Tablet [facility] 20903163 Prazosin 5 MG Oral Capsule [facility] 35407905 Doxazosin 4 MG Oral Tablet [facility] 00471771 olopatadine 1 MG/ML Ophthalmic Solution [facility] 96466490 24 HR Divalproex Sodium 500 MG Extended Release Tablet [facility] 61884338 Ondansetron 4 MG Disintegrating Tablet [facility] 65956255 Ondansetron 4 MG Disintegrating Tablet [facility] 99986707 Ondansetron 4 MG Disintegrating Tablet [facility] Problems date description facility [id number] Pleural effusion, not elsewhere [facility] [employer] classified [id number] Malignant neoplasm of pancreas, 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 38398504 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 22574948 Malignant (primary) neoplasm, [facility] unspecified 30336367 Malignant neoplasm of pancreas, [facility] unspecified 48677672 Secondary malignant neoplasm of [facility] unspecified lung 14987453 Secondary malignant neoplasm of right [facility] lung 24208082 Secondary malignant neoplasm of [facility] and intrahepatic bile 18593755 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 67405881 Other specified diseases of pancreas [facility] 17027945 Malignant neoplasm of pancreas, [facility] unspecified 18970972 Malignant (primary) neoplasm, [facility] unspecified Procedures date description facility [id number] [facility] [id number] [facility] [id number] [facility] [id number] Diagnosis [facility] [id number] [facility] [id number] [facility] [id number] [facility] [id number] [facility] [id number] [facility] [id number] [facility] [id number] [facility] [id number] [facility] [id number] [facility] [id number] [facility] [id number] [facility] [id number] [facility] [id number] [facility] [id number] [facility] [id number] [facility] [id number] [facility] Vital Signs date measurement value source 20200503 weight_standard 95.71 lb 20200503 weight_metric 43.41 kg 20200503 temperature_standard 97.4 F 20200503 temperature_metric 36.33 C 20200503 respiration_rate 18 /min 20200503 height_standard 73 in 20200503 height_metric 185.42 cm 20200503 heart_rate 85 /min 20200503 BP_systolic 153 mm[Hg] 20200503 BP_diastolic 82 mm[Hg] 20200503 BMI 27.8 kg/m2 20200505 weight_standard 94.8 lb 20200505 weight_metric 43 kg 20200505 temperature_standard 98.7 F 20200505 temperature_metric 37.06 C 20200505 respiration_rate 16 /min 20200505 height_standard 73 in 20200505 height_metric 185.42 cm 20200505 heart_rate 80 /min 20200505 BP_systolic 156 mm[Hg] 42400888 BP_diastolic 81 mm[Hg] 20200505 BMI 27.6 kg/m2 20200604 weight_standard 86.18 lb 28924134 weight_metric 39.09 kg 20200604 temperature_standard 97.5 F 20200604 temperature_metric 36.39 C 20200604 respiration_rate 20 /min 20200604 height_standard 73 in 20200604 height_metric 185.42 cm 36193381 heart_rate 81 /min 20200604 BP_systolic 163 mm[Hg] 95670040 BP_diastolic 74 mm[Hg] 20200604 BMI 25.0 kg/m2 53825983 weight_standard 81.65 lb 48633952 weight_metric 37.03 kg 20200605 temperature_standard 98.3 F 20200605 temperature_metric 36.83 C 20200605 respiration_rate 13 /min 20200605 height_standard 73 in 20200605 height_metric 185.42 cm [id number] heart_rate 104 /min 20200605 BP_systolic 159 mm[Hg] 45517827 BP_diastolic 74 mm[Hg] 61743651 BMI 23.7 kg/m2 20200607 temperature_standard 97.8 F 20200607 temperature_metric 36.56 C 20200607 respiration_rate 17 /min 20200607 heart_rate 84 /min 20200607 BP_systolic 151 mm[Hg] 20200607 BP_diastolic 58 mm[Hg] 20200629 weight_standard 81.65 lb 20200629 weight_metric 37.03 kg 20200629 temperature_standard 99.1 F 20200629 temperature_metric 37.28 C 20200629 respiration_rate 23 /min 20200629 height_standard 72 in 20200629 height_metric 182.88 cm 20200629 heart_rate 92 /min 20200629 BP_systolic 122 mm[Hg] 20200629 BP_diastolic 59 mm[Hg] 20200629 BMI 24.4 kg/m2 20200701 weight_standard 84.9 lb 20200701 weight_metric 38.51 kg 20200702 temperature_standard 97.2 F 20200702 temperature_metric 36.22 C 20200702 respiration_rate 18 /min 20200702 heart_rate 112 /min 20200702 BP_systolic 109 mm[Hg] 20200702 BP_diastolic 60 mm[Hg] 20200704 weight_standard 81.65 lb 20200704 weight_metric 37.03 kg 20200704 temperature_standard 98.3 F 20200704 temperature_standard 97.2 F 20200704 temperature_metric 36.83 C 20200704 temperature_metric 36.22 C 20200704 respiration_rate 20 /min 20200704 respiration_rate 16 /min 20200704 height_standard 71 in 20200704 height_metric 180.34 cm 20200704 heart_rate 94 /min 20200704 heart_rate 100 /min 20200704 BP_systolic 134 mm[Hg] 20200704 BP_systolic 114 mm[Hg] 20200704 BP_diastolic 77 mm[Hg] 20200704 BP_diastolic 58 mm[Hg] 20200704 BMI 25.1 kg/m2 20200707 weight_standard 77.11 lb [id number] weight_metric 34.98 kg 20200707 temperature_standard 98 F 20200707 temperature_metric 36.67 C 20200707 respiration_rate 12 /min 20200707 height_standard 73 in 20200707 height_metric 185.42 cm 20200707 heart_rate 88 /min 20200707 BP_systolic 127 mm[Hg] 20200707 BP_diastolic 63 mm[Hg] 20200707 BMI 22.4 kg/m2
[2020-07-10 07:30] LABS: ALBUMIN 2.5 g/dL (3.2-5.5); ALBUMIN/GLOBULIN RATIO 0.9 (1.0-2.2); CALCIUM 7.5 mg/dL (8.5-10.3); CREATININE 0.6 mg/dL (0.6-1.2); POTASSIUM 3.6 mmol/L (3.5-5.0); TOTAL PROTEIN 5.2 g/dL (6.7-8.2)
--- NOTE | 2020-07-10 08:40 | ED Physician Documentation ---
History of Present Illness - Stated complaint Stated Complaint: HYPOGLYCEMIA - Chief complaint Chief Complaint: General - History obtained from History obtained from: Patient, EMS - History of Present Illness Timing: Today - Additonal information Additional information: 70-year-old male with a history of diabetes and hypertension is undergoing treatment for pancreatic cancer last had his chemo done on 06/24/2020 and this morning he awoke with confusion and diaphoresis noted his sugar was low and called paramedics. They were able to administer some D50 only half an amp patient had improvement. Patient indicates that he took his insulin last night and indicates that he has not been having much in the way of nausea vomiting or pain and he has been trying to eat more has been trying to use some boost. He knows that he has had anemia previously with his chemotherapy and has not required transfusion. Review of Systems Constitutional: denies: Fever Eyes: denies: Decreased vision Ears: reports: Other (There is an echo in the left ear). denies: Ear pain Nose: denies: Congestion Throat: denies: Sore throat Cardiac: denies: Chest pain / pressure, Palpitations Respiratory: denies: Dyspnea, Cough GI: denies: Abdominal Pain, Nausea, Vomiting, Constipation, Diarrhea : denies: Dysuria, Frequency Skin: denies: Rash Musculoskeletal: denies: Neck pain, Back pain, Extremity pain PD PAST MEDICAL HISTORY - Past Medical History Past Medical History: Yes Cardiovascular: Hypertension, High cholesterol, Coronary artery disease Respiratory: Sleep apnea Neuro: Peripheral neuropathy Endocrine/Autoimmune: Type 1 diabetes GI: GERD : Benign prostate hypertrophy, Renal insuffiency, Kidney stones HEENT: Glaucoma, Other Psych: Depression, Panic attacks, Post traumatic stress disorder Musculoskeletal: Osteoarthritis, Gout Derm: Psoriasis - Past Surgical History Past Surgical History: Yes General: Cholecystectomy, Colonoscopy, EGD Ortho: Arthroscopic surgery /STREETCAR STARTER: Other (Kidney stone removal) Cardiovascular: Cardiac catheterization, Angioplasty HEENT: Cataracts - Present Medications Home Medications: Ambulatory Orders Medication Instructions Recorded Confirmed Insulin Aspart (Vial) [NovoLOG 15 - 25 unit SQ TID 10/28/12 06/15/20 (VIAL FOR ED USE)] Pantoprazole Sodium [Protonix] 40 mg PO BID 11/06/13 06/15/20 Insulin Degludec [Tresiba 30 units SUBQ DAILY 08/28/17 06/15/20 Flextouch U-100] Ondansetron Odt [Zofran Odt] 4 mg PO Q6HR PRN 05/30/20 06/15/20 Brimonidine 0.2% Ophth Drops 1 drops TOP PRN PRN 06/02/20 06/15/20 [Alphagan P 0.2% Ophth Drops] Dorzolamide/Timolol/Pf [Timolol 1 drops TOP DAILY 06/02/20 06/15/20 0.5%-Dorzolamide 2%] Naloxone HCl [Narcan] 1 spray PO PRN PRN 06/02/20 06/15/20 Prochlorperazine Maleate 10 mg PO Q6H PRN 06/02/20 06/15/20 Senna [Senokot] 1 tab PO QPM 06/02/20 06/15/20 Travoprost [Travatan Z] 1 drops TOP BID 06/02/20 06/15/20 polyethylene glycoL 3350 [Miralax] 17 g PO DAILY 06/02/20 06/15/20 Prochlorperazine Supp [Compazine 25 mg [place] DAILY PRN 06/04/20 06/15/20 Supp] Lidocaine Viscous 2% [Xylocaine 5 ml PO Q4H PRN #100 ml 06/13/20 06/15/20 Viscous 2%] OLANZapine ODT [Zyprexa Odt] 1 tab PO QPM 06/16/20 06/16/20 fentaNYL [Fentanyl 37.5mcg patch] 1 patch TP Q72H 06/18/20 06/18/20 Sucralfate [Carafate] 1 gm PO TIDWM 06/23/20 06/23/20 - Allergies Allergies/Adverse Reactions: Allergies Allergy/AdvReac Type Severity Reaction Status Date / Time brompheniramine Allergy Unknown Verified 07/10/20 06:36 codeine Allergy Hives Verified 07/10/20 06:36 egg Allergy Respiratory Verified 07/10/20 06:36 hydrocodone Allergy Unknown Verified 07/10/20 06:36 NSAIDS (Non-Steroidal Allergy Anaphylaxis Verified 07/10/20 06:36 Anti-Inflamma Opioids - Morphine Analogues Allergy Anaphylaxis Verified 07/10/20 06:36 propoxyphene Allergy Unknown Verified 07/10/20 06:36 tuberculin, purified protein Allergy Unknown Verified 07/10/20 06:36 deriva amoxicillin [From Augmentin] AdvReac Unknown Verified 07/10/20 06:36 aspirin AdvReac Anaphylaxis Verified 07/10/20 06:36 clavulanic acid AdvReac Unknown Verified 07/10/20 06:36 [From Augmentin] hydroxyzine [From Vistaril] AdvReac Unknown Verified 07/10/20 06:36 lactose AdvReac Nausea Verified 07/10/20 06:36 meperidine [From Demerol] AdvReac Respiratory Verified 07/10/20 06:36 metformin AdvReac Unknown Verified 07/10/20 06:36 morphine AdvReac Unknown Verified 07/10/20 06:36 procaine [From Novocain] AdvReac Unknown Verified 07/10/20 06:36 promethazine HCl * AdvReac Unknown Verified 07/10/20 06:36 [From Phenergan] diphenhydramine/lidocaine/nystatin Allergy Anaphylaxis Uncoded 07/10/20 06:36 sodium biphosphate AdvReac Unknown Uncoded 07/10/20 06:36 - Social History Does the pt smoke?: No Smoking Status: Never smoker Does the pt drink ETOH?: No Does the pt have substance abuse?: No - Immunizations Immunizations are current?: Yes - POLST Patient has POLST: No POLST Status: Full Code PD ED PE NORMAL - Vitals Vital signs reviewed: Yes (Tachycardic and hypertensive) - General General: Alert and oriented X 3, No acute distress, Well developed/nourished, Other (Flat affect) - HEENT HEENT: Atraumatic, PERRL, EOMI - Neck Neck: Supple, no meningeal sign, No bony TTP - Cardiac Cardiac: RRR, No murmur - Respiratory Respiratory: No respiratory distress, Clear bilaterally - Abdomen Abdomen: Soft, Non tender - Back Back: No CVA TTP, No spinal TTP - Derm Derm: Normal color, Warm and dry, No rash - Extremities Extremities: No deformity, No edema - Neuro Neuro: Alert and oriented X 3, music composition teacher 2-12 intact, No motor deficit, No sensory deficit, Normal speech Eye Opening: Spontaneous Motor: Obeys Commands Verbal: Oriented GCS Score: 15 - Psych Psych: Normal mood, Other (The affect is flattened) Results - Vitals Vitals: Vital Signs - 24 hr 07/10/20 07/10/20 06:27 07:58 Temperature 35.6 C L Heart Rate 104 H 106 H Respiratory 20 22 Rate Blood Pressure 141/67 H 136/78 H O2 Saturation 100 99 Oxygen O2 Source Room air - Labs Labs: Laboratory Tests 07/10/20 07/10/20 07:03 07:03 WBC 6.8 RBC 2.59 L Hgb 8.1 L Hct 25.3 L MCV 97.7 H MCH 31.3 H MCHC 32.0 RDW 16.4 H Plt Count 254 MPV 10.2 Neut # (Auto) 6.4 Lymph # (Auto) 0.2 L Galax # (Auto) 0.2 Eos # (Auto) 0.0 Baso # (Auto) 0.0 Absolute Nucleated RBC 0.00 Nucleated RBC % 0.0 Sodium 133 L Potassium 3.6 Chloride 101 Carbon Dioxide 22 Anion Gap 10.0 BUN 12 Creatinine 0.6 Estimated GFR (MDRD) 161 Glucose 191 H Calcium 7.5 L Total Bilirubin 1.0 AST 67 H ALT 63 H Alkaline Phosphatase 268 H Total Protein 5.2 L Albumin 2.5 L Globulin 2.7 Albumin/Globulin Ratio 0.9 L Lipase 18 L PD MEDICAL DECISION MAKING - ED course Complexity details: reviewed results, re-evaluated patient, considered differential, d/w patient ED course: 70-year-old male with a history of pancreatic cancer who is a diabetic has had a hypoglycemic reaction. He did take his usual dose of insulin last night. Today here in the emergency department he is administered the rest of the D50 and blood work is remarkable except for an anemia which is more profound than he has had previously. I have specifically discussed this finding with the patient in anticipation that should this get worse he may have symptoms of lightheadedness and dizziness or near syncope and asked him to return should he have the symptoms. He has follow-up with his oncologist in 5 days. Departure - Departure Disposition: 01 Home, Self Care Clinical Impression: Hypoglycemia due to insulin Anemia Qualifiers: Anemia type: other cause Other causes of anemia: antineoplastic chemotherapy Qualified Code(s): D64.81 - Anemia due to antineoplastic chemotherapy; T45.1X5A - Adverse effect of antineoplastic and immunosuppressive drugs, initial encounter Condition: Stable Instructions: ED Diabetes Hypoglycemia Insulin React Follow-Up: ROSY Whitlock [Provider Group] Comments: Today it appears you have had a hypoglycemic reaction and you have had a appropriate treatment for this and on your blood work we did discover that you have more anemia than previously. This is likely a reaction to your chemotherapeutic agents. If you become lightheaded and dizzy or have near fainting return to the emergency department for reevaluation. Your hematocrit today is 25.3 the transfusion threshold is 22.
[2020-07-10 09:44] VITALS: BP 134/74
== END 2020-07-10 10:02 | disposition home or self-care (01) ==
LOC: EDUNIT# → ED 06:25
DX: E10.649 Type 1 diabetes mellitus with hypoglycemia without coma (principal); D64.81 Anemia due to antineoplastic chemotherapy; T45.1X5A Adverse effect of antineoplastic and immunosuppressive drugs, initial encounter; D49.0 Neoplasm of unspecified behavior of digestive system; Z79.4 Long term (current) use of insulin; I10 Essential (primary) hypertension
CPT/HCPCS: 36415; 80053; 83690; 85025; 96374; 96375; 99284

== ENCOUNTER 2020-07-23 11:30 | Outpatient (CLI) | payer MEDICARE, OTHER ==
--- NOTE | 2020-07-23 16:17 | CONSULTATION NOTE ---
Palliative Care Follow Up - Referral Referring Provider: Dr. 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 The patient [facility] and Gemcitabine. He had his last treatment on 07/22/2020. He reports that after chemotherapy session the "chemo kicks him down." He is experiencing more bad days after chemotherapy than good. Knees with persistent nausea and vomiting and does not find using zofran effective. It is unclear if he finds Compazine oral or Compazine rectal suppository is effective. Last evening after his chemotherapy he reports increased nausea and vomiting that was not able to be controlled with any of his oral medications. He did not use a rectal suppository. He then presented to the emergency department at [facility] for management of his nausea and vomiting and today is subsequently extremely fatigued. Zyprexa 5 mg ODT was trialed to take in the evenings for nausea however, the patient reports it is unclear if this contributed to any improvement with his nausea. He finds that anything IV is effective for his nausea but anything orally does not seem to manage his symptoms. He is trying to stay hydrated orally and has required IV hydration while at the cancer center in [place]. He is working on alta josé miguel, Gatorade, alta josé miguel as well as smoothies. Earlier this week he was interested in pizza and had a slice that then ultimately resulted in him vomiting not soon after consumption. 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 Denies any visual concerns. The patient recently developed right-sided pleural effusions, likely malignant and required thoracentesis x2 in 1 of these episodes [address] [facility] drain 1.7 L in early June 2020. Fluid was sent for cytology. He then had a Pleurx Catheter placed to right chest wall by Abisai Stevenson. He next have his foll ow-up with hardwood floor finisher July 30. He is being followed by [facility] nursing for management of his Pleurx. Since having the Pleurx in place he is less shortness of breath and is easier to breathe however, when the Pleurx was drained on Monday the patient developed significant systolic hypotension with a systolic blood pressure in the 80s As per home health nurse. And [facility] emergency department on 07/10/2020 due to hypoglycemia, confusion and diaphoresis and was treated for his symptoms. Patient is no longer having any abdominal pain and has stopped all his fentanyl patches. He is no longer using any fentanyl patch or control for pain management at this time. He continues to have persistent intermittent hiccups and previously had received baclofen but he is out of this medication. On initial presentation into the home the patient was found asleep on the couch and was not even arousable to name initially. Palliative care SHUFFLE BOARD OPERATOR had a discussion with the patient's son, Paris prior to the patient's arousal. Past Medical History: Patient has a past medical history of hypertension, hyperlipidemia, coronary artery disease, sleep apnea, peripheral diabetic neuropathy, type 1 diabetes mellitus diagnosed 25 years ago, PTSD, BPH, GERD, renal insufficiency, diabetic retinopathy, depression, panic attacks, osteoarthritis, gout, adenocarcinoma of the pancreas with metastatic lesions in liver and lungs 2020, Covid19 Social History - Living Situation Living arrangement: At home Living Situation: Alone (His unexpectedly in May 2020) Support System: The patient unexpectedly lost his of approximately 30 years in mid May 2020. They had 10 children together. The patient served for 26 years in the [employer] He was born in [facility] and then grew up in [place]. The patient's son, Bobo has taken leave from work and has been with the patient for approximately 6-week overseeing care and management and coordination of appointments. Presently being supported by [facility]. Previously submitted request for [facility] services and assistance and [facility] social security specialist to provide assistance with number [phone], Lorena Meier. Medications/Allergies - Medications Home Medications: Ambulatory Orders Medication Instructions Recorded Confirmed Insulin Aspart (Vial) [NovoLOG 15 - 25 unit SQ TID 10/28/12 06/15/20 (VIAL FOR ED USE)] Insulin Degludec [Tresiba 30 units SUBQ DAILY 08/28/17 06/15/20 Flextouch U-100] Ondansetron Odt [Zofran Odt] 4 mg PO Q6HR PRN 05/30/20 06/15/20 Brimonidine 0.2% Ophth Drops 1 drops TOP PRN PRN 06/02/20 06/15/20 [Alphagan P 0.2% Ophth Drops] Dorzolamide/Timolol/Pf [Timolol 1 drops TOP DAILY 06/02/20 06/15/20 0.5%-Dorzolamide 2%] Naloxone HCl [Narcan] 1 spray PO PRN PRN 06/02/20 06/15/20 Prochlorperazine Maleate 10 mg PO Q6H PRN 06/02/20 06/15/20 Travoprost [Travatan Z] 1 drops TOP BID 06/02/20 06/15/20 polyethylene glycoL 3350 [Miralax] 17 g PO DAILY 06/02/20 06/15/20 Prochlorperazine Supp [Compazine 25 mg [place] DAILY PRN 06/04/20 06/15/20 Supp] Sucralfate [Carafate] 1 gm PO TIDWM 06/23/20 06/23/20 Baclofen 5 mg PO TID PRN 07/23/20 07/23/20 - Allergies Allergies/Adverse Reactions: Allergies Allergy/AdvReac Type Severity Reaction Status Date / Time brompheniramine Allergy Unknown Verified 07/10/20 06:36 codeine Allergy Hives Verified 07/10/20 06:36 egg Allergy Respiratory Verified 07/10/20 06:36 hydrocodone Allergy Unknown Verified 07/10/20 06:36 NSAIDS (Non-Steroidal Allergy Anaphylaxis Verified 07/10/20 06:36 Anti-Inflamma Opioids - Morphine Analogues Allergy Anaphylaxis Verified 07/10/20 06:36 propoxyphene Allergy Unknown Verified 07/10/20 06:36 tuberculin, purified protein Allergy Unknown Verified 07/10/20 06:36 deriva amoxicillin [From Augmentin] AdvReac Unknown Verified 07/10/20 06:36 aspirin AdvReac Anaphylaxis Verified 07/10/20 06:36 clavulanic acid AdvReac Unknown Verified 07/10/20 06:36 [From Augmentin] hydroxyzine [From Vistaril] AdvReac Unknown Verified 07/10/20 06:36 lactose AdvReac Nausea Verified 07/10/20 06:36 meperidine [From Demerol] AdvReac Respiratory Verified 07/10/20 06:36 metformin AdvReac Unknown Verified 07/10/20 06:36 morphine AdvReac Unknown Verified 07/10/20 06:36 procaine [From Novocain] AdvReac Unknown Verified 07/10/20 06:36 promethazine HCl * AdvReac Unknown Verified 07/10/20 06:36 [From Phenergan] diphenhydramine/lidocaine/nystatin Allergy Anaphylaxis Uncoded 07/10/20 06:36 sodium biphosphate AdvReac Unknown Uncoded 07/10/20 06:36 Review of Systems - Constitutional Constitutional: reports: Fatigue, Weight loss (reported weight 180lb). denies: Fever - Eyes Eyes: reports: Other (Diabetic retinopahty) - Ears, Nose & Throat Ears, Nose & Throat: denies: Hearing aids - Cardiovascular Cardiovascular: denies: Chest pain, Edema, Lightheadedness - Respiratory Respiratory: reports: Other (hiccups). denies: Cough - Gastrointestinal Gastrointestinal: reports: Nausea, Vomiting, Poor appetite (see HPI). denies: Abdominal pain, Constipation (reports daily bowel movement), Diarrhea, Rei blood emesis - Genitourinary Genitourinary: denies: Dysuria - Musculoskeletal Musculoskeletal: denies: Assistive devices - Integumentary Integumentary: reports: Dryness (generalized) - Neurological Neurological: denies: Headache, Other (numbness or tingling of extremities) - Psychiatric Psychiatric: reports: Other (PTSD history) - Endocrine Endocrine: reports: Other (Type I DM) - Hematologic/Lymphatic Hematologic/Lymph: reports: Anemia - All Other Systems All Other Systems: reports: Reviewed and negative Physical Exam - Vital Signs Temperature: 36.7 C Pulse Rate: 95 O2 Saturation: 97 (on RA) Blood Pressure: 117/74 (left wrist) - Physical Exam General Appearance: positive: No acute distress, Alert, Other (slightly dishelved, chronically ill appearing) Eyes Bilateral: positive: Other (ecchymosis left upper eyelid without edema) ENT: positive: Other (lips slightly dry) Neck: positive: Trachea midline Cardiovascular: positive: Regular rate & rhythm Respiratory: positive: No respiratory distress, Breath sounds nml, Diminished in bases (RLL), Other (right pleurex cathater in place) Abdomen: positive: Non-tender, Soft, Nml bowel sounds. 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 Able to self feed. Decreased oral intake. Remains continent of bowel and bladder. History of falls. Home health bath aid to support. PPS 50%-60% - Palliative Care Discussion: The patient perceives that with each round of treatment he has increased side effects where he is more painful to manage his symptoms. He relays it is however more bad days after chemotherapy than good days. He questioned oncology yesterday, any more cycles he has and was told that he has 6 more cycles of chemotherapy and this is a goalpost for him as he is not ready to . He does not perceive dying as an option at this. He does not wish to be a burden on his children with 1 son presently in the home overseeing care coordination and management. There are multiple stressors in the home environment given the patient's reduced functional ability to provide self-care due to his lack of oral intake, persistent nausea and vomiting, persistent hiccups and weight loss. The family recognizes as is the patient, that it is not feasible for Him to be alone however, the patient is not willing to give up certain things such as his house in order to provide a monetary assistance for caregivers. Presently, he is being supported by home health physical therapy for strengthening as well as home health for assistance in self-care and hygiene. The patient himself equates that when he was first diagnosed with diabetes mellitus type 2 he was told that he had 1 year to live and he has had 25 years since that original diagnosis. He equates his diabetes mellitus type 1 diagnosis with his pancreatic cancer diagnosis and something that he is able to eat despite recognizing that his chemotherapy is palliative in nature. The patient's son is supportive and will be so to the point that the patient decides to "give up." However, the patient continues to "fight" and therefore he is marching on to making it to the goalpost of completing all cycles of chemotherapy. Gently introduced to the patient in light of the unexpected of his spouse in May 2020 if there was anything that he wished to address for his children and for peace of mind for himself and he related that he does have a living will in place and would want to be contacted comfortable. Introduced POLST and patient elects to be DN AR with selective interventions weighing benefits versus burdens, Antibiotic therapy for symptom management and no artificial nutrition by tube. The patient's son Paris, was present for the POLST discussion and was supportive with no additional interjections. Impression and Recommendations - Palliative Care Impression: This is an unfortunate 70-year-old gentleman who was diagnosed with metastatic adenocarcinoma of the pancreas on palliative chemotherapy with high symptom burden of weight loss, hiccups and persistent nausea and vomiting. The patient is at risk for subsequent sequela especially in the setting of his decreased oral intake and diabetes mellitus type 1. Palliative care will provide support for pain and symptom management, care coordination, advance care planning and anticipatory guidance. Recommendations/Counseling Done: 1. Persistent nausea and vomiting. Likely underlying GERD contributing however, the patient has discontinued much of his medications. Did not find Zyprexa 5 mg ODT nightly beneficial. Patient's oncologist provided refills for oh Danza [place] and Compazine tablets. The patient does have Compazine rectal suppositories available for severe nausea. Encouraged to avoid foods that have a tomato-based or spicy foods that may prompt vomiting. Also encouraged to take small sips such as 1 tablespoon at a time and then waiting 5 to 10 minutes before initiating another step. Continue to encourage oral hydration with Luke warm fluids and small frequent meals. 2. Persistent hiccups. May initiate baclofen 5 mg 1 tablet every 8 hours as needed for hiccups. Rx prescribed to [facility] per patient and son's request. Quantity of 30 tablets prescribed. 3. GERD. Patient continues Carafate 1 g per 10 mL take 10 mL 3 times daily prior to meals to coat the stomach. 4. Pain of neoplastic origin. Patient has multiple opioid allergies. No longer requiring any pain medication and has taken himself off the fentanyl patch. 5. Pancreatic cancer. Patient wishes to continue to proceed with chemotherapy until the end. He is followed by Dr. Rajput at [facility]. 6. Advanced care planning. Complex psychosocial family dynamics.Patient has completed DPOA paperwork designating his daughter, Giovanna and son, Bobo is DPOA's. Presently having support from home health services from signature within the home environment. Patient continues to focus on conceptualizing that he will "beat" his cancer. After lengthy discussion POLST was completed and patient elected to be DN AR with selective interventions. Supportive listening provided and continue to build rapport. Total spine spent 85 minutes with greater than 50% of the spent in counseling coordination of care with the patient and son; review of medication management for symptoms; advance care planning with introduction and completion of POLST;Examination of the patient; Empathetic listening; and Anticipatory guidance. Disclaimer: The chart note was formulated using voice recognition technology and unfortunately sound alike errors may occur.
== END 2020-07-23 11:31 | disposition home or self-care (01) ==
LOC: PC 11:30
PROVIDERS: ATTEND Nurse Practitioner Family
DX: Z51.5 Encounter for palliative care (principal); R11.2 Nausea with vomiting, unspecified; R06.6 Hiccough; K21.9 Gastro-esophageal reflux disease without esophagitis; C25.9 Malignant neoplasm of pancreas, unspecified; C78.7 Secondary malignant neoplasm of liver and intrahepatic bile duct; C78.00 Secondary malignant neoplasm of unspecified lung; I10 Essential (primary) hypertension; E10.42 Type 1 diabetes mellitus with diabetic polyneuropathy; E10.319 Type 1 diabetes mellitus with unspecified diabetic retinopathy without macular edema; Z79.4 Long term (current) use of insulin; Z66 Do not resuscitate
CPT/HCPCS: 99350

== ENCOUNTER 2020-08-04 14:00 | Outpatient (CLI) | payer MEDICARE, OTHER ==
--- NOTE | 2020-08-04 17:34 | CONSULTATION NOTE ---
Palliative Care Follow Up - Referral Referring Provider: Dr. 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 The patient is being followed by Dr. Allison at [facility] receiving Abraxane and Gemcitabine. He continues to report that after each chemotherapy session he is "knocked down royally." He has been seen in the emergency department at [facility] on 07/27 and on 08/04. The patient reports that over Memorial weekend he had such persistent coughing that resulted in him feeling like his "ribs were breaking." He reported much distress and eventually requested that his son take him to the emergency department for evaluation. He has had evidence during both recent emergency department visits that he was hypotensive, mild tachycardia, with hyponatremia and hypokalemia. On last evaluation on 08/04 he was given IV fluids, IV Zofran and IV Protonix. The patient reports that he has been attempting to consume more throughout the course of the day however, he is not consistent with sipping as previously advised for liquids and drinks too much per his son's report. His blood glucose levels are also falling into the 70s and 80s. He continues on Lantus 30 units once daily as well as 12 units of NovoLog prior to meals. He was able to consume some chicken noodle soup today. Last bowel movement was approximately 3 days ago. He reports that his bowel movement and are small in quantity due to limited amount of oral intake. His weight has also decreased to 170 pounds on 08/01 from 185 pounds on 07/20. Continues to have a Pleurx catheter due to pleural effusion that home health nursing is following and is drained twice a week. Home health nurse drained approximately 400 cc of yellow drainage from the Pleurx today. There has been no blood tinge to the output. The patient has not had a fall since his last 1 in June 2020. His certified procedural coder placed him on gabapentin and this has been effective with reducing his persistent hiccups. On presentation today, the patient was having persistent hiccups that abated after approximately 20 minutes of administration of 600 mg of gabapentin. The patient feels as if he is getting a little stronger with ambulating short distances within his home. The patient is seen sitting on his couch upright with no visible distress. He does appear chronically ill-appearing. Past Medical History: Patient has a past medical history of hypertension, hyperlipidemia, coronary artery disease, sleep apnea, peripheral diabetic neuropathy, type 1 diabetes mellitus diagnosed 25 years ago, PTSD, BPH, GERD, renal insufficiency, diabetic retinopathy, depression, panic attacks, osteoarthritis, gout, adenocarcinoma of the pancreas with metastatic lesions in liver and lungs 2020, [id number] S Social History - Living Situation Living arrangement: At home Living Situation: Alone (His unexpectedly in May 2020), With family (son Paris is assisting with caring for the patient for the last 6+ weeks) Support System: The patient unexpectedly lost his of approximately 30 years in mid May 2020. They had 10 children together. The patient served for 26 years in the [employer] and [employer]. He was born in [facility] and then grew up in [place]. The patient's son, Bobo has taken leave from work and has been with the patient for approximately 6-weeks overseeing care and management and coordination of appointments. Another daughter is present from [place] looking for a job and assist with oversite of the patient. Presently being supported by [employer]. Previously submitted request for [facility] services and assistance and [facility] social media community manager to provide assistance with number [phone]. Medications/Allergies - Medications Home Medications: Ambulatory Orders Medication Instructions Recorded Confirmed Insulin Aspart (Vial) [NovoLOG 10 unit SQ TIDWM 10/28/12 06/15/20 (VIAL FOR ED USE)] Ondansetron Odt [Zofran Odt] 4 mg PO Q6HR PRN 05/30/20 06/15/20 Brimonidine 0.2% Ophth Drops 1 drops TOP PRN PRN 06/02/20 06/15/20 [Alphagan P 0.2% Ophth Drops] Dorzolamide/Timolol/Pf [Timolol 1 drops TOP DAILY 06/02/20 06/15/20 0.5%-Dorzolamide 2%] Naloxone HCl [Narcan] 1 spray PO PRN PRN 06/02/20 06/15/20 Prochlorperazine Maleate 10 mg PO Q6H PRN 06/02/20 06/15/20 Travoprost [Travatan Z] 1 drops TOP BID 06/02/20 06/15/20 polyethylene glycoL 3350 [Miralax] 17 g PO DAILY 06/02/20 06/15/20 Prochlorperazine Supp [Compazine 25 mg WI DAILY PRN 06/04/20 06/15/20 Supp] Sucralfate [Carafate] 1 gm PO TIDWM 06/23/20 06/23/20 Baclofen 5 mg PO TID PRN 07/23/20 07/23/20 Gabapentin [Neurontin] 600 mg PO TID 08/04/20 08/04/20 Insulin Glargine [Lantus Solostar] 20 units SQ DAILY 08/04/20 08/04/20 OLANZapine [Zyprexa] 5 mg PO QPM 08/04/20 08/04/20 - Allergies Allergies/Adverse Reactions: Allergies Allergy/AdvReac Type Severity Reaction Status Date / Time brompheniramine Allergy Unknown Verified 07/10/20 06:36 codeine Allergy Hives Verified 07/10/20 06:36 egg Allergy Respiratory Verified 07/10/20 06:36 hydrocodone Allergy Unknown Verified 07/10/20 06:36 NSAIDS (Non-Steroidal Allergy Anaphylaxis Verified 07/10/20 06:36 Anti-Inflamma Opioids - Morphine Analogues Allergy Anaphylaxis Verified 07/10/20 06:36 propoxyphene Allergy Unknown Verified 07/10/20 06:36 tuberculin, purified protein Allergy Unknown Verified 07/10/20 06:36 deriva amoxicillin [From Augmentin] AdvReac Unknown Verified 07/10/20 06:36 aspirin AdvReac Anaphylaxis Verified 07/10/20 06:36 clavulanic acid AdvReac Unknown Verified 07/10/20 06:36 [From Augmentin] hydroxyzine [From Vistaril] AdvReac Unknown Verified 07/10/20 06:36 lactose AdvReac Nausea Verified 07/10/20 06:36 meperidine [From Demerol] AdvReac Respiratory Verified 07/10/20 06:36 metformin AdvReac Unknown Verified 07/10/20 06:36 morphine AdvReac Unknown Verified 07/10/20 06:36 procaine [From Novocain] AdvReac Unknown Verified 07/10/20 06:36 promethazine HCl * AdvReac Unknown Verified 07/10/20 06:36 [From Phenergan] diphenhydramine/lidocaine/nystatin Allergy Anaphylaxis Uncoded 07/10/20 06:36 sodium biphosphate AdvReac Unknown Uncoded 07/10/20 06:36 Review of Systems - Constitutional Constitutional: reports: Fatigue, Weight loss (weight 170lb 08/01/2020;previous 185lb 07/20/2020). denies: Fever - Eyes Eyes: reports: Other (Diabetic retinopahty) - Ears, Nose & Throat Ears, Nose & Throat: denies: Hearing aids - Cardiovascular Cardiovascular: denies: Chest pain - Respiratory Respiratory: reports: Other (hiccups). denies: Cough (see HPI) - Gastrointestinal Gastrointestinal: reports: Constipation (LBM 3 days ago due to decreased oral intakeand not consistently being on top of bowel regimen), Nausea, Vomiting, Poor appetite (see HPI). denies: Abdominal pain, Diarrhea, Rei blood emesis - Genitourinary Genitourinary: reports: Incontinence (intermittent per son's report). denies: Dysuria - Musculoskeletal Musculoskeletal: denies: Assistive devices - Integumentary Integumentary: reports: Dryness (generalized) - Neurological Neurological: denies: Headache, Other (numbness or tingling of extremities) - Psychiatric Psychiatric: reports: Other (PTSD history) - Endocrine Endocrine: reports: Other (Type I DM) - Hematologic/Lymphatic Hematologic/Lymph: reports: Anemia - All Other Systems All Other Systems: reports: Reviewed and negative Physical Exam - Vital Signs Temperature: 36.7 C Pulse Rate: 108 O2 Saturation: 100 (on RA) Blood Pressure: 80/50 (after pleurx drainage) - Physical Exam General Appearance: positive: No acute distress, Alert, Other (slightly dishelved, chronically ill appearing, sitting on egdge of couch upright) Eyes Bilateral: positive: Normal inspection ENT: positive: Other (lips slightly dry) Neck: positive: Trachea midline Cardiovascular: positive: Regular rate & rhythm Respiratory: positive: No respiratory distress, Breath sounds nml, Other (right pleurex cathater in place). negative: Rales Abdomen: positive: Non-tender, Soft, Nml bowel sounds, Other (+hiccups that eventually subsided after gabapentin administration). 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 Son reports intermittent episodes of incontinence of bladder That requires assistance of the son as a caregiver. Patient ambulating with a Rollator with increased mobility. No recent falls since last evaluation. Attempting to increase oral intake. Able to self feed. History of falls. Home health bath aide present to provide support. - Palliative Care Discussion: The patient continues to struggle with adequate nutrition and hydration and most recently has had 2 emergency department visits due to symptom burdens related to his adenocarcinoma of the pancreas as well as effects of chemotherapy. Most specifically, the patient continues to have decreased oral intake that is resulting in hypotension, hypoglycemia, and overall fatigue. He continues to struggle with maintaining consistent adequate hydration as he consumes more liquids at a time versus sipping had required reeducation today. The patient himself continues to report that he wishes to get through all cycles of chemotherapy and this is a goalpost for him. He is aware that he has a poor prognosis of approximately 1 year of life however, he does not wish to address any underlying questions with his oncologist as he "does not want to know the answer." He does not perceive that the multiple episodes of nausea, vomiting and persistent hiccups requiring emergency department visits is fatiguing however, he is "not ready to give up yet" and would not wish to have any heroics if he were to have an event such as a myocardial infarction. He reports of such an event as a myocardial infarction were to occur he would want to be made comfortable and not be a burden to his family. He continues to have optimism about his outcome related to his pancreatic cancer diagnosis in light of his survival with diabetes mellitus type 1 over 25 years when he was given 1 year of life. He is amenable to letting the providers that are providing care to him know when he feels that the burden of treatment and systemic effects outweigh the benefit. The patient's son expresses his concerns regarding the patient's oral intake and continued, gradual decline with a approximate 15 pound weight loss in 2 weeks. The patient's son has asked taken a leave of absence for work to provide care however, he is not trained as a caregiver and expresses concern of continuation. Hospice was gently introduced today.The patient's son is aware of the prognosis of pancreatic cancer but does not wish to further explore hospice. Results - Lab Results Lab results reviewed: Yes Lab and Imaging Results: 07/27 WBC 1.4, hemoglobin 7.7%, hematocrit 23, RDW 17.6, platelet 146, sodium 131, potassium 2.9, BUN 5, creatinine 0.81, estimated GFR greater than 60, glucose 70, 08/04 WBC 7.8, hemoglobin 9.1, hematocrit 27.2%, RDW 19.8, platelet 314, sodium 127, potassium 3.6, BUN 12, creatinine 0.75, glucose 70, Impression and Recommendations - Palliative Care Impression: This is an unfortunate 70-year-old gentleman who was diagnosed with metastatic adenocarcinoma of the pancreas on palliative chemotherapy with high symptom burden with failure to thrive, persistent hiccups and persistent nausea and vomiting. The patient is at risk for subsequent sequela especially in the setting of his decreased oral intake and diabetes mellitus type 1. We will reduce his insulin therapy today as his hypoglycemia may be contributing to some of his symptoms. Also reintroduced Zyprexa for management of his persistent nausea and mild vomiting. Palliative care will continue to provide support for symptom management, care coordination, advance care planning and anticipatory guidance. Recommendations/Counseling Done: 1.Persistent nausea and vomiting. Underlying GERD likely contributing. As he findings worsening symptoms after chemotherapy reinitiate Zyprexa 5 mg nightly with Rx sent to [facility] at patient's request. Continue Compazine and Zofran as needed orally. Patient also has Compazine rectal suppository towards available for severe nausea. Reeducated the need to take small sips at a time and waiting 5 to 10 minutes before initiating another sip. Encourage oral hydration with Gatorade, tea, broth, etc. versus water due to risk of hyponatremia. Continue to encourage lukewarm fluids and small frequent meals. 2.Diabetes mellitus type 1. Blood glucose levels in the 70s. Reduce Lantus fro m 30 units to 20 units daily. Reduce NovoLog to 10 units prior to meals. Have patient teach back regarding instructions. 3. Persistent hiccups. Has found gabapentin effective. Continue gabapentin 300 mg take 2 capsules (600 mg ) 3 times a day for hiccups and educated the need to take consistently. 4. Protein calorie malnutrition. Patient with a 15 pound weight loss and of approximate 2 weeks. Continue to encourage small, frequent meals. However, not unexpected given the patient's history of metastatic adenocarcinoma of the pancreas. Continue to monitor weight loss trends. 5. Constipation. In the setting of sedentary lifestyle and decreased oral intake. Encourage reinitiation of MiraLAX 17 g daily dissolved in 6 to 8 ounces of fluid. Goal bowel movement every 2 to 3 days. 6. Pancreatic cancer. Patient wishes to proceed with chemotherapy weighing benefits versus burdens. He presents with high symptom burden. He is followed by Dr. Allison at [facility]. 7. Advance care planning. Complex psychosocial family dynamics. Patient has POLST in place as DN AR with selective interventions. The patient were to have an event such as a myocardial infarction he wishes to be made comfortable and not be a burden to his family. In the setting of his metastatic adenocarcinoma of the pancreas he continues to move forward with palliative chemotherapy. He h as stated that if the burdens of therapy outweigh the benefit and he becomes too fatigued he will make his healthcare team aware. He is presently being supported by home health nursing. Social work at [facility] is also following and are aware of the complex psychosocial family dynamics. Supportive listening provided. Total time spent 50 minutes with greater than 50% of the spent in counseling coordination of care with the patient, home health RN and daughter; review of medication management for symptoms; supportive listening; examination [place] of the patient; and anticipatory guidance. Contacted the patient's son, Bobo at [phone] and updated regarding plan of care, provided supportive listening, and questions answered and addressed. Contacted HÉCTOR Salmon for Dr. Allison and updated regarding recent medication changes and after mentioned concerns as patient has an appointment with oncology on 08/05. Disclaimer: The chart note was formulated using voice recognition technology and unfortunately sound alike errors may occur.
== END 2020-08-04 14:01 | disposition home or self-care (01) ==
LOC: PC 14:00
PROVIDERS: ATTEND Nurse Practitioner Family
DX: Z51.5 Encounter for palliative care (principal); R11.2 Nausea with vomiting, unspecified; R06.6 Hiccough; K21.9 Gastro-esophageal reflux disease without esophagitis; E10.42 Type 1 diabetes mellitus with diabetic polyneuropathy; E10.319 Type 1 diabetes mellitus with unspecified diabetic retinopathy without macular edema; E46 Unspecified protein-calorie malnutrition; K59.00 Constipation, unspecified; C25.9 Malignant neoplasm of pancreas, unspecified; C78.7 Secondary malignant neoplasm of liver and intrahepatic bile duct; C78.02 Secondary malignant neoplasm of left lung; C78.01 Secondary malignant neoplasm of right lung; J90 Pleural effusion, not elsewhere classified; Z79.4 Long term (current) use of insulin; Z66 Do not resuscitate
CPT/HCPCS: 99349

== ENCOUNTER 2020-08-13 15:00 | Outpatient (CLI) | payer MEDICARE, OTHER ==
--- NOTE | 2020-08-13 17:02 | CONSULTATION NOTE ---
Palliative Care Follow Up - Referral Referring Provider: Dr. 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 The patient is being followed by Dr. Allison at [facility] receiving Abraxane and Gemcitabine. The patient continues to be in frequently going to the emergency department for symptom management. He last went last week after his chemotherapy session reporting that he had intense pain specifically in the middle of his chest and presented at [facility]. He was noted to be febrile and an extensive work- up was performed without noted findings per the patient's report and he was discharged back home. Unfortunately, as the patient presented to the emergency department on Monday which is his typical day for his Pleurx catheter to be drained He once again presented to the emergency department but at this time [facility] her usual hospital. The patient reports that he was admitted over the weekend with further work-up and had his Pleurx catheter drained and he is n ow on levofloxacin for 7 days. The patient reports on Monday when he presented for chemotherapy "was a bad day." Home health nursing was in the home and he reports that he would have been unable to make the appointment without the assistance of the home health nurse to dress and exit the home. At that time he had 700 cc of fluid drained from his Pleurx catheter. Despite waxing and waning symptoms the patient feels as if he is getting stronger. He feels that more items that he is consuming is are staying down and he is having less episodes of emesis. He reports to staying consistent in t aking Zyprexa 5 mg in the evening was initiated last visit. His blood glucose levels have also improved and have been in the 120s. The patient today is having a recent fall. The patient is seen lying on his couch with no visible distress. He appears chronically ill-appearing. Past Medical History: Patient has a past medical history of hypertension, hyperlipidemia, coronary artery disease, sleep apnea, peripheral diabetic neuropathy, type 1 diabetes mellitus diagnosed 25 years ago, PTSD, BPH, GERD, renal insufficiency, diabetic retinopathy, depression, panic attacks, osteoarthritis, gout, adenocarcinoma of the pancreas with metastatic lesions in liver and lungs 2020, Covid19 Social History - Living Situation Living arrangement: At home Living Situation: Alone (His unexpectedly in May 2020), With family (son Paris is assisting with caring for the patient for the last 6+ weeks and a daughter is in the home from [place] but she now has ajob out of the home and is not present during the day) Support System: The patient unexpectedly lost his of approximately 30 years in mid May 2020. They had 10 children together. The patient served for 26 years in the [employer]. He was born in [facility] and then grew up in [place]. The patient's son, Paris has taken leave from work and has been with the patient for approximately 6-weeks overseeing care and management and coordination of appointments. Presently being supported by [employer]. Concerns have been reported to APS by [facility] and patient's PCP Dr.Jacqueline Whiteside regarding the patient's safety that is known to this INTERNAL AUDIT DIRECTOR. Medications/Allergies - Medications Home Medications: Ambulatory Orders Medication Instructions Recorded Confirmed Insulin Aspart (Vial) [NovoLOG 10 unit SQ TIDWM 10/28/12 06/15/20 (VIAL FOR ED USE)] Ondansetron Odt [Zofran Odt] 4 mg PO Q6HR PRN 05/30/20 06/15/20 Brimonidine 0.2% Ophth Drops 1 drops TOP PRN PRN 06/02/20 06/15/20 [Alphagan P 0.2% Ophth Drops] Dorzolamide/Timolol/Pf [Timolol 1 drops TOP DAILY 06/02/20 06/15/20 0.5%-Dorzolamide 2%] Naloxone HCl [Narcan] 1 spray PO PRN PRN 06/02/20 06/15/20 Prochlorperazine Maleate 10 mg PO Q6H PRN 06/02/20 06/15/20 Travoprost [Travatan Z] 1 drops TOP BID 06/02/20 06/15/20 polyethylene glycoL 3350 [Miralax] 17 g PO DAILY 06/02/20 06/15/20 Prochlorperazine Supp [Compazine 25 mg [place] DAILY PRN 06/04/20 06/15/20 Supp] Sucralfate [Carafate] 1 gm PO TIDWM 06/23/20 06/23/20 Gabapentin [Neurontin] 600 mg PO TID 08/04/20 08/04/20 Insulin Glargine [Lantus Solostar] 20 units SQ DAILY 08/04/20 08/04/20 OLANZapine [Zyprexa] 5 mg PO QPM 08/04/20 08/04/20 levoFLOXacin [Levofloxacin] 1 tab PO DAILY MDD x7 days 08/14/20 08/14/20 - Allergies Allergies/Adverse Reactions: Allergies Allergy/AdvReac Type Severity Reaction Status Date / Time brompheniramine Allergy Unknown Verified 07/10/20 06:36 codeine Allergy Hives Verified 07/10/20 06:36 egg Allergy Respiratory Verified 07/10/20 06:36 hydrocodone Allergy Unknown Verified 07/10/20 06:36 NSAIDS (Non-Steroidal Allergy Anaphylaxis Verified 07/10/20 06:36 Anti-Inflamma Opioids - Morphine Analogues Allergy Anaphylaxis Verified 07/10/20 06:36 propoxyphene Allergy Unknown Verified 07/10/20 06:36 tuberculin, purified protein Allergy Unknown Verified 07/10/20 06:36 deriva amoxicillin [From Augmentin] AdvReac Unknown Verified 07/10/20 06:36 aspirin AdvReac Anaphylaxis Verified 07/10/20 06:36 clavulanic acid AdvReac Unknown Verified 07/10/20 06:36 [From Augmentin] hydroxyzine [From Vistaril] AdvReac Unknown Verified 07/10/20 06:36 lactose AdvReac Nausea Verified 07/10/20 06:36 meperidine [From Demerol] AdvReac Respiratory Verified 07/10/20 06:36 metformin AdvReac Unknown Verified 07/10/20 06:36 morphine AdvReac Unknown Verified 07/10/20 06:36 procaine [From Novocain] AdvReac Unknown Verified 07/10/20 06:36 promethazine HCl * AdvReac Unknown Verified 07/10/20 06:36 [From Phenergan] diphenhydramine/lidocaine/nystatin Allergy Anaphylaxis Uncoded 07/10/20 06:36 sodium biphosphate AdvReac Unknown Uncoded 07/10/20 06:36 Review of Systems - Constitutional Constitutional: reports: Fatigue, Weight loss (weight 170lb 08/01/2020;previous 185lb 07/20/2020). denies: Fever (resolved, see HPI, was in ED with fever) - Eyes Eyes: reports: Other (Diabetic retinopahty) - Ears, Nose & Throat Ears, Nose & Throat: denies: Hearing aids - Cardiovascular Cardiovascular: reports: Edema (noted pedally that started a few days ago). denies: Chest pain - Respiratory Respiratory: reports: Other (hiccups and right pleux cathater present). denies: Cough - Gastrointestinal Gastrointestinal: reports: Constipation (controlled), Nausea, Vomiting, Poor appetite (see HPI). denies: Abdominal pain, Diarrhea - Genitourinary Genitourinary: denies: Dysuria - Musculoskeletal Musculoskeletal: reports: Assistive devices (using rollator but isnot always consistent about use) - Integumentary Integumentary: reports: Dryness (generalized) - Neurological Neurological: denies: Headache, Other (numbness or tingling of extremities) - Psychiatric Psychiatric: reports: Other (PTSD history) - Endocrine Endocrine: reports: Other (Type I DM) - Hematologic/Lymphatic Hematologic/Lymph: reports: Anemia (1 unit of PRBC administered while hospitalized) - All Other Systems All Other Systems: reports: Reviewed and negative Physical Exam - Vital Signs Temperature: 36.4 C Pulse Rate: 84 O2 Saturation: 98 (on RA) Blood Pressure: 137/77 - Physical Exam General Appearance: positive: No acute distress, Alert, Other (slightly dishelved, chronically ill appearing,laying down on couch in living room) Eyes Bilateral: positive: Normal inspection ENT: positive: No signs of dehydration Neck: positive: Trachea midline Cardiovascular: positive: Regular rate & rhythm Respiratory: positive: No respiratory distress, Breath sounds nml, Other (right pleurex cathater in place) Abdomen: positive: Non-tender, Soft, Nml bowel sounds. 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 Reiterated again today to the patient the need to sip on fluids versus is quick consumption. Review today with the patient regarding all his frequent trips to the emergency department for symptom management and the fatigue that he has been affiliated with this. The patient himself continues to wish to present to the emergency department for management and treatment and he desires to "fight until the end" as he will continue to handle as much as he can. He recognizes that he has a terminal illness and will verbalize this but in the same context perceives that he will "beat this." He continues to wish to proceed through his cycles of chemotherapy any has acknowledged that if it were to become a point where the burdens outweigh the benefits he would speak And notify the healthcare staff. The patient has had multiple traumas in his life upon his reflection and despite all this he is not want to view things negatively. He does rely on his chris and he does have a high tolerance of believe. He has been supported by his spouses Jose C Lacquerer who has been coming to the home. Impression and Recommendations - Palliative Care Impression: This is an unfortunate 70-year-old gentleman who was diagnosed with metastatic adenocarcinoma of the pancreas on palliative chemotherapy with continued high symptom burden of failure to thrive, persistent hiccups and persistent nausea and vomiting. He has developed pedal edema in the setting of protein calorie malnutrition secondary to low albumin as most likely contributing factor. His blood glucose levels are in a more acceptable range after dose reduction of his insulin in the setting of his oral intake.Palliative care will continue to provide support for symptom management, care coordination, advance care planning and anticipatory guidance. Recommendations/Counseling Done: 1. Persistent nausea and vomiting with underlying GERD. Verbally reports improvement bilateral pinnae and external canals appear within normal limits. Bilateral tympanic membranes without erythema, dullness or perforation. Of Zyprexa 5 mg nightly. We will continue Zyprexa 5 mg nightly. Continue Compazine and Zofran as needed orally. Patient also has Compazine rectal suppository available for severe nausea. Again, reeducated the patient to take small sips at a time with fluids. Hold also encourage lukewarm fluids and would push oral hydration in between meals. Recommend continuation of oral hydration with Gatorade, tea, broth versus water due to risk of hyponatremia. 2. Protein calorie malnutrition. Continue to encourage small, frequent meals. Continue to monitor weight loss trends. 3. Pedal edema. Likely contributing factor is protein calorie malnutrition and likely low albumin level. Reviewed pathophysiology with the patient and his son regarding low albumin contributing to development of edema. Encourage elevation of bilateral lower extremities when at rest. Continue to monitor. 4. Pancreatic cancer. Patient has Pleurx for malignant pleural effusion presently being followed by home health nursing. Patient is on palliative chemotherapy and continues to wish to proceed with chemotherapy despite high symptom burden with the benefits of chemotherapy outweighing the burdens. He is followed by Dr. Allison at [facility]. 5.Advance care planning. Complex psychosocial family dynamics. Patient has a POLST in place as DN AR with selective interventions. The patient remains optimistic that his ability to "beat this" in terms of his oncological diagnosis as he was able to continue to live after diagnosis of type 1 diabetes mellitus when he was given a life expectancy of 1 year after diagnosis. Social work at [facility] is following. Also provided contact information for community mental health social worker at the [place] to the patient and his son today to determine any additional benefits that may be available to the patient within the home setting. The patient has been quite clear and adamant that he does not wish to leave his home but does present with increased caregiving needs. Total time spent 60 minutes with greater than 50% of this spent in counseling and coordination of care with patient and son,Paris; supportive listening provided; introduced future need for education regarding how to drain pluerx catheter by caregivers/family in home; review of pain and symptom management and anticipatory guidance. Disclaimer: The chart note was formulated using voice recognition technology and unfortunately sound alike errors may occur.
== END 2020-08-13 15:01 | disposition home or self-care (01) ==
LOC: PC 15:00
PROVIDERS: ATTEND Nurse Practitioner Family
DX: Z51.5 Encounter for palliative care (principal); K21.9 Gastro-esophageal reflux disease without esophagitis; E46 Unspecified protein-calorie malnutrition; R60.0 Localized edema; C25.9 Malignant neoplasm of pancreas, unspecified; C78.7 Secondary malignant neoplasm of liver and intrahepatic bile duct; C78.00 Secondary malignant neoplasm of unspecified lung; K86.81 Exocrine pancreatic insufficiency; E10.42 Type 1 diabetes mellitus with diabetic polyneuropathy; E10.319 Type 1 diabetes mellitus with unspecified diabetic retinopathy without macular edema; Z79.4 Long term (current) use of insulin; Z86.16 Personal history of COVID-19; Z79.899 Other long term (current) drug therapy; Z97.8 Presence of other specified devices; Z66 Do not resuscitate
CPT/HCPCS: 99350

== ENCOUNTER 2020-08-23 05:32 | Emergency (ER) | payer MEDICARE, OTHER ==
--- NOTE | 2020-08-23 06:23 | ED Physician Documentation ---
History of Present Illness - Stated complaint Stated Complaint: SORE BOTTOM - Chief complaint Chief Complaint: General - History obtained from History obtained from: Patient - History of Present Illness Timing: How many weeks ago (1) - Additonal information Additional information: 70-year-old male on palliative chemotherapy for advanced pancreatic cancer has developed diarrhea and he is complaining that it hurts very bad to wipe. Review of Systems Constitutional: denies: Fever Cardiac: denies: Chest pain / pressure GI: reports: Diarrhea Skin: denies: Rash PD PAST MEDICAL HISTORY - Past Medical History Past Medical History: Yes Cardiovascular: Hypertension, High cholesterol, Coronary artery disease Respiratory: Sleep apnea Neuro: Peripheral neuropathy Endocrine/Autoimmune: Type 1 diabetes GI: GERD : Benign prostate hypertrophy, Renal insuffiency, Kidney stones HEENT: Glaucoma, Other Psych: Depression, Panic attacks, Post traumatic stress disorder Musculoskeletal: Osteoarthritis, Gout Derm: Psoriasis - Past Surgical History Past Surgical History: Yes General: Cholecystectomy, Colonoscopy, EGD Ortho: Arthroscopic surgery /CONSTRUCTION SERVICES TECHNICIAN: Other (Kidney stone removal) Cardiovascular: Cardiac catheterization, Angioplasty HEENT: Cataracts - Present Medications Home Medications: Ambulatory Orders Medication Instructions Recorded Confirmed Insulin Aspart (Vial) [NovoLOG 10 unit SQ TIDWM 10/28/12 06/15/20 (VIAL FOR ED USE)] Ondansetron Odt [Zofran Odt] 4 mg PO Q6HR PRN 05/30/20 06/15/20 Brimonidine 0.2% Ophth Drops 1 drops TOP PRN PRN 06/02/20 06/15/20 [Alphagan P 0.2% Ophth Drops] Dorzolamide/Timolol/Pf [Timolol 1 drops TOP DAILY 06/02/20 06/15/20 0.5%-Dorzolamide 2%] Naloxone HCl [Narcan] 1 spray PO PRN PRN 06/02/20 06/15/20 Prochlorperazine Maleate 10 mg PO Q6H PRN 06/02/20 06/15/20 Travoprost [Travatan Z] 1 drops TOP BID 06/02/20 06/15/20 polyethylene glycoL 3350 [Miralax] 17 g PO DAILY 06/02/20 06/15/20 Prochlorperazine Supp [Compazine 25 mg [place] DAILY PRN 06/04/20 06/15/20 Supp] Sucralfate [Carafate] 1 gm PO TIDWM 06/23/20 06/23/20 Gabapentin [Neurontin] 600 mg PO TID 08/04/20 08/04/20 Insulin Glargine [Lantus Solostar] 20 units SQ DAILY 08/04/20 08/04/20 OLANZapine [Zyprexa] 5 mg PO QPM 08/04/20 08/04/20 levoFLOXacin [Levofloxacin] 1 tab PO DAILY MDD x7 days 08/14/20 08/14/20 Oxycodone HCl/Acetaminophen 1 - 2 each PO Q6H PRN #14 tablet 08/23/20 [Percocet 5-325 mg Tablet] - Allergies Allergies/Adverse Reactions: Allergies Allergy/AdvReac Type Severity Reaction Status Date / Time brompheniramine Allergy Unknown Verified 07/10/20 06:36 codeine Allergy Hives Verified 07/10/20 06:36 egg Allergy Respiratory Verified 07/10/20 06:36 hydrocodone Allergy Unknown Verified 07/10/20 06:36 NSAIDS (Non-Steroidal Allergy Anaphylaxis Verified 07/10/20 06:36 Anti-Inflamma Opioids - Morphine Analogues Allergy Anaphylaxis Verified 07/10/20 06:36 propoxyphene Allergy Unknown Verified 07/10/20 06:36 tuberculin, purified protein Allergy Unknown Verified 07/10/20 06:36 deriva amoxicillin [From Augmentin] AdvReac Unknown Verified 08/23/20 05:35 aspirin AdvReac Anaphylaxis Verified 08/23/20 05:35 clavulanic acid AdvReac Unknown Verified 08/23/20 05:35 [From Augmentin] hydroxyzine [From Vistaril] AdvReac Unknown Verified 08/23/20 05:35 lactose AdvReac Nausea Verified 08/23/20 05:35 meperidine [From Demerol] AdvReac Respiratory Verified 08/23/20 05:35 metformin AdvReac Unknown Verified 08/23/20 05:35 morphine AdvReac Unknown Verified 08/23/20 05:35 procaine [From Novocain] AdvReac Unknown Verified 08/23/20 05:35 promethazine HCl * AdvReac Unknown Verified 08/23/20 05:35 [From Phenergan] diphenhydramine/lidocaine/nystatin Allergy Anaphylaxis Uncoded 08/23/20 05:35 sodium biphosphate AdvReac Unknown Uncoded 08/23/20 05:35 - Social History Does the pt smoke?: No Smoking Status: Never smoker Does the pt drink ETOH?: No Does the pt have substance abuse?: No - Immunizations Immunizations are current?: Yes - POLST Patient has POLST: Yes POLST Status: Full Code PD ED PE NORMAL - Vitals Vital signs reviewed: Yes (normal ) - General General: Alert and oriented X 3, No acute distress, Well developed/nourished, Other (The patient is laying on the right side appears thinner than the last time I saw him. ) - HEENT HEENT: Atraumatic, PERRL, EOMI - Respiratory Respiratory: No respiratory distress - Rectal Rectal: Other (The rectum itself appears normal there is a grade 1 pressure ulcer on the right sacral area.) - Derm Derm: Normal color, Warm and dry, No rash - Extremities Extremities: No deformity - Neuro Neuro: Alert and oriented X 3, oil distributor 2-12 intact, No motor deficit, No sensory deficit, Normal speech Eye Opening: Spontaneous Motor: Obeys Commands Verbal: Oriented GCS Score: 15 - Psych Psych: Normal mood, Normal affect Results - Vitals Vitals: Vital Signs - 24 hr 08/23/20 05:35 Temperature 36.6 C Heart Rate 55 L Respiratory 16 Rate Blood Pressure 116/74 O2 Saturation 92 Oxygen O2 Source Room air PD MEDICAL DECISION MAKING - ED course Complexity details: considered differential, d/w patient ED course: 70-year-old male undergoing treatment for pancreatic cancer has developed pressure ulcer to the sacrum which is painful. He is prescribed some pain medication and a duoderm dressing is placed to the pressure ulcer Departure - Departure Disposition: 01 Home, Self Care Clinical Impression: Pressure ulcer of sacral region, stage 1 Condition: Stable Instructions: ED Pressure Injury Follow-Up: JUANITO IRAHETA MD [Primary Care Provider] - Prescriptions: Oxycodone HCl/Acetaminophen [Percocet 5-325 mg Tablet] 1 - 2 each PO Q6H PRN #14 tablet PRN Reason: pain
[2020-08-23 06:49] VITALS: BP 114/76
== END 2020-08-23 06:48 | disposition home or self-care (01) ==
LOC: ED 05:32
DX: L89.151 Pressure ulcer of sacral region, stage 1 (principal); C25.9 Malignant neoplasm of pancreas, unspecified; K86.81 Exocrine pancreatic insufficiency; E10.22 Type 1 diabetes mellitus with diabetic chronic kidney disease; E10.42 Type 1 diabetes mellitus with diabetic polyneuropathy; I12.9 Hypertensive chronic kidney disease with stage 1 through stage 4 chronic kidney disease, or unspecified chronic kidney disease; N18.9 Chronic kidney disease, unspecified; Z79.4 Long term (current) use of insulin
CPT/HCPCS: 99282; 99283